=== PATIENT | male | born 1965 | race Caucasian/White ===

== ENCOUNTER 2017-12-21 13:57 | Emergency (ER) | payer OTHER ==
[2017-12-21] MEDS ORDERED: PANTOPRAZOLE 40 MG/10 ML VIAL IVP STA (14:08)
[2017-12-21] MEDS ORDERED: SODIUM CHLORIDE 0.9% 500 ML IV STA (14:08)
[2017-12-21] MEDS ORDERED: SODIUM CHLORIDE 0.9% 1,000 ML IV STA ×2 (14:08)
[2017-12-21] MEDS ORDERED: ONDANSETRON 4 MG/2 ML VIAL IVP STA (14:08)
[2017-12-21] MEDS ORDERED: MORPHINE SULFATE 4 MG/ML SYRINGE IV STA (14:08)
[2017-12-21 14:11] VITALS: RESP 16
[2017-12-21 14:18] LABS: Basophils # (A) 0.1 k/uL (0-0.2); Basophils % (A) 1 %; Eosinophils # (A) 0.1 k/uL (0-0.7); Eosinophils % (A) 2 %; HCT 53.3 % (39.0-53.0); Lymphocytes # (A) 0.7 k/uL (1.0-4.8); Lymphocytes % (A) 9 %; MCH 29.4 pg (25.0-35.0); MCHC 31.8 g/dL (31.0-37.0); MCV 92.5 fL (80.0-100.0); Mean Platelet Volume 6.5; Monocytes # (A) 0.2 k/uL (0-1.0); Monocytes % (A) 3 %; Neutrophils # (A) 6.6 k/uL (1.3-7.7); Neutrophils % (A) 85 %; Platelet Count 306 k/uL (150-450); RBC 5.76 m/uL (4.30-5.90); RDW 13.9 % (11.5-15.5); WBC 7.7 k/uL (3.8-10.6)
[2017-12-21 14:27] LABS: ALT 18 U/L (21-72); AST 29 U/L (17-59); Albumin 4.7 g/dL (3.5-5.0); Alkaline Phosphatase 64 U/L (38-126); Amylase 121 U/L (30-110); Anion Gap 13 mmol/L; Blood Urea Nitrogen 9 mg/dL (9-20); Calcium 9.5 mg/dL (8.4-10.2); Carbon Dioxide 20 mmol/L (22-30); Chloride 112 mmol/L (98-107); Glucose 103 mg/dL (74-99); Lipase 153 U/L (23-300); Sodium 145 mmol/L (137-145); Total Bilirubin 0.6 mg/dL (0.2-1.3); Total Protein 7.6 g/dL (6.3-8.2)
[2017-12-21 14:43] LABS: Creatine Kinase 175 U/L (55-170)
[2017-12-21 14:46] LABS: Potassium 4.6 mmol/L (3.5-5.1)
[2017-12-21 14:56] LABS: Creatine Kinase MB 0.9 ng/mL (0.0-2.4); Troponin I <0.012 ng/mL (0.000-0.034)
--- NOTE | 2017-12-21 16:04 | ED ---
General Adult HPI - General Chief complaint: Abdominal Pain Stated complaint: NVD Time Seen by Provider: 12/21/17 14:08 Source: patient, RN/MD, RN notes reviewed, old records reviewed Mode of arrival: EMS - History of Present Illness Initial comments: This is a 52-year-old male to the ER for evaluation nausea vomiting diarrhea GI illness. Patient has no known sick contacts no travel history. Denies fever denies abdominal pain. Patient states he is just unable to keep food down at home. No recent change in medications. No modifying factors or modifying symptoms for - Related Data Home Medications Medication Instructions Recorded Confirmed tiZANidine [Zanaflex] 4 mg PO Q8HR PRN 04/02/16 12/21/17 HYDROcodone/APAP 5-325MG [[place] 1 tab PO TID PRN 12/21/17 12/21/17 5-325] Meloxicam [Mobic] 15 mg PO DAILY 12/21/17 12/21/17 Topiramate [Topamax] 50 mg PO BID 12/21/17 12/21/17 Previous Rx's Medication Instructions Recorded Famotidine [Pepcid] 20 mg PO BID #28 tablet 12/21/17 Ondansetron Odt [Zofran ODT] 4 mg PO Q8HR PRN #30 tab 12/21/17 Allergies Allergy/AdvReac Type Severity Reaction Status Date / Time No Known Allergies Allergy Verified 04/02/16 23:47 Review of Systems ROS Statement: Those systems with pertinent positive or pertinent negative responses have been documented in the HPI. ROS Other: All systems not noted in ROS Statement are negative. Past Medical History Past Medical History: Coronary Artery Disease (CAD), Chest Pain / Angina, Hyperlipidemia, Hypertension, Neurologic Disorder Additional Past Medical History / Comment(s): peripheral neuropathy History of Any Multi-Drug Resistant Organisms: None Reported Past Surgical History: Heart Catheterization, Hernia Repair, Orthopedic Surgery Additional Past Surgical History / Comment(s): cervical fusion Past Anesthesia/Blood Transfusion Reactions: Postoperative Nausea & Vomiting ( PONV) Past Psychological History: Depression Smoking Status: Current some day smoker Past Alcohol Use History: Occasional Past Drug Use History: Marijuana - Past Family History Mother Family Medical History: Chest Pain / Angina, Coronary Artery Disease (CAD) Father Family Medical History: Chest Pain / Angina, Coronary Artery Disease (CAD) Additional Family Medical History / Comment(s): pts. father has a-fib General Exam General appearance: alert, in no apparent distress Head exam: Present: atraumatic, normocephalic, normal inspection Eye exam: Present: normal appearance, PERRL, EOMI. Absent: scleral icterus, conjunctival injection, periorbital swelling ENT exam: Present: normal exam, mucous membranes moist Neck exam: Present: normal inspection. Absent: tenderness, meningismus, lymphadenopathy Respiratory exam: Present: normal lung sounds bilaterally. Absent: respiratory distress, wheezes, rales, rhonchi, stridor Cardiovascular Exam: Present: regular rate, normal rhythm, normal heart sounds. Absent: systolic murmur, diastolic murmur, rubs, gallop, clicks GI/Abdominal exam: Present: soft, normal bowel sounds. Absent: distended, tenderness, guarding, rebound, rigid Extremities exam: Present: normal inspection, full ROM, normal capillary refill. Absent: tenderness, pedal edema, joint swelling, calf tenderness Back exam: Present: normal inspection Neurological exam: Present: alert, oriented X3, CN II-XII intact Psychiatric exam: Present: normal affect, normal mood Skin exam: Present: warm, dry, intact, normal color. Absent: rash Course Vital Signs 12/21/17 12/21/17 14:03 17:05 Temperature 98.2 F 98 F Pulse Rate 89 87 Respiratory 16 16 Rate Blood Pressure 160/106 160/98 O2 Sat by Pulse 100 98 Oximetry Medical Decision Making - Medical Decision Making 52 male the ER for evaluation nausea vomiting diarrhea. Patient feels significantly improved, patient can be discharged - Lab Data Result diagrams: 12/21/17 14:07 12/21/17 14:07 Lab Results 12/21/17 12/21/17 12/21/17 Range/Units 14:07 14:07 14:07 WBC 7.7 (3.8-10.6) k/uL RBC 5.76 (4.30-5.90) m/uL Hgb 17.0 (13.0-17.5) gm/dL Hct 53.3 H (39.0-53.0) % MCV 92.5 (80.0-100.0) fL MCH 29.4 (25.0-35.0) pg MCHC 31.8 (31.0-37.0) g/dL RDW 13.9 (11.5-15.5) % Plt Count 306 (150-450) k/uL Neutrophils % 85 % Lymphocytes % 9 % Monocytes % 3 % Eosinophils % 2 % Basophils % 1 % Neutrophils # 6.6 (1.3-7.7) k/uL Lymphocytes # 0.7 L (1.0-4.8) k/uL Monocytes # 0.2 (0-1.0) k/uL Eosinophils # 0.1 (0-0.7) k/uL Basophils # 0.1 (0-0.2) k/uL Sodium 145 (137-145) mmol/L Potassium 4.6 (3.5-5.1) mmol/L Chloride 112 H (98-107) mmol/L Carbon Dioxide 20 L (22-30) mmol/L Anion Gap 13 mmol/L BUN 9 (9-20) mg/dL Creatinine 0.90 (0.66-1.25) mg/dL Est GFR (MDRD) Af Amer >60 (>60 ml/min/1.73 sqM) Est GFR (MDRD) Non-Af >60 (>60 ml/min/1.73 sqM) Glucose 103 H (74-99) mg/dL Lactic Ac Sepsis Rflx Plasma Lactic Acid Ervin (0.7-2.0) mmol/L Calcium 9.5 (8.4-10.2) mg/dL Total Bilirubin 0.6 (0.2-1.3) mg/dL AST 29 (17-59) U/L ALT 18 L (21-72) U/L Alkaline Phosphatase 64 (38-126) U/L Total Creatine Kinase 175 H (55-170) U/L CK-MB (CK-2) 0.9 (0.0-2.4) ng/mL CK-MB (CK-2) Rel Index 0.5 Troponin I <0.012 (0.000-0.034) ng/mL Total Protein 7.6 (6.3-8.2) g/dL Albumin 4.7 (3.5-5.0) g/dL Amylase 121 H (30-110) U/L Lipase 153 (23-300) U/L 12/21/17 12/21/17 Range/Units 14:19 14:52 WBC (3.8-10.6) k/uL RBC (4.30-5.90) m/uL Hgb (13.0-17.5) gm/dL Hct (39.0-53.0) % MCV (80.0-100.0) fL MCH (25.0-35.0) pg MCHC (31.0-37.0) g/dL RDW (11.5-15.5) % Plt Count (150-450) k/uL Neutrophils % % Lymphocytes % % Monocytes % % Eosinophils % % Basophils % % Neutrophils # (1.3-7.7) k/uL Lymphocytes # (1.0-4.8) k/uL Monocytes # (0-1.0) k/uL Eosinophils # (0-0.7) k/uL Basophils # (0-0.2) k/uL Sodium (137-145) mmol/L Potassium (3.5-5.1) mmol/L Chloride (98-107) mmol/L Carbon Dioxide (22-30) mmol/L Anion Gap mmol/L BUN (9-20) mg/dL Creatinine (0.66-1.25) mg/dL Est GFR (MDRD) Af Amer (>60 ml/min/1.73 sqM) Est GFR (MDRD) Non-Af (>60 ml/min/1.73 sqM) Glucose (74-99) mg/dL Lactic Ac Sepsis Rflx Y Plasma Lactic Acid Ervin 2.3 H* (0.7-2.0) mmol/L Calcium (8.4-10.2) mg/dL Total Bilirubin (0.2-1.3) mg/dL AST (17-59) U/L ALT (21-72) U/L Alkaline Phosphatase (38-126) U/L Total Creatine Kinase (55-170) U/L CK-MB (CK-2) (0.0-2.4) ng/mL CK-MB (CK-2) Rel Index Troponin I (0.000-0.034) ng/mL Total Protein (6.3-8.2) g/dL Albumin (3.5-5.0) g/dL Amylase (30-110) U/L Lipase (23-300) U/L Disposition Clinical Impression: Abdominal pain Disposition: HOME SELF-CARE Condition: Good Instructions: Abdominal Pain (ED) Prescriptions: Famotidine [Pepcid] 20 mg PO BID #28 tablet Ondansetron Odt [Zofran ODT] 4 mg PO Q8HR PRN #30 tab PRN Reason: nausea/vomiting Referrals: Aminata Rodriguez MD [Primary Care Provider] - 1-2 days
[2017-12-21 17:06] VITALS: BP 160/98; PULSE 87; TEMP 98
== END 2017-12-21 15:47 | disposition home or self-care (01) ==
LOC: EC 13:57
DX: R10.9 Unspecified abdominal pain (principal); R11.2 Nausea with vomiting, unspecified; R19.7 Diarrhea, unspecified; G62.9 Polyneuropathy, unspecified; F17.200 Nicotine dependence, unspecified, uncomplicated; Z79.1 Long term (current) use of non-steroidal anti-inflammatories (NSAID); Z79.899 Other long term (current) drug therapy
CPT/HCPCS: 99285; 96374; 96375 ×2; 36415; 80053; 82150; 82550; 82553; 83605; 83690; 84484; 85025; J2270; J2405; C9113

== ENCOUNTER 2018-04-05 09:20 | Inpatient (IN) | payer OTHER ==
[2018-04-05] MEDS ORDERED: NITROGLYCERIN SL TABS 0.4 MG TAB SUBLINGUAL STA ×3 (09:42)
[2018-04-05] MEDS ORDERED: ASPIRIN 81 MG PO STA (09:42)
[2018-04-05] MEDS ORDERED: SODIUM CHLORIDE 0.9% 500 ML IV STA (09:42)
[2018-04-05] MEDS ORDERED: ATORVASTATIN 80 MG TAB PO STA (09:42)
[2018-04-05] MEDS ORDERED: HEPARIN SODIUM,PORCINE 5,000 UNIT/ML 1 ML VIAL IV ONE (09:43)
[2018-04-05] MEDS ORDERED: ONDANSETRON 4 MG/2 ML VIAL IVP STA (09:50)
--- NOTE | 2018-04-05 09:51 | ED ---
General Adult HPI - General Chief complaint: Chest Pain Stated complaint: Chest pain Time Seen by Provider: 04/05/18 09:30 Source: patient, RN notes reviewed Mode of arrival: wheelchair Limitations: no limitations - History of Present Illness Initial comments: This is a 53-year-old male who presents emergency Department with chest pain. Patient denies any radiation of the pain. Patient states he is however short of breath diaphoretic and nauseated. Patient also has a smoking history has high blood pressure high cholesterol has a strong family history of heart disease. Patient denies any recent fever chills or cough. Patient denies abdominal pain. Patient denies any headache patient denies numbness weakness. Patient denies lightheadedness dizziness or near syncopal episode. Patient states he took his blood pressure medication prior to arrival. Patient denies taking any nitro or aspirin at home. - Related Data Home Medications Medication Instructions Recorded Confirmed tiZANidine [Zanaflex] 4 mg PO Q8HR PRN 04/02/16 12/21/17 HYDROcodone/APAP 5-325MG [[place] 1 tab PO TID PRN 12/21/17 12/21/17 5-325] Meloxicam [Mobic] 15 mg PO DAILY 12/21/17 12/21/17 Topiramate [Topamax] 50 mg PO BID 12/21/17 12/21/17 Previous Rx's Medication Instructions Recorded Famotidine [Pepcid] 20 mg PO BID #28 tablet 12/21/17 Ondansetron Odt [Zofran ODT] 4 mg PO Q8HR PRN #30 tab 12/21/17 Allergies Allergy/AdvReac Type Severity Reaction Status Date / Time No Known Allergies Allergy Verified 04/05/18 09:24 Review of Systems ROS Statement: Those systems with pertinent positive or pertinent negative responses have been documented in the HPI. ROS Other: All systems not noted in ROS Statement are negative. Past Medical History Past Medical History: Coronary Artery Disease (CAD), Chest Pain / Angina, Hyperlipidemia, Hypertension, Myocardial Infarction ([place]), Neurologic Disorder Additional Past Medical History / Comment(s): peripheral neuropathy History of Any Multi-Drug Resistant Organisms: None Reported Past Surgical History: Heart Catheterization, Hernia Repair, Orthopedic Surgery Additional Past Surgical History / Comment(s): cervical fusion Past Anesthesia/Blood Transfusion Reactions: Postoperative Nausea & Vomiting ( PONV) Past Psychological History: Depression Smoking Status: Current every day smoker Past Alcohol Use History: Occasional Past Drug Use History: Marijuana - Past Family History Mother Family Medical History: Chest Pain / Angina, Coronary Artery Disease (CAD) Father Family Medical History: Chest Pain / Angina, Coronary Artery Disease (CAD) Additional Family Medical History / Comment(s): pts. father has a-fib General Exam - General Exam Comments Initial Comments: GENERAL: Patient is well-developed and well-nourished. Patient is nontoxic and well- hydrated and is in mild distress. Patient is diaphoretic ENT: Neck is soft and supple. No significant lymphadenopathy is noted. Oropharynx is clear. Moist mucous membranes. Neck has full range of motion without eliciting any pain. EYES: The sclera were anicteric and conjunctiva were pink and moist. Extraocular movements were intact and pupils were equal round and reactive to light. Eyelids were unremarkable. PULMONARY: Unlabored respirations. Good breath sounds bilaterally. No audible rales rhonchi or wheezing was noted. CARDIOVASCULAR: There is a regular rate and rhythm without any murmurs gallops or rubs. ABDOMEN: Soft and nontender with normal bowel sounds. No palpable organomegaly was noted. There is no palpable pulsatile mass. SKIN: Skin is clear with no lesions or rashes and otherwise unremarkable. NEUROLOGIC: Patient is alert and oriented x3. Cranial nerves II through XII are grossly intact. Motor and sensory are also intact. Normal speech, volume and content. Symmetrical smile. MUSCULOSKELETAL: Normal extremities with adequate strength and full range of motion. No lower extremity swelling or edema. No calf tenderness. LYMPHATICS: No significant lymphadenopathy is noted PSYCHIATRIC: Normal psychiatric evaluation. Normal interpersonal interactions appears functionally intact in deals appropriately with others. No signs of depression. No signs of anxiety. Limitations: no limitations Course Vital Signs 04/05/18 09:22 Temperature 98.2 F Pulse Rate 68 Respiratory 24 Rate Blood Pressure 203/115 O2 Sat by Pulse 96 Oximetry Medical Decision Making - Medical Decision Making EKG shows a sinus rhythm at a rate of 69 bpm [place] interval is 162 QRS is 102 QT interval 424 QTC is 454. Patient's EKG shows ST segment elevation in leads II, III, and F aVF with ST segment depression in leads V1 and V2. Patient appears to be having an acute [place]. I spoke with Dr. Murry after I called a STEMI overhead. Patient will be prepped for the catheterization lab. I gave the patient nitroglycerin aspirin heparin bolus and Lipitor. Patient also received Zofran because he was nauseated. Critical Care Time Critical Care Time: Yes Total Critical Care Time: 35 Disposition Clinical Impression: ST elevation myocardial infarction (STEMI) Disposition: ADMITTED IP TO THIS HOSP Referrals: Aminata Rodriguez MD [Primary Care Provider] - 1-2 days Time of Disposition: 09:51
[2018-04-05 09:57] LABS: Basophils # (A) 0.1 k/uL (0-0.2); Basophils % (A) 1 %; Eosinophils # (A) 0.1 k/uL (0-0.7); Eosinophils % (A) 2 %; HCT 50.9 % (39.0-53.0); HGB 17.1 gm/dL (13.0-17.5); Lymphocytes # (A) 1.2 k/uL (1.0-4.8); Lymphocytes % (A) 15 %; MCH 30.1 pg (25.0-35.0); MCHC 33.6 g/dL (31.0-37.0); MCV 89.6 fL (80.0-100.0); Mean Platelet Volume 6.5; Monocytes # (A) 0.4 k/uL (0-1.0); Monocytes % (A) 4 %; Neutrophils # (A) 6.2 k/uL (1.3-7.7); Neutrophils % (A) 77 %; Platelet Count 270 k/uL (150-450); RBC 5.68 m/uL (4.30-5.90); RDW 13.7 % (11.5-15.5)
[2018-04-05] MEDS ORDERED: NITROGLYCERIN-D5W PMX 50 MG in DEXTROSE/WATER 1 250ML.BAG IV SCH (10:00)
[2018-04-05 10:06] LABS: Albumin 4.8 g/dL (3.5-5.0); Calcium 9.8 mg/dL (8.4-10.2); Partial Thromboplastin Time 27.5 sec (22.0-30.0); Potassium 4.2 mmol/L (3.5-5.1); Prothrombin Time 9.5 sec (9.0-12.0); Total Bilirubin 0.4 mg/dL (0.2-1.3); Total Protein 7.5 g/dL (6.3-8.2)
--- NOTE | 2018-04-05 10:12 | XR ---
EXAMINATION TYPE: XR chest 1V DATE OF EXAM: 04/05/2018 COMPARISON: Prior chest x-ray November 25, 2015. HISTORY: ST elevated myocardial infarction TECHNIQUE: Single frontal view of the chest is obtained. FINDINGS: Overlying EKG wires are present. There is no focal air space opacity, pleural effusion, or pneumothorax seen. The cardiac silhouette size is within normal limits. Retrocardiac opacity could reflect small hiatal hernia. The osseous structures are intact. IMPRESSION: No acute pulmonary process.
[2018-04-05] MEDS ORDERED: SODIUM CHLORIDE 0.9% 1,000 ML IV ONE (10:30)
[2018-04-05] MEDS ORDERED: LIDOCAINE 2% INJ 20 MG/ML SQ ONE (10:32)
[2018-04-05] MEDS ORDERED: diphenhydrAMINE 50 MG/ML 1 ML VIAL IVP ONE (10:33)
[2018-04-05] MEDS ORDERED: fentaNYL (PF) 50 MCG/ML 2 ML AMP IVP ONE (10:33)
[2018-04-05] MEDS ORDERED: fentaNYL (PF) 50 MCG/ML 2 ML AMP ONE (10:35)
[2018-04-05] MEDS ORDERED: diphenhydrAMINE 50 MG/ML 1 ML VIAL ONE (10:35)
[2018-04-05 10:40] LABS: Creatine Kinase MB 4.3 ng/mL (0.0-2.4); Troponin I 0.748 ng/mL (0.000-0.034)
[2018-04-05] MEDS ORDERED: METOPROLOL TARTRATE 5 MG/5 ML VIAL IVP ONE ×2 (10:44→10:46)
[2018-04-05] MEDS: NITROGLYCERIN 1000MCG/10ML SYRINGE INTRAARTER ONE ×2 (10:47→11:32)
[2018-04-05] MEDS ORDERED: BIVALIRUDIN BOLUS 250 MG/50 ML IV ONE (10:54)
[2018-04-05] MEDS ORDERED: BIVALIRUDIN 250 MG in SODIUM CHLORIDE 0.9% 50 ML IV ONE (10:55)
[2018-04-05] MEDS ORDERED: IOPAMIDOL-370 125ML BTL INJ ONE (10:59)
[2018-04-05] MEDS ORDERED: MIDAZOLAM 2 MG/2 ML VIAL ONE (11:02)
[2018-04-05] MEDS ORDERED: MIDAZOLAM 2 MG/2 ML VIAL IVP ONE (11:02)
--- NOTE | 2018-04-05 11:19 | CONS ---
CONSULTATION DATE OF SERVICE: 04/05/2018. 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 He came into the hospital with chest pain starting at about 6 in the morning, heavy pressure, with diaphoresis, suggestive of acute myocardial ischemia. His EKG revealed inferior ST elevation and a STEMI alert was called. I evaluated the patient in the emergency room. He is hemodynamically stable. His pain has improved somewhat. He received 3 sublingual nitroglycerin and also probably some morphine as well. His blood pressure is good. He smokes marijuana and cigarettes on a regular basis. Does not drink alcohol. He has significant back discomfort and has been having some radiofrequency ablation of some nerves in the back by Dr. Brown. He does not have any syncope or near-syncope type symptoms. PAST MEDICAL HISTORY: 1. Past medical history is remarkable for myocardial infarction with PTCA of a PLV branch. Details are not clear. 2. History of smoking cigarettes and marijuana. 3. History of degenerative joint disease of cervical spine for which he had surgery in the past. He has also had some hernia operation as well. He has had a cervical spine fusion surgery performed. He still has issues with back pain and takes some radiofrequency injections and stopped all his medications including aspirin. He stopped taking atorvastatin which he was on 2 years ago. PHYSICAL EXAM: Blood pressure of 150/90, pulse rate is about 78 per minute regular. HEENT: Unremarkable. Fundus was not examined by me. NECK: Supple. No JVD. I do not hear a carotid bruit. There is no thyromegaly. HEART: Exam reveals S1, S2 heard normally. No rub, murmur or gallop. LUNGS: Clear. ABDOMEN: Soft, nontender. Lower extremities reveal normal pulses. No edema. CENTRAL NERVOUS SYSTEM: Normal. EKG revealed sinus mechanism with inferior ST elevation and precordial ST depression. IMPRESSION: 1. Acute inferior ST elevation myocardial infarction. 2. Marijuana and tobacco abuse. 3. History of prior PLV occlusion, details unclear. 4. History of cervical spine surgery. RECOMMENDATIONS: I am recommending urgent cardiac catheterization and PCI if indicated. Risks, benefits, options, rationale were explained to the patient and . They understand all details and wished to proceed with the procedure. MMODL / IJN: [id number] / MTDD
[2018-04-05] MEDS ORDERED: niCARdipine 25 MG/10 ML VIAL ONE (11:24)
[2018-04-05] MEDS ORDERED: niCARdipine Syringe (1,000 mcg/10 mL) INTRACORON ONE (11:27)
[2018-04-05] MEDS ORDERED: TICAGRELOR 90 MG TAB ONE (11:36)
[2018-04-05] MEDS ORDERED: TICAGRELOR 90 MG TAB PO ONE (11:37)
[2018-04-05] MEDS ORDERED: MORPHINE SULF 5MG/10ML VL ONE (11:38)
[2018-04-05] MEDS ORDERED: MORPHINE SULF 5MG/10ML VL IVP ONE ×2 (11:39)
[2018-04-05] MEDS ORDERED: IOPAMIDOL-370 100ML BTL INJ ONE (11:41)
[2018-04-05] MEDS ORDERED: ATROPINE SULFATE 0.1 MG/ML 10ML SYRINGE IV PRN (11:54)
[2018-04-05] MEDS ORDERED: MAG HYDROX/AL HYDROX/SIMETH 30 ML CUP PO PRN (11:54)
[2018-04-05] MEDS ORDERED: RX INFO: IV CONTRAST WAS GIVEN 1 EACH MISC MISCELLANE PRN (11:54)
[2018-04-05] MEDS ORDERED: NITROGLYCERIN SL TABS 0.4 MG TAB SUBLINGUAL PRN (11:54)
[2018-04-05] MEDS ORDERED: ZOLPIDEM 5 MG TAB PO PRN (11:54)
[2018-04-05 12:28] LABS: Glucose,Whole Blood 124 mg/dL (75-99)
[2018-04-05] MEDS: NICOTINE 14MG/24HR PATCH TRANSDERM SCH (14:09)
--- NOTE | 2018-04-05 14:22 | P.HPIM ---
History of Present Illness H&P Date: 04/05/18 Devendra Magdaleno, is a 53-year-old male who presented to [facility] emergency Department with a chief complaint of chest pain. Patient states that he woke up at 6 AM this morning with a feeling of pressure in the middle of his chest Patient denies any radiation of the pain. Patient also was having shortness of breath diaphoresis and nausea but no vomiting. Patient has a known history of coronary artery disease was previous history of myocardial infarction in 2009 at time he had angioplasty but there was no stent placement. His cardiac risk factors also include hypertension, hyperlipidemia, cigarette smoking , and a strong family history of coronary artery disease. On review of system patient denies any fever or chills no headache or dizziness no cough no vomiting no abdominal pain no burning with urination no frequency or urgency and no hematuria Past Medical History Past Medical History: Coronary Artery Disease (CAD), Chest Pain / Angina, Hyperlipidemia, Hypertension, Myocardial Infarction ([place]), Neurologic Disorder Additional Past Medical History / Comment(s): peripheral neuropathy Last Myocardial Infarction Date:: 2009 History of Any Multi-Drug Resistant Organisms: None Reported Past Surgical History: Heart Catheterization, Hernia Repair, Orthopedic Surgery Additional Past Surgical History / Comment(s): cervical fusion Past Anesthesia/Blood Transfusion Reactions: Postoperative Nausea & Vomiting ( PONV) Past Psychological History: Depression Additional Psychological History / Comment(s): pt. states," my depression and i are cool together" Smoking Status: Current every day smoker Past Alcohol Use History: Occasional Past Drug Use History: Marijuana - Past Family History Mother Family Medical History: Hypertension, Osteoarthritis (OA), Thyroid Disorder Father Family Medical History: Chest Pain / Angina, Coronary Artery Disease (CAD) Additional Family Medical History / Comment(s): pts. father has a-fib, leukemia Medications and Allergies Home Medications Medication Instructions Recorded Confirmed Type tiZANidine [Zanaflex] 4 mg PO Q8HR PRN 04/02/16 12/21/17 History Famotidine [Pepcid] 20 mg PO BID #28 tablet 12/21/17 Rx HYDROcodone/APAP 5-325MG [[place] 1 tab PO TID PRN 12/21/17 12/21/17 History 5-325] Meloxicam [Mobic] 15 mg PO DAILY 12/21/17 12/21/17 History Ondansetron Odt [Zofran ODT] 4 mg PO Q8HR PRN #30 tab 12/21/17 Rx Topiramate [Topamax] 50 mg PO BID 12/21/17 12/21/17 History Allergies Allergy/AdvReac Type Severity Reaction Status Date / Time No Known Allergies Allergy Verified 04/05/18 09:24 Physical Exam Vitals: Vital Signs Temp Pulse Resp BP BP Pulse Ox 04/05/18 13:09 20 169/110 95 04/05/18 12:39 98 F 18 146/92 96 04/05/18 12:24 98.0 F 18 146/92 96 04/05/18 10:12 98.0 F 18 145/91 96 04/05/18 10:10 75 18 166/105 99 04/05/18 10:05 65 16 159/101 100 04/05/18 09:42 73 18 167/104 100 04/05/18 09:30 62 18 184/102 100 04/05/18 09:22 98.2 F 68 24 203/115 96 Intake and Output 04/04/18 04/05/18 04/05/18 22:59 06:59 14:59 Intake Total 345 Output Total 300 Balance 45 Intake: IV 345 Output: Urine 300 Other: Weight 79.379 kg HEENT head normocephalic and atraumatic Neck is supple no JVD no goiter no lymphadenopathy Chest exam reveals a few scattered crackles no wheezing Cardiac exam reveals regular heart sounds no gallops no murmurs Abdomen is soft nontender no organomegaly Extremity exam reveals no edema no cyanosis or clubbing Results CBC & Chem 7: 04/05/18 09:48 04/05/18 09:48 Labs: Abnormal Lab Results - Last 24 Hours (Table) 04/05/18 04/05/18 04/05/18 Range/Units 09:48 09:48 12:23 Chloride 109 H (98-107) mmol/L Glucose 116 H (74-99) mg/dL POC Glucose (mg/dL) 124 H (75-99) mg/dL Total Creatine Kinase 327 H (55-170) U/L CK-MB (CK-2) 4.3 H* (0.0-2.4) ng/mL Troponin I 0.748 H* (0.000-0.034) ng/mL 04/05/18 Range/Units 12:36 Chloride (98-107) mmol/L Glucose (74-99) mg/dL POC Glucose (mg/dL) (75-99) mg/dL Total Creatine Kinase (55-170) U/L CK-MB (CK-2) (0.0-2.4) ng/mL Troponin I 6.610 H* (0.000-0.034) ng/mL Thrombosis Risk Factor Assmnt - Choose All That Apply Each Factor Represents 1 point: Acute [place], Age 41-60 years Thrombosis Risk Factor Assessment Total Risk Factor Score: 2 Thrombosis Risk Factor Assessment Level: Low Risk Assessment and Plan Plan: #[address] elevation myocardial infarction #2 underlying history of hypertension #3 underlying history of hyperlipidemia #4 tobacco abuse #5 previous history of degenerative disc disease was previous neck surgery On arrival to emergency room patient was 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
[2018-04-05] MEDS ORDERED: amLODIPine 5 MG TAB PO STA (14:46)
[2018-04-05] MEDS: ONDANSETRON 4 MG/2 ML VIAL IVP PRN ×2 (15:00→21:29)
[2018-04-05] MEDS: SODIUM CHLORIDE 0.9% 1,000 ML IV SCH (15:11)
--- NOTE | 2018-04-05 16:13 | CC ---
CARDIAC CATHETERIZATION REPORT DATE OF SERVICE: 04/05/2018. PROCEDURE: 1. Left heart catheterization, coronary angiography. 2. PTCA and stenting of mid right coronary artery with a drug-eluting stent. PERFORMED BY: Dr. Zenobia Murry. ANESTHESIA: Moderate conscious sedation time was 70 minutes. Patient was monitored closely for oxygen saturation, hemodynamics and EKG. CLINICAL INFORMATION: Mr. Devendra Magdaleno is a 53-year-old gentleman with a known history of CAD who presented with acute UT and underwent stenting of a PLV branch, which was a very difficult procedure to perform in 2009 and this vessel was totally occluded in 2010. 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 He came into the hospital with classic symptoms of chest discomfort and had inferior ST elevation was promptly advised cardiac catheterization. Risks, benefits, and options were explained to the patient and . PROCEDURE NOTE: Under local anesthesia and strict aseptic precautions, a 6-Argentine introducer was placed in the right femoral artery. I used a standard right Jose guide catheter to cannulate the right coronary artery noted that was totally occluded in the circumflex actually arising from the right coronary artery. I then did selective coronary angiography of the left system using a standard left Jose catheter and checked LV pressures but did not perform a LV-gram. After this, I proceeded to perform intervention of the totally occluded RCA which is a technically very difficult procedure with because of extreme tortuosity. CARDIAC CATHETERIZATION FINDINGS: The left ventricle end-diastolic pressure was 8-10 mmHg without any gradient across aortic valve. CORONARY ANGIOGRAPHY FINDINGS: The right coronary artery: This vessel is totally occluded and seen as a stump after a conus branch and acute marginal branch which is highly diseased. The mid LAD is therefore totally occluded proximal LAD has a 40% lesion. Interestingly, a circumflex branch actually comes off from the proximal aspect of the RCA, runs to the left and supplies the circumflex distribution. Circumflex has in itself an 80% lesion. RCA is 100% stenosis. Circumflex that arises from the RCA has 80% lesion. Left anterior descending coronary artery: This vessel is of good caliber, gives off a large diagonal branch proximally, has minor irregularities and then the mid LAD has about a 70% lesion eccentric in nature with calcification and then runs all the way to the apex to supply a sizable amount of myocardium. The mid LAD therefore has a 70% lesion very eccentric in nature and diagonal is free of significant disease. There are several small septal branches that are free of significant disease also. Circumflex coronary artery: This vessel has a separate origin and it comes from the right coronary artery. It is very tortuous, goes to the left, has a 70-80% lesion and gives off into 3 different branches that curves over to supply the lateral wall and there are multiple lesions in the circumflex vessel, but this does not appear to be the culprit lesion at this time. There are at least two 70-80% lesions in the circumflex system. FINAL IMPRESSION: 1. This patient has total occlusion of RCA which is the culprit lesion. Circumflex coming from the RCA has a has at least 2 areas of 70 and 90% and is a small caliber vessel, but it appears supply a fair amount of myocardium. 2. Left anterior descending coronary artery, this vessel has a mid lesion of about 70% heavily calcified and the diagonal is large, free of significant disease. The left ventricle end-diastolic pressure is normal and there is no gradient across aortic valve. RECOMMENDATION: I recommended PCI of RCA and proceeded to perform this in the same setting. PCI DETAILS: A standard right Jose guide catheter was used to cannulate the right coronary artery. I tried a BMW wire initially, then switched over to a Whisper wire. With this I was able to cross the lesion, wire was kept distally. I performed a dilatation of the total occlusion with a 3.0 caliber 12 mm balloon. I then used a used a GuideLiner and with the help of the GuideLiner, I was able to advance a 3.25 caliber 12 mm long Xience stent and deployed this at 14 atmospheres. Using the same GuideLiner, I advanced a 3.75 caliber 12 mm NC Trek balloon and post dilated this stent with it up to 14 atmospheres. Distally it appeared that there was a tight lesion in the PDA branch and also PLV was occluded as well. PLV was occluded distally without much flow beyond. I decided not to do any intervention of the PDA branch at this time. The proximal RCA had about a 40% to 50% lesion. I took multiple angiograms and noted that the lesion was no more than 40% and did not pursue intervention of the proximal RCA. The mid RCA therefore was stented with a drug-eluting stent. Excellent angiographic result was achieved without complication. The sheath was taken out and a Perclose device used to secure hemostasis and he was sent to the room in stable condition. Results were discussed with the patient, but his was not available. MMOWEN / VIKASHN: [id number] /
[2018-04-05] MEDS ORDERED: tiZANidine 4 MG TAB PO PRN (16:36)
[2018-04-05] MEDS ORDERED: amLODIPine 5 MG TAB PO SCH (21:00)
[2018-04-05] MEDS: TOPIRAMATE 25 MG TAB PO SCH (21:28)
[2018-04-05] MEDS ORDERED: LISINOPRIL 20 MG TAB PO ONE (21:37)
[2018-04-06] MEDS: SODIUM CHLORIDE 0.9% 1,000 ML IV SCH ×2 (02:23→16:23)
[2018-04-06 03:49] LABS: Basophils # (A) 0.1 k/uL (0-0.2); Basophils % (A) 0 %; Eosinophils # (A) 0.1 k/uL (0-0.7); Eosinophils % (A) 1 %; HCT 47.2 % (39.0-53.0); HGB 15.9 gm/dL (13.0-17.5); Lymphocytes # (A) 1.6 k/uL (1.0-4.8); Lymphocytes % (A) 11 %; MCH 30.5 pg (25.0-35.0); MCHC 33.8 g/dL (31.0-37.0); MCV 90.2 fL (80.0-100.0); Mean Platelet Volume 6.4; Monocytes # (A) 1.1 k/uL (0-1.0); Monocytes % (A) 7 %; Neutrophils # (A) 12.3 k/uL (1.3-7.7); Neutrophils % (A) 80 %; Platelet Count 278 k/uL (150-450); RBC 5.23 m/uL (4.30-5.90); RDW 13.6 % (11.5-15.5); WBC 15.4 k/uL (3.8-10.6)
[2018-04-06 04:04] LABS: ALT 50 U/L (21-72); AST 196 U/L (17-59); Albumin 3.7 g/dL (3.5-5.0); Alkaline Phosphatase 73 U/L (38-126); Anion Gap 11 mmol/L; Blood Urea Nitrogen 12 mg/dL (9-20); Calcium 9.2 mg/dL (8.4-10.2); Carbon Dioxide 19 mmol/L (22-30); Chloride 110 mmol/L (98-107); Glucose 101 mg/dL (74-99); Magnesium 1.9 mg/dL (1.6-2.3); Phosphorus 3.5 mg/dL (2.5-4.5); Potassium 3.5 mmol/L (3.5-5.1); Sodium 140 mmol/L (137-145); Total Bilirubin 0.6 mg/dL (0.2-1.3)
[2018-04-06] MEDS: NITROGLYCERIN OINT 1 INCH/GM PACKET TOPICAL SCH ×5 (05:30→23:36)
[2018-04-06] MEDS: amLODIPine 5 MG TAB PO SCH ×2 (08:09→20:57)
[2018-04-06] MEDS: DULoxetine HCL 30 MG CAPSULE.DR PO SCH (08:09)
[2018-04-06] MEDS: MELOXICAM 7.5 MG TAB PO SCH (08:09)
[2018-04-06] MEDS: ASPIRIN 81 MG PO SCH (08:09)
[2018-04-06] MEDS: TOPIRAMATE 25 MG TAB PO SCH ×2 (08:10→20:59)
[2018-04-06] MEDS: TICAGRELOR 90 MG TAB PO SCH ×2 (08:10→20:58)
[2018-04-06] MEDS: NICOTINE 14MG/24HR PATCH TRANSDERM SCH (08:10)
[2018-04-06] MEDS ORDERED: METOPROLOL TARTRATE 12.5 MG TAB PO STA (08:29)
[2018-04-06] MEDS ORDERED: POTASSIUM CHLORIDE ER 20 MEQ TAB.ER PO ONE (09:00)
[2018-04-06] MEDS ORDERED: MAGNESIUM SULFATE-D5W PMX 1 GM in DEXTROSE/WATER 1 100ML.BAG IVPB ONE (09:00)
[2018-04-06] MEDS ORDERED: LISINOPRIL 10 MG TAB PO SCH (09:00)
[2018-04-06] MEDS ORDERED: METOPROLOL TARTRATE 12.5 MG TAB PO SCH (09:00)
[2018-04-06 09:42] VITALS: RESP 18
--- NOTE | 2018-04-06 09:47 | PN ---
PROGRESS NOTE Mr. Magdaleno presented with acute inferior ST-elevation CT. This morning, he is feeling much better. His right groin is clean and dry. He had stenting of a totally occluded dominant RCA but there is distal disease in the PDA. Excellent angiographic result was achieved. Hemodynamically stable. No anginal symptoms. Blood pressure control is good. His potassium is somewhat low as is magnesium. I am recommending that we increase beta bloker and lisinopril supplement magnesium and potassium. Increase activity and move him to telemetry. Blood pressure 138/84, pulse rate is 76 per minute S1-S2 heard normally lungs are clear abdomen looks exam unchanged right groin is clean and dry. There is no JVD or carotid bruit. MMODL / IJN: [id number] /
--- NOTE | 2018-04-06 11:06 | P.PN ---
Subjective Progress Note Date: 04/06/18 Devendra Magdaleno, is a 53-year-old male who presented to [facility] emergency Department with a chief complaint of chest pain. Patient states that he woke up at 6 AM this morning with a feeling of pressure in the middle of his chest Patient denies any radiation of the pain. Patient also was having shortness of breath diaphoresis and nausea but no vomiting. Patient has a known history of coronary artery disease was previous history of myocardial infarction in 2009 at time he had angioplasty but there was no stent placement. His cardiac risk factors also include hypertension, hyperlipidemia, cigarette smoking , and a strong family history of coronary artery disease. On review of system patient denies any fever or chills no headache or dizziness no cough no vomiting no abdominal pain no burning with urination no frequency or urgency and no hematuria 04/06/2018 patient had heart catheterization with stents to the mid RCA yesterday. He remains in the ICU. He is stable. White count did jump up to 15.3. No evidence of any new infection. Patient has no new complaints. Denies any chest pain or shortness of breath. Denies any cough. Denies any nausea or vomiting. Denies any bowel movement changes or urinary symptoms. Echo pending Objective - Vital Signs Vital signs: Vital Signs Temp 97.9 F 04/06/18 04:00 Pulse 73 04/06/18 09:00 Resp 18 04/06/18 09:00 BP 139/83 04/06/18 09:00 Pulse Ox 100 04/06/18 09:00 Intake & Output 04/05/18 04/06/18 04/06/18 18:59 06:59 18:59 Intake Total 645 851.75 225 Output Total 900 1271 100 Balance -255 -419.25 125 Weight 79.379 kg 77.2 kg Intake: IV 345 825 225 Sodium Chloride 0.9% 1, 825 225 000 ml @ 75 mls/hr IV . [id number] [facility] Rx#:[id number] Intake, IV Titration 300 26.75 Amount Nitroglycerin-D5w Pmx 50 26.75 mg In Dextrose/Water 1 250ml.bag @ 10 MCG/MIN 3 mls/hr IV .Q24H [facility] Rx#: [id number] Sodium Chloride 0.9% 1, 300 000 ml @ 75 mls/hr IV . [id number] [facility] Rx#:[id number] Output: Urine 900 1270 100 Urine/Stool Mix 1 Other: Voiding Method Urinal Urinal # Voids 0 1 0 # Bowel Movements 1 - Exam Head normocephalic Neck supple Lungs clear to auscultation bilaterally no wheezing or crackles Heart regular rate and rhythm S1-S2, no rub or gallop Abdomen is soft nontender nondistended positive bowel sounds no hepatosplenomegaly Extremities no edema. Right groin site clean dry and intact no hematoma no evidence of infection Neuro alert and orientated to 3 - Labs CBC & Chem 7: 04/06/18 03:35 04/06/18 03:35 Labs: Abnormal Lab Results - Last 24 Hours (Table) 04/05/18 04/05/18 04/05/18 Range/Units 12:23 12:36 21:31 WBC (3.8-10.6) k/uL Neutrophils # (1.3-7.7) k/uL Monocytes # (0-1.0) k/uL Chloride (98-107) mmol/L Carbon Dioxide (22-30) mmol/L Glucose (74-99) mg/dL POC Glucose (mg/dL) 124 H (75-99) mg/dL AST (17-59) U/L Troponin I 6.610 H* 44.300 H* (0.000-0.034) ng/mL Total Protein (6.3-8.2) g/dL 04/06/1818 04/06/18 Range/Units 03:35 03:35 03:35 WBC 15.4 H (3.8-10.6) k/uL Neutrophils # 12.3 H (1.3-7.7) k/uL Monocytes # 1.1 H (0-1.0) k/uL Chloride 110 H (98-107) mmol/L Carbon Dioxide 19 L (22-30) mmol/L Glucose 101 H (74-99) mg/dL POC Glucose (mg/dL) (75-99) mg/dL AST 196 H (17-59) U/L Troponin I 41.100 H* (0.000-0.034) ng/mL Total Protein 6.0 L (6.3-8.2) g/dL Assessment and Plan Assessment: #[address] elevation myocardial infarction: Status post heart catheterization with stent to the mid RCA. Cardiology following closely. Echo pending. Patient is on aspirin 81 mg daily, Brilinta, Domo, beta shilpa and Lipitor #2 underlying history of hypertension #3 underlying history of hyperlipidemia #4 tobacco abuse #5 previous history of degenerative disc disease was previous neck surgery #6 leukocytosis: Possibly reactive from the [place]. We'll monitor. No signs or symptoms of an acute infection I performed an examination of the patient and discussed their management with the physician Cpr Ambulance Driver. I have reviewed the Physician Cpr Ambulance Driver's notes and agree with the documented findings and plan of care
[2018-04-06 13:47] VITALS: BMI 25.9
--- NOTE | 2018-04-06 13:47 | ECHOF ---
Referral Reason:STEMI MEASUREMENTS -------- HEIGHT: 172.7 cm WEIGHT: 79.4 kg BP: 136/84 IVSd: 1.0 cm (0.6 - 1.1) LVIDd: 4.7 cm (3.9 - 5.3) LVPWd: 1.1 cm (0.6 - 1.1) IVSs: 1.6 cm LVIDs: 3.6 cm LVPWs: 1.3 cm LAESV Index (A-L): 29.67 ml/m Ao Diam: 3.3 cm (2.0 - 3.7) AV Cusp: 1.7 cm (1.5 - 2.6) LA Diam: 4.1 cm (2.7 - 3.8) MV EXCURSION: 20.824 mm (> 18.000) MV EF SLOPE: 52 mm/s (70 - 150) EPSS: 1.0 cm MV E Orlando: 0.89 m/s MV DecT: 182 ms MV A [place]: 0.96 m/s MV E/A Ratio: 0.93 RAP: 5.00 mmHg RVSP: 9.45 mmHg FINDINGS -------- Sinus rhythm. This was a technically adequate study. The left ventricular size is normal. There is mild concentric left ventricular hypertrophy. Overa ll left ventricular systolic function is moderately impaired with, an EF between 35 - 40 %. Basal i nferior LV wall motion is hypokinetic. Basal inferoseptal LV wall motion is hypokinetic. Mid in ferior LV wall motion is hypokinetic. Apical inferior LV wall motion is hypokinetic. The right ventricle is normal in size and function. LA is midly dilated 29-33ml/m2. The right atrial size is normal. The aortic valve is trileaflet, and appears structurally normal. No aortic stenosis or regurgitation. The mitral valve leaflets are mildly thickened. There is trace mitral regurgitation. Mild tricuspid regurgitation present. The right ventricular systolic pressure, as measured by Doppl er, is 9.45mmHg. There is no pulmonic regurgitation present. The aortic root size is normal. Normal inferior vena cava with normal inspiratory collapse consistent with estimated right atrial pre ssure of 5 mmHg. There is a small, generalized pericardial effusion present. Small Pleural Effusion. CONCLUSIONS -------- 1. Sinus rhythm. 2. This was a technically adequate study. 3. The left ventricular size is normal. 4. There is mild concentric left ventricular hypertrophy. 5. Overall left ventricular systolic function is moderately impaired with, an EF between 35 - 40 %. 6. Basal inferior LV wall motion is hypokinetic. 7. Basal inferoseptal LV wall motion is hypokinetic. 8. Mid inferior LV wall motion is hypokinetic. 9. Apical inferior LV wall motion is hypokinetic. 10. LA is midly dilated 29-33ml/m2. 11. The right atrial size is normal. 12. The aortic valve is trileaflet, and appears structurally normal. No aortic stenosis or regurgitat ion. 13. The mitral valve leaflets are mildly thickened. 14. There is trace mitral regurgitation. 15. Mild tricuspid regurgitation present. 16. The right ventricular systolic pressure, as measured by Doppler, is 9.45mmHg. 17. There is no pulmonic regurgitation present. 18. The aortic root size is normal. 19. Normal inferior vena cava with normal inspiratory collapse consistent with estimated right atrial pressure of 5 mmHg. 20. There is a small, generalized pericardial effusion present. 21. Small Pleural Effusion. RESERVATIONS AND TICKETING AGENT: Angelica Hopkins RDCS
[2018-04-06] MEDS: ATORVASTATIN 80 MG TAB PO SCH (20:57)
[2018-04-06] MEDS: METOPROLOL TARTRATE 25 MG TAB PO SCH (20:58)
[2018-04-06] MEDS ORDERED: NITROGLYCERIN OINT 1 INCH/GM PACKET TOPICAL SCH (22:00)
[2018-04-07] MEDS: SODIUM CHLORIDE 0.9% 1,000 ML IV SCH ×2 (05:47→17:59)
[2018-04-07] MEDS: NITROGLYCERIN OINT 1 INCH/GM PACKET TOPICAL SCH ×4 (05:48→23:04)
[2018-04-07 06:28] LABS: Magnesium 2.1 mg/dL (1.6-2.3)
[2018-04-07] MEDS: amLODIPine 5 MG TAB PO SCH ×2 (08:38→20:23)
[2018-04-07] MEDS: NICOTINE 14MG/24HR PATCH TRANSDERM SCH (08:39)
[2018-04-07] MEDS: MELOXICAM 7.5 MG TAB PO SCH (08:39)
[2018-04-07] MEDS: DULoxetine HCL 30 MG CAPSULE.DR PO SCH (08:39)
[2018-04-07] MEDS: LISINOPRIL 20 MG TAB PO SCH (08:39)
[2018-04-07] MEDS: ASPIRIN 81 MG PO SCH (08:39)
[2018-04-07] MEDS: METOPROLOL TARTRATE 25 MG TAB PO SCH ×2 (08:39→20:23)
[2018-04-07] MEDS: TOPIRAMATE 25 MG TAB PO SCH ×2 (08:39→20:24)
[2018-04-07] MEDS: TICAGRELOR 90 MG TAB PO SCH ×2 (08:39→20:24)
[2018-04-07 11:09] LABS: Basophils # (A) 0.1 k/uL (0-0.2); Basophils % (A) 1 %; Eosinophils # (A) 0.1 k/uL (0-0.7); Eosinophils % (A) 1 %; HCT 44.6 % (39.0-53.0); HGB 14.5 gm/dL (13.0-17.5); Lymphocytes # (A) 2.1 k/uL (1.0-4.8); Lymphocytes % (A) 20 %; MCH 29.7 pg (25.0-35.0); MCHC 32.6 g/dL (31.0-37.0); Mean Platelet Volume 7.9; Monocytes % (A) 9 %; Neutrophils # (A) 6.9 k/uL (1.3-7.7); Neutrophils % (A) 66 %; Platelet Count 273 k/uL (150-450); RDW 13.6 % (11.5-15.5); WBC 10.4 k/uL (3.8-10.6)
[2018-04-07 11:15] LABS: ALT 46 U/L (21-72); AST 85 U/L (17-59); Albumin 3.4 g/dL (3.5-5.0); Alkaline Phosphatase 71 U/L (38-126); Anion Gap 11 mmol/L; Blood Urea Nitrogen 17 mg/dL (9-20); Calcium 9.1 mg/dL (8.4-10.2); Carbon Dioxide 21 mmol/L (22-30); Chloride 109 mmol/L (98-107); Glucose 85 mg/dL (74-99); Potassium 4.1 mmol/L (3.5-5.1); Sodium 141 mmol/L (137-145); Total Bilirubin 0.7 mg/dL (0.2-1.3); Total Protein 5.6 g/dL (6.3-8.2)
--- NOTE | 2018-04-07 14:43 | P.PN ---
Subjective Progress Note Date: 04/07/18 Devendra Magdaleno, is a 53-year-old male who presented to [facility] emergency Department with a chief complaint of chest pain. Patient states that he woke up at 6 AM this morning with a feeling of pressure in the middle of his chest Patient denies any radiation of the pain. Patient also was having shortness of breath diaphoresis and nausea but no vomiting. Patient has a known history of coronary artery disease was previous history of myocardial infarction in 2009 at time he had angioplasty but there was no stent placement. His cardiac risk factors also include hypertension, hyperlipidemia, cigarette smoking , and a strong family history of coronary artery disease. On review of system patient denies any fever or chills no headache or dizziness no cough no vomiting no abdominal pain no burning with urination no frequency or urgency and no hematuria 04/06/2018 patient had heart catheterization with stents to the mid RCA yesterday. He remains in the ICU. He is stable. White count did jump up to 15.3. No evidence of any new infection. Patient has no new complaints. Denies any chest pain or shortness of breath. Denies any cough. Denies any nausea or vomiting. Denies any bowel movement changes or urinary symptoms. Echo pending 04/07/2018 patient denies any chest pain or shortness of breath. He has been up and ambulating. He is eager for discharge home. White count has normalized. Echo showed an EF of 35-40%. Did reveal an inferior LV wall motion hypokinetic. Also showed a small generalized pericardial effusion and a small pleural effusion. Cardiology is following. Objective - Vital Signs Vital signs: Vital Signs Temp 97.9 F 04/07/18 08:00 Pulse 74 04/07/18 08:00 Resp 18 04/07/18 08:00 BP 148/68 04/07/18 08:00 Pulse Ox 100 04/07/18 08:00 Intake & Output 04/06/18 04/07/18 04/07/18 18:59 06:59 18:59 Intake Total 465 10 600 Output Total 100 Balance 365 10 600 Weight 77.2 kg 79.7 kg Intake: IV 225 10 Sodium Chloride 0.9% 1, 225 10 000 ml @ 75 mls/hr IV . [id number] [facility] Rx#:[id number] Oral 240 600 Output: Urine 100 Other: Voiding Method Urinal Toilet Urinal # Voids 0 1 1 # Bowel Movements 1 1 - Exam Head normocephalic Neck supple Lungs clear to auscultation bilaterally no wheezing or crackles Heart regular rate and rhythm S1-S2, no rub or gallop Abdomen is soft nontender nondistended positive bowel sounds no hepatosplenomegaly Extremities no edema. Right groin site clean dry and intact no hematoma no evidence of infection Neuro alert and orientated to 3 - Labs CBC & Chem 7: 04/07/18 05:45 04/07/18 05:45 Labs: Abnormal Lab Results - Last 24 Hours (Table) 04/07/18 Range/Units 05:45 Chloride 109 H (98-107) mmol/L Carbon Dioxide 21 L (22-30) mmol/L AST 85 H (17-59) U/L Total Protein 5.6 L (6.3-8.2) g/dL Albumin 3.4 L (3.5-5.0) g/dL Assessment and Plan Assessment: #[address] elevation myocardial infarction: Status post heart catheterization with stent to the mid RCA. Echo shows an EF of 35-40% with inferior wall motion abnormality. Patient is on aspirin 81 mg daily, Brilinta, Domo, beta shilpa and Lipitor. Cardiology wants to monitor patient for another 24 hours before discharge home #2 underlying history of hypertension #3 underlying history of hyperlipidemia #4 tobacco abuse #5 previous history of degenerative disc disease was previous neck surgery #6 leukocytosis: Possibly reactive from the [place]. We'll monitor. No signs or symptoms of an acute infection. Leukocytosis resolved Anticipate discharge tomorrow I performed an examination of the patient and discussed their management with the physician Front End Software Developer. I have reviewed the Physician Front End Software Developer's notes and agree with the documented findings and plan of care
--- NOTE | 2018-04-07 15:16 | P.PN ---
Subjective Progress Note Date: 04/07/18 This is a pleasant 53-year-old gentleman who presented to the hospital with chest pain, he ruled in for an ST elevation myocardial infarction. Patient was taken to the cardiac catheterization lab and underwent PTCA and stenting of the mid coronary artery. Echocardiogram with Doppler study was performed which revealed an ejection fraction of 35-40%. Blood pressure 106/70 with a heart rate in the 60s, 100% on room air. Temperature 97.1. White blood cell count 10.4, hemoglobin 14.5, platelet count 273. Sodium 141, potassium 4.1, BUN 17, creatinine 1.0. Troponins peaked at 44.3. Patient is currently on Norvasc 5 mg twice a day, Ecotrin 81 mg daily, Lipitor 80 mg daily, lisinopril 20 mg daily , metoprolol 25 mg twice a day, we will discontinue the Nitropaste, Brilinta 90 mg by mouth twice a day and sublingual nitroglycerin as needed for chest pain. Patient is not approved for Brilinta by his insurance company, we will continue the Brilinta for one month and then give the patient 300 mg of Plavix before initiating Plavix 75 mg daily. Objective - Vital Signs Vital signs: Vital Signs Temp 97.1 F L 04/07/18 12:00 Pulse 61 04/07/18 12:00 Resp 18 04/07/18 12:00 BP 106/71 04/07/18 12:00 Pulse Ox 100 04/07/18 12:00 Intake & Output 04/06/18 04/07/18 04/07/18 18:59 06:59 18:59 Intake Total 465 10 600 Output Total 100 Balance 365 10 600 Weight 77.2 kg 79.7 kg Intake: IV 225 10 Sodium Chloride 0.9% 1, 225 10 000 ml @ 75 mls/hr IV . [id number] [facility] Rx#:[id number] Oral 240 600 Output: Urine 100 Other: Voiding Method Urinal Toilet Urinal # Voids 0 1 1 # Bowel Movements 1 1 - Exam PHYSICAL EXAMINATION: GENERAL: 53-year-old gentleman in no apparent distress at the time of our examination. HEENT: Head is atraumatic, normocephalic. Pupils equal, round. Sclera anicteric. Conjunctiva are clear. Mucous membranes of the mouth are moist. Neck is supple. There is no elevated jugular venous pressure.] bruit is heard. HEART EXAMINATION: Heart S1, S2 normal. No murmur or gallop heard. CHEST EXAMINATION: Lungs are clear to auscultation and precussion. No chest wall tenderness is noted on palpation or with deep breathing. ABDOMEN: Soft, nontender. Bowel sounds are heard. No organomegaly noted. EXTREMITIES: 2+ peripheral pulses with no evidence of peripheral edema and no calf tenderness noted. NEUROLOGIC patient is awake, alert and oriented -3. . - Labs CBC & Chem 7: 04/07/18 05:45 04/07/18 05:45 Labs: Abnormal Lab Results - Last 24 Hours (Table) 04/07/18 Range/Units 05:45 Chloride 109 H (98-107) mmol/L Carbon Dioxide 21 L (22-30) mmol/L AST 85 H (17-59) U/L Total Protein 5.6 L (6.3-8.2) g/dL Albumin 3.4 L (3.5-5.0) g/dL Assessment and Plan Plan: Assessment and plan #[address] elevation myocardial infarction status post angioplasty and stenting of the right coronary artery #2 hypertension #3 hyperlipidemia #4 nicotine dependence Plan We will continue the patient on his current medications. We will continue to observe the patient for 24-48 hours prior to discharge home. Once the patient is discharged home, he will continue the Brilinta 90 mg twice a day for one month, this will then be discontinued and patient will be given 300 mg of Plavix one time then Plavix 75 mg daily. DNP note has been reviewed, I agree with a documented findings and plan of care. Patient was seen and examined.
[2018-04-07] MEDS: ATORVASTATIN 80 MG TAB PO SCH (20:24)
[2018-04-08] MEDS: NITROGLYCERIN OINT 1 INCH/GM PACKET TOPICAL SCH ×2 (05:18→11:06)
[2018-04-08] MEDS: SODIUM CHLORIDE 0.9% 1,000 ML IV SCH (05:19)
[2018-04-08 06:58] LABS: Basophils # (A) 0.1 k/uL (0-0.2); Basophils % (A) 1 %; Eosinophils # (A) 0.2 k/uL (0-0.7); Eosinophils % (A) 2 %; HCT 43.4 % (39.0-53.0); HGB 14.7 gm/dL (13.0-17.5); Lymphocytes # (A) 1.9 k/uL (1.0-4.8); Lymphocytes % (A) 20 %; MCHC 33.9 g/dL (31.0-37.0); MCV 88.5 fL (80.0-100.0); Mean Platelet Volume 6.7; Monocytes # (A) 0.8 k/uL (0-1.0); Monocytes % (A) 8 %; Neutrophils # (A) 6.5 k/uL (1.3-7.7); Neutrophils % (A) 67 %; Platelet Count 243 k/uL (150-450); RDW 13.8 % (11.5-15.5); WBC 9.7 k/uL (3.8-10.6)
[2018-04-08 07:13] LABS: Anion Gap 12 mmol/L; Blood Urea Nitrogen 18 mg/dL (9-20); Carbon Dioxide 19 mmol/L (22-30); Chloride 109 mmol/L (98-107); Glucose 84 mg/dL (74-99); Phosphorus 3.7 mg/dL (2.5-4.5); Potassium 3.7 mmol/L (3.5-5.1); Sodium 140 mmol/L (137-145)
[2018-04-08 08:57] VITALS: BP 104/62; PULSE 65; TEMP 97.1
[2018-04-08] MEDS: TOPIRAMATE 25 MG TAB PO SCH (09:56)
[2018-04-08] MEDS: ASPIRIN 81 MG PO SCH (09:56)
[2018-04-08] MEDS: METOPROLOL TARTRATE 25 MG TAB PO SCH (09:56)
[2018-04-08] MEDS: MELOXICAM 7.5 MG TAB PO SCH (09:56)
[2018-04-08] MEDS: TICAGRELOR 90 MG TAB PO SCH (09:56)
[2018-04-08] MEDS: DULoxetine HCL 30 MG CAPSULE.DR PO SCH (09:56)
[2018-04-08] MEDS: amLODIPine 5 MG TAB PO SCH (09:56)
[2018-04-08] MEDS: LISINOPRIL 20 MG TAB PO SCH (09:56)
[2018-04-08] MEDS: NICOTINE 14MG/24HR PATCH TRANSDERM SCH (09:57)
--- NOTE | 2018-04-08 11:03 | P.DS ---
Providers Date of admission: 04/05/18 09:52 Expected date of discharge: 04/08/18 Attending physician: Courtney French Consults: 04/05/18 10:25 Consult Physician Stat Consulting Provider: Mahsa Murry Consult Reason/Comments: STEMI Do you want consulting provider notified?: Already Contacted 04/05/18 11:54 Consult Physician Routine Consulting Provider: [facility] Consult Reason/Comments: Post Interventional patient Do you want consulting provider notified?: Already Contacted Primary care physician: Aminata Rodriguez Hospital Course: Diagnoses on discharge: #[address] elevation myocardial infarction: Status post heart catheterization with stent to the mid RCA. Echo shows an EF of 35-40% with inferior wall motion abnormality. Patient is on aspirin 81 mg daily, Brilinta, Domo, beta shilpa and Lipitor. Cardiology wants to monitor patient for another 24 hours before discharge home #2 underlying history of hypertension #3 underlying history of hyperlipidemia #4 tobacco abuse #5 previous history of degenerative disc disease was previous neck surgery #6 leukocytosis: Possibly reactive from the [place]. We'll monitor. No signs or symptoms of an acute infection. Leukocytosis resolved Hospital course: Devendra Magdaleno, is a 53-year-old male who presented to [facility] emergency Department with a chief complaint of chest pain. Patient states that he woke up at 6 AM this morning with a feeling of pressure in the middle of his chest Patient denies any radiation of the pain. Patient also was having shortness of breath diaphoresis and nausea but no vomiting. Patient has a known history of coronary artery disease was previous history of myocardial infarction in 2009 at time he had angioplasty but there was no stent placement. His cardiac risk factors also include hypertension, hyperlipidemia, cigarette smoking , and a strong family history of coronary artery disease. On review of system patient denies any fever or chills no headache or dizziness no cough no vomiting no abdominal pain no burning with urination no frequency or urgency and no hematuria 04/06/2018 patient had heart catheterization with stents to the mid RCA yesterday. He remains in the ICU. He is stable. White count did jump up to 15.3. No evidence of any new infection. Patient has no new complaints. Denies any chest pain or shortness of breath. Denies any cough. Denies any nausea or vomiting. Denies any bowel movement changes or urinary symptoms. Echo pending 04/07/2018 patient denies any chest pain or shortness of breath. He has been up and ambulating. He is eager for discharge home. White count has normalized. Echo showed an EF of 35-40%. Did reveal an inferior LV wall motion hypokinetic. Also showed a small generalized pericardial effusion and a small pleural effusion. Cardiology is following. 04/08/2018 patient was seen and examined he is feeling well he denies any symptoms at this time there is no fever or chills no headache or dizziness no chest pain no shortness of breath no cough no nausea or vomiting no abdominal pain and no urinary symptoms. He was evaluated by cardiology and was cleared for discharge. Recommendation by cardiology is to stay on Brilinta 90 mg twice daily for the first 30 days then after that patient will be switched to Plavix as his insurance will not cover Brilinta. So on the day patient will take Plavix 300 mg 1 time and starting the next day he will be taking Plavix 75 mg once daily this was explained in details for him he was given a prescription for Brilinta and for Plavix he was told not to start the Plavix at least until after he is done was Brilinta patient seems to understand the plan well. He will also be continued on Lipitor 80 mg by mouth daily, Norvasc 5 mg twice daily , metoprolol 25 mg twice daily, and lisinopril 20 mg once daily, prescriptions were provided for all of these medications. Patient was counseled in length in regard to smoking cessation he was given a prescription for NicoDerm patches. Follow-up with primary care physician Dr. Campos in 1-2 weeks Plan - Discharge Summary Discharge Rx Participant: Yes New Discharge Prescriptions: New amLODIPine [Norvasc] 5 mg PO BID tab Aspirin 81 mg PO DAILY chew Atorvastatin [Lipitor] 80 mg PO HS tab Lisinopril [Zestril] 20 mg PO DAILY tab Metoprolol Tartrate [Lopressor] 25 mg PO BID tab Nicotine 14Mg/24Hr Patch [Habitrol] 1 patch TRANSDERM DAILY patch Nitroglycerin Sl Tabs [Nitrostat] 0.4 mg SUBLINGUAL Q5M PRN tab PRN Reason: Chest Pain Ticagrelor [Brilinta] 90 mg PO BID tab Continue tiZANidine [Zanaflex] 4 mg PO TID Topiramate [Topamax] 50 mg PO BID DULoxetine HCL [Cymbalta] 30 mg PO DAILY Discontinued Meloxicam [Mobic] 15 mg PO DAILY Atorvastatin [Lipitor] 20 mg PO DAILY Discharge Medication List tiZANidine [Zanaflex] 4 mg PO TID 04/02/16 [History] Topiramate [Topamax] 50 mg PO BID 12/21/17 [History] DULoxetine HCL [Cymbalta] 30 mg PO DAILY 04/05/18 [History] Aspirin 81 mg PO DAILY chew 04/08/18 [Rx] Atorvastatin [Lipitor] 80 mg PO HS tab 04/08/18 [Rx] Lisinopril [Zestril] 20 mg PO DAILY tab 04/08/18 [Rx] Metoprolol Tartrate [Lopressor] 25 mg PO BID tab 04/08/18 [Rx] Nicotine 14Mg/24Hr Patch [Habitrol] 1 patch TRANSDERM DAILY patch 04/08/18 [Rx] Nitroglycerin Sl Tabs [Nitrostat] 0.4 mg SUBLINGUAL Q5M PRN tab 04/08/18 [Rx] Ticagrelor [Brilinta] 90 mg PO BID tab 04/08/18 [Rx] amLODIPine [Norvasc] 5 mg PO BID tab 04/08/18 [Rx] Follow up Appointment(s)/Referral(s): Aminata Rodriguez MD [Primary Care Provider] - 1-2 days (Spoke to receptionist/telephone operator. Office will call with appointment time.) Patient Instructions/Handouts: *Surgery [facility] - After Heart Catheterization - Banquet Kitchen Supervisor Instructions, Myocardial Infarction (DC) Activity/Diet/Wound Care/Special Instructions: wishing to follow up with Dr. MELANIE Murry
--- NOTE | 2018-04-08 15:11 | P.PN ---
Subjective Progress Note Date: 04/08/18 This is a pleasant 53-year-old gentleman who presented to the hospital with chest pain, he ruled in for an ST elevation myocardial infarction. Patient was taken to the cardiac catheterization lab and underwent PTCA and stenting of the mid coronary artery. Echocardiogram with Doppler study was performed which revealed an ejection fraction of 35-40%. Blood pressure 106/70 with a heart rate in the 60s, 100% on room air. Temperature 97.1. White blood cell count 10.4, hemoglobin 14.5, platelet count 273. Sodium 141, potassium 4.1, BUN 17, creatinine 1.0. Troponins peaked at 44.3. Patient is currently on Norvasc 5 mg twice a day, Ecotrin 81 mg daily, Lipitor 80 mg daily, lisinopril 20 mg daily , metoprolol 25 mg twice a day, we will discontinue the Nitropaste, Brilinta 90 mg by mouth twice a day and sublingual nitroglycerin as needed for chest pain. Patient is not approved for Brilinta by his insurance company, we will continue the Brilinta for one month and then give the patient 300 mg of Plavix before initiating Plavix 75 mg daily. 04/08/2018 Patient was seen and examined this morning, denied any further chest discomfort , breathing overall has been stable. From cardiology's perspective, patient may be able to be discharged home today. We will make him a follow-up appointment with his abstract clerk out of town post discharge. Patient has been advised strongly regarding the importance of nicotine and marijuana cessation. Objective - Vital Signs Vital signs: Vital Signs Temp 97.1 F L 04/08/18 08:00 Pulse 65 04/08/18 08:00 Resp 18 04/08/18 08:00 BP 104/62 04/08/18 08:00 Pulse Ox 99 04/08/18 08:00 Intake & Output 04/07/18 04/08/18 04/08/18 18:59 06:59 18:59 Intake Total 1560 20 480 Balance 1560 20 480 Weight 78.9 kg Intake: IV 20 Sodium Chloride 0.9% 1, 20 000 ml @ 75 mls/hr IV . [id number] [facility] Rx#:[id number] Oral 1560 480 Other: Voiding Method Toilet Urinal # Voids 1 # Bowel Movements 1 - Exam PHYSICAL EXAMINATION: GENERAL: 53-year-old gentleman in no apparent distress at the time of our examination. HEENT: Head is atraumatic, normocephalic. Pupils equal, round. Sclera anicteric. Conjunctiva are clear. Mucous membranes of the mouth are moist. Neck is supple. There is no elevated jugular venous pressure.] bruit is heard. HEART EXAMINATION: Heart S1, S2 normal. No murmur or gallop heard. CHEST EXAMINATION: Lungs are clear to auscultation and precussion. No chest wall tenderness is noted on palpation or with deep breathing. ABDOMEN: Soft, nontender. Bowel sounds are heard. No organomegaly noted. EXTREMITIES: 2+ peripheral pulses with no evidence of peripheral edema and no calf tenderness noted. NEUROLOGIC patient is awake, alert and oriented -3. . - Labs CBC & Chem 7: 04/08/18 06:15 04/08/18 06:15 Labs: Abnormal Lab Results - Last 24 Hours (Table) 04/08/18 Range/Units 06:15 Chloride 109 H (98-107) mmol/L Carbon Dioxide 19 L (22-30) mmol/L Assessment and Plan Plan: Assessment and plan #[address] elevation myocardial infarction status post angioplasty and stenting of the right coronary artery #2 hypertension #3 hyperlipidemia #4 nicotine dependence Plan From cardiology's perspective, patient may be able to be discharged home today. We will make him a follow-up appointment with his abstract clerk out of town within one week of discharge. He has been encouraged strongly regarding the discontinuation of nicotine and marijuana use. Patient will be discharged home on Norvasc 5 mg twice a day, aspirin 81 mg daily, Lipitor 80 mg daily, Cymbalta 30 mg daily, Zestril 20 mg daily, metoprolol 25 mg twice a day, nicotine patch, sublingual nitroglycerin, Brilinta 90 mg one tablet by mouth twice a day, this will be given for one month, then the patient will be given 300 mg of Plavix and started on Plavix 75 mg daily. Prescriptions have been provided for all of the above medications, and patient has been educated regarding them as well. DNP note has been reviewed, I agree with a documented findings and plan of care. Patient was seen and examined.
== END 2018-04-08 13:22 | disposition home or self-care (01) | DRG 247 ==
LOC: EC 09:20 → 6ICU 09:52 → 6SEL 04-06 09:31
PROVIDERS: ADMIT Internal Medicine; ATTEND Internal Medicine
PROC: B2111ZZ Fluoroscopy of Multiple Coronary Arteries using Low Osmolar Contrast (ICD-10-PCS; 2018-04-05)
PROC: 027034Z Dilation of Coronary Artery, One Artery with Drug-eluting Intraluminal Device, Percutaneous Approach (ICD-10-PCS; principal; 2018-04-05 10:17)
PROC: 4A023N7 Measurement of Cardiac Sampling and Pressure, Left Heart, Percutaneous Approach (ICD-10-PCS; 2018-04-05 10:17)
DX: I21.19 ST elevation (STEMI) myocardial infarction involving other coronary artery of inferior wall (principal); I31.3 Pericardial effusion (noninflammatory); J90 Pleural effusion, not elsewhere classified; D72.829 Elevated white blood cell count, unspecified; E78.00 Pure hypercholesterolemia, unspecified; E78.5 Hyperlipidemia, unspecified; F17.210 Nicotine dependence, cigarettes, uncomplicated; F32.9 Major depressive disorder, single episode, unspecified; I10 Essential (primary) hypertension; I25.10 Atherosclerotic heart disease of native coronary artery without angina pectoris; F12.10 Cannabis abuse, uncomplicated; I25.2 Old myocardial infarction; G62.9 Polyneuropathy, unspecified; M47.812 Spondylosis without myelopathy or radiculopathy, cervical region; M54.9 Dorsalgia, unspecified; Z79.1 Long term (current) use of non-steroidal anti-inflammatories (NSAID); Z79.899 Other long term (current) drug therapy; Z98.1 Arthrodesis status; Z80.6 Family history of leukemia; Z82.49 Family history of ischemic heart disease and other diseases of the circulatory system
CPT/HCPCS: 36415; 71045; 80048; 80053; 82550; 82553; 83735; 84100; 84484; 85025; 85610; 85730; 93005; 93306; 93458; 96361; 96374; 96375; 99291

== ENCOUNTER → 2018-08-07 | Outpatient (CLI) | payer OTHER | END | disposition home or self-care (01) | LOC: LABWHC1 12:00 | PROVIDERS: ATTEND Psychiatry & Neurology Pain Medicine | DX: Z01.818 Encounter for other preprocedural examination (principal) | CPT/HCPCS: 36415; 93005 ==

== ENCOUNTER → 2019-09-28 | Outpatient (CLI) | payer OTHER ==
--- NOTE | 2019-09-28 12:59 | XR ---
EXAMINATION TYPE: XR sinus DATE OF EXAM: 09/28/2019 CLINICAL HISTORY: pain Four views of the paranasal sinuses are submitted. Paranasal sinuses demonstrate normal aeration and development. No air-fluid levels are seen. There is no evidence for mucosal thickening. Nasal sep kerwin is midline. No evidence for bony destructive process. IMPRESSION: Unremarkable evaluation of the paranasal sinuses.
== END | disposition home or self-care (01) ==
LOC: RADXRMAIN 12:37
PROVIDERS: ATTEND Psychiatry & Neurology Pain Medicine
DX: S09.93XA Unspecified injury of face, initial encounter (principal)
CPT/HCPCS: 70220

== ENCOUNTER 2021-05-16 01:52 | Inpatient (IN) | payer OTHER ==
[2021-05-16] MEDS ORDERED: NITROGLYCERIN SL TABS 0.4 MG TAB SUBLINGUAL PRN ×2 (02:02→03:25)
[2021-05-16] MEDS ORDERED: HEPARIN SODIUM 1,000 UN/ML (10ML VL) IV ONE ×2 (02:03→02:50)
[2021-05-16] MEDS ORDERED: MORPHINE SULFATE 4 MG/ML SYRINGE IV STA (02:03)
[2021-05-16] MEDS ORDERED: NITROGLYCERIN-D5W PMX 50 MG in DEXTROSE/WATER 1 250ML.BAG IV ONE (02:03)
[2021-05-16] MEDS ORDERED: ONDANSETRON 4 MG/2 ML VIAL IVP STA (02:15)
--- NOTE | 2021-05-16 02:19 | ED ---
Chest Pain HPI - General Chief Complaint: Chest Pain Stated Complaint: STEMI Time Seen by Provider: 05/16/21 01:56 Source: patient, EMS Mode of arrival: ambulatory - History of Present Illness Initial Comments: Patient is a 58-year-old man here to be evaluated for chest pain. The patient states she had gotten up to use the bathroom approximately 1-2 hours ago. Patient had developed substernal chest pain at that time. He describes his "a walrus sitting on my chest." The patient got up to use the bathroom and then did pass out. Patient also felt sweaty and short of breath. Family called EMS. The patient received aspirin and nitroglycerin which did give some minimal relief. Patient states that the symptoms are similar to previous [place] approximately 2 years ago and he had stent placement at that time MD Complaint: chest pain Onset/Timin -: hour(s) Onset: during rest Pain Location: substernal Pain Radiation: none Severity: severe Quality: heaviness Consistency: constant Improves With: nitroglycerin Worsens With: nothing Anginal Symptoms: nausea, diaphoresis, dyspnea Treatments Prior to Arrival: aspirin, nitroglycerin, oxygen - Related Data Home Medications Medication Instructions Recorded Confirmed Topiramate [Topamax] 50 mg PO BID 12/21/17 05/16/21 Ascorbic Acid [Vitamin C] 500 mg PO DAILY 05/16/21 05/16/21 Cholecalciferol [Vitamin D3 (25 25 mcg PO DAILY 05/16/21 05/16/21 Mcg = 1000 Iu)] DULoxetine HCL [Cymbalta] 60 mg PO DAILY 05/16/21 05/16/21 Metoprolol Tartrate [Lopressor] 25 mg PO BID 05/16/21 05/16/21 Zinc Gluconate [Zinc] 50 mg PO DAILY 05/16/21 05/16/21 Previous Rx's Medication Instructions Recorded Aspirin 81 mg PO DAILY chew 04/08/18 Atorvastatin [Lipitor] 80 mg PO HS tab 04/08/18 lisinopriL [Zestril] 20 mg PO DAILY tab 04/08/18 Ticagrelor [Brilinta] 90 mg PO BID 30 Days #60 tab 05/16/21 Lacosamide [Vimpat] 100 mg PO Q6HR #120 tablet 05/18/21 Allergies Allergy/AdvReac Type Severity Reaction Status Date / Time No Known Allergies Allergy Verified 05/16/21 09:55 Review of Systems ROS Statement: Those systems with pertinent positive or pertinent negative responses have been documented in the HPI. ROS Other: All systems not noted in ROS Statement are negative. Constitutional: Denies: fever, chills Respiratory: Reports: dyspnea. Denies: cough, wheezes Cardiovascular: Reports: chest pain, syncope. Denies: palpitations, orthopnea, edema Gastrointestinal: Reports: nausea. Denies: abdominal pain, vomiting, diarrhea, constipation, melena, hematochezia Genitourinary: Denies: dysuria, hematuria Musculoskeletal: Denies: back pain Skin: Denies: rash Neurological: Denies: headache, weakness, numbness Hematological/Lymphatic: Denies: easy bleeding EKG Findings - EKG Results: EKG: interpreted by LUCIEN, sinus rhythm (With sinus arrhythmia rate 87 bpm) - Blocks, [place], Hypertrophy, ST Abn: AV and intraventricular conduction: right bundle branch block (fixed/intermittent, complete/incomplete) QRS axis and voltage: left axis deviation (-30 to -90) - [place], Pacemaker, Normal: Myocardial infarction: septal [place] (acute or recent), anterior [place] (acute or recent) Past Medical History Past Medical History: Coronary Artery Disease (CAD), Chest Pain / Angina, Hyperlipidemia, Hypertension, Myocardial Infarction ([place]), Neurologic Disorder Additional Past Medical History / Comment(s): peripheral neuropathy Last Myocardial Infarction Date:: 2009 History of Any Multi-Drug Resistant Organisms: None Reported Past Surgical History: Heart Catheterization, Hernia Repair, Orthopedic Surgery Additional Past Surgical History / Comment(s): cervical fusion Past Anesthesia/Blood Transfusion Reactions: Postoperative Nausea & Vomiting (PO NV) Past Psychological History: Depression Smoking Status: Current some day smoker Past Alcohol Use History: Occasional Past Drug Use History: Marijuana - Past Family History Mother Family Medical History: Hypertension, Osteoarthritis (OA), Thyroid Disorder Father Family Medical History: Chest Pain / Angina, Coronary Artery Disease (CAD) Additional Family Medical History / Comment(s): pts. father has a-fib, leukemia General Exam General appearance: alert, in distress Head exam: Present: atraumatic, normocephalic Eye exam: Present: normal appearance. Absent: scleral icterus, conjunctival injection ENT exam: Present: normal oropharynx Neck exam: Present: normal inspection Respiratory exam: Present: normal lung sounds bilaterally. Absent: respiratory distress, wheezes, rales, rhonchi, stridor Cardiovascular Exam: Present: regular rate, normal rhythm, normal heart sounds. Absent: systolic murmur, diastolic murmur, rubs, gallop GI/Abdominal exam: Present: soft. Absent: distended, tenderness, guarding, rebound, rigid, mass Extremities exam: Present: normal inspection, normal capillary refill. Absent: pedal edema, calf tenderness Back exam: Present: normal inspection Neurological exam: Present: alert Skin exam: Present: warm, intact, normal color, diaphoretic. Absent: rash Course Vital Signs 05/16/21 05/16/21 05/16/21 01:53 01:58 02:17 Temperature 98.9 F Pulse Rate 86 78 Pulse Rate [ 85 Vault Manager ] Respiratory 16 18 Rate Blood Pressure 146/115 137/94 O2 Sat by Pulse 95 Oximetry 05/16/21 02:20 Temperature Pulse Rate 75 Pulse Rate [ Vault Manager ] Respiratory 18 Rate Blood Pressure 135/96 O2 Sat by Pulse 94 L Oximetry Critical Care Time Critical Care Time: Yes (30 minutes) Disposition Clinical Impression: ST elevation myocardial infarction (STEMI) Disposition: ADMITTED IP TO THIS HOSP Condition: Critical
[2021-05-16 02:24] LABS: Basophils # (A) 0.2 k/uL (0-0.2); Basophils % (A) 1 %; Eosinophils # (A) 0.4 k/uL (0-0.7); Eosinophils % (A) 3 %; HGB 16.3 gm/dL (13.0-17.5); Lymphocytes # (A) 4.7 k/uL (1.0-4.8); Lymphocytes % (A) 42 %; MCH 30.1 pg (25.0-35.0); MCHC 33.9 g/dL (31.0-37.0); MCV 88.9 fL (80.0-100.0); Mean Platelet Volume 6.6; Monocytes # (A) 0.7 k/uL (0-1.0); Monocytes % (A) 6 %; Neutrophils # (A) 4.9 k/uL (1.3-7.7); Neutrophils % (A) 44 %; Platelet Count 353 k/uL (150-450); RDW 13.7 % (11.5-15.5); WBC 11.2 k/uL (3.8-10.6)
[2021-05-16] MEDS ORDERED: LIDOCAINE 1% INJ 10MG/ML (20 ML MDV) ONE (02:30)
--- NOTE | 2021-05-16 02:31 | XR ---
EXAMINATION TYPE: XR chest 1V DATE OF EXAM: 05/16/2021 COMPARISON: 318 HISTORY: Chest pain TECHNIQUE: Single view FINDINGS: There is no heart failure nor confluent pneumonic infiltrate. Costophrenic angles are clear . There are chest leads. Bony thorax is intact. IMPRESSION: No active cardiopulmonary disease. Normal heart. No change.
[2021-05-16] MEDS ORDERED: VERAPAMIL 2.5 MG/ML 2 ML AMP ONE (02:33)
[2021-05-16] MEDS ORDERED: fentaNYL (PF) 50 MCG/ML 2 ML AMP ONE (02:33)
[2021-05-16 02:34] LABS: Albumin 4.4 g/dL (3.5-5.0); Calcium 9.8 mg/dL (8.4-10.2); Magnesium 2.1 mg/dL (1.6-2.3); Total Bilirubin 0.4 mg/dL (0.2-1.3); Total Protein 6.9 g/dL (6.3-8.2)
--- NOTE | 2021-05-16 02:38 | P.CRDCN ---
History of Present Illness History of present illness: HISTORY OF PRESENTING ILLNESS Patient is a pleasant 56-year-old male with history of coronary artery disease status post PCI of the PLV, tobacco abuse, marijuana abuse, hypertension, hyperlipidemia, unknown neuropathy issues who presents secondary to chest pain which woke him out of bed which started approximately an hour before arrival. Patient states he had been feeling in his normal state of health and even had a normal stress test performed by his link trainer maintenance worker in [facility]. He was awoken and then began feeling chest pressure like a "walrus on his chest ", diaphoresis, shortness breath and a syncopal episode and therefore presented to emergency department. EKG was performed which showed normal sinus rhythm, right bundle branch block, left axis deviation with ST elevation V1 through V4, aVL with reciprocal changes. On review of his films from 2009 he had stenting of his PLV and then in 2018 he had stenting of his RCA. 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 He is still smoking approximately 1 pack per day. REVIEW OF SYSTEMS At the time of my exam: CONSTITUTIONAL: Denies fever or chills. CARDIOVASCULAR: +chest pain, +shortness of breath, denies orthopnea, PND or palpitations. RESPIRATORY: Denies cough. GASTROINTESTINAL: Denies abdominal pain, diarrhea, constipation, nausea or vomiting. MUSCULOSKELETAL: Denies myalgias. NEUROLOGIC: Denies numbness, tingling or weakness. ENDOCRINE: Denies fatigue, weight change, polydipsia or polyurina. GENITOURINARY: Denies burning, hematuria or urgency with micturation. HEMATOLOGIC: Denies history of anemia or bleeding. PHYSICAL EXAMINATION Vital signs reviewed. CONSTITUTIONAL: Mild distress, diaphoretic HEENT: Head is normocephalic. Pupils are equal, round. Sclerae anicteric. Mucous membranes of the mouth are moist. No JVD. No carotid bruit. CHEST EXAMINATION: Lungs are clear to auscultation. No chest wall tenderness is noted on palpation or with deep breathing. HEART EXAMINATION: Regular rate and rhythm. S1, S2 heard. No murmurs, gallops or rub. ABDOMEN: Soft, nontender. Positive bowel sounds. EXTREMITIES: 2+ peripheral pulses, no lower extremity edema and no calf tenderness. NEUROLOGIC EXAMINATION: Patient is awake, alert and oriented x3. ASSESSMENT 1. Anterior STEMI 2. History of coronary artery disease status post stenting of the PLV and RCA 3. Hypertension 4. Hyperlipidemia 5. Anomalous circumflex 6. Tobacco abuse 7. Marijuana use PLAN Patient with anterior STEMI. Discussed risks and benefits of heart catheterization patient is agreeable. We will proceed with emergency heart catheterization likely PCI. Check 2-D echo. Further recommendations to follow. Past Medical History Past Medical History: Coronary Artery Disease (CAD), Chest Pain / Angina, Hyperlipidemia, Hypertension, Myocardial Infarction ([place]), Neurologic Disorder Additional Past Medical History / Comment(s): peripheral neuropathy Last Myocardial Infarction Date:: 2009 History of Any Multi-Drug Resistant Organisms: None Reported Past Surgical History: Heart Catheterization, Hernia Repair, Orthopedic Surgery Additional Past Surgical History / Comment(s): cervical fusion Past Anesthesia/Blood Transfusion Reactions: Postoperative Nausea & Vomiting (PONV) Past Psychological History: Depression Smoking Status: Current some day smoker Past Alcohol Use History: Occasional Past Drug Use History: Marijuana - Past Family History Mother Family Medical History: Hypertension, Osteoarthritis (OA), Thyroid Disorder Father Family Medical History: Chest Pain / Angina, Coronary Artery Disease (CAD) Additional Family Medical History / Comment(s): pts. father has a-fib, leukemia Medications and Allergies Home Medications Medication Instructions Recorded Confirmed Type tiZANidine [Zanaflex] 4 mg PO TID 04/02/16 04/05/18 History Topiramate [Topamax] 50 mg PO BID 12/21/17 04/05/18 History DULoxetine HCL [Cymbalta] 30 mg PO DAILY 04/05/18 04/05/18 History Aspirin 81 mg PO DAILY chew 04/08/18 Rx Atorvastatin [Lipitor] 80 mg PO HS tab 04/08/18 Rx Metoprolol Tartrate [Lopressor] 25 mg PO BID tab 04/08/18 Rx Nicotine 14Mg/24Hr Patch [Habitrol] 1 patch TRANSDERM DAILY patch 04/08/18 Rx Nitroglycerin Sl Tabs [Nitrostat] 0.4 mg SUBLINGUAL Q5M PRN tab 04/08/18 Rx Ticagrelor [Brilinta] 90 mg PO BID tab 04/08/18 Rx amLODIPine [Norvasc] 5 mg PO BID tab 04/08/18 Rx lisinopriL [Zestril] 20 mg PO DAILY tab 04/08/18 Rx Allergies Allergy/AdvReac Type Severity Reaction Status Date / Time No Known Allergies Allergy Verified 05/16/21 01:58 Physical Exam Vitals: Vital Signs Temp Pulse Pulse Resp BP Pulse Ox 05/16/21 02:20 75 18 135/96 94 L 05/16/21 02:17 78 18 137/94 95 05/16/21 01:58 85 05/16/21 01:53 98.9 F 86 16 146/115 Intake and Output 05/15/21 05/15/21 05/16/21 14:59 22:59 06:59 Other: Weight 86.137 kg Results 05/16/21 02:04 CBC 05/16/21 Range/Units 02:04 WBC 11.2 H (3.8-10.6) k/uL RBC 5.40 (4.30-5.90) m/uL Hgb 16.3 (13.0-17.5) gm/dL Hct 48.0 (39.0-53.0) % Plt Count 353 (150-450) k/uL Current Medications Generic Name Dose Route Start Last Admin Trade Name Freq PRN Reason Stop Dose Admin Nitroglycerin/Dextrose 50 mg/ 250 mls @ 6 mls/hr 05/16/21 02:03 05/16/21 02:10 IV Solution IV 05/17/21 02:02 20 mcg/min .Q24H ONE 6 mls/hr Administration Protocol 20 MCG/MIN Nitroglycerin 0.4 mg 05/16/21 02:02 Nitroglycerin Sl Tabs 0.4 Mg Tab SUBLINGUAL Q5M PRN Chest Pain Intake and Output 05/15/21 05/15/21 05/16/21 14:59 22:59 06:59 Other: Weight 86.137 kg Patient Weight 05/16/21 06:59 Weight 86.137 kg 05/16/21 02:04
[2021-05-16 02:41] LABS: INR 0.9 (<1.2); Partial Thromboplastin Time 24.1 sec (22.0-30.0)
[2021-05-16] MEDS ORDERED: fentaNYL (PF) 50 MCG/ML 2 ML AMP IV ONE (02:43)
[2021-05-16] MEDS ORDERED: MIDAZOLAM 2 MG/2 ML VIAL IV ONE (02:43)
[2021-05-16] MEDS ORDERED: LIDOCAINE 1% INJ 10MG/ML (20 ML MDV) SQ ONE (02:44)
[2021-05-16] MEDS ORDERED: VERAPAMIL SYRINGE (5 MG/10 ML) INTRAARTER ONE (02:45)
[2021-05-16] MEDS ORDERED: SODIUM CHLORIDE 0.9% 1,000 ML IV ONE (02:48)
[2021-05-16] MEDS ORDERED: TICAGRELOR 90 MG TAB ONE (02:49)
[2021-05-16] MEDS ORDERED: TICAGRELOR 90 MG TAB PO ONE (02:56)
[2021-05-16] MEDS ORDERED: IOPAMIDOL-370 125ML BTL INJ ONE (03:04)
[2021-05-16] MEDS ORDERED: ZOLPIDEM 5 MG TAB PO PRN (03:25)
[2021-05-16] MEDS ORDERED: RX INFO: IV CONTRAST WAS GIVEN 1 EACH MISC MISCELLANE PRN (03:25)
[2021-05-16] MEDS ORDERED: ATROPINE SULFATE 0.1 MG/ML 10ML SYRINGE IV PRN (03:25)
[2021-05-16] MEDS ORDERED: MAG HYDROX/AL HYDROX/SIMETH 30 ML CUP PO PRN (03:25)
--- NOTE | 2021-05-16 03:25 | P.PRCINT ---
Percutaneous Coronary Int. - Percutaneous Coronary Intervention Percutaneous Coronary Intervention: PROCEDURES PERFORMED: Left heart catheterization, bilateral coronary angiography, PCI distal left main into the LAD with a 3.5 x 8 mm Xience REYES INDICATION: Anterior STEMI HISTORY: Patient is a pleasant 56-year-old male with history of coronary artery disease status post PCI of the PLV and 2009 and RCA in 2018, neuropathy, hypertension, hyperlipidemia, tobacco abuse, marijuana use who presented with acute onset of chest pain which started in the middle of the night approximately 1 hour before arrival. Patient was found to have anterior STEMI and therefore catheterization was recommended and patient was agreeable. 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 CONSENT:I have discussed the risks, benefits and alternative therapies for the above-mentioned procedure and for both sedation/analgesia as well as necessary blood product administration, if indicated, as they pertain to this patient. The patient has indicated understanding and acceptance of the risks and procedures discussed. PROCEDURE: After the risks, benefits and alternatives of the above mentioned procedure explained in detail with the patient, informed consent was obtained. Patient was taken to the catheterization lab and prepped and draped in usual fashion. 1% lidocaine was used to anesthetize the right radial artery. A 6- Czech sheath was placed in the right radial artery using modified Seldinger technique. Right coronary angiography was performed with a 5-Czech JR5 catheter in various views. A 5-Czech FR 5 catheter was inserted into the left ventricle and pressure measurements were obtained. Left coronary angiography was performed with a 6 Fr CLS 3.0 guide. Heparin was given for an ACT greater than 250. A 0.014 BMW wire was advanced into the distal LAD. Patient had known anomalous left circumflex and the lesion was the distal left main into the proximal LAD. The lesion was predilated with a 2.25 x 12 mm balloon. Next a 3.5 x 8 mm Xience REYES was placed. The wire was pulled and then final angiograms were performed. Preintervention there was 95% stenosis with ROXANA 2 flow and postintervention there was less than 10% stenosis with ROXANA 3 flow and no dissection. The right radial sheath was removed and a TR band was placed with hemostasis achieved. The patient tolerated the procedure well. Patient was transported back to the post catheterization holding area in stable condition. Conscious Sedation: Patient was monitored under the direct supervision of vision of myself for conscious sedation using Versed and fentanyl for a total duration of 26 minutes HEMODYNAMICS: Aortic: 128/69 LV: 124/4, LVEDP 23 SELECTIVE CORONARY ARTERIOGRAPHY: LEFT MAIN: The left main is a large caliber vessel which continues into the LAD with circumflex coming from the right coronary cusp. There is diffuse 10-20% stenosis of the left main. LEFT ANTERIOR DESCENDING CORONARY ARTERY: LAD is a large caliber vessel. There is a proximal LAD coming from the left main 95% focal stenosis with ROXANA 2 flow. Otherwise there are mild luminal irregularities of the mid to distal LAD and a moderate caliber diagonal branch. ANOMOULOUS CIRCUMFLEX CORONARY ARTERY: The circumflex is subselectively seen and comes off of the right coronary cusp with 30-40% stenosis. RIGHT CORONARY ARTERY: The right coronary artery is a very large caliber and tortuous vessel which gives off a PDA and PLV branch and is the dominant vessel. There is a proximal 70-80% RCA stenosis, diffuse 20-40% stenosis of the mid to distal RCA, 20 of 30% stenosis of the PLV, 80% stenosis of the PDA. FINAL IMPRESSION: 1. Coronary artery disease as described above including proximal LAD 95% stenosis, anomalous circumflex 30-40% stenosis, proximal RCA 7080% stenosis and mid PDA 80% stenosis 2. Status post PCI distal left main into the LAD with a 3.5 x 8 mm Xience REYES 3. Anomalous circumflex 4. Elevated left filling pressures PLAN: 1. Aggressive risk factor modification per most recent ACC/AHA guidelines. 2. Continue dual antiplatelets for 12 months.
[2021-05-16] MEDS ORDERED: SODIUM CHLORIDE 0.9% 1,000 ML IV SCH (03:30)
[2021-05-16 03:39] LABS: Glucose,Whole Blood 130 mg/dL (75-99)
[2021-05-16] MEDS: ASPIRIN 81 MG PO SCH (08:46)
[2021-05-16] MEDS: METOPROLOL SUCCINATE (ER) 25 MG TAB.ER.24H PO SCH (08:47)
[2021-05-16] MEDS: TICAGRELOR 90 MG TAB PO SCH ×2 (08:47→21:26)
--- NOTE | 2021-05-16 11:38 | P.PN ---
Subjective Patient is a pleasant 56-year-old male with history of coronary artery disease status post PCI of the PLV in 2009 and stent to his RCA in 2018, tobacco abuse, marijuana abuse, hypertension, hyperlipidemia, unknown neuropathy issues. He follows with a centrifugal separator [facility]. Presented to the hospital with chest pain. Patient states he had been feeling in his normal state of health and even had a normal stress test performed by his centrifugal separator in [facility]. EKG was performed which showed normal sinus rhythm, right bundle branch block, left axis deviation with ST elevation V1 through V4, aVL with reciprocal changes. In 2010 he had stenting of his PLV and then in 2018 he had stenting of his RCA. 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 is a current every smoker, still smoking approximately 1 pack per day. Most recent echocardiogram 2018 revealed an EF of 35-40%, basal inferior, basal inferoseptal, mid inferior, apical inferior LV wall motion hypokinetic,, trace mitral regurgitation, mild tricuspid regurgitation small generalized pericardial effusion, small pleural effusion Patient underwent cardiac catheterization with Dr. Smalls this morning on 05/16/2021. Which revealed coronary artery disease including proximal LAD 95% stenosis, anomalous circumflex 30-40% stenosis, proximal RCA 70-80% stenosis and mid PDA 80% stenosis. Status post PCI distal left main into the LAD. Patient seen and examined at bedside, no acute distress. Blood pressure 111/78, heart rate 62, afebrile, maintaining oxygen saturations on room air. Laboratory data review WBC 11.2, hemoglobin 16.3, platelets 353, sodium 137, potassium 4.0, BUN 11, serum creatinine 1.1, magnesium 2.1, troponin negative 1. Patient currently maintained on aspirin 1 mg daily, atorvastatin 80 mg daily, Brilinta 90 mg twice a day. Currently maintaining sinus mechanism. GENERAL: Well-appearing, well-nourished and in no acute distress. NECK: Supple without JVD or thyromegaly. LUNGS: Breath sounds clear to auscultation bilaterally. Respiration equal and unlabored. No wheezes, rales or rhonchi. HEART: Regular rate and rhythm without murmurs, rubs or gallops. S1 and S2 heard. EXTREMITIES: Normal range of motion, no edema. No clubbing or cyanosis. Peripheral pulses intact. ASSESSMENT Anterior STEMI s/p PCI to distal LAD 05/16 History of Coronary artery disease status post previous PCI of the PLV in 2009 and stent to his RCA in 2018 Ischemic cardiomyopathy Tobacco abuse Marijuana abuse History of Hypertension- hypotensive while inpatient Hyperlipidemia PLAN We will obtain echocardiogram Start patient on metoprolol succinate 25mg daily Continue dual antiplatelet therapy with aspirin and Brilinta, case management to check cost Continue atorvastatin 80 mg nightly Patient unable to tolerate ACEI due to hypotension Continue cardiac telemetry He was encouraged strongly regarding discontinuation of smoking marijuana and nicotine Further recommendations based on clinical course Nurse Practitioner note has been reviewed, I agree with a documented findings and plan of care. Patient was seen and examined. Objective - Vital Signs Vital signs: Vital Signs Temp 98.2 F 05/16/21 08:00 Pulse 80 05/16/21 11:00 Resp 12 05/16/21 11:00 BP 95/65 05/16/21 11:00 Pulse Ox 97 05/16/21 11:00 Intake & Output 05/15/21 05/16/21 05/16/21 18:59 06:59 18:59 Intake Total 440 300 Output Total 725 800 Balance -285 -500 Weight 86.137 kg Intake: IV 440 300 .9 240 300 Output: Urine 725 800 Other: Voiding Method Toilet Urinal Urinal - Labs CBC & Chem 7: 05/16/21 02:04 05/16/21 02:04 Labs: Abnormal Lab Results - Last 24 Hours (Table) 05/16/21 05/16/21 05/16/21 Range/Units 02:04 02:04 03:31 WBC 11.2 H (3.8-10.6) k/uL Chloride 108 H (98-107) mmol/L Carbon Dioxide 16 L (22-30) mmol/L Glucose 136 H (74-99) mg/dL POC Glucose (mg/dL) 130 H (75-99) mg/dL
[2021-05-16 12:43] VITALS: BMI 26.4
[2021-05-16] MEDS: DULoxetine HCL 60 MG CAPSULE.DR PO SCH (16:27)
[2021-05-16] MEDS: ZINC SULFATE 220 MG CAP PO SCH (16:29)
--- NOTE | 2021-05-16 17:37 | P.HPIM ---
History of Present Illness H&P Date: 05/16/21 Chief Complaint: Chest pain This is a 56-year-old male with past medical history noted below significant for history of coronary artery disease with prior stent placement who presented to the emergency room with chest pain. Patient was evaluated at the ER and was found to have an acute STEMI. Heart cath was activated and patient underwent left heart catheterization with successful stent placement to proximal LAD. Patient was admitted to the ICU. I was consulted to see him for medical management. Patient was awake and alert. He denies any chest pain at this time. He reports compliance with his medications. He told me that he continues to smoke a small cigar once daily intermittently. He denies cigarette smoke. Review of Systems Review of system: 14 points review of systems were obtained and were negative except to what were mentioned in the HPI. Past Medical History Past Medical History: Coronary Artery Disease (CAD), Chest Pain / Angina, Hyperlipidemia, Hypertension, Myocardial Infarction ([place]), Neurologic Disorder Additional Past Medical History / Comment(s): peripheral neuropathy, pancreatitis Last Myocardial Infarction Date:: 2020 History of Any Multi-Drug Resistant Organisms: None Reported Past Surgical History: Heart Catheterization, Hernia Repair, Orthopedic Surgery Additional Past Surgical History / Comment(s): cervical fusion Past Anesthesia/Blood Transfusion Reactions: Postoperative Nausea & Vomiting (PONV) Past Psychological History: Depression Additional Psychological History / Comment(s): pt. states," my depression and i are cool together" Smoking Status: Current some day smoker Past Alcohol Use History: Occasional Past Drug Use History: Marijuana - Past Family History Mother Family Medical History: Hypertension, Osteoarthritis (OA), Thyroid Disorder Father Family Medical History: Chest Pain / Angina, Coronary Artery Disease (CAD) Additional Family Medical History / Comment(s): pts. father has a-fib, leukemia Medications and Allergies Home Medications Medication Instructions Recorded Confirmed Type Topiramate [Topamax] 50 mg PO BID 12/21/17 05/16/21 History Aspirin 81 mg PO DAILY chew 04/08/18 05/16/21 Rx Atorvastatin [Lipitor] 80 mg PO HS tab 04/08/18 05/16/21 Rx lisinopriL [Zestril] 20 mg PO DAILY tab 04/08/18 05/16/21 Rx Ascorbic Acid [Vitamin C] 500 mg PO DAILY 05/16/21 05/16/21 History Cholecalciferol [Vitamin D3 (25 25 mcg PO DAILY 05/16/21 05/16/21 History Mcg = 1000 Iu)] Clopidogrel [Plavix] 75 mg PO DAILY 05/16/21 05/16/21 History DULoxetine HCL [Cymbalta] 60 mg PO DAILY 05/16/21 05/16/21 History Metoprolol Tartrate [Lopressor] 25 mg PO BID 05/16/21 05/16/21 History Ticagrelor [Brilinta] 90 mg PO BID 30 Days #60 tab 05/16/21 Rx Zinc Gluconate [Zinc] 50 mg PO DAILY 05/16/21 05/16/21 History amLODIPine [Norvasc] 10 mg PO DAILY 05/16/21 05/16/21 History Allergies Allergy/AdvReac Type Severity Reaction Status Date / Time No Known Allergies Allergy Verified 05/16/21 09:55 Physical Exam Vitals: Vital Signs Temp Pulse Pulse Resp BP Pulse Ox 05/16/21 17:00 70 13 135/98 05/16/21 16:00 98.0 F 78 116/75 98 05/16/21 15:00 63 24 114/79 93 L 05/16/21 14:00 68 14 156/139 95 05/16/21 13:00 98.4 F 87 22 95 05/16/21 12:00 63 19 120/81 95 05/16/21 11:00 80 12 95/65 97 05/16/21 10:00 64 20 112/77 05/16/21 09:00 62 18 111/78 05/16/21 08:00 98.2 F 66 7 L 102/76 93 L 05/16/21 07:00 70 16 118/80 90 L 05/16/21 06:00 74 16 103/81 94 L 05/16/21 05:00 64 12 100/76 94 L 05/16/21 04:00 97.5 F L 72 20 113/85 94 L 05/16/21 03:30 71 18 95 05/16/21 02:30 98.0 F 84 18 130/91 95 05/16/21 02:20 75 18 135/96 94 L 05/16/21 02:17 78 18 137/94 95 05/16/21 01:58 85 05/16/21 01:53 98.9 F 86 16 146/115 Intake and Output 05/16/21 05/16/21 05/16/21 06:59 14:59 22:59 Intake Total 440 480 180 Output Total 725 1550 600 Balance -285 -0350 -420 Intake: IV 440 480 180 .9 240 480 180 Output: Urine 725 1550 600 Other: Voiding Method Toilet Urinal Urinal Urinal Weight 86.137 kg 86.137 kg General: The patient is awake and alert, in no distress Eye: there is normal conjunctiva bilaterally. Neck: The neck is supple, there is no JVD. Cardiovascular: Normal S1-S2, no S3-S4, no murmurs. Respiratory: Lungs clear to auscultation bilaterally Gastrointestinal: Abdomen is soft, nontender Musculoskeletal: There is no pedal edema. Neurological:. Speech is normal. Skin: Skin is warm and dry Results CBC & Chem 7: 05/16/21 02:04 05/16/21 02:04 Labs: Abnormal Lab Results - Last 24 Hours (Table) 05/16/21 05/16/21 05/16/21 Range/Units 02:04 02:04 03:31 WBC 11.2 H (3.8-10.6) k/uL Chloride 108 H (98-107) mmol/L Carbon Dioxide 16 L (22-30) mmol/L Glucose 136 H (74-99) mg/dL POC Glucose (mg/dL) 130 H (75-99) mg/dL Thrombosis Risk Factor Assmnt - Choose All That Apply Any of the Below Risk Factors Present?: Yes Each Factor Represents 1 point: Acute [place], Age 41-60 years, Obesity (BMI >25) Other Risk Factors: No Other congenital or acquired thrombophilia - If yes, enter type in comment: No Thrombosis Risk Factor Assessment Total Risk Factor Score: 3 Thrombosis Risk Factor Assessment Level: Moderate Risk Assessment and Plan Assessment: This is a 56-year-old male who presented to the emergency room with chest pain. Patient was evaluated and admitted to the hospital for further management of his medical problems noted below. 1. ST elevation [place], status post left heart catheterization with successful stent placement to distal left main/proximal LAD. Continue dual antiplatelet therapy. Optimal medical management. Cardiology following closely. Echocardiogram pending. 2. Essential hypertension, blood pressure within acceptable range. Continue current regimen 3. Hyperlipidemia, on Lipitor 80 mg daily. Awaiting fasting lipid profile 4. Tobacco abuse, counseled extensively to quit 5. Chronic medical problems hypothyroidism, underlying depression, ischemic cardiomyopathy with underlying systolic heart failure not in exacerbation Today, I reviewed his medication list and lab work results. Continue current regimen. Repeat lab work in the morning.
[2021-05-16] MEDS: ATORVASTATIN 80 MG TAB PO SCH (21:26)
[2021-05-16] MEDS: TOPIRAMATE 25 MG TAB PO SCH (21:27)
[2021-05-16] MEDS ORDERED: ONDANSETRON 4 MG/2 ML VIAL IVP PRN (22:16)
[2021-05-17 04:22] LABS: Basophils # (A) 0.1 k/uL (0-0.2); Basophils % (A) 1 %; Eosinophils # (A) 0.1 k/uL (0-0.7); Eosinophils % (A) 1 %; HCT 45.4 % (39.0-53.0); HGB 15.5 gm/dL (13.0-17.5); Lymphocytes # (A) 2.1 k/uL (1.0-4.8); Lymphocytes % (A) 18 %; MCH 30.5 pg (25.0-35.0); MCHC 34.2 g/dL (31.0-37.0); Mean Platelet Volume 6.9; Monocytes % (A) 8 %; Neutrophils # (A) 8.5 k/uL (1.3-7.7); Neutrophils % (A) 72 %; Platelet Count 322 k/uL (150-450); RDW 13.8 % (11.5-15.5); WBC 11.9 k/uL (3.8-10.6)
[2021-05-17 04:37] LABS: African American GFR (CKD) >90 (>60 ml/min/1.73 sqM); Anion Gap 9 mmol/L; Blood Urea Nitrogen 8 mg/dL (9-20); Calcium 9.5 mg/dL (8.4-10.2); Carbon Dioxide 22 mmol/L (22-30); Chloride 108 mmol/L (98-107); Glucose 89 mg/dL (74-99); Magnesium 1.9 mg/dL (1.6-2.3); Non-African American GFR(CKD) >90 (>60 ml/min/1.73 sqM); Potassium 4.3 mmol/L (3.5-5.1); Sodium 139 mmol/L (137-145)
[2021-05-17] MEDS: TICAGRELOR 90 MG TAB PO SCH ×2 (08:34→20:14)
[2021-05-17] MEDS: DULoxetine HCL 60 MG CAPSULE.DR PO SCH (08:34)
[2021-05-17] MEDS: ASPIRIN 81 MG PO SCH (08:34)
[2021-05-17] MEDS: ZINC SULFATE 220 MG CAP PO SCH (08:34)
[2021-05-17] MEDS: ASCORBIC ACID 500 MG TAB PO SCH (08:34)
[2021-05-17] MEDS: CHOLECALCIFEROL 25 MCG (1000 IU) TABLET PO SCH (08:35)
[2021-05-17] MEDS: TOPIRAMATE 25 MG TAB PO SCH ×2 (08:39→20:14)
[2021-05-17] MEDS: METOPROLOL SUCCINATE (ER) 25 MG TAB.ER.24H PO SCH (08:40)
--- NOTE | 2021-05-17 11:21 | P.PN ---
Subjective Patient is a pleasant 56-year-old male with history of coronary artery disease status post PCI of the PLV in 2010 and stent to his RCA in 2018, tobacco abuse, marijuana abuse, hypertension, hyperlipidemia, unknown neuropathy issues. He follows with a computer salesperson retail [facility]. Presented to the hospital with chest pain. Patient states he had been feeling in his normal state of health and even had a normal stress test performed by his computer salesperson retail in [facility]. EKG was performed which showed normal sinus rhythm, right bundle branch block, left axis deviation with ST elevation V1 through V4, aVL with reciprocal changes. In 2010 he had stenting of his PLV and then in 2018 he had stenting of his RCA. 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 is a current every smoker, still smoking approximately 1 pack per day. Most recent echocardiogram 2018 revealed an EF of 35-40%, basal inferior, basal inferoseptal, mid inferior, apical inferior LV wall motion hypokinetic, trace mitral regurgitation, mild tricuspid regurgitation small generalized pericardial effusion, small pleural effusion Patient underwent cardiac catheterization with Dr. Smalls this morning on 05/16/2021. Which revealed coronary artery disease including proximal LAD 95% stenosis, anomalous circumflex 30-40% stenosis, proximal RCA 70-80% stenosis and mid PDA 80% stenosis. Status post PCI distal left main into the LAD. 05/17/2021 Patient seen and examined at bedside, no acute distress. Blood pressure 98/68 heart rate 84, afebrile, maintaining oxygen saturations on room air. Laboratory data review WBC 11.9, hemoglobin 15.5, platelets 322, sodium 139, potassium 4.3, BUN 2, serum creatinine 0.88, magnesium 1.9, troponin negative 1. Patient currently maintained on aspirin 81 mg daily, atorvastatin 80 mg daily, Brilinta 90 mg twice a day, metoprolol succinate 25mg daily. Currently maintaining sinus mechanism, HR 60-70s. GENERAL: Well-appearing, in no acute distress. NECK: Supple without JVD or thyromegaly. LUNGS: Breath sounds clear to auscultation bilaterally. Respiration equal and unlabored. No wheezes, rales or rhonchi. HEART: Regular rate and rhythm without murmurs, rubs or gallops. S1 and S2 heard. EXTREMITIES: Normal range of motion, no edema. No clubbing or cyanosis. Peripheral pulses intact. ASSESSMENT Anterior STEMI s/p PCI to distal LAD 05/16 History of Coronary artery disease status post previous PCI of the PLV in 2009 and stent to his RCA in 2018 Ischemic cardiomyopathy Tobacco abuse Marijuana abuse History of Hypertension- hypotensive while inpatient Hyperlipidemia PLAN Echocardiogram completed, will follow up on results Continue metoprolol succinate 25mg daily Continue dual antiplatelet therapy with aspirin and Brilinta, per case management this medication is covered by patient's insurance with $0 copay Continue atorvastatin 80 mg nightly Patient unable to tolerate ACEI due to hypotension Continue cardiac telemetry He was encouraged strongly regarding discontinuation of smoking marijuana and nicotine From a cardiology perspective, patient is stable to be transferred to 3S cardiac stepdown unit Further recommendations based on clinical course Nurse Practitioner note has been reviewed, I agree with a documented findings and plan of care. Patient was seen and examined. Objective - Vital Signs Vital signs: Vital Signs Temp 98.2 F 05/17/21 08:00 Pulse 84 05/17/21 08:00 Resp 22 05/17/21 08:00 BP 98/68 05/17/21 08:00 Pulse Ox 95 05/17/21 07:00 Intake & Output 05/16/21 05/17/21 05/17/21 18:59 06:59 18:59 Intake Total 780 420 Output Total 2150 1150 125 Balance -1370 -730 -125 Weight 86.137 kg 82.4 kg Intake: IV 780 420 .9 780 420 Output: Urine 2150 1150 125 Other: Voiding Method Urinal Urinal Urinal - Labs CBC & Chem 7: 05/17/21 03:37 05/17/21 03:37 Labs: Abnormal Lab Results - Last 24 Hours (Table) 05/17/21 05/17/21 Range/Units 03:37 03:37 WBC 11.9 H (3.8-10.6) k/uL Neutrophils # 8.5 H (1.3-7.7) k/uL Chloride 108 H (98-107) mmol/L BUN 8 L (9-20) mg/dL
--- NOTE | 2021-05-17 15:16 | P.PN ---
Subjective Progress Note Date: 05/17/21 Patient is doing well today. No acute events overnight. Objective - Vital Signs Vital signs: Vital Signs Temp 98.2 F 05/17/21 08:00 Pulse 69 05/17/21 12:00 Resp 23 05/17/21 12:00 BP 113/78 05/17/21 12:00 Pulse Ox 98 05/17/21 09:00 Intake & Output 05/16/21 05/17/21 05/17/21 18:59 06:59 18:59 Intake Total 780 420 Output Total 2150 1150 375 Balance -1370 -730 -375 Weight 86.137 kg 82.4 kg Intake: IV 780 420 .9 780 420 Output: Urine 2150 1150 375 Other: Voiding Method Urinal Urinal Urinal - Exam General: The patient is awake and alert, in no distress Eye: there is normal conjunctiva bilaterally. Neck: The neck is supple, there is no JVD. Cardiovascular: Normal S1-S2, no S3-S4, no murmurs. Respiratory: Lungs clear to auscultation bilaterally Gastrointestinal: Abdomen is soft, nontender Musculoskeletal: There is no pedal edema. Neurological:. Speech is normal. Skin: Skin is warm and dry - Labs CBC & Chem 7: 05/17/21 03:37 05/17/21 03:37 Labs: Abnormal Lab Results - Last 24 Hours (Table) 05/17/21 05/17/21 Range/Units 03:37 03:37 WBC 11.9 H (3.8-10.6) k/uL Neutrophils # 8.5 H (1.3-7.7) k/uL Chloride 108 H (98-107) mmol/L BUN 8 L (9-20) mg/dL Assessment and Plan Assessment: This is a 56-year-old male who presented to the emergency room with chest pain. Patient was evaluated and admitted to the hospital for further management of his medical problems noted below. 1. ST elevation [place], status post left heart catheterization with successful stent placement to distal left main/proximal LAD. Continue dual antiplatelet therapy. Optimal medical management. Cardiology following closely. Echocardiogram pending. 2. Essential hypertension, blood pressure within acceptable range. Continue current regimen 3. Hyperlipidemia, on Lipitor 80 mg daily. Awaiting fasting lipid profile 4. Tobacco abuse, counseled extensively to quit 5. Chronic medical problems hypothyroidism, underlying depression, ischemic cardiomyopathy with underlying systolic heart failure not in exacerbation Today, I reviewed his medication list and lab work results. Continue current regimen. Thus her out of ICU to [facility] care unit
--- NOTE | 2021-05-17 16:52 | ECHOF ---
Referral Reason:s/p STEMI LV function MEASUREMENTS -------- HEIGHT: 180.3 cm WEIGHT: 85.7 kg BP: IVSd: 1.1 cm (0.6 - 1.1) LVIDd: 4.2 cm (3.9 - 5.3) LVPWd: 1.1 cm (0.6 - 1.1) EDV(Teich): 81 ml IVSs: 1.2 cm LVIDs: 3.8 cm LVPWs: 1.3 cm %IVS Thck: 10 % ESV(Teich): 60 ml EF(Teich): 26 % %FS: 12 % SV(Teich): 21 ml IVC: 17.37 mm LALs A4C: 5.9 cm LAAs A4C: 21.7 cm LAESV A-L A4C: 68 ml LAESV MOD A4C: 64 ml LALs A2C: 4.8 cm LAAs A2C: 18.2 cm LAESV A-L A2C: 58 ml LAESV MOD A2C: 55 ml LAESV(A-L): 69 ml LAESV Index (A-L): 33.72 ml/m Ao Diam: 3.2 cm (2.0 - 3.7) LA Diam: 2.0 cm (2.7 - 3.8) AV Cusp: 2.3 cm (1.5 - 2.6) EPSS: 0.7 cm MV E [place]: 0.87 m/s MV DecT: 143 ms MV Dec Yell: 6.1 m/s MV A [place]: 0.95 m/s MV E/A Ratio: 0.91 MV PHT: 42 ms MR Vmax: 1.53 m/s MR maxP.41 mmHg AV Vmax: 1.14 m/s AV maxP.17 mmHg TR Vmax: 0.91 m/s TR maxP.33 mmHg RAP: 5.00 mmHg RVSP: 8.33 mmHg MV EF SLOPE: 94.03 mm/s (70 - 150) MV EXCURSION: 16.31 mm (> 18.000) FINDINGS -------- This was a technically difficult study with suboptimal views. The left ventricular size is normal. Left ventricular wall thickness is normal. There is severe g lobal hypokinesis of LV . Overall left ventricular systolic function is severely impaired with, an EF < 20%. Normal LAP Grade 1 Diastolic Dysfunction. The RV was not well visualized. The left atrial size is normal. Normal LA size by volume 22+/-6 ml/m2. The right atrial size is normal. Lumason used The aortic valve is trileaflet and appears structurally normal. The mitral valve is normal. There is trace mitral regurgitation. The tricuspid valve appears structurally normal. Trace tricuspid regurgitation present. Right eloy tricular systolic pressure is normal at < 35 mmHg. There is no pulmonic regurgitation present. The aortic root size is normal. Normal inferior vena cava with normal inspiratory collapse consistent with estimated right atrial pre ssure of 5 mmHg. There is no pericardial effusion. CONCLUSIONS -------- 1. The left ventricular size is normal. 2. Left ventricular wall thickness is normal. 3. There is severe global hypokinesis of LV . 4. Overall left ventricular systolic function is severely impaired with, an EF < 20%. 5. Normal LAP Grade 1 Diastolic Dysfunction. 6. There is trace mitral regurgitation. 7. Trace tricuspid regurgitation present. 8. There is no pericardial effusion. ADHESIVE BONDING MACHINE OPERATOR: Angelica Hopkins RDCS
[2021-05-17] MEDS: ATORVASTATIN 80 MG TAB PO SCH (20:14)
[2021-05-17 23:26] VITALS: RESP 16
[2021-05-18] MEDS: ASPIRIN 81 MG PO SCH (09:24)
[2021-05-18] MEDS: METOPROLOL SUCCINATE (ER) 25 MG TAB.ER.24H PO SCH (09:25)
[2021-05-18] MEDS: CHOLECALCIFEROL 25 MCG (1000 IU) TABLET PO SCH (09:25)
[2021-05-18] MEDS: ZINC SULFATE 220 MG CAP PO SCH (09:25)
[2021-05-18] MEDS: TOPIRAMATE 25 MG TAB PO SCH (09:25)
[2021-05-18] MEDS: ASCORBIC ACID 500 MG TAB PO SCH (09:25)
[2021-05-18] MEDS: DULoxetine HCL 60 MG CAPSULE.DR PO SCH (09:25)
[2021-05-18] MEDS: TICAGRELOR 90 MG TAB PO SCH (09:26)
[2021-05-18 09:42] VITALS: TEMP 99.2
[2021-05-18 12:12] VITALS: BP 104/66; PULSE 56
--- NOTE | 2021-05-18 14:57 | P.PN ---
Subjective Progress Note Date: 05/18/21 HISTORY OF PRESENT ILLNESS: Patient examined this morning the bedside. Patient denies chest pain or pressure. He denies shortness of breath. Patient's vital signs are stable. Patient is hoping to be discharged home today. PHYSICAL EXAM: VITAL SIGNS: Reviewed. GENERAL: Well-developed in no acute distress. NECK: Supple. No JVD or thyromegaly LUNGS: Respirations even and unlabored. Lungs essentially clear to auscultation bilaterally. HEART: Regular rate and rhythm. S1 and S2 heard. EXTREMITIES: Normal range of motion. No clubbing or cyanosis. Peripheral pulses intact. No lower extremity edema ASSESSMENT: Anterior STEMI s/p PCI to distal LAD 05/16 History of Coronary artery disease status post previous PCI of the PLV in 2009 and stent to his RCA in 2018 Ischemic cardiomyopathy Tobacco abuse Marijuana abuse History of Hypertension- hypotensive while inpatient Hyperlipidemia PLAN: Continue current cardiac medications Patient may be discharged home today from a cardiac standpoint Nurse practitioner note has been reviewed by physician. Signing provider agrees with the documented findings, assessment, and plan of care. Objective - Vital Signs Vital signs: Vital Signs Temp 99.2 F 05/18/21 09:20 Pulse 56 L 05/18/21 12:02 Resp 16 05/18/21 12:02 BP 104/66 05/18/21 12:02 Pulse Ox 98 05/18/21 12:02 Intake & Output 05/17/21 05/18/21 05/18/21 18:59 06:59 18:59 Intake Total 240 0 Output Total 375 250 Balance -135 -250 0 Weight 81.8 kg Intake: Oral 240 0 Output: Urine 375 250 Other: Voiding Method Urinal Urinal Urinal # Voids 2 1 - Labs CBC & Chem 7: 05/17/21 03:37 05/17/21 03:37
--- NOTE | 2021-05-18 21:24 | P.DS ---
Providers Date of admission: 05/16/21 02:47 Expected date of discharge: 05/18/21 Attending physician: Matteo Nieto Consults: 05/16/21 02:02 Consult Physician Stat Consulting Provider: Zofia Martell Consult Reason/Comments: STEMI ACTIVATION COMPLETE Do you want consulting provider notified?: Yes 05/16/21 03:25 Consult Physician Routine Consulting Provider: Zofia Martell Consult Reason/Comments: Post Interventional patient Do you want consulting provider notified?: Already Contacted 05/16/21 14:19 Consult Physician Routine Consulting Provider: Courtney French Consult Reason/Comments: Medical management Do you want consulting provider notified?: Already Contacted 05/16/21 16:13 Consult Physician Routine Consulting Provider: Matteo Nieto Consult Reason/Comments: per dr. french Do you want consulting provider notified?: Already Contacted Primary care physician: Aminata Rodriguez Hospital Course: Discharge Diagnosis: ST segment elevated myocardial infarction status post stent to the LAD Ischemic cardiomyopathy with ejection fraction of less than 20% Essential hypertension Dyslipidemia Tobacco abuse Hypothyroidism Hospital Course: Patient is a 56-year-old male with a history of prior myocardial infarction status post PCI, tobacco abuse, marijuana abuse, hypertension, and dyslipidemia who presented to the ER with complaints of chest discomfort. He was immediately seen by cardiology and was diagnosed with an anterior ST segment elevated myocardial infarction. He was taken emergently to cleaner laboratory equipment and had a stent placed to his LAD. He was started on aspirin and Brillenta. He continued to progress well throughout his hospital stay. Ischemic cardiomyopathy was noted to be more significant than prior. Case discussed with cardiology and they did not feel patient required a LifeVest at this time. He continued to progress well and was determined stable for discharge home. He was continued on his JANIE inhibitor and beta shilpa. He will follow up with cardiology in 1 week and his primary care physician. He is aware of the importance of not missing his antiplatelet medications. He also reports that he needs a refill of his Vimpat which he is on for an unknown diagnosed neurologic condition. His dosing was verified via [facility] and a refill was provided. Imaging Echocardiogram: Ejection fraction less than 20%, severe global hypokinesis of the left ventricle, grade 1 diastolic dysfunction Cardiac: LAD with a 95% stenosis status post drug-eluting stent, circumflex 30- 40% stenosis, proximal RCA 70-80% stenosis, mid PAD 80% stenosis Chest x-ray-no acute process Patient seen and examined at bedside. Denies any chest pain, shortness breath, nausea, vomiting Vital signs reviewed and stable. General: non toxic, no distress, appears at stated age Derm: warm, dry Head: atraumatic, normocephalic, symmetric Eyes: EOMI, no lid lag, anicteric sclera Mouth: no lip lesion, mucus membranes moist Cardiovascular: S1S2 reg, no murmur, positive posterior tibial pulse bilateral, Lungs: Faint wheeze bilateral bases, no rhonchi, no rales , no accessory muscle use Abdominal: soft, nontender to palpation, no guarding, no appreciable organomegaly Ext: no gross muscle atrophy, no edema, no contractures Neuro: CN II-XI grossly intact, no focal neuro deficits Psych: Alert, oriented, appropriate affect A total of 35 minutes of time were spent preparing this complex discharge summary . Plan - Discharge Summary Discharge Rx Participant: Yes New Discharge Prescriptions: New Ticagrelor [Brilinta] 90 mg PO BID 30 Days #60 tab Lacosamide [Vimpat] 100 mg PO Q6HR #120 tablet Continue Topiramate [Topamax] 50 mg PO BID Aspirin 81 mg PO DAILY chew Atorvastatin [Lipitor] 80 mg PO HS tab lisinopriL [Zestril] 20 mg PO DAILY tab Zinc Gluconate [Zinc] 50 mg PO DAILY Ascorbic Acid [Vitamin C] 500 mg PO DAILY Metoprolol Tartrate [Lopressor] 25 mg PO BID Cholecalciferol [Vitamin D3 (25 Mcg = 1000 Iu)] 25 mcg PO DAILY DULoxetine HCL [Cymbalta] 60 mg PO DAILY Discontinued Clopidogrel [Plavix] 75 mg PO DAILY amLODIPine [Norvasc] 10 mg PO DAILY Discharge Medication List Topiramate [Topamax] 50 mg PO BID 12/21/17 [History] Aspirin 81 mg PO DAILY chew 04/08/18 [Rx] Atorvastatin [Lipitor] 80 mg PO HS tab 04/08/18 [Rx] lisinopriL [Zestril] 20 mg PO DAILY tab 04/08/18 [Rx] Ascorbic Acid [Vitamin C] 500 mg PO DAILY 05/16/21 [History] Cholecalciferol [Vitamin D3 (25 Mcg = 1000 Iu)] 25 mcg PO DAILY 05/16/21 [History] DULoxetine HCL [Cymbalta] 60 mg PO DAILY 05/16/21 [History] Metoprolol Tartrate [Lopressor] 25 mg PO BID 05/16/21 [History] Ticagrelor [Brilinta] 90 mg PO BID 30 Days #60 tab 05/16/21 [Rx] Zinc Gluconate [Zinc] 50 mg PO DAILY 05/16/21 [History] Lacosamide [Vimpat] 100 mg PO Q6HR #120 tablet 05/18/21 [Rx] Follow up Appointment(s)/Referral(s): Gaudencio Holman MD [STAFF PHYSICIAN] - 1 Week (Pt requests to go to [facility]. Pt to schedule appointment as office is closed at time of discharge. Ensure office is aware that this is a follow up appointment following a hospital stay.) Aminata Rodriguez MD [Primary Care Provider] - 1-2 Days (Pt to schedule appointment as office is closed at time of discharge. Ensure office is aware that this is a follow up appointment following a hospital stay.) Patient Instructions/Handouts: *Surgery [facility] - After Heart Catheterization - [employer] Instructions Activity/Diet/Wound Care/Special Instructions: Activity: as tolerated Diet: heart healthy Special Instructions: Follow up with your primary [facility] in 1 week Discharge Disposition: HOME SELF-CARE
== END 2021-05-18 16:10 | disposition home or self-care (01) | DRG 247 ==
LOC: EC 01:52 → 2SICU 02:47 → 3SCARD 05-17 13:24
PROVIDERS: ADMIT Internal Medicine; ATTEND Internal Medicine
PROC: 027034Z Dilation of Coronary Artery, One Artery with Drug-eluting Intraluminal Device, Percutaneous Approach (ICD-10-PCS; principal; 2021-05-16 02:26)
PROC: B2111ZZ Fluoroscopy of Multiple Coronary Arteries using Low Osmolar Contrast (ICD-10-PCS; principal; 2021-05-16 02:26)
PROC: 4A023N7 Measurement of Cardiac Sampling and Pressure, Left Heart, Percutaneous Approach (ICD-10-PCS; principal; 2021-05-16 02:26)
DX: I21.09 ST elevation (STEMI) myocardial infarction involving other coronary artery of anterior wall (principal); I50.22 Chronic systolic (congestive) heart failure; Q24.5 Malformation of coronary vessels; I11.0 Hypertensive heart disease with heart failure; I95.9 Hypotension, unspecified; I25.5 Ischemic cardiomyopathy; I25.10 Atherosclerotic heart disease of native coronary artery without angina pectoris; I45.10 Unspecified right bundle-branch block; E78.5 Hyperlipidemia, unspecified; E03.9 Hypothyroidism, unspecified; F32.9 Major depressive disorder, single episode, unspecified; G62.9 Polyneuropathy, unspecified; F12.10 Cannabis abuse, uncomplicated; I25.2 Old myocardial infarction; F17.210 Nicotine dependence, cigarettes, uncomplicated; Z71.6 Tobacco abuse counseling; Z79.82 Long term (current) use of aspirin; Z79.02 Long term (current) use of antithrombotics/antiplatelets; Z79.899 Other long term (current) drug therapy; Z95.5 Presence of coronary angioplasty implant and graft; Z87.19 Personal history of other diseases of the digestive system; Z98.1 Arthrodesis status; Z98.890 Other specified postprocedural states; Z82.49 Family history of ischemic heart disease and other diseases of the circulatory system; Z80.6 Family history of leukemia; Z82.61 Family history of arthritis; Z83.49 Family history of other endocrine, nutritional and metabolic diseases
CPT/HCPCS: 36415; 71045; 80048; 80053; 83735; 84484; 85025; 85610; 85730; 93005; 93306; 93458; 96365; 96375; 99285

== ENCOUNTER 2022-02-10 16:47 | Inpatient (IN) | payer OTHER ==
[2022-02-10] MEDS ORDERED: SODIUM CHLORIDE 0.9% 1,000 ML IV STA (17:20)
[2022-02-10] MEDS ORDERED: KETOROLAC 15 MG/ML 1 ML VIAL IVP STA (17:26)
--- NOTE | 2022-02-10 17:26 | ED ---
Altered Mental Status HPI - General Chief Complaint: Altered Mental Status Stated Complaint: altered, fever Time Seen by Provider: 02/10/22 16:47 Source: patient, family, EMS, RN notes reviewed Mode of arrival: EMS Limitations: no limitations - History of Present Illness Initial Comments: 56-year-old male history of heart disease who presents by EMS with complaints of the onset today of lethargy weakness some confusion complaints of pain to his bilateral jaw area. Generalized body aches some nausea. Body aches or last evening. Remainder the symptoms progressed today. She has some rhinorrhea frontal headache states his eyes hurt somewhat complains of somewhat of a sore throat no earaches no overt cough or phlegm production no dysuria no hematuria. No abdominal pain. No chest pain. MD Complaint: altered mental status, other - Related Data Home Medications Medication Instructions Recorded Confirmed Topiramate [Topamax] 50 mg PO BID 12/21/17 02/10/22 DULoxetine HCL [Cymbalta] 60 mg PO DAILY 05/16/21 02/10/22 Previous Rx's Medication Instructions Recorded Aspirin 81 mg PO DAILY chew 04/08/18 Atorvastatin [Lipitor] 80 mg PO HS tab 04/08/18 lisinopriL [Zestril] 20 mg PO DAILY tab 04/08/18 Ticagrelor [Brilinta] 90 mg PO BID 30 Days #60 tab 05/16/21 Lacosamide [Vimpat] 100 mg PO Q6HR #120 tablet 05/18/21 Allergies Allergy/AdvReac Type Severity Reaction Status Date / Time No Known Allergies Allergy Verified 02/10/22 18:36 Review of Systems ROS Statement: Those systems with pertinent positive or pertinent negative responses have been documented in the HPI. ROS Other: All systems not noted in ROS Statement are negative. Past Medical History Past Medical History: Coronary Artery Disease (CAD), Chest Pain / Angina, Hyperlipidemia, Hypertension, Myocardial Infarction (NE), Neurologic Disorder Additional Past Medical History / Comment(s): peripheral neuropathy Last Myocardial Infarction Date:: 2009 History of Any Multi-Drug Resistant Organisms: None Reported Past Surgical History: Heart Catheterization, Hernia Repair, Orthopedic Surgery Additional Past Surgical History / Comment(s): cervical fusion Past Anesthesia/Blood Transfusion Reactions: Postoperative Nausea & Vomiting (PONV) Past Psychological History: Depression Smoking Status: Current some day smoker Past Alcohol Use History: Occasional Past Drug Use History: Marijuana - Past Family History Mother Family Medical History: Hypertension, Osteoarthritis (OA), Thyroid Disorder Father Family Medical History: Chest Pain / Angina, Coronary Artery Disease (CAD) Additional Family Medical History / Comment(s): pts. father has a-fib, leukemia General Exam - General Exam Comments Initial Comments: This is a well-developed well-nourished awake alert oriented times female Limitations: no limitations General appearance: alert, in no apparent distress, lethargic Head exam: Present: atraumatic, normocephalic, normal inspection Eye exam: Present: normal appearance, PERRL, EOMI. Absent: scleral icterus, conjunctival injection, periorbital swelling ENT exam: Present: mucous membranes dry, other (Tonsils. Be within normal limits no erythema no exudates. Is a small area of erythema and small nodule on the right side of the uvula. No uvula deviation. Boggy nasal mucosa TMs are intact) Neck exam: Present: normal inspection, tenderness, full ROM, lymphadenopathy, other (Mild tenderness to the bilateral anterior left change no midline shift no stridor JVD or bruits) Respiratory exam: Present: normal lung sounds bilaterally. Absent: respiratory distress, wheezes, rales, rhonchi, stridor Cardiovascular Exam: Present: regular rate, normal rhythm, normal heart sounds. Absent: systolic murmur, diastolic murmur, rubs, gallop, clicks GI/Abdominal exam: Present: soft, normal bowel sounds. Absent: distended, tenderness, guarding, rebound, rigid Extremities exam: Present: normal inspection, full ROM, normal capillary refill. Absent: tenderness, pedal edema, joint swelling, calf tenderness Back exam: Present: normal inspection Neurological exam: Present: alert, oriented X3, CN II-XII intact Psychiatric exam: Present: normal affect, normal mood Skin exam: Present: warm, dry, intact, normal color. Absent: rash Course Vital Signs 02/10/22 02/10/22 16:49 18:36 Temperature 100.0 F H Pulse Rate 102 H 85 Respiratory 18 18 Rate Blood Pressure 165/81 156/90 O2 Sat by Pulse 100 100 Oximetry - Reevaluation(s) Reevaluation #1: 02/10/22 18:18 Patient's hemoglobin was reported to be below 7 I did perform a rectal exam no masses no gross bleeding seen no hemorrhoids. Hemoccult test pending 02/10/22 18:18 Patient does state he has a history of duodenal ulcer. He denies any bleeding at this time no dark stools. Medical Decision Making - Medical Decision Making I did discuss the findings initially with the patient's family and the patient also with Dr. Ram and Dr. Lozada. Patient will be admitted he was positive for influenza type A he is anemic he will receive a unit of blood. At this time the anemia is from unknown etiology - Lab Data Result diagrams: 02/10/22 18:34 02/10/22 17:23 Lab Results 02/10/22 02/10/22 02/10/22 Range/Units 17:23 17:23 17:23 WBC 7.2 (3.8-10.6) k/uL RBC 4.02 L (4.30-5.90) m/uL Hgb 6.8 L* (13.0-17.5) gm/dL Hct 26.3 L (39.0-53.0) % MCV 65.6 L (80.0-100.0) fL MCH 17.0 L (25.0-35.0) pg MCHC 25.9 L (31.0-37.0) g/dL RDW 17.2 H (11.5-15.5) % Plt Count 447 (150-450) k/uL MPV 7.0 Neutrophils % 82 % Lymphocytes % 6 % Monocytes % 9 % Eosinophils % 1 % Basophils % 1 % Neutrophils # 5.8 (1.3-7.7) k/uL Lymphocytes # 0.4 L (1.0-4.8) k/uL Monocytes # 0.6 (0-1.0) k/uL Eosinophils # 0.1 (0-0.7) k/uL Basophils # 0.1 (0-0.2) k/uL Hypochromasia Marked Poikilocytosis Slight Anisocytosis Slight Microcytosis Marked Sodium 138 (137-145) mmol/L Potassium 3.5 (3.5-5.1) mmol/L Chloride 111 H (98-107) mmol/L Carbon Dioxide 15 L (22-30) mmol/L Anion Gap 12 mmol/L BUN 9 (9-20) mg/dL Creatinine 0.98 (0.66-1.25) mg/dL Est GFR (CKD-EPI)AfAm >90 (>60 ml/min/1.73 sqM) Est GFR (CKD-EPI)NonAf 87 (>60 ml/min/1.73 sqM) Glucose 95 (74-99) mg/dL Calcium 8.6 (8.4-10.2) mg/dL Total Bilirubin 0.5 (0.2-1.3) mg/dL AST 27 (17-59) U/L ALT 18 (4-49) U/L Alkaline Phosphatase 86 (38-126) U/L Ammonia (<30) umol/L Troponin I (0.000-0.034) ng/mL Total Protein 6.8 (6.3-8.2) g/dL Albumin 4.2 (3.5-5.0) g/dL Urine Color Yellow Urine Appearance Clear (Clear) Urine pH 6.5 (5.0-8.0) Ur Specific [place] 1.015 (1.001-1.035) Urine Protein Negative (Negative) Urine Glucose (UA) Negative (Negative) Urine Ketones Trace H (Negative) Urine Blood Negative (Negative) Urine Nitrite Negative (Negative) Urine Bilirubin Negative (Negative) Urine Urobilinogen <2.0 (<2.0) mg/dL Ur Leukocyte Esterase Negative (Negative) Stool Occult Blood (Negative) Urine Opiates Screen Not Detected (NotDetected) Ur Oxycodone Screen Not Detected (NotDetected) Urine Methadone Screen Not Detected (NotDetected) Ur Propoxyphene Screen Not Detected (NotDetected) Ur Barbiturates Screen Not Detected (NotDetected) U Tricyclic Antidepress Not Detected (NotDetected) Ur Phencyclidine Scrn Not Detected (NotDetected) Ur Amphetamines Screen Not Detected (NotDetected) U Methamphetamines Scrn Not Detected (NotDetected) U Benzodiazepines Scrn Not Detected (NotDetected) Urine Cocaine Screen Not Detected (NotDetected) U Marijuana (THC) Screen Detected H (NotDetected) Influenza Type A (PCR) (Not Detectd) Influenza Type B (PCR) (Not Detectd) RSV (PCR) (Not Detectd) SARS-CoV-2 (PCR) (Not Detectd) Blood Type Blood Type Recheck Bld Type Recheck Status Antibody Screen Crossmatch Spec Expiration Date 02/10/22 02/10/22 02/10/22 Range/Units 17:23 17:23 17:43 WBC (3.8-10.6) k/uL RBC (4.30-5.90) m/uL Hgb (13.0-17.5) gm/dL Hct (39.0-53.0) % MCV (80.0-100.0) fL MCH (25.0-35.0) pg MCHC (31.0-37.0) g/dL RDW (11.5-15.5) % Plt Count (150-450) k/uL MPV Neutrophils % % Lymphocytes % % Monocytes % % Eosinophils % % Basophils % % Neutrophils # (1.3-7.7) k/uL Lymphocytes # (1.0-4.8) k/uL Monocytes # (0-1.0) k/uL Eosinophils # (0-0.7) k/uL Basophils # (0-0.2) k/uL Hypochromasia Poikilocytosis Anisocytosis Microcytosis Sodium (137-145) mmol/L Potassium (3.5-5.1) mmol/L Chloride (98-107) mmol/L Carbon Dioxide (22-30) mmol/L Anion Gap mmol/L BUN (9-20) mg/dL Creatinine (0.66-1.25) mg/dL Est GFR (CKD-EPI)AfAm (>60 ml/min/1.73 sqM) Est GFR (CKD-EPI)NonAf (>60 ml/min/1.73 sqM) Glucose (74-99) mg/dL Calcium (8.4-10.2) mg/dL Total Bilirubin (0.2-1.3) mg/dL AST (17-59) U/L ALT (4-49) U/L Alkaline Phosphatase (38-126) U/L Ammonia <9 (<30) umol/L Troponin I <0.012 (0.000-0.034) ng/mL Total Protein (6.3-8.2) g/dL Albumin (3.5-5.0) g/dL Urine Color Urine Appearance (Clear) Urine pH (5.0-8.0) Ur Specific [place] (1.001-1.035) Urine Protein (Negative) Urine Glucose (UA) (Negative) Urine Ketones (Negative) Urine Blood (Negative) Urine Nitrite (Negative) Urine Bilirubin (Negative) Urine Urobilinogen (<2.0) mg/dL Ur Leukocyte Esterase (Negative) Stool Occult Blood (Negative) Urine Opiates Screen (NotDetected) Ur Oxycodone Screen (NotDetected) Urine Methadone Screen (NotDetected) Ur Propoxyphene Screen (NotDetected) Ur Barbiturates Screen (NotDetected) U Tricyclic Antidepress (NotDetected) Ur Phencyclidine Scrn (NotDetected) Ur Amphetamines Screen (NotDetected) U Methamphetamines Scrn (NotDetected) U Benzodiazepines Scrn (NotDetected) Urine Cocaine Screen (NotDetected) U Marijuana (THC) Screen (NotDetected) Influenza Type A (PCR) Detected A (Not Detectd) Influenza Type B (PCR) Not Detected (Not Detectd) RSV (PCR) Not Detected (Not Detectd) SARS-CoV-2 (PCR) Not Detected (Not Detectd) Blood Type Blood Type Recheck Bld Type Recheck Status Antibody Screen Crossmatch Spec Expiration Date 02/10/22 02/10/22 02/10/22 Range/Units 18:33 18:34 18:34 WBC 7.4 (3.8-10.6) k/uL RBC 3.85 L (4.30-5.90) m/uL Hgb 6.5 L* (13.0-17.5) gm/dL Hct 24.9 L (39.0-53.0) % MCV 64.7 L (80.0-100.0) fL MCH 16.9 L (25.0-35.0) pg MCHC 26.0 L (31.0-37.0) g/dL RDW 17.5 H (11.5-15.5) % Plt Count 476 H (150-450) k/uL MPV 6.9 Neutrophils % % Lymphocytes % % Monocytes % % Eosinophils % % Basophils % % Neutrophils # (1.3-7.7) k/uL Lymphocytes # (1.0-4.8) k/uL Monocytes # (0-1.0) k/uL Eosinophils # (0-0.7) k/uL Basophils # (0-0.2) k/uL Hypochromasia Marked Poikilocytosis Slight Anisocytosis Slight Microcytosis Marked Sodium (137-145) mmol/L Potassium (3.5-5.1) mmol/L Chloride (98-107) mmol/L Carbon Dioxide (22-30) mmol/L Anion Gap mmol/L BUN (9-20) mg/dL Creatinine (0.66-1.25) mg/dL Est GFR (CKD-EPI)AfAm (>60 ml/min/1.73 sqM) Est GFR (CKD-EPI)NonAf (>60 ml/min/1.73 sqM) Glucose (74-99) mg/dL Calcium (8.4-10.2) mg/dL Total Bilirubin (0.2-1.3) mg/dL AST (17-59) U/L ALT (4-49) U/L Alkaline Phosphatase (38-126) U/L Ammonia (<30) umol/L Troponin I (0.000-0.034) ng/mL Total Protein (6.3-8.2) g/dL Albumin (3.5-5.0) g/dL Urine Color Urine Appearance (Clear) Urine pH (5.0-8.0) Ur Specific [place] (1.001-1.035) Urine Protein (Negative) Urine Glucose (UA) (Negative) Urine Ketones (Negative) Urine Blood (Negative) Urine Nitrite (Negative) Urine Bilirubin (Negative) Urine Urobilinogen (<2.0) mg/dL Ur Leukocyte Esterase (Negative) Stool Occult Blood Negative (Negative) Urine Opiates Screen (NotDetected) Ur Oxycodone Screen (NotDetected) Urine Methadone Screen (NotDetected) Ur Propoxyphene Screen (NotDetected) Ur Barbiturates Screen (NotDetected) U Tricyclic Antidepress (NotDetected) Ur Phencyclidine Scrn (NotDetected) Ur Amphetamines Screen (NotDetected) U Methamphetamines Scrn (NotDetected) U Benzodiazepines Scrn (NotDetected) Urine Cocaine Screen (NotDetected) U Marijuana (THC) Screen (NotDetected) Influenza Type A (PCR) (Not Detectd) Influenza Type B (PCR) (Not Detectd) RSV (PCR) (Not Detectd) SARS-CoV-2 (PCR) (Not Detectd) Blood Type A Positive Blood Type Recheck No Previous Record Bld Type Recheck Status CABO Indicated Antibody Screen NEGATIVE Crossmatch See Detail Spec Expiration Date 02/13/20222 - EKG Data -: EKG Interpreted by Me EKG shows normal: sinus rhythm EKG Comments: Sinus rhythm 91 MO interval 136 QRS duration 10 90 QT since QTC 370/[address] configuration - Radiology Data Radiology results: report reviewed (Imaging reviewed no acute findings), image reviewed Disposition Clinical Impression: Anemia, Influenza A, Febrile illness, acute, Weakness Disposition: ADMITTED IP TO THIS [facility] Condition: Fair Referrals: None,Stated [Primary Care Provider] - 1-2 days Decision Date: 02/10/22 Decision Time: 20:00
[2022-02-10 17:40] LABS: Appearance,Urine Clear (Clear); Bilirubin,Urine Negative (Negative); Blood,Urine Negative (Negative); Color,Urine Yellow; Glucose,Urine (UA) Negative (Negative); Ketones,Urine Trace (Negative); Leukocyte Esterase,Urine Negative (Negative); Nitrite,Urine Negative (Negative); PH, Urine 6.5 (5.0-8.0); Protein,Urine Negative (Negative); Specific Gravity,Urine 1.015 (1.001-1.035); Urobilinogen,Urine <2.0 mg/dL (<2.0)
[2022-02-10 17:44] LABS: Anisocytosis Slight; Basophils # (A) 0.1 k/uL (0-0.2); Basophils % (A) 1 %; Eosinophils # (A) 0.1 k/uL (0-0.7); Eosinophils % (A) 1 %; HCT 26.3 % (39.0-53.0); Hypochromasia Marked; Lymphocytes # (A) 0.4 k/uL (1.0-4.8); Lymphocytes % (A) 6 %; MCHC 25.9 g/dL (31.0-37.0); MCV 65.6 fL (80.0-100.0); Microcytosis Marked; Monocytes # (A) 0.6 k/uL (0-1.0); Monocytes % (A) 9 %; Neutrophils # (A) 5.8 k/uL (1.3-7.7); Neutrophils % (A) 82 %; Platelet Count 447 k/uL (150-450); Poikilocytosis Slight; RBC 4.02 m/uL (4.30-5.90); RDW 17.2 % (11.5-15.5); WBC 7.2 k/uL (3.8-10.6)
[2022-02-10 17:46] LABS: ALT 18 U/L (4-49); AST 27 U/L (17-59); African American GFR (CKD) >90 (>60 ml/min/1.73 sqM); Albumin 4.2 g/dL (3.5-5.0); Alkaline Phosphatase 86 U/L (38-126); Amphetamine Screen,Urine Not Detected (NotDetected); Anion Gap 12 mmol/L; Barbiturate Screen,Urine Not Detected (NotDetected); Benzodiazepines Screen,Urine Not Detected (NotDetected); Blood Urea Nitrogen 9 mg/dL (9-20); Calcium 8.6 mg/dL (8.4-10.2); Carbon Dioxide 15 mmol/L (22-30); Chloride 111 mmol/L (98-107); Cocaine Screen,Urine Not Detected (NotDetected); Glucose 95 mg/dL (74-99); Methadone Screen, Urine Not Detected (NotDetected); Non-African American GFR(CKD) 87 (>60 ml/min/1.73 sqM); Opiate Screen,Urine Not Detected (NotDetected); Oxycodone Screen, Urine Not Detected (NotDetected); Phencyclidine Screen,Urine Not Detected (NotDetected); Potassium 3.5 mmol/L (3.5-5.1); Sodium 138 mmol/L (137-145); Total Bilirubin 0.5 mg/dL (0.2-1.3); Total Protein 6.8 g/dL (6.3-8.2); Tricyclic Antidepressant,Urine Not Detected (NotDetected); Urn Cannabinoid Scrn Detected (NotDetected)
[2022-02-10 17:51] LABS: HGB 6.8 gm/dL (13.0-17.5)
--- NOTE | 2022-02-10 18:03 | CT ---
EXAMINATION TYPE: CT brain wo con DATE OF EXAM: 02/10/2022 COMPARISON: None HISTORY: Altered mental status. CT DLP: 1006.4 mGycm Automated exposure control for dose reduction was used. Ventricles are of normal size. There is no mass effect or midline shift. There is no sign of intracra nial hemorrhage. Calvarium is intact skull base is intact. IMPRESSION: Negative unenhanced head CT scan.
--- NOTE | 2022-02-10 18:09 | XR ---
EXAMINATION TYPE: XR chest 2V DATE OF EXAM: 02/10/2022 COMPARISON: 05/16/2021 HISTORY: Altered mental status TECHNIQUE: 2 views FINDINGS: Heart and mediastinum are normal. Lungs are clear. Diaphragm is normal. Bony thorax is inta ct. There are chest leads. IMPRESSION: Normal chest. No change.
[2022-02-10 18:53] LABS: Anisocytosis Slight; HCT 24.9 % (39.0-53.0); Hypochromasia Marked; MCH 16.9 pg (25.0-35.0); MCV 64.7 fL (80.0-100.0); Mean Platelet Volume 6.9; Microcytosis Marked; Platelet Count 476 k/uL (150-450); Poikilocytosis Slight; RBC 3.85 m/uL (4.30-5.90); RDW 17.5 % (11.5-15.5); WBC 7.4 k/uL (3.8-10.6)
[2022-02-10 18:54] LABS: HGB 6.5 gm/dL (13.0-17.5)
[2022-02-10] MEDS ORDERED: NALOXONE 0.4 MG/ML 1 ML VIAL IV PRN (21:20)
[2022-02-10 21:58] LABS: Anisocytosis Slight; Basophils # (A) 0.1 k/uL (0-0.2); Basophils % (A) 2 %; Eosinophils % (A) 0 %; HCT 24.4 % (39.0-53.0); Hypochromasia Marked; Lymphocytes # (A) 0.6 k/uL (1.0-4.8); Lymphocytes % (A) 11 %; MCH 16.7 pg (25.0-35.0); MCHC 25.8 g/dL (31.0-37.0); Mean Platelet Volume 7.2; Microcytosis Marked; Monocytes # (A) 0.5 k/uL (0-1.0); Monocytes % (A) 9 %; Neutrophils # (A) 4.2 k/uL (1.3-7.7); Neutrophils % (A) 75 %; Platelet Count 420 k/uL (150-450); Poikilocytosis Moderate; RBC 3.76 m/uL (4.30-5.90); RDW 17.3 % (11.5-15.5); WBC 5.6 k/uL (3.8-10.6)
[2022-02-10 22:25] LABS: HGB 6.3 gm/dL (13.0-17.5)
[2022-02-10] MEDS: ACETAMINOPHEN TAB 325 MG TAB PO PRN (23:00)
--- NOTE | 2022-02-11 00:02 | P.HPIM ---
History of Present Illness H&P Date: 02/10/22 The patient is a 56-year-old male with a PMH of [place] status post stenting, peptic ulcer disease, hypertension, hyperlipidemia, marijuana, and tobacco abuse who presents to the emergency room with complaints of myalgias, fatigue, and sore throat. Patient reports that his symptoms started roughly 48 hours ago. Denied experiencing fever, chills, cough, chest pain, shortness of breath. Denied headaches, weakness, or numbness. In the emergency room, laboratory evaluation revealed influenza A positive with hemoglobin 6.8, down from 15.5 in 05/2021. Coronavirus PCR was negative with stool occult blood also negative. The patient denied any bloody or black tarry stools. He also denied experiencing abdominal pain, nausea, vomiting, diarrhea. He denied any prior history of bleeding. CT brain in the emergency room was unremarkable. Chest x-ray was also unremarkable. EKG revealed sinus rhythm with sinus arrhythmia at 91 bpm. Review of systems: Pertinent positives and negatives as discussed in HPI, a complete review of systems was performed and all other systems are negative. Physical examination: General: non toxic, no distress, appears at stated age, overweight Derm: no unusual rashes/lesions no unusual ecchymoses, warm, dry Head: atraumatic, normocephalic, symmetric Eyes: EOMI, no lid lag, anicteric sclera, pupils equal round reactive to light ENT: Nose and ears atraumatic, no thrush, no pharyngeal erythema Neck: No thyromegaly, submandibular and anterior cervical tender lymp hadenopathy, trachea midline, supple Mouth: no lip lesion, mucus membranes moist Cardiovascular: S1S2 reg, no murmur, positive posterior tibial pulse bilateral, no edema, capillary refill less than 2 seconds Lungs: CTA bilateral, no rhonchi, no rales , no accessory muscle use Abdominal: soft, nontender to palpation, no guarding, no appreciable organomegaly, normal bowel sounds Ext: no gross muscle atrophy, muscle strength 5 out of 5 in all 4 extremities grossly, no contractures, Neuro: CN II-XI grossly intact, light touch intact all 4 extremities, finger to nose within normal limits, Psych: Alert, oriented, appropriate affect Assessment/plan Severe normocytic anemia -1 unit PRBCs ordered -Fecal occult blood negative -Patient with history of peptic ulcer disease -Surgery consulted for EGD/colonoscopy -Monitor CBC -Will need hematology evaluation if scopes negative -Protonix IV Influenza-type A infection -C/w Tamiflu -IVFs -Tylenol when necessary Chronic conditions: Coronary artery disease, hypertension, hyperlipidemia -Continue with home meds DVT prophylaxis -IPCDs The patient is admitted with an anticipated greater than 2 midnight stay for evaluation of severe anemia CODE STATUS: Full Code Discussed with: Patient Anticipated discharge date: 2-[address]: Home Past Medical History Past Medical History: Coronary Artery Disease (CAD), Chest Pain / Angina, Hyperlipidemia, Hypertension, Myocardial Infarction ([place]), Neurologic Disorder Additional Past Medical History / Comment(s): peripheral neuropathy Last Myocardial Infarction Date:: 2009 History of Any Multi-Drug Resistant Organisms: None Reported Past Surgical History: Heart Catheterization, Hernia Repair, Orthopedic Surgery Additional Past Surgical History / Comment(s): cervical fusion Past Anesthesia/Blood Transfusion Reactions: Postoperative Nausea & Vomiting (PONV) Past Psychological History: Depression Smoking Status: Current some day smoker Past Alcohol Use History: Occasional Past Drug Use History: Marijuana - Past Family History Mother Family Medical History: Hypertension, Osteoarthritis (OA), Thyroid Disorder Father Family Medical History: Chest Pain / Angina, Coronary Artery Disease (CAD) Additional Family Medical History / Comment(s): pts. father has a-fib, leukemia Medications and Allergies Home Medications Medication Instructions Recorded Confirmed Type Topiramate [Topamax] 50 mg PO BID 12/21/17 02/10/22 History Aspirin 81 mg PO DAILY chew 04/08/18 02/10/22 Rx Atorvastatin [Lipitor] 80 mg PO HS tab 04/08/18 02/10/22 Rx lisinopriL [Zestril] 20 mg PO DAILY tab 04/08/18 02/10/22 Rx DULoxetine HCL [Cymbalta] 60 mg PO DAILY 05/16/21 02/10/22 History Ticagrelor [Brilinta] 90 mg PO BID 30 Days #60 tab 05/16/21 02/10/22 Rx Lacosamide [Vimpat] 100 mg PO Q6HR #120 tablet 05/18/21 02/10/22 Rx Allergies Allergy/AdvReac Type Severity Reaction Status Date / Time No Known Allergies Allergy Verified 02/10/22 18:36 Physical Exam Vitals: Vital Signs Temp Pulse Resp BP Pulse Ox 02/10/22 21:16 90 18 132/69 100 02/10/22 18:36 85 18 156/90 100 02/10/22 16:49 100.0 F H 102 H 18 165/81 100 Intake and Output 02/10/22 02/10/22 02/10/22 06:59 14:59 22:59 Other: Weight 88.451 kg Results CBC & Chem 7: 02/10/22 21:48 02/10/22 17:23 Labs: Abnormal Lab Results - Last 24 Hours (Table) 02/10/22 02/10/22 02/10/22 Range/Units 17:23 17:23 17:23 RBC 4.02 L (4.30-5.90) m/uL Hgb 6.8 L* (13.0-17.5) gm/dL Hct 26.3 L (39.0-53.0) % MCV 65.6 L (80.0-100.0) fL MCH 17.0 L (25.0-35.0) pg MCHC 25.9 L (31.0-37.0) g/dL RDW 17.2 H (11.5-15.5) % Plt Count (150-450) k/uL Lymphocytes # 0.4 L (1.0-4.8) k/uL Chloride 111 H (98-107) mmol/L Carbon Dioxide 15 L (22-30) mmol/L Urine Ketones Trace H (Negative) U Marijuana (THC) Screen Detected H (NotDetected) Influenza Type A (PCR) (Not Detectd) Crossmatch 02/10/22 02/10/22 02/10/22 Range/Units 17:43 18:33 18:34 RBC 3.85 L (4.30-5.90) m/uL Hgb 6.5 L* (13.0-17.5) gm/dL Hct 24.9 L (39.0-53.0) % MCV 64.7 L (80.0-100.0) fL MCH 16.9 L (25.0-35.0) pg MCHC 26.0 L (31.0-37.0) g/dL RDW 17.5 H (11.5-15.5) % Plt Count 476 H (150-450) k/uL Lymphocytes # (1.0-4.8) k/uL Chloride (98-107) mmol/L Carbon Dioxide (22-30) mmol/L Urine Ketones (Negative) U Marijuana (THC) Screen (NotDetected) Influenza Type A (PCR) Detected A (Not Detectd) Crossmatch See Detail
[2022-02-11] MEDS: LACOSAMIDE 50 MG TABLET PO SCH ×5 (00:28→23:24)
[2022-02-11] MEDS: SODIUM CHLORIDE 0.9% 1,000 ML IV SCH ×4 (00:30→20:10)
[2022-02-11 06:01] LABS: Anisocytosis Slight; Hypochromasia Marked; MCV 66.7 fL (80.0-100.0); Microcytosis Marked; Platelet Count 402 k/uL (150-450); Poikilocytosis Moderate; WBC 6.2 k/uL (3.8-10.6)
[2022-02-11] MEDS: ACETAMINOPHEN TAB 325 MG TAB PO PRN ×2 (07:57→17:01)
[2022-02-11] MEDS: TOPIRAMATE 25 MG TAB PO SCH ×2 (09:08→20:08)
[2022-02-11] MEDS: lisinopriL 20 MG TAB PO SCH (09:08)
[2022-02-11] MEDS: DULoxetine HCL 60 MG CAPSULE.DR PO SCH (09:08)
[2022-02-11] MEDS: PANTOPRAZOLE 40 MG/10 ML VIAL IV SCH ×2 (09:08→20:09)
[2022-02-11] MEDS: OSELTAMIVIR 75 MG CAP PO SCH ×2 (09:08→20:08)
--- NOTE | 2022-02-11 11:17 | P.GSCN ---
History of Present Illness Consult date: 02/11/22 History of present illness: CHIEF COMPLAINT: Altered mental status Reason for consult: anemia HISTORY OF PRESENT ILLNESS: This is a 56-year-old male who was brought into the hospital with complaints of lethargy and confusion. He also is having sore throat, cough and myalgias. He is found have evidence of influenza a positive and his been started on Tamiflu. Patient also was found to be anemic hemoglobin 6.8 on admission down to 6.3 he did receive a unit of blood hemoglobin is up to 7. Stool for occult blood is negative. He has a known history of a Diaz abd ominal ulcer. Patient reports that he has been having a burning sensation in the epigastric area. The pain and discomfort is worse after eating. Patient does have a history of coronary artery disease with cardiac stents and is on Brilenta and aspirin. Last stent was over the summer. Patient reports that in several years since his last EGD and colonoscopy was 5 years ago. He reports no abnormality at that time. However he was told to have repeat scopes at age 61. Patient denies any NSAID use. Patient did have low-grade temps of 100.8 on admission. Patient denies any nausea or vomiting. He does report episodes of heartburn and indigestion. PAST MEDICAL HISTORY: Coronary Artery Disease (CAD), Chest Pain / Angina, Hyperlipidemia, Hypertension, Myocardial Infarction ([place]), peripheral neuropathy PAST SURGICAL HISTORY: Heart Catheterization, Hernia Repair, Orthopedic Surgery, EGD and colonoscopy MEDICATIONS: See list. ALLERGIES: See list. SOCIAL HISTORY: No illicit drug use. Nicotine dependence REVIEW OF SYSTEMS: CONSTITUTIONAL: Denies fever or chills. HEENT: Denies blurred vision, vision changes, or eye pain. Denies hemoptysis CARDIOVASCULAR: Denies chest pain or pressure. RESPIRATORY: No shortness of breath. GASTROINTESTINAL: See HPI for pertinent findings HEMATOLOGIC: Denies bleeding disorders. GENITOURINARY: Denies any blood in urine or increased urinary frequency. SKIN: Denies pruitis. Denies rash. PHYSICAL EXAM: VITAL SIGNS: Reviewed GENERAL: Well-developed in no acute distress. HEENT: No sclera icterus. Extraocular movements grossly intact. Moist buccal mucosa. Head is atraumatic, normocephalic. No nasal drainage. ABDOMEN: Soft. Nondistended. Nontender NEUROLOGIC: Alert and oriented. Cranial nerves II through XII grossly intact. LABORATORY DATA: WBC 6.2 hemoglobin 7.0 platelets 402 Stool for occult blood negative Sodium 138 potassium 3.5 creatinine 0.98 Drug screen positive for marijuana Influenza type A detected IMAGING: Chest x-ray normal Computed tomography scan brain ASSESSMENT: 1. Microcytic Anemia with history of duodenal ulcer and epigastric discomfort 2. Influenza A positive PLAN: -Patient scheduled for EGD tomorrow, 02/12/[address] Lozada -Continue to hold Brilenta and aspirin -Okay for clear liquids -Nothing by mouth after midnight -Continue IV Protonix -Continue IV fluids -Continue to monitor hemoglobin Physician Patrol Lady note has been reviewed by physician. Signing provider agrees with the documented findings, assessment, and plan of care. Past Medical History Past Medical History: Coronary Artery Disease (CAD), Chest Pain / Angina, Hyperlipidemia, Hypertension, Myocardial Infarction ([place]), Neurologic Disorder Additional Past Medical History / Comment(s): peripheral neuropathy Last Myocardial Infarction Date:: 2009 History of Any Multi-Drug Resistant Organisms: None Reported Past Surgical History: Heart Catheterization, Hernia Repair, Orthopedic Surgery Additional Past Surgical History / Comment(s): cervical fusion Past Anesthesia/Blood Transfusion Reactions: Postoperative Nausea & Vomiting (PONV) Past Psychological History: Depression Smoking Status: Current some day smoker Past Alcohol Use History: Occasional Past Drug Use History: Marijuana - Past Family History Mother Family Medical History: Hypertension, Osteoarthritis (OA), Thyroid Disorder Father Family Medical History: Chest Pain / Angina, Coronary Artery Disease (CAD) Additional Family Medical History / Comment(s): pts. father has a-fib, leukemia Medications and Allergies Home Medications Medication Instructions Recorded Confirmed Type Topiramate [Topamax] 50 mg PO BID 12/21/17 02/10/22 History Aspirin 81 mg PO DAILY chew 04/08/18 02/10/22 Rx Atorvastatin [Lipitor] 80 mg PO HS tab 04/08/18 02/10/22 Rx lisinopriL [Zestril] 20 mg PO DAILY tab 04/08/18 02/10/22 Rx DULoxetine HCL [Cymbalta] 60 mg PO DAILY 05/16/21 02/10/22 History Ticagrelor [Brilinta] 90 mg PO BID 30 Days #60 tab 05/16/21 02/10/22 Rx Lacosamide [Vimpat] 100 mg PO Q6HR #120 tablet 05/18/21 02/10/22 Rx Allergies Allergy/AdvReac Type Severity Reaction Status Date / Time No Known Allergies Allergy Verified 02/10/22 18:36 Surgical - Exam Vital Signs Temp Pulse Resp BP Pulse Ox 100.0 F H 102 H 18 165/81 100 02/10/22 16:49 02/10/22 16:49 02/10/22 16:49 02/10/22 16:49 02/10/22 16:49 Results - Labs 02/11/22 12:12 02/10/22 17:23 Abnormal Lab Results - Last 24 Hours (Table) 02/10/22 02/10/22 02/10/22 Range/Units 17:23 17:23 17:23 RBC 4.02 L (4.30-5.90) m/uL Hgb 6.8 L* (13.0-17.5) gm/dL Hct 26.3 L (39.0-53.0) % MCV 65.6 L (80.0-100.0) fL MCH 17.0 L (25.0-35.0) pg MCHC 25.9 L (31.0-37.0) g/dL RDW 17.2 H (11.5-15.5) % Plt Count (150-450) k/uL Lymphocytes # 0.4 L (1.0-4.8) k/uL Chloride 111 H (98-107) mmol/L Carbon Dioxide 15 L (22-30) mmol/L Urine Ketones Trace H (Negative) U Marijuana (THC) Screen Detected H (NotDetected) Influenza Type A (PCR) (Not Detectd) Crossmatch 02/10/22 02/10/22 02/10/22 Range/Units 17:43 18:33 18:34 RBC 3.85 L (4.30-5.90) m/uL Hgb 6.5 L* (13.0-17.5) gm/dL Hct 24.9 L (39.0-53.0) % MCV 64.7 L (80.0-100.0) fL MCH 16.9 L (25.0-35.0) pg MCHC 26.0 L (31.0-37.0) g/dL RDW 17.5 H (11.5-15.5) % Plt Count 476 H (150-450) k/uL Lymphocytes # (1.0-4.8) k/uL Chloride (98-107) mmol/L Carbon Dioxide (22-30) mmol/L Urine Ketones (Negative) U Marijuana (THC) Screen (NotDetected) Influenza Type A (PCR) Detected A (Not Detectd) Crossmatch See Detail 02/10/22 02/11/22 Range/Units 21:48 05:37 RBC 3.76 L 3.90 L (4.30-5.90) m/uL Hgb 6.3 L* 7.0 L (13.0-17.5) gm/dL Hct 24.4 L 26.0 L (39.0-53.0) % MCV 65.0 L 66.7 L (80.0-100.0) fL MCH 16.7 L 18.0 L (25.0-35.0) pg MCHC 25.8 L 27.0 L (31.0-37.0) g/dL RDW 17.3 H 18.0 H (11.5-15.5) % Plt Count (150-450) k/uL Lymphocytes # 0.6 L (1.0-4.8) k/uL Chloride (98-107) mmol/L Carbon Dioxide (22-30) mmol/L Urine Ketones (Negative) U Marijuana (THC) Screen (NotDetected) Influenza Type A (PCR) (Not Detectd) Crossmatch Diabetes panel 02/10/22 Range/Units 17:23 Sodium 138 (137-145) mmol/L Potassium 3.5 (3.5-5.1) mmol/L Chloride 111 H (98-107) mmol/L Carbon Dioxide 15 L (22-30) mmol/L BUN 9 (9-20) mg/dL Creatinine 0.98 (0.66-1.25) mg/dL Glucose 95 (74-99) mg/dL Calcium 8.6 (8.4-10.2) mg/dL AST 27 (17-59) U/L ALT 18 (4-49) U/L Alkaline Phosphatase 86 (38-126) U/L Total Protein 6.8 (6.3-8.2) g/dL Albumin 4.2 (3.5-5.0) g/dL Calcium panel 02/10/22 Range/Units 17:23 Calcium 8.6 (8.4-10.2) mg/dL Albumin 4.2 (3.5-5.0) g/dL Pituitary panel 02/10/22 Range/Units 17:23 Sodium 138 (137-145) mmol/L Potassium 3.5 (3.5-5.1) mmol/L Chloride 111 H (98-107) mmol/L Carbon Dioxide 15 L (22-30) mmol/L BUN 9 (9-20) mg/dL Creatinine 0.98 (0.66-1.25) mg/dL Glucose 95 (74-99) mg/dL Calcium 8.6 (8.4-10.2) mg/dL Adrenal panel 02/10/22 Range/Units 17:23 Sodium 138 (137-145) mmol/L Potassium 3.5 (3.5-5.1) mmol/L Chloride 111 H (98-107) mmol/L Carbon Dioxide 15 L (22-30) mmol/L BUN 9 (9-20) mg/dL Creatinine 0.98 (0.66-1.25) mg/dL Glucose 95 (74-99) mg/dL Calcium 8.6 (8.4-10.2) mg/dL Total Bilirubin 0.5 (0.2-1.3) mg/dL AST 27 (17-59) U/L ALT 18 (4-49) U/L Alkaline Phosphatase 86 (38-126) U/L Total Protein 6.8 (6.3-8.2) g/dL Albumin 4.2 (3.5-5.0) g/dL
--- NOTE | 2022-02-11 11:25 | P.PN ---
Subjective Progress Note Date: 02/11/22 Hospital course: The patient is a very pleasant 56-year-old male with a past medical history of CAD with previous [place] status post stenting, peptic ulcer disease, hypertension, hyperlipidemia, marijuana, and tobacco abuse who presents to the emergency room with complaints of myalgias, fatigue, and sore throat. Patient reports that his symptoms started roughly 48 hours ago. Denied experiencing fever, chills, cough, chest pain, shortness of breath. Denied headaches, weakness, or nu mbness. In the emergency room, laboratory evaluation revealed influenza A positive with hemoglobin 6.8, down from 15.5 in 05/2021. Coronavirus PCR was negative with stool occult blood also negative. The patient denied any bloody or black tarry stools. He also denied experiencing abdominal pain, nausea, vomiting, diarrhea. He denied any prior history of bleeding. CT brain in the emergency room was unremarkable. Chest x-ray was also unremarkable. EKG revealed sinus rhythm with sinus arrhythmia at 91 bpm. Physical exam: Patient seen and fully evaluated at the bedside this morning. He reports continued weakness and fatigue. He denies having any headache, lightheadedness, dizziness, chest pain, palpitations, or shortness of breath at this time. Patient remains on continuous IV fluid hydration and has been tolerating clear liquid diet. General surgery has evaluated and plans to take patient for scheduled EGD tomorrow morning. We will continue to monitor hemoglobin closely and transfuse as needed for hemoglobin less than 7. Vital signs reviewed and stable. General: Nontoxic, no distress and appears stated age. Derm: Skin warm and dry, normal coloration for ethnicity. Head: Atraumatic, normocephalic and symmetric. Eyes: EOMs intact, no lid lag, and anicteric sclera Mouth: no lip lesions, mucus membranes moist Cardiovascular: regular rate and rhythm with normal S1S2, no murmur, positive posterior tibial pulses bilaterally, and cap refill < 2 seconds. Lungs: Respirations even, regular, and unlabored on room air. Lungs CTA bilaterally, no rhonchi, no rales, no wheezing, and no accessory muscle usage. Abdominal: soft, nontender to palpation, no guarding, no appreciable organomegaly Ext: ROM intact. No gross muscle atrophy, no edema, no contractures Neuro: Speech clear, face symmetrical and CN II-XII grossly intact with no noted focal neuro deficits Psych: Alert and oriented to person, place, time, and situation. Appropriate and pleasant affect. Assessment and Plan of Care: Severe normocytic anemia -Status post 1 unit PRBCs hgb 7.0 -Fecal occult blood negative -Patient with history of peptic ulcer disease -Surgery consulted for EGD/colonoscopy, plans to take pt for EGD tomorrow morning with Dr. Lozada. -Monitor CBC -Will need hematology evaluation if scopes negative -Continue with gentle IV hydration and Protonix 40 mg IVP twice daily. -Clear liquid diet, nothing by mouth at midnight Influenza-type A infection -Continue Tamiflu -IVFs -Tylenol when necessary Chronic conditions: Coronary artery disease, hypertension, hyperlipidemia -Continue with home meds CODE STATUS: Full Code DVT prophylaxis: SCDs Discussed with: Patient Anticipated discharge date: 2-[address]: Home A total of 35 minutes was spent on the care of this complex patient more than 50% of the time was spent in counseling and care coordination. Objective - Vital Signs Vital signs: Vital Signs Temp 98.7 F 02/11/22 06:52 Pulse 79 02/11/22 06:52 Resp 20 02/11/22 06:52 BP 141/89 02/11/22 06:52 Pulse Ox 100 02/11/22 06:52 Intake & Output 02/10/22 02/11/22 02/11/22 18:59 06:59 18:59 Intake Total 310 Balance 310 Weight 88.451 kg Intake: Blood Product 310 Rc As-1 Unit 310 [id number] - Labs CBC & Chem 7: 02/11/22 12:12 02/10/22 17:23 Labs: Abnormal Lab Results - Last 24 Hours (Table) 02/10/22 02/10/22 02/10/22 Range/Units 17:23 17:23 17:23 RBC 4.02 L (4.30-5.90) m/uL Hgb 6.8 L* (13.0-17.5) gm/dL Hct 26.3 L (39.0-53.0) % MCV 65.6 L (80.0-100.0) fL MCH 17.0 L (25.0-35.0) pg MCHC 25.9 L (31.0-37.0) g/dL RDW 17.2 H (11.5-15.5) % Plt Count (150-450) k/uL Lymphocytes # 0.4 L (1.0-4.8) k/uL Chloride 111 H (98-107) mmol/L Carbon Dioxide 15 L (22-30) mmol/L Urine Ketones Trace H (Negative) U Marijuana (THC) Screen Detected H (NotDetected) Influenza Type A (PCR) (Not Detectd) Crossmatch 02/10/22 02/10/22 02/10/22 Range/Units 17:43 18:33 18:34 RBC 3.85 L (4.30-5.90) m/uL Hgb 6.5 L* (13.0-17.5) gm/dL Hct 24.9 L (39.0-53.0) % MCV 64.7 L (80.0-100.0) fL MCH 16.9 L (25.0-35.0) pg MCHC 26.0 L (31.0-37.0) g/dL RDW 17.5 H (11.5-15.5) % Plt Count 476 H (150-450) k/uL Lymphocytes # (1.0-4.8) k/uL Chloride (98-107) mmol/L Carbon Dioxide (22-30) mmol/L Urine Ketones (Negative) U Marijuana (THC) Screen (NotDetected) Influenza Type A (PCR) Detected A (Not Detectd) Crossmatch See Detail 02/10/22 02/11/22 Range/Units 21:48 05:37 RBC 3.76 L 3.90 L (4.30-5.90) m/uL Hgb 6.3 L* 7.0 L (13.0-17.5) gm/dL Hct 24.4 L 26.0 L (39.0-53.0) % MCV 65.0 L 66.7 L (80.0-100.0) fL MCH 16.7 L 18.0 L (25.0-35.0) pg MCHC 25.8 L 27.0 L (31.0-37.0) g/dL RDW 17.3 H 18.0 H (11.5-15.5) % Plt Count (150-450) k/uL Lymphocytes # 0.6 L (1.0-4.8) k/uL Chloride (98-107) mmol/L Carbon Dioxide (22-30) mmol/L Urine Ketones (Negative) U Marijuana (THC) Screen (NotDetected) Influenza Type A (PCR) (Not Detectd) Crossmatch
[2022-02-11 12:25] LABS: Anisocytosis Slight; HGB 7.4 gm/dL (13.0-17.5); Hypochromasia Marked; MCH 18.1 pg (25.0-35.0); MCHC 27.3 g/dL (31.0-37.0); MCV 66.3 fL (80.0-100.0); Mean Platelet Volume 6.9; Microcytosis Marked; Platelet Count 421 k/uL (150-450); Poikilocytosis Marked; RBC 4.07 m/uL (4.30-5.90); RDW 17.9 % (11.5-15.5); WBC 7.1 k/uL (3.8-10.6)
[2022-02-11] MEDS: LACTATED RINGERS 1,000 ML IV SCH (16:59)
[2022-02-11 17:03] LABS: Anisocytosis Slight; HCT 27.5 % (39.0-53.0); HGB 7.3 gm/dL (13.0-17.5); Hypochromasia Marked; MCH 17.9 pg (25.0-35.0); MCHC 26.6 g/dL (31.0-37.0); MCV 67.3 fL (80.0-100.0); Microcytosis Marked; Platelet Count 370 k/uL (150-450); Poikilocytosis Marked; RBC 4.08 m/uL (4.30-5.90)
[2022-02-11] MEDS: ATORVASTATIN 80 MG TAB PO SCH (20:08)
[2022-02-12 00:12] LABS: Anisocytosis Slight; HCT 26.3 % (39.0-53.0); Hypochromasia Marked; MCH 17.5 pg (25.0-35.0); MCHC 26.2 g/dL (31.0-37.0); MCV 66.6 fL (80.0-100.0); Mean Platelet Volume 7.1; Microcytosis Marked; Platelet Count 346 k/uL (150-450); Poikilocytosis Moderate; RBC 3.95 m/uL (4.30-5.90); RDW 17.6 % (11.5-15.5); WBC 7.5 k/uL (3.8-10.6)
[2022-02-12 00:21] LABS: HGB 6.9 gm/dL (13.0-17.5)
[2022-02-12] MEDS: SODIUM CHLORIDE 0.9% 1,000 ML IV SCH ×3 (03:55→20:59)
[2022-02-12] MEDS: LACOSAMIDE 50 MG TABLET PO SCH ×4 (06:17→23:30)
[2022-02-12] MEDS ORDERED: PROPOFOL 10 MG/ML 20 ML VIAL IV ONE (07:30)
[2022-02-12] MEDS ORDERED: LIDOCAINE 1% INJ 10MG/ML (20 ML MDV) ONE (07:30)
[2022-02-12] MEDS ORDERED: IV FLUID CONTINUATION 1,000 ML IV ONE (07:32)
--- NOTE | 2022-02-12 08:02 | P.OP ---
Date of Procedure: 02/12/22 Preoperative Diagnosis: Anemia Postoperative Diagnosis: Duodenitis Mild antral gastritis Probable Katey esophagitis Procedure(s) Performed: EGD Anesthesia: MAC Surgeon: Solomon Lozada Pathology: other (Duodenum, antrum, esophagus) Condition: stable Disposition: PACU Description of Procedure: The patient's placed on the endoscopy table in the lateral position. He received IV sedation. The gastro-/oropharynx passed in the esophagus and into the stomach. Scope was placed through the pylorus. The first and second portion duodenum was examined. There is there was duodenitis seen of the duodenum. There is no ulcer seen. A biopsies performed. The scope was brought back the antrum and there was minimal antral gastritis. A biopsies performed. Scope was retroflexed there was a small hiatal hernia. The GE junction was at 38 cm. The distal esophagus. Minimal inflamed. There appeared to be evidence of Katey esophagitis. This area is biopsied. The Katey esophagitis appeared to be in the lower half the esophagus. The proximal esophagus appeared normal. The scope was withdrawn for patient.
[2022-02-12] MEDS: lisinopriL 20 MG TAB PO SCH (08:23)
[2022-02-12] MEDS: DULoxetine HCL 60 MG CAPSULE.DR PO SCH (08:23)
[2022-02-12] MEDS: PANTOPRAZOLE 40 MG/10 ML VIAL IV SCH ×2 (08:23→20:59)
[2022-02-12] MEDS: TOPIRAMATE 25 MG TAB PO SCH ×2 (08:23→20:58)
[2022-02-12 08:35] LABS: Anisocytosis Slight; HCT 25.9 % (39.0-53.0); HGB 7.1 gm/dL (13.0-17.5); Hypochromasia Marked; MCHC 27.3 g/dL (31.0-37.0); Mean Platelet Volume 8.5; Microcytosis Marked; Platelet Count 349 k/uL (150-450); Poikilocytosis Marked; RBC 3.92 m/uL (4.30-5.90); RDW 17.9 % (11.5-15.5); WBC 8.9 k/uL (3.8-10.6)
[2022-02-12 08:49] LABS: ALT 17 U/L (4-49); AST 36 U/L (17-59); African American GFR (CKD) >90 (>60 ml/min/1.73 sqM); Albumin 3.6 g/dL (3.5-5.0); Alkaline Phosphatase 67 U/L (38-126); Anion Gap 10 mmol/L; Blood Urea Nitrogen 9 mg/dL (9-20); Calcium 8.1 mg/dL (8.4-10.2); Carbon Dioxide 17 mmol/L (22-30); Chloride 110 mmol/L (98-107); Glucose 97 mg/dL (74-99); Magnesium 1.7 mg/dL (1.6-2.3); Non-African American GFR(CKD) >90 (>60 ml/min/1.73 sqM); Potassium 3.6 mmol/L (3.5-5.1); Sodium 137 mmol/L (137-145); Total Bilirubin 0.6 mg/dL (0.2-1.3); Total Protein 6.3 g/dL (6.3-8.2)
[2022-02-12] MEDS: OSELTAMIVIR 75 MG CAP PO SCH ×2 (10:20→20:59)
--- NOTE | 2022-02-12 11:30 | P.PN ---
Subjective Progress Note Date: 02/12/22 Hospital course: The patient is a very pleasant 56-year-old male with a past medical history of CAD with previous [place] status post stenting, peptic ulcer disease, hypertension, hyperlipidemia, marijuana, and tobacco abuse who presents to the emergency room with complaints of myalgias, fatigue, and sore throat. Patient reports that his symptoms started roughly 48 hours ago. Denied experiencing fever, chills, cough, chest pain, shortness of breath. Denied headaches, weakness, or nu mbness. In the emergency room, laboratory evaluation revealed influenza A positive with hemoglobin 6.8, down from 15.5 in 05/2021. Coronavirus PCR was negative with stool occult blood also negative. The patient denied any bloody or black tarry stools. He also denied experiencing abdominal pain, nausea, vomiting, diarrhea. He denied any prior history of bleeding. CT brain in the emergency room was unremarkable. Chest x-ray was also unremarkable. EKG revealed sinus rhythm with sinus arrhythmia at 91 bpm. Physical exam: Patient seen and fully evaluated at the bedside this morning. He reports continued weakness and fatigue and states that he has been experiencing some left flank pain. He has just returned from endoscopy which per surgeon's report states postoperative diagnoses of duodenitis and antral gastritis. Patient's diet has been advanced to regular diet per surgery team at this time. CT abdomen and pelvis to be completed. Hemoglobin has remained low, but stable and currently 7.1. Pt continues to deny any noted blood loss, bleeding, dark colored stools, or blood in urine. We will continue to monitor hemoglobin closely and transfuse as needed for hemoglobin less than 7. Hematology consult placed to rule out hemolytic anemia resulting from current infection with influenza A. Vital signs reviewed and stable. General: Nontoxic, no distress and appears stated age. Derm: Skin warm and dry, normal coloration for ethnicity. Head: Atraumatic, normocephalic and symmetric. Eyes: EOMs intact, no lid lag, and anicteric sclera Mouth: no lip lesions, mucus membranes moist Cardiovascular: regular rate and rhythm with normal S1S2, no murmur, positive posterior tibial pulses bilaterally, and cap refill < 2 seconds. Lungs: Respirations even, regular, and unlabored on room air. Lungs CTA bilaterally, no rhonchi, no rales, no wheezing, and no accessory muscle usage. Abdominal: soft, nontender to palpation, no guarding, no appreciable organomegaly. Slight tenderness to left flank/CVA region. Ext: ROM intact. No gross muscle atrophy, no edema, no contractures Neuro: Speech clear, face symmetrical and CN II-XII grossly intact with no noted focal neuro deficits Psych: Alert and oriented to person, place, time, and situation. Appropriate and pleasant affect. Assessment and Plan of Care: Severe normocytic anemia -Status post 1 unit PRBCs hgb 7.1 -Fecal occult blood negative -Patient with history of peptic ulcer disease -Surgery following, patient underwent EGD this morning with Dr. Lozada with postoperative diagnoses of duodenitis and antral gastritis. -CT abdomen and pelvis to be completed as patient reports slight left flank/CVA tenderness -Monitor CBC -Hematology consult placed to rule out hemolytic anemia with current influenza A infection -Continue with gentle IV hydration and Protonix 40 mg IVP twice daily. -Diet was advanced to regular diet per surgery team. Influenza-type A infection -Continue Tamiflu -IVFs -Tylenol when necessary Chronic conditions: Coronary artery disease, hypertension, hyperlipidemia -Continue with home meds CODE STATUS: Full Code DVT prophylaxis: SCDs Discussed with: Patient Anticipated discharge date: Clinical course to determine Anticipated discharge place: Home A total of 35 minutes was spent on the care of this complex patient more than 50% of the time was spent in counseling and care coordination. Marcio Metz NP rendered care for this patient independently, reviewed the f indings and plan as documented in the note above. I did not physically speak with or examine the patient on this date. Agree with hematology eval... add haptoglobin and t bili, renal US Objective - Vital Signs Vital signs: Vital Signs Temp 98.8 F 02/12/22 10:22 Pulse 82 02/12/22 10:22 Resp 16 02/12/22 10:22 BP 150/90 02/12/22 10:22 Pulse Ox 100 02/12/22 10:22 Intake & Output 02/11/22 02/12/22 02/12/22 18:59 06:59 18:59 Intake Total 540 1880 220 Output Total 1850 Balance 540 30 220 Weight 88.451 kg Intake: IV 100 Intake, IV Titration 1560 Amount Sodium Chloride 0.9% 1, 1560 000 ml @ 130 mls/hr IV . Q7H42M [facility] Rx#:[id number] Oral 540 320 120 Output: Urine 1850 Other: Voiding Method Toilet Toilet # Voids 2 # Bowel Movements 1 - Labs CBC & Chem 7: 02/12/22 08:13 02/12/22 08:13 Labs: Abnormal Lab Results - Last 24 Hours (Table) 02/11/22 02/11/22 02/11/22 Range/Units 12:12 16:48 23:23 RBC 4.07 L 4.08 L 3.95 L (4.30-5.90) m/uL Hgb 7.4 L 7.3 L 6.9 L* (13.0-17.5) gm/dL Hct 27.0 L 27.5 L 26.3 L (39.0-53.0) % MCV 66.3 L 67.3 L 66.6 L (80.0-100.0) fL MCH 18.1 L 17.9 L 17.5 L (25.0-35.0) pg MCHC 27.3 L 26.6 L 26.2 L (31.0-37.0) g/dL RDW 17.9 H 18.0 H 17.6 H (11.5-15.5) % Chloride (98-107) mmol/L Carbon Dioxide (22-30) mmol/L Calcium (8.4-10.2) mg/dL 02/12/22 02/12/22 Range/Units 08:13 08:13 RBC 3.92 L (4.30-5.90) m/uL Hgb 7.1 L (13.0-17.5) gm/dL Hct 25.9 L (39.0-53.0) % MCV 66.0 L (80.0-100.0) fL MCH 18.0 L (25.0-35.0) pg MCHC 27.3 L (31.0-37.0) g/dL RDW 17.9 H (11.5-15.5) % Chloride 110 H (98-107) mmol/L Carbon Dioxide 17 L (22-30) mmol/L Calcium 8.1 L (8.4-10.2) mg/dL Microbiology - Last 24 Hours (Table) 02/10/22 17:18 Blood Culture - Preliminary Blood No Growth after 24 hours 02/10/22 17:03 Blood Culture - Preliminary Blood No Growth after 24 hours
[2022-02-12] MEDS: NYSTATIN 100,000 UNIT/ML SUSP 500,000 UNIT/5 ML CUP PO SCH ×3 (11:52→23:30)
[2022-02-12] MEDS: ACETAMINOPHEN TAB 325 MG TAB PO PRN (11:56)
[2022-02-12] MEDS: LACTATED RINGERS 1,000 ML IV SCH (14:26)
--- NOTE | 2022-02-12 16:41 | CT ---
EXAMINATION TYPE: CT abdomen pelvis wo con DATE OF EXAM: 02/12/2022 COMPARISON: CT dated 04/03/2016 HISTORY: Left sided flank pain CT DLP: 732.4 mGycm Automated exposure control for dose reduction was used. TECHNIQUE: Helical acquisition of images was performed from the lung bases through the pelvis. FINDINGS: Artifactual images. LUNG BASES: Right basal peripheral pulmonary reticulations and dependent densities. LIVER/GB: No significant abnormality is appreciated. PANCREAS: No significant abnormality is seen. SPLEEN: No significant abnormality is seen. ADRENALS: No significant abnormality is seen. KIDNEYS: Mild bilateral perinephric fat stranding and reactive fluid, nonspecific. Unremarkable kidne ys otherwise. No hydroureter or hydronephrosis. FREE AIR: No free air is visualized RETROPERITONEAL ADENOPATHY: None visualized REPRODUCTIVE ORGANS: Slightly enlarged prostate. Unremarkable seminal vesicles. URINARY BLADDER: Grossly unremarkable. PELVIC ADENOPATHY: No pathologically enlarged lymph nodes. OSSEOUS STRUCTURES: No aggressive bone lesion. BOWEL: Unremarkable nondistended stomach, duodenum and small bowel. No evidence of bowel obstruction . Fecal loading of the colon and rectum. Please note that the small and large bowel are suboptimally assessed. Normal appendix. OTHER: Scattered arterial atherosclerotic calcifications. Small amount of free pelvic fluid. Left fat -containing inguinal hernia. IMPRESSION: No definite radiodense urinary calculi. No hydroureter or hydronephrosis. Nonspecific bilateral perin ephric fat stranding and reactive fluid with small amount of free pelvic fluid. Please note that acut e inflammatory/infectious process of the kidneys or urinary tract infection can't be excluded by this nonenhanced CT scan. Recommend clinical correlation, correlation with urinalysis results and renal f unction tests. Other incidental findings as described above.
[2022-02-12 20:58] LABS: Reticulocyte % 2.6 % (0.5-2.0)
[2022-02-12] MEDS: ATORVASTATIN 80 MG TAB PO SCH (20:59)
[2022-02-12 21:01] LABS: LDH 492 U/L (313-618); Total Bilirubin 0.5 mg/dL (0.2-1.3)
--- NOTE | 2022-02-12 21:15 | US ---
EXAMINATION TYPE: US renals and bladder DATE OF EXAM: 02/12/2022 COMPARISON: CT 02/12/22 CLINICAL HISTORY: renal disease. Renal disease EXAM MEASUREMENTS: Right Kidney: 11.8 x 4.7 x 5.3 cm Left Kidney: 11.3 x 4.9 x 5.2 cm Right Kidney: No hydronephrosis or masses seen Left Kidney: No hydronephrosis or masses seen Bladder: Not fully distended; appears wnl IMPRESSION: No evidence of renal mass or obstruction. Negative exam.
[2022-02-13 00:43] LABS: Anisocytosis Slight; HCT 25.7 % (39.0-53.0); Hypochromasia Marked; MCH 18.2 pg (25.0-35.0); MCV 67.4 fL (80.0-100.0); Mean Platelet Volume 7.8; Microcytosis Marked; Platelet Count 309 k/uL (150-450); Poikilocytosis Moderate; RBC 3.82 m/uL (4.30-5.90); RDW 18.2 % (11.5-15.5); WBC 7.1 k/uL (3.8-10.6)
[2022-02-13 01:04] LABS: HGB 6.9 gm/dL (13.0-17.5)
[2022-02-13 02:03] LABS: Protein, Total 5.9 g/dL (6.2-8.2)
[2022-02-13 03:49] LABS: Rheumatoid Factor, Qnt <10 IU/mL (0-15)
[2022-02-13] MEDS: SODIUM CHLORIDE 0.9% 1,000 ML IV SCH ×3 (04:57→17:51)
[2022-02-13] MEDS: LACOSAMIDE 50 MG TABLET PO SCH ×4 (06:02→23:08)
[2022-02-13] MEDS: lisinopriL 20 MG TAB PO SCH (09:18)
[2022-02-13] MEDS: NYSTATIN 100,000 UNIT/ML SUSP 500,000 UNIT/5 ML CUP PO SCH ×4 (09:18→20:29)
[2022-02-13] MEDS: TOPIRAMATE 25 MG TAB PO SCH ×2 (09:18→20:29)
[2022-02-13] MEDS: PANTOPRAZOLE 40 MG/10 ML VIAL IV SCH ×2 (09:18→20:29)
[2022-02-13] MEDS: DULoxetine HCL 60 MG CAPSULE.DR PO SCH (09:18)
[2022-02-13] MEDS: ACETAMINOPHEN TAB 325 MG TAB PO PRN (09:22)
[2022-02-13 09:27] LABS: Anisocytosis Slight; HCT 26.7 % (39.0-53.0); Hypochromasia Marked; MCH 17.7 pg (25.0-35.0); MCHC 25.9 g/dL (31.0-37.0); MCV 68.5 fL (80.0-100.0); Mean Platelet Volume 8.1; Microcytosis Marked; Platelet Count 309 k/uL (150-450); Poikilocytosis Moderate; RDW 18.3 % (11.5-15.5); WBC 5.2 k/uL (3.8-10.6)
[2022-02-13 10:11] LABS: HGB 6.9 gm/dL (13.0-17.5)
[2022-02-13] MEDS: OSELTAMIVIR 75 MG CAP PO SCH ×2 (12:46→20:28)
--- NOTE | 2022-02-13 13:40 | P.PN ---
Subjective Progress Note Date: 02/13/22 Hospital course: The patient is a very pleasant 56-year-old male with a past medical history of CAD with previous [place] status post stenting, peptic ulcer disease, hypertension, hyperlipidemia, marijuana, and tobacco abuse who presents to the emergency room with complaints of myalgias, fatigue, and sore throat. Patient reports that his symptoms started roughly 48 hours ago. Denied experiencing fever, chills, cough, chest pain, shortness of breath. Denied headaches, weakness, or nu mbness. In the emergency room, laboratory evaluation revealed influenza A positive with hemoglobin 6.8, down from 15.5 in 05/2021. Coronavirus PCR was negative with stool occult blood also negative. The patient denied any bloody or black tarry stools. He also denied experiencing abdominal pain, nausea, vomiting, diarrhea. He denied any prior history of bleeding. CT brain in the emergency room was unremarkable. Chest x-ray was also unremarkable. EKG revealed sinus rhythm with sinus arrhythmia at 91 bpm. Physical exam: Patient seen and fully evaluated at the bedside this morning. He was sitting up on the edge of bed this morning and reports resolution of previously reported left flank pain. He continues to deny having any noted blood loss, bleeding, dark colored stools, bruising, or blood in urine. Hemoglobin remains unchanged at 6.9. CT abdomen and pelvis revealed nonspecific bilateral. Nephrotic fat stranding and reactive fluid with small amount of free pelvic fluid. Urinalysis was negative for blood or infection. Renal ultrasound then completed showing no evidence of renal mass or obstruction, negative for hydronephrosis. Blood cultures showing no growth after 48 hours. Haptoglobin elevated at 200.0. Hematology is following and completing anemia workup at this time. We will continue to monitor closely with repeat labs. Patient denied any further complaints or needs at this time. Vital signs reviewed and stable. General: Nontoxic, no distress and appears stated age. Derm: Skin warm and dry, normal coloration for ethnicity. Head: Atraumatic, normocephalic and symmetric. Eyes: EOMs intact, no lid lag, and anicteric sclera Mouth: no lip lesions, mucus membranes moist Cardiovascular: regular rate and rhythm with normal S1S2, no murmur, positive p osterior tibial pulses bilaterally, and cap refill < 2 seconds. Lungs: Respirations even, regular, and unlabored on room air. Lungs CTA bilaterally, no rhonchi, no rales, no wheezing, and no accessory muscle usage. Abdominal: soft, nontender to palpation, no guarding, no appreciable organomegaly. Slight tenderness to left flank/CVA region. Ext: ROM intact. No gross muscle atrophy, no edema, no contractures Neuro: Speech clear, face symmetrical and CN II-XII grossly intact with no noted focal neuro deficits Psych: Alert and oriented to person, place, time, and situation. Appropriate and pleasant affect. Assessment and Plan of Care: Severe normocytic anemia -Status post 1 unit PRBCs hgb 6.9 -Fecal occult blood negative -Patient with history of peptic ulcer disease -Surgery following, patient underwent EGD this morning with Dr. Lozada with postoperative diagnoses of duodenitis and antral gastritis. -CT abdomen and pelvis revealed nonspecific bilateral. Nephrotic fat stranding and reactive fluid with small amount of free pelvic fluid. Urinalysis was negative for blood or infection. -Renal ultrasound then completed showing no evidence of renal mass or obstruction, negative for hydronephrosis. -Haptoglobin elevated at 200.0 -Monitor CBC -Hematology consult placed to rule out hemolytic anemia with current influenza A infection -Continue with gentle IV hydration and Protonix 40 mg IVP twice daily. -Diet was advanced to regular diet per surgery team. Influenza-type A infection -Continue Tamiflu -IVFs -Tylenol when necessary Chronic conditions: Coronary artery disease, hypertension, hyperlipidemia -Continue with home meds CODE STATUS: Full Code DVT prophylaxis: SCDs Discussed with: Patient Anticipated discharge date: Clinical course to determine Anticipated discharge place: Home A total of 36 minutes was spent on the care of this complex patient more than 50 % of the time was spent in counseling and care coordination. Marcio Metz NP rendered care for this patient independently, reviewed the findings and plan as documented in the note above. I did not physically speak with or examine the patient on this date. Iron labs reviewed. Patient with severe Fe deficiency anemia, IV iron X 3 doses ordered. Hem/onc following. Will need outpatient colonoscopy. Objective - Vital Signs Vital signs: Vital Signs Temp 98.0 F 02/13/22 08:00 Pulse 73 02/13/22 12:00 Resp 16 02/13/22 08:00 BP 124/71 02/13/22 12:00 Pulse Ox 100 02/13/22 12:00 Intake & Output 02/12/22 02/13/22 02/13/22 18:59 06:59 18:59 Intake Total 2440 2280 660 Output Total 475 925 150 Balance 1965 1355 510 Intake: IV 100 Intake, IV Titration 1560 1560 Amount Sodium Chloride 0.9% 1, 1560 1560 000 ml @ 130 mls/hr IV . Q7H42M [facility] Rx#:[id number] Oral 780 720 660 Output: Urine 475 925 150 Other: Voiding Method Toilet Toilet # Voids 2 - Labs CBC & Chem 7: 02/13/22 08:56 02/12/22 08:13 Labs: Abnormal Lab Results - Last 24 Hours (Table) 02/12/22 02/12/22 02/12/22 Range/Units 08:00 20:20 20:28 RBC (4.30-5.90) m/uL Hgb (13.0-17.5) gm/dL Hct (39.0-53.0) % MCV (80.0-100.0) fL MCH (25.0-35.0) pg MCHC (31.0-37.0) g/dL RDW (11.5-15.5) % Retic Count 2.6 H (0.5-2.0) % Haptoglobin 200.0 H (31.2-198.0) mg/dL Total Protein (PEP) 5.9 L (6.2-8.2) g/dL 02/13/22 02/13/22 Range/Units 00:29 08:56 RBC 3.82 L 3.90 L (4.30-5.90) m/uL Hgb 6.9 L* 6.9 L* (13.0-17.5) gm/dL Hct 25.7 L 26.7 L (39.0-53.0) % MCV 67.4 L 68.5 L (80.0-100.0) fL MCH 18.2 L 17.7 L (25.0-35.0) pg MCHC 27.0 L 25.9 L (31.0-37.0) g/dL RDW 18.2 H 18.3 H (11.5-15.5) % Retic Count (0.5-2.0) % Haptoglobin (31.2-198.0) mg/dL Total Protein (PEP) (6.2-8.2) g/dL Microbiology - Last 24 Hours (Table) 02/10/22 17:18 Blood Culture - Preliminary Blood No Growth after 48 hours 02/10/22 17:03 Blood Culture - Preliminary Blood No Growth after 48 hours
[2022-02-13 15:17] LABS: % Iron Saturation 2.05 (15.00-50.00); Ferritin 17.6 ng/mL (22.0-322.0)
--- NOTE | 2022-02-13 15:41 | P.PN ---
Subjective Progress Note Date: 02/13/22 CHIEF COMPLAINT: Anemia HISTORY OF PRESENT ILLNESS: Patient is status post EGD which demonstrated duodenitis, mild antral gastritis and probable Katey esophagitis. Patient denies any abdominal pain. Patient denies any nausea vomiting. He is tolerating regular diet. He was started on nystatin swish and swallow for the Katey esophagitis. Apparently he had some left flank pain yesterday and a com puted tomography scan of the abdomen completed showing though no definite radiodense urinary calculi. No hydronephrosis. Nonspecific bilateral perinephric fat stranding and reactive fluid with small amount of free pelvic fluid. Afebrile. WBC is 5.2 hemoglobin 6.9 down from 7.1 iron is low at 9. Hematology is currently been consult for possible hemolytic anemia. Patient seen and examined with Dr. hoskins PHYSICAL EXAM: VITAL SIGNS: Reviewed. GENERAL: Well-developed in no acute distress. HEENT: No sclera icterus. Extraocular movements grossly intact. Moist buccal mucosa. Head is atraumatic, normocephalic. ABDOMEN: Soft. Nondistended. Nontender. NEUROLOGIC: Alert and oriented. Cranial nerves II through XII grossly intact. ASSESSMENT: 1. Anemia 2. Status post EGD which demonstrated duodenitis, mild antral gastritis and probable Katey esophagitis PLAN: -Patient can be discharged from surgical standpoint -Recommend colonoscopy outpatient -Continue regular diet -Continue PPI -Continue nystatin swish and swallow Physician Lavatory Attendant note has been reviewed by physician. Signing provider agrees with the documented findings, assessment, and plan of care. Objective - Vital Signs Vital signs: Vital Signs Temp 98.0 F 02/13/22 08:00 Pulse 73 02/13/22 14:00 Resp 16 02/13/22 14:00 BP 124/71 02/13/22 12:00 Pulse Ox 100 02/13/22 12:00 Intake & Output 02/12/22 02/13/22 02/13/22 18:59 06:59 18:59 Intake Total 2440 2280 660 Output Total 475 925 150 Balance 1965 1355 510 Intake: IV 100 Intake, IV Titration 1560 1560 Amount Sodium Chloride 0.9% 1, 1560 1560 000 ml @ 130 mls/hr IV . Q7H42M [facility] Rx#:[id number] Oral 780 720 660 Output: Urine 475 925 150 Other: Voiding Method Toilet Toilet # Voids 2 - Labs CBC & Chem 7: 02/13/22 08:56 02/12/22 08:13 Labs: Abnormal Lab Results - Last 24 Hours (Table) 02/12/22 02/12/22 02/12/22 Range/Units 08:00 20:20 20:28 RBC (4.30-5.90) m/uL Hgb (13.0-17.5) gm/dL Hct (39.0-53.0) % MCV (80.0-100.0) fL MCH (25.0-35.0) pg MCHC (31.0-37.0) g/dL RDW (11.5-15.5) % Retic Count 2.6 H (0.5-2.0) % Haptoglobin 200.0 H (31.2-198.0) mg/dL Iron (65-175) ug/dL % Saturation (15.00-50.00) Ferritin (22.0-322.0) ng/mL Total Protein (PEP) 5.9 L (6.2-8.2) g/dL 02/13/22 02/13/22 02/13/22 Range/Units 00:29 08:56 08:56 RBC 3.82 L 3.90 L (4.30-5.90) m/uL Hgb 6.9 L* 6.9 L* (13.0-17.5) gm/dL Hct 25.7 L 26.7 L (39.0-53.0) % MCV 67.4 L 68.5 L (80.0-100.0) fL MCH 18.2 L 17.7 L (25.0-35.0) pg MCHC 27.0 L 25.9 L (31.0-37.0) g/dL RDW 18.2 H 18.3 H (11.5-15.5) % Retic Count (0.5-2.0) % Haptoglobin (31.2-198.0) mg/dL Iron 9 L (65-175) ug/dL % Saturation 2.05 L (15.00-50.00) Ferritin 17.6 L (22.0-322.0) ng/mL Total Protein (PEP) (6.2-8.2) g/dL Microbiology - Last 24 Hours (Table) 02/10/22 17:18 Blood Culture - Preliminary Blood No Growth after 48 hours 02/10/22 17:03 Blood Culture - Preliminary Blood No Growth after 48 hours
--- NOTE | 2022-02-13 18:27 | P.CONS ---
History of Present Illness - Reason for Consult Consult date: 02/13/22 concerns for hemolysis Requesting physician: Luisa Vargas - Chief Complaint influenza A - History of Present Illness Mr Magdaleno is a pleasant 56-year-old male patient we have been asked to see because of a significant change in his hemoglobin since admission. Patient is currently admitted with a diagnosis of influenza A. He is not having any acute symptoms, denies fever, chills, nausea, vomiting, chest pain, hemoptysis, acute changes in bowel or bladder habits. Patient denies any history of blood disorders. He has no personal history of cancer. He has had cardiac stenting and is on chronic antiplatelet therapy for at least the last 1-2 years. Review of Systems 14 point review of systems is negative except as stated in HPI Past Medical History Past Medical History: Coronary Artery Disease (CAD), Chest Pain / Angina, Hyperlipidemia, Hypertension, Myocardial Infarction (SC), Neurologic Disorder Additional Past Medical History / Comment(s): Ichemic cardiomyopathy, MIs, peripheral neuropathy, PUD, pancreatitis, liver infection at age 20yrs/pt states not hepatitis, head injuries, migraines, sinus problems, insomnia, arhtritis in multiple joints, back pain. Last Myocardial Infarction Date:: 05/16/21 History of Any Multi-Drug Resistant Organisms: None Reported Past Surgical History: Back Surgery, Heart Catheterization, Hernia Repair, Orthopedic Surgery Additional Past Surgical History / Comment(s): cervical fusion/hardware d/t injury, low back ablations, L inguinal hernia repair, EGD, colonoscopy. Past Anesthesia/Blood Transfusion Reactions: Postoperative Nausea & Vomiting (PONV) Smoking Status: Current some day smoker - Past Family History Mother Family Medical History: Hypertension, Osteoarthritis (OA), Thyroid Disorder Father Family Medical History: AFIB, Cancer Additional Family Medical History / Comment(s): Leukemia Medications and Allergies Home Medications Medication Instructions Recorded Confirmed Type Topiramate [Topamax] 50 mg PO BID 12/21/17 02/10/22 History Aspirin 81 mg PO DAILY chew 04/08/18 02/10/22 Rx Atorvastatin [Lipitor] 80 mg PO HS tab 04/08/18 02/10/22 Rx lisinopriL [Zestril] 20 mg PO DAILY tab 04/08/18 02/10/22 Rx DULoxetine HCL [Cymbalta] 60 mg PO DAILY 05/16/21 02/10/22 History Ticagrelor [Brilinta] 90 mg PO BID 30 Days #60 tab 05/16/21 02/10/22 Rx Lacosamide [Vimpat] 100 mg PO Q6HR #120 tablet 05/18/21 02/10/22 Rx Allergies Allergy/AdvReac Type Severity Reaction Status Date / Time No Known Allergies Allergy Verified 02/10/22 18:36 Physical Exam Vitals: Vital Signs Temp Pulse Resp BP Pulse Ox 02/13/22 16:00 72 119/70 96 02/13/22 14:00 73 16 02/13/22 12:00 73 124/71 100 02/13/22 08:00 98.0 F 73 16 122/73 99 02/13/22 04:00 98.4 F 80 16 120/67 99 02/13/22 00:00 98.1 F 73 16 128/76 99 02/12/22 20:00 98.6 F 69 18 122/78 100 Intake and Output 02/13/22 02/13/22 02/13/22 06:59 14:59 22:59 Intake Total 1800 660 360 Output Total 525 150 Balance 1275 510 360 Intake: Intake, IV Titration 1560 Amount Sodium Chloride 0.9% 1, 1560 000 ml @ 130 mls/hr IV . Q7H42M [facility] Rx#:[id number] Oral 240 660 360 Output: Urine 525 150 Other: Voiding Method Toilet - Constitutional General appearance: average body habitus, cooperative, no acute distress - EENT Eyes: anicteric sclerae, EOMI ENT: hearing grossly normal, normal oropharynx - Neck Neck: no lymphadenopathy - Respiratory Respiratory: bilateral: CTA - Cardiovascular Rhythm: regular Heart sounds: normal: S1, S2 Abnormal Heart Sounds: no systolic murmur, no diastolic murmur, no rub, no S3 Gallop, no S4 Gallop, no click, no other leg Peripheral Edema: bilateral: None - Gastrointestinal General gastrointestinal: no absent bowel sounds, no decreased bowel sounds, no distended, no hepatomegaly, no hyperactive bowel sounds, normal bowel sounds, no organomegaly, no rigid, no scaphoid, soft, no splenomegaly, no tenderness, no umbilical hernia, no ventral hernia - Integumentary Integumentary: normal - Neurologic Neurologic: CNII-XII intact - Musculoskeletal Musculoskeletal: strength equal bilaterally - Psychiatric Psychiatric: A&O x's 3, appropriate affect, intact judgment & insight Results CBC & Chem 7: 02/13/22 08:56 02/12/22 08:13 Labs: Abnormal Lab Results - Last 24 Hours (Table) 02/12/22 02/12/22 02/12/22 Range/Units 08:00 20:20 20:28 RBC (4.30-5.90) m/uL Hgb (13.0-17.5) gm/dL Hct (39.0-53.0) % MCV (80.0-100.0) fL MCH (25.0-35.0) pg MCHC (31.0-37.0) g/dL RDW (11.5-15.5) % Retic Count 2.6 H (0.5-2.0) % Haptoglobin 200.0 H (31.2-198.0) mg/dL Iron (65-175) ug/dL % Saturation (15.00-50.00) Ferritin (22.0-322.0) ng/mL Total Protein (PEP) 5.9 L (6.2-8.2) g/dL 02/13/22 02/13/22 02/13/22 Range/Units 00:29 08:56 08:56 RBC 3.82 L 3.90 L (4.30-5.90) m/uL Hgb 6.9 L* 6.9 L* (13.0-17.5) gm/dL Hct 25.7 L 26.7 L (39.0-53.0) % MCV 67.4 L 68.5 L (80.0-100.0) fL MCH 18.2 L 17.7 L (25.0-35.0) pg MCHC 27.0 L 25.9 L (31.0-37.0) g/dL RDW 18.2 H 18.3 H (11.5-15.5) % Retic Count (0.5-2.0) % Haptoglobin (31.2-198.0) mg/dL Iron 9 L (65-175) ug/dL % Saturation 2.05 L (15.00-50.00) Ferritin 17.6 L (22.0-322.0) ng/mL Total Protein (PEP) (6.2-8.2) g/dL Microbiology - Last 24 Hours (Table) 02/10/22 17:18 Blood Culture - Preliminary Blood No Growth after 48 hours 02/10/22 17:03 Blood Culture - Preliminary Blood No Growth after 48 hours Comments: Renal US report reviewed-no mass CT scan - abdomen: report reviewed CT Scan - head: report reviewed CT scan - pelvis: report reviewed Assessment and Plan Plan: Multiple labs have been ordered to evaluate patient's sudden onset anemia. He has a history of a colonoscopy 5 years ago, EGD was done this admit. Denies any bleeding. Pt is on baby aspirin in brilinta for cardiac stents. Patient may benefit from another colonoscopy if this persists or, no underlying causes found. Case was discussed with Internal Medicine. Doctor attests: I performed a history and physical examination of this patient, developed impression and plan of care, discussed with dictator. I agree with dictators note, documented as a scribe.
[2022-02-13] MEDS: ATORVASTATIN 80 MG TAB PO SCH (20:29)
[2022-02-14] MEDS: SODIUM CHLORIDE 0.9% 1,000 ML IV SCH ×3 (01:00→22:58)
[2022-02-14] MEDS: LACOSAMIDE 50 MG TABLET PO SCH ×4 (05:51→22:59)
[2022-02-14 09:33] LABS: Anisocytosis Slight; HCT 25.4 % (39.0-53.0); Hypochromasia Marked; MCH 18.1 pg (25.0-35.0); MCHC 26.5 g/dL (31.0-37.0); MCV 68.3 fL (80.0-100.0); Mean Platelet Volume 6.9; Microcytosis Marked; Platelet Count 327 k/uL (150-450); Poikilocytosis Moderate; RBC 3.72 m/uL (4.30-5.90); RDW 19.1 % (11.5-15.5); WBC 4.9 k/uL (3.8-10.6)
[2022-02-14 09:39] LABS: HGB 6.7 gm/dL (13.0-17.5)
[2022-02-14 09:42] LABS: ALT 15 U/L (4-49); AST 27 U/L (17-59); African American GFR (CKD) >90 (>60 ml/min/1.73 sqM); Albumin 3.1 g/dL (3.5-5.0); Alkaline Phosphatase 59 U/L (38-126); Anion Gap 7 mmol/L; Blood Urea Nitrogen 11 mg/dL (9-20); Calcium 8.2 mg/dL (8.4-10.2); Carbon Dioxide 18 mmol/L (22-30); Chloride 113 mmol/L (98-107); Glucose 89 mg/dL (74-99); Non-African American GFR(CKD) >90 (>60 ml/min/1.73 sqM); Potassium 3.8 mmol/L (3.5-5.1); Sodium 138 mmol/L (137-145); Total Bilirubin 0.5 mg/dL (0.2-1.3); Total Protein 5.6 g/dL (6.3-8.2)
[2022-02-14] MEDS: PANTOPRAZOLE 40 MG/10 ML VIAL IV SCH ×2 (09:43→20:21)
[2022-02-14] MEDS: OSELTAMIVIR 75 MG CAP PO SCH ×2 (09:44→20:21)
[2022-02-14] MEDS: TOPIRAMATE 25 MG TAB PO SCH ×2 (09:44→20:21)
[2022-02-14] MEDS: lisinopriL 20 MG TAB PO SCH (09:44)
[2022-02-14] MEDS: DULoxetine HCL 60 MG CAPSULE.DR PO SCH (09:44)
[2022-02-14] MEDS: SODIUM FERRIC GLUCONAT-SUCROSE 125 MG in SODIUM CHLORIDE 0.9% 100 ML IVPB SCH (09:44)
[2022-02-14] MEDS: NYSTATIN 100,000 UNIT/ML SUSP 500,000 UNIT/5 ML CUP PO SCH ×4 (10:24→20:21)
--- NOTE | 2022-02-14 13:01 | P.PN ---
Subjective Progress Note Date: 02/14/22 Principal diagnosis: New onset anemia, influenza A In follow-up today patient is denying any new physical complaints. He has received IV iron, no side effects to report. Objective - Vital Signs Vital signs: Vital Signs Temp 98.0 F 02/14/22 08:00 Pulse 72 02/14/22 08:00 Resp 18 02/14/22 08:00 BP 117/67 02/14/22 08:00 Pulse Ox 100 02/14/22 08:00 Intake & Output 02/13/22 02/14/22 02/14/22 18:59 06:59 18:59 Intake Total 1020 600 120 Output Total 150 0 Balance 870 600 120 Intake: Intake, IV Titration 600 Amount Sodium Chloride 0.9% 1, 600 000 ml @ 130 mls/hr IV . Q7H42M [facility] Rx#:[id number] Oral 1020 120 Output: Urine 150 0 Stool 0 Urine/Stool Mix 0 Other: Voiding Method Toilet Toilet # Voids 1 0 # Bowel Movements 0 - Constitutional General appearance: Present: average body habitus, cooperative, no acute distress - EENT Eyes: Present: anicteric sclerae, EOMI ENT: Present: hearing grossly normal - Respiratory Details: respirations even and unlabored at rest - Peripheral edema leg Peripheral Edema: bilateral: None - Integumentary Integumentary: Present: pale - Neurologic Neurologic: Present: CNII-XII intact - Musculoskeletal Musculoskeletal: Present: strength equal bilaterally - Psychiatric Psychiatric: Present: A&O x's 3, appropriate affect, intact judgment & insight - Labs CBC & Chem 7: 02/14/22 08:22 02/14/22 08:22 Labs: Abnormal Lab Results - Last 24 Hours (Table) 02/13/22 02/14/22 02/14/22 Range/Units 08:56 08:22 08:22 RBC 3.72 L (4.30-5.90) m/uL Hgb 6.7 L* (13.0-17.5) gm/dL Hct 25.4 L (39.0-53.0) % MCV 68.3 L (80.0-100.0) fL MCH 18.1 L (25.0-35.0) pg MCHC 26.5 L (31.0-37.0) g/dL RDW 19.1 H (11.5-15.5) % Chloride 113 H (98-107) mmol/L Carbon Dioxide 18 L (22-30) mmol/L Calcium 8.2 L (8.4-10.2) mg/dL Iron 9 L (65-175) ug/dL % Saturation 2.05 L (15.00-50.00) Ferritin 17.6 L (22.0-322.0) ng/mL Total Protein 5.6 L (6.3-8.2) g/dL Albumin 3.1 L (3.5-5.0) g/dL Microbiology - Last 24 Hours (Table) 02/10/22 17:18 Blood Culture - Preliminary Blood No Growth after 72 hours 02/10/22 17:03 Blood Culture - Preliminary Blood No Growth after 72 hours - Imaging and Cardiology CT scan - abdomen: report reviewed CT scan - pelvis: report reviewed Assessment and Plan (1) Microcytic hypochromic anemia Current Visit: Yes Status: Acute Priority: High Code(s): D50.9 - IRON DEFICIENCY ANEMIA, UNSPECIFIED SNOMED Code(s): 89750922 Plan: Multiple labs have been ordered to evaluate patient's sudden onset anemia. Labs are starting to result-low iron saturation and ferritin- IV iron has been started. EGD performed inpatient, biopsies are negative for malignancy but, show gastritis and esophagitis. Plan of care discussed with Internal Medicine, plan is for colonoscopy in the outpatient setting to complete the GI workup for iron deficient anemia. Discussed with patient that once he completes workup if a correctable underlying cause has not been identified recommendation is for ongoing CBC monitoring and iron studies with parenteral iron as needed with Hematology. He is at higher risk of bleeding being on dual antiplatelet therapy for cardiac stents. Patient verbalized understanding.
[2022-02-14 13:31] LABS: Free Kappa Lt Chain Qnt, Serum 1.82 mg/dL (0.33-1.94); Free Lambda Lt Chain Qnt, Seru 1.71 mg/dL (0.57-2.63)
--- NOTE | 2022-02-14 14:30 | P.PN ---
Subjective Progress Note Date: 02/14/22 CHIEF COMPLAINT: Anemia HISTORY OF PRESENT ILLNESS: Patient continues to have anemia. Hemoglobin continues to trend down to 6.7. Patient denies any blood in his stools or black stools. He is currently receiving IV iron. He denies any abdominal pain. Denies any nausea or vomiting. He is tolerating regular diet. Patient seen and examined with Dr. hoskins PHYSICAL EXAM: VITAL SIGNS: Reviewed. GENERAL: Well-developed in no acute distress. HEENT: No sclera icterus. Extraocular movements grossly intact. Moist buccal mucosa. Head is atraumatic, normocephalic. ABDOMEN: Soft. Nondistended. Nontender. NEUROLOGIC: Alert and oriented. Cranial nerves II through XII grossly intact. ASSESSMENT: 1. Anemia 2. Status post EGD which demonstrated duodenitis, mild antral gastritis and probable Katey esophagitis 3. Iron deficiency PLAN: -Plan for colonoscopy on 02/18/[address] hoskins. This can be completed outpatient if patient is discharged -Continue regular diet -Continue PPI -Continue nystatin swish and swallow -Continue to monitor hemoglobin -Continue iron transfusions Physician Motion Picture Set Worker note has been reviewed by physician. Signing provider agrees with the documented findings, assessment, and plan of care. Objective - Vital Signs Vital signs: Vital Signs Temp 98.0 F 02/14/22 08:00 Pulse 72 02/14/22 08:00 Resp 18 02/14/22 08:00 BP 117/67 02/14/22 08:00 Pulse Ox 100 02/14/22 08:00 Intake & Output 02/13/22 02/14/22 02/14/22 18:59 06:59 18:59 Intake Total 1020 600 120 Output Total 150 0 Balance 870 600 120 Intake: Intake, IV Titration 600 Amount Sodium Chloride 0.9% 1, 600 000 ml @ 130 mls/hr IV . Q7H42M [facility] Rx#:[id number] Oral 1020 120 Output: Urine 150 0 Stool 0 Urine/Stool Mix 0 Other: Voiding Method Toilet Toilet # Voids 1 0 # Bowel Movements 0 - Labs CBC & Chem 7: 02/14/22 08:22 02/14/22 08:22 Labs: Abnormal Lab Results - Last 24 Hours (Table) 02/13/22 02/14/22 02/14/22 Range/Units 08:56 08:22 08:22 RBC 3.72 L (4.30-5.90) m/uL Hgb 6.7 L* (13.0-17.5) gm/dL Hct 25.4 L (39.0-53.0) % MCV 68.3 L (80.0-100.0) fL MCH 18.1 L (25.0-35.0) pg MCHC 26.5 L (31.0-37.0) g/dL RDW 19.1 H (11.5-15.5) % Chloride 113 H (98-107) mmol/L Carbon Dioxide 18 L (22-30) mmol/L Calcium 8.2 L (8.4-10.2) mg/dL Iron 9 L (65-175) ug/dL % Saturation 2.05 L (15.00-50.00) Ferritin 17.6 L (22.0-322.0) ng/mL Total Protein 5.6 L (6.3-8.2) g/dL Albumin 3.1 L (3.5-5.0) g/dL Microbiology - Last 24 Hours (Table) 02/10/22 17:18 Blood Culture - Preliminary Blood No Growth after 72 hours 02/10/22 17:03 Blood Culture - Preliminary Blood No Growth after 72 hours
--- NOTE | 2022-02-14 15:09 | P.PN ---
Subjective Progress Note Date: 02/14/22 Hospital course: The patient is a very pleasant 56-year-old male with a past medical history of CAD with previous OR status post stenting, peptic ulcer disease, hypertension, hyperlipidemia, marijuana, and tobacco abuse who presents to the emergency room with complaints of myalgias, fatigue, and sore throat. Patient reports that his symptoms started roughly 48 hours ago. Denied experiencing fever, chills, cough, chest pain, shortness of breath. Denied headaches, weakness, or numbness. In the emergency room, laboratory evaluation revealed influenza A pos itive with hemoglobin 6.8, down from 15.5 in 05/2021. Coronavirus PCR was negative with stool occult blood also negative. The patient denied any bloody or black tarry stools. He also denied experiencing abdominal pain, nausea, vomiting, diarrhea. He denied any prior history of bleeding. He was transfused with 1 unit of PRBCs and was started on Tamiflu. CT brain in the emergency room was unremarkable. Chest x-ray was also unremarkable. EKG revealed sinus rhythm with sinus arrhythmia at 91 bpm. Patient was admitted under our services with consultation to general surgery. He underwent EGD on 02/12/[address] Lozada with postoperative diagnoses of duodenitis and antral gastritis and plans for colonoscopy on Friday. CT abdomen and pelvis revealed nonspecific bilateral. Nephrotic fat stranding and reactive fluid with small amount of free pelvic fluid. Urinalysis was negative for blood or infection. Renal ultrasound then completed showing no evidence of renal mass or obstruction, negative for hydronephrosis. Blood cultures showing no growth to date. Hematology consulted for evaluation of possible hemolytic anemia resulting from Influenza. Additional labs ordered. Haptoglobin elevated at 200.0 and Retic count also elevated at 2.6. Anemia profile obtained and resulting showing iron deficiency anemia with Iron 9, TIBC 419, % Saturation 2.05, Transferrin 299.0, and Ferritin 17.6. Iron transfusions ordered. Physical exam: Patient seen and fully evaluated at the bedside this morning. He appeared to be doing well was sitting up on the side of the bed. Patient continues to deny any pain or complaints. Anemia profile resulting showing iron deficiency anemia with Iron 9, TIBC 419, %Saturation 2.05, Transferrin 299.0, and Ferritin 17.6. Iron transfusions orderd and RN at bedside hanging first bag of iron at this time. Morning hemoglobin resulting at 6.7, Discussed with Dr. English recommending hold off on transfusion unless Hgb < 6.5 or patient becomes symptomatic. It is recommended that pt undergo colonoscopy and Surgery team plans for colonoscopy on Friday. Vital signs reviewed and stable. General: Nontoxic, no distress and appears stated age. Derm: Skin warm and dry, normal coloration for ethnicity. Head: Atraumatic, normocephalic and symmetric. Eyes: EOMs intact, no lid lag, and anicteric sclera Mouth: no lip lesions, mucus membranes moist Cardiovascular: regular rate and rhythm with normal S1S2, no murmur, positive posterior tibial pulses bilaterally, and cap refill < 2 seconds. Lungs: Respirations even, regular, and unlabored on room air. Lungs CTA bilaterally, no rhonchi, no rales, no wheezing, and no accessory muscle usage. Abdominal: soft, nontender to palpation, no guarding, no appreciable o rganomegaly. Slight tenderness to left flank/CVA region. Ext: ROM intact. No gross muscle atrophy, no edema, no contractures Neuro: Speech clear, face symmetrical and CN II-XII grossly intact with no noted focal neuro deficits Psych: Alert and oriented to person, place, time, and situation. Appropriate and pleasant affect. Assessment and Plan of Care: Severe normocytic anemia of unclear etiology Iron defeciency anemia -Status post 1 unit PRBCs hgb 6.7 -Fecal occult blood negative -Surgery following, patient underwent EGD on 02/12/[address] Lozada with postoperative diagnoses of duodenitis and antral gastritis and plans for colonoscopy on Friday. -CT abdomen and pelvis revealed nonspecific bilateral. Nephrotic fat stranding and reactive fluid with small amount of free pelvic fluid. Urinalysis was negative for blood or infection. -Renal ultrasound then completed showing no evidence of renal mass or obstruction, negative for hydronephrosis. -Haptoglobin elevated at 200.0 -Anemia profile obtained and resulting showing iron deficiency anemia with Iron 9, TIBC 419, % Saturation 2.05, Transferrin 299.0, and Ferritin 17.6. Iron infusion ordered. -Monitor CBC, transfuse for Hgb < 6.5 and/or pt becomes symptomatic -Hematology consult placed to rule out hemolytic anemia with current influenza A infection -Continue with gentle IV hydration and Protonix 40 mg IVP twice daily. -Diet was advanced to regular diet per surgery team. Influenza-type A infection -Continue Tamiflu for a total of 10 doses. -IVFs -Tylenol when necessary Chronic conditions: Coronary artery disease, hypertension, hyperlipidemia -Continue with home meds CODE STATUS: Full Code DVT prophylaxis: SCDs Discussed with: Patient Anticipated discharge date: Clinical course to determine Anticipated discharge place: Home A total of 34 minutes was spent on the care of this complex patient more than 50% of the time was spent in counseling and care coordination. Marcio Metz NP rendered care for this patient independently, reviewed the findings and plan as documented in the note above. I did not physically speak with or examine the patient on this date. Objective - Vital Signs Vital signs: Vital Signs Temp 98.0 F 02/14/22 08:00 Pulse 72 02/14/22 08:00 Resp 18 02/14/22 14:00 BP 117/67 02/14/22 08:00 Pulse Ox 100 02/14/22 08:00 Intake & Output 02/13/22 02/14/22 02/14/22 18:59 06:59 18:59 Intake Total 1020 600 120 Output Total 150 0 Balance 870 600 120 Intake: Intake, IV Titration 600 Amount Sodium Chloride 0.9% 1, 600 000 ml @ 130 mls/hr IV . Q7H42M [facility] Rx#:[id number] Oral 1020 120 Output: Urine 150 0 Stool 0 Urine/Stool Mix 0 Other: Voiding Method Toilet Toilet # Voids 1 0 # Bowel Movements 0 - Labs CBC & Chem 7: 02/14/22 08:22 02/14/22 08:22 Labs: Abnormal Lab Results - Last 24 Hours (Table) 02/13/22 02/14/22 02/14/22 Range/Units 08:56 08:22 08:22 RBC 3.72 L (4.30-5.90) m/uL Hgb 6.7 L* (13.0-17.5) gm/dL Hct 25.4 L (39.0-53.0) % MCV 68.3 L (80.0-100.0) fL MCH 18.1 L (25.0-35.0) pg MCHC 26.5 L (31.0-37.0) g/dL RDW 19.1 H (11.5-15.5) % Chloride 113 H (98-107) mmol/L Carbon Dioxide 18 L (22-30) mmol/L Calcium 8.2 L (8.4-10.2) mg/dL Iron 9 L (65-175) ug/dL % Saturation 2.05 L (15.00-50.00) Ferritin 17.6 L (22.0-322.0) ng/mL Total Protein 5.6 L (6.3-8.2) g/dL Albumin 3.1 L (3.5-5.0) g/dL Microbiology - Last 24 Hours (Table) 02/10/22 17:18 Blood Culture - Preliminary Blood No Growth after 72 hours 02/10/22 17:03 Blood Culture - Preliminary Blood No Growth after 72 hours
[2022-02-14] MEDS: ATORVASTATIN 80 MG TAB PO SCH (20:21)
[2022-02-15] MEDS: LACOSAMIDE 50 MG TABLET PO SCH ×3 (05:23→18:35)
[2022-02-15 07:52] LABS: Methylmalonic Acid 0.3 umol/L (<0.40)
[2022-02-15 09:12] LABS: Anisocytosis Moderate; Basophils # (A) 0.1 k/uL (0-0.2); Basophils % (A) 1 %; Eosinophils # (A) 0.3 k/uL (0-0.7); Eosinophils % (A) 5 %; HCT 28.1 % (39.0-53.0); HGB 7.5 gm/dL (13.0-17.5); Hypochromasia Marked; Lymphocytes # (A) 1.3 k/uL (1.0-4.8); Lymphocytes % (A) 22 %; MCH 18.8 pg (25.0-35.0); MCHC 26.8 g/dL (31.0-37.0); MCV 70.1 fL (80.0-100.0); Mean Platelet Volume 7.1; Microcytosis Marked; Monocytes # (A) 0.3 k/uL (0-1.0); Monocytes % (A) 5 %; Neutrophils # (A) 3.8 k/uL (1.3-7.7); Neutrophils % (A) 65 %; Platelet Count 312 k/uL (150-450); Poikilocytosis Marked; WBC 5.8 k/uL (3.8-10.6)
[2022-02-15] MEDS: SODIUM FERRIC GLUCONAT-SUCROSE 125 MG in SODIUM CHLORIDE 0.9% 100 ML IVPB SCH (09:21)
[2022-02-15] MEDS: NYSTATIN 100,000 UNIT/ML SUSP 500,000 UNIT/5 ML CUP PO SCH ×4 (09:24→21:24)
[2022-02-15] MEDS: PANTOPRAZOLE 40 MG/10 ML VIAL IV SCH ×2 (09:24→21:24)
[2022-02-15] MEDS: DULoxetine HCL 60 MG CAPSULE.DR PO SCH (09:56)
[2022-02-15] MEDS: lisinopriL 20 MG TAB PO SCH (09:56)
[2022-02-15] MEDS: OSELTAMIVIR 75 MG CAP PO SCH ×2 (09:56→21:24)
[2022-02-15] MEDS: TOPIRAMATE 25 MG TAB PO SCH ×2 (09:57→21:24)
--- NOTE | 2022-02-15 10:58 | P.PN ---
Subjective Progress Note Date: 02/15/22 Hospital course: The patient is a very pleasant 56-year-old male with a past medical history of CAD with previous [place] status post stenting, peptic ulcer disease, hypertension, hyperlipidemia, marijuana, and tobacco abuse who presents to the emergency room with complaints of myalgias, fatigue, and sore throat. Patient reports that his symptoms started roughly 48 hours ago. Denied experiencing fever, chills, cough, chest pain, shortness of breath. Denied headaches, weakness, or numbness. In the emergency room, laboratory evaluation revealed influenza A pos itive with hemoglobin 6.8, down from 15.5 in 05/2021. Coronavirus PCR was negative with stool occult blood also negative. The patient denied any bloody or black tarry stools. He also denied experiencing abdominal pain, nausea, vomiting, diarrhea. He denied any prior history of bleeding. He was transfused with 1 unit of PRBCs and was started on Tamiflu. CT brain in the emergency room was unremarkable. Chest x-ray was also unremarkable. EKG revealed sinus rhythm with sinus arrhythmia at 91 bpm. Patient was admitted under our services with consultation to general surgery. He underwent EGD on 02/12/[address] Lozada with postoperative diagnoses of duodenitis and antral gastritis and plans for colonoscopy on Friday. CT abdomen and pelvis revealed nonspecific bilateral. Nephrotic fat stranding and reactive fluid with small amount of free pelvic fluid. Urinalysis was negative for blood or infection. Renal ultrasound then completed showing no evidence of renal mass or obstruction, negative for hydronephrosis. Blood cultures showing no growth to date. Hematology consulted for evaluation of possible hemolytic anemia resulting from Influenza. Additional labs ordered. Haptoglobin elevated at 200.0 and Retic count also elevated at 2.6. Anemia profile obtained and resulting showing iron deficiency anemia with Iron 9, TIBC 419, % Saturation 2.05, Transferrin 299.0, and Ferritin 17.6. Iron transfusions ordered. Physical exam: Patient seen and fully evaluated at the bedside this morning. He was ambulating in his room and his second dose of IV iron infusing at this time. Patient received 1 unit PRBCs yesterday evening and morning hemoglobin stable at 7.5. Plan is for patient to undergo colonoscopy Friday with Dr. Lozada. Patient currently denies having any complaints including headache, lightheadedness, dizziness, chest pain, palpitations, shortness of breath, dyspnea with exertion, abdominal pain, nausea, vomiting, hematuria, melena, or hematochezia. Vital signs reviewed and stable. General: Nontoxic, no distress and appears stated age. Derm: Skin warm and dry, normal coloration for ethnicity. Head: Atraumatic, normocephalic and symmetric. Eyes: EOMs intact, no lid lag, and anicteric sclera Mouth: no lip lesions, mucus membranes moist Cardiovascular: regular rate and rhythm with normal S1S2, no murmur, positive posterior tibial pulses bilaterally, and cap refill < 2 seconds. Lungs: Respirations even, regular, and unlabored on room air. Lungs CTA bilaterally, no rhonchi, no rales, no wheezing, and no accessory muscle usage. Abdominal: soft, nontender to palpation, no guarding, no appreciable organomegaly. Slight tenderness to left flank/CVA region. Ext: ROM intact. No gross muscle atrophy, no edema, no contractures Neuro: Speech clear, face symmetrical and CN II-XII grossly intact with no noted focal neuro deficits Psych: Alert and oriented to person, place, time, and situation. Appropriate and pleasant affect. Assessment and Plan of Care: Severe normocytic anemia of unclear etiology Iron defeciency anemia -Status post a total of 2 units PRBCs hgb 7.5 -Fecal occult blood negative -Surgery following, patient underwent EGD on 02/12/[address] Lozada with postoperative diagnoses of duodenitis and antral gastritis and plans for colonoscopy on Friday. -CT abdomen and pelvis revealed nonspecific bilateral. Nephrotic fat stranding and reactive fluid with small amount of free pelvic fluid. Urinalysis was negative for blood or infection. -Renal ultrasound then completed showing no evidence of renal mass or obstruction, negative for hydronephrosis. -Haptoglobin elevated at 200.0 -Anemia profile obtained and resulting showing iron deficiency anemia with Iron 9, TIBC 419, % Saturation 2.05, Transferrin 299.0, and Ferritin 17.6. -Continue Iron transfusions (day 2/3). -Monitor CBC, transfuse for Hgb < 6.5 and/or pt becomes symptomatic -Hematology consult placed to rule out hemolytic anemia with current influenza A infection -Continue with Protonix 40 mg IVP twice daily. -Regular diet Influenza-type A infection -Continue Tamiflu for a total of 10 doses. -Received IV fluid hydration. -Tylenol when necessary Chronic conditions: Coronary artery disease, hypertension, hyperlipidemia -Continue with home meds CODE STATUS: Full Code DVT prophylaxis: SCDs Discussed with: Patient Anticipated discharge date: Clinical course to determine Anticipated discharge place: Home A total of 32 minutes was spent on the care of this complex patient more than 50% of the time was spent in counseling and care coordination. Marcio Metz NP rendered care for this patient independently, reviewed the findings and plan as documented in the note above. I did not physically speak with or examine the patient on this date. Objective - Vital Signs Vital signs: Vital Signs Temp 97.9 F 02/15/22 04:00 Pulse 63 02/15/22 04:00 Resp 18 02/15/22 04:00 BP 145/88 02/15/22 04:00 Pulse Ox 99 02/15/22 04:00 Intake & Output 02/14/22 02/15/22 02/15/22 18:59 06:59 18:59 Intake Total 120 860 Output Total 0 Balance 120 860 Intake: Intake, IV Titration 550 Amount Sodium Chloride 0.9% 1, 550 000 ml @ 130 mls/hr IV . Q7H42M [facility] Rx#:[id number] Oral 120 Blood Product 0 310 Rc As-1 Unit 0 310 [id number] Output: Urine 0 Stool 0 Urine/Stool Mix 0 Other: Voiding Method Toilet # Voids 3 2 # Bowel Movements 0 - Labs CBC & Chem 7: 02/15/22 08:34 02/14/22 08:22 Labs: Abnormal Lab Results - Last 24 Hours (Table) 02/14/22 02/14/22 02/14/22 Range/Units 08:22 08:22 13:20 RBC 3.72 L (4.30-5.90) m/uL Hgb 6.7 L* (13.0-17.5) gm/dL Hct 25.4 L (39.0-53.0) % MCV 68.3 L (80.0-100.0) fL MCH 18.1 L (25.0-35.0) pg MCHC 26.5 L (31.0-37.0) g/dL RDW 19.1 H (11.5-15.5) % Chloride 113 H (98-107) mmol/L Carbon Dioxide 18 L (22-30) mmol/L Calcium 8.2 L (8.4-10.2) mg/dL Total Protein 5.6 L (6.3-8.2) g/dL Albumin 3.1 L (3.5-5.0) g/dL Crossmatch See Detail Microbiology - Last 24 Hours (Table) 02/10/22 17:18 Blood Culture - Preliminary Blood No Growth after 96 hours 02/10/22 17:03 Blood Culture - Preliminary Blood No Growth after 96 hours
[2022-02-15 12:09] VITALS: BMI 27.1
[2022-02-15] MEDS: SODIUM CHLORIDE 0.9% 1,000 ML IV SCH (13:19)
--- NOTE | 2022-02-15 17:33 | P.PN ---
Subjective Progress Note Date: 02/15/22 Principal diagnosis: Anemia Patient doing well today. Denies pain. No rectal bleeding or melena. Hemoglobin 7.5. Objective - Vital Signs Vital signs: Vital Signs Temp 98.0 F 02/15/22 08:00 Pulse 78 02/15/22 08:00 Resp 18 02/15/22 08:00 BP 155/90 02/15/22 08:00 Pulse Ox 99 02/15/22 08:00 Intake & Output 02/14/22 02/15/22 02/15/22 18:59 06:59 18:59 Intake Total 120 860 600 Output Total 0 0 Balance 120 860 600 Weight 88.451 kg Intake: Intake, IV Titration 550 Amount Sodium Chloride 0.9% 1, 550 000 ml @ 130 mls/hr IV . Q7H42M [facility] Rx#:[id number] Oral 120 600 Blood Product 0 310 Rc As-1 Unit 0 310 [id number] Output: Urine 0 Stool 0 0 Urine/Stool Mix 0 Other: Voiding Method Toilet Toilet # Voids 3 2 2 # Bowel Movements 0 - Exam Abdomen: Soft, nontender, nondistended - Labs CBC & Chem 7: 02/15/22 08:34 02/14/22 08:22 Labs: Abnormal Lab Results - Last 24 Hours (Table) 02/14/22 02/15/22 Range/Units 13:20 08:34 RBC 4.00 L (4.30-5.90) m/uL Hgb 7.5 L (13.0-17.5) gm/dL Hct 28.1 L (39.0-53.0) % MCV 70.1 L (80.0-100.0) fL MCH 18.8 L (25.0-35.0) pg MCHC 26.8 L (31.0-37.0) g/dL RDW 21.0 H (11.5-15.5) % Crossmatch See Detail Microbiology - Last 24 Hours (Table) 02/10/22 17:18 Blood Culture - Preliminary Blood No Growth after 96 hours 02/10/22 17:03 Blood Culture - Preliminary Blood No Growth after 96 hours Assessment and Plan (1) Anemia Narrative/Plan: 56-year-old male with anemia. Patient would like to go home and have colonoscopy performed as an outpatient. This seems reasonable. Possible discharge if cleared by primary service. Current Visit: Yes Status: Acute Code(s): D64.9 - ANEMIA, UNSPECIFIED SNOMED Code(s): 061573496
--- NOTE | 2022-02-15 18:10 | P.PN ---
Subjective Progress Note Date: 02/15/22 Principal diagnosis: Iron def anemia Await Colonoscopy Objective - Vital Signs Vital signs: Vital Signs Temp 98.0 F 02/15/22 08:00 Pulse 78 02/15/22 08:00 Resp 18 02/15/22 08:00 BP 155/90 02/15/22 08:00 Pulse Ox 99 02/15/22 08:00 Intake & Output 02/14/22 02/15/22 02/15/22 18:59 06:59 18:59 Intake Total 120 860 240 Output Total 0 0 Balance 120 860 240 Weight 88.451 kg Intake: Intake, IV Titration 550 Amount Sodium Chloride 0.9% 1, 550 000 ml @ 130 mls/hr IV . Q7H42M [facility] Rx#:[id number] Oral 120 240 Blood Product 0 310 Rc As-1 Unit 0 310 [id number] Output: Urine 0 Stool 0 0 Urine/Stool Mix 0 Other: Voiding Method Toilet Toilet # Voids 3 2 2 # Bowel Movements 0 - Exam - Constitutional General appearance: Present: average body habitus, cooperative, no acute distress - EENT Eyes: Present: anicteric sclerae, EOMI ENT: Present: hearing grossly normal - Respiratory Details: respirations even and unlabored at rest - Peripheral edema leg Peripheral Edema: bilateral: None - Integumentary Integumentary: Present: pale - Neurologic Neurologic: Present: CNII-XII intact - Musculoskeletal Musculoskeletal: Present: strength equal bilaterally - Psychiatric Psychiatric: Present: A&O x's 3, appropriate affect, intact judgment & insight - Labs CBC & Chem 7: 02/15/22 08:34 02/14/22 08:22 Labs: Abnormal Lab Results - Last 24 Hours (Table) 02/14/22 02/15/22 Range/Units 13:20 08:34 RBC 4.00 L (4.30-5.90) m/uL Hgb 7.5 L (13.0-17.5) gm/dL Hct 28.1 L (39.0-53.0) % MCV 70.1 L (80.0-100.0) fL MCH 18.8 L (25.0-35.0) pg MCHC 26.8 L (31.0-37.0) g/dL RDW 21.0 H (11.5-15.5) % Crossmatch See Detail Microbiology - Last 24 Hours (Table) 02/10/22 17:18 Blood Culture - Preliminary Blood No Growth after 96 hours 02/10/22 17:03 Blood Culture - Preliminary Blood No Growth after 96 hours Assessment and Plan Plan: - Imaging and Cardiology CT scan - abdomen: report reviewed CT scan - pelvis: report reviewed Assessment and Plan (1) Microcytic hypochromic anemia Current Visit: Yes Status: Acute Priority: High Code(s): D50.9 - IRON DEFICIENCY ANEMIA, UNSPECIFIED SNOMED Code(s): 35395726 Plan: - iron deficiency evidence and IV supp given x3, hemoglobin improved to 7.4 today - Status Post EGD with gastritis and esophagitis on PPI - Increased risk with Cardiac history/stents and antiplatelet medication - Close follow-up as outpatient with PRN Iron will be beneficial - Await colonoscopy Dr. Lofton: I have completed the full history and physical and developed the above impression and plan, agree with dictation, dictated as a ascribe.
[2022-02-15] MEDS: ATORVASTATIN 80 MG TAB PO SCH (21:24)
[2022-02-15] MEDS ORDERED: OSELTAMIVIR 75 MG CAP PO SCH (21:30)
[2022-02-16] MEDS: LACOSAMIDE 50 MG TABLET PO SCH ×3 (01:01→12:42)
[2022-02-16 08:33] LABS: Anisocytosis Moderate; HCT 29.3 % (39.0-53.0); HGB 7.9 gm/dL (13.0-17.5); Hypochromasia Marked; MCH 18.9 pg (25.0-35.0); MCHC 26.9 g/dL (31.0-37.0); MCV 70.2 fL (80.0-100.0); Mean Platelet Volume 7.3; Microcytosis Marked; Platelet Count 349 k/uL (150-450); Poikilocytosis Marked; RBC 4.17 m/uL (4.30-5.90); WBC 6.8 k/uL (3.8-10.6)
[2022-02-16] MEDS: PANTOPRAZOLE 40 MG/10 ML VIAL IV SCH (09:42)
[2022-02-16] MEDS: SODIUM FERRIC GLUCONAT-SUCROSE 125 MG in SODIUM CHLORIDE 0.9% 100 ML IVPB SCH (09:42)
[2022-02-16] MEDS: NYSTATIN 100,000 UNIT/ML SUSP 500,000 UNIT/5 ML CUP PO SCH ×2 (09:43→12:42)
[2022-02-16] MEDS: lisinopriL 20 MG TAB PO SCH (09:43)
[2022-02-16] MEDS: DULoxetine HCL 60 MG CAPSULE.DR PO SCH (09:43)
[2022-02-16] MEDS: TOPIRAMATE 25 MG TAB PO SCH (09:43)
--- NOTE | 2022-02-16 10:42 | P.PN ---
Subjective Progress Note Date: 02/16/22 Principal diagnosis: Anemia Patient doing well today. No evidence of bleeding. In the globe is increased today. He would like to go home and have colonoscopy performed as an ou tpatient. Objective - Vital Signs Vital signs: Vital Signs Temp 98.1 F 02/16/22 04:00 Pulse 73 02/16/22 04:00 Resp 16 02/16/22 04:00 BP 136/74 02/16/22 04:00 Pulse Ox 97 02/16/22 04:00 Intake & Output 02/15/22 02/16/22 02/16/22 18:59 06:59 18:59 Intake Total 720 Output Total 0 Balance 720 Weight 88.451 kg Intake: Oral 720 Output: Stool 0 Other: Voiding Method Toilet Toilet # Voids 2 2 - Exam Abdomen: Soft, nontender, nondistended - Labs CBC & Chem 7: 02/16/22 07:50 02/14/22 08:22 Labs: Abnormal Lab Results - Last 24 Hours (Table) 02/16/22 Range/Units 07:50 RBC 4.17 L (4.30-5.90) m/uL Hgb 7.9 L (13.0-17.5) gm/dL Hct 29.3 L (39.0-53.0) % MCV 70.2 L (80.0-100.0) fL MCH 18.9 L (25.0-35.0) pg MCHC 26.9 L (31.0-37.0) g/dL RDW 22.0 H (11.5-15.5) % Microbiology - Last 24 Hours (Table) 02/10/22 17:03 Blood Culture - Preliminary Blood No Growth after 120 hours 02/10/22 17:18 Blood Culture - Preliminary Blood No Growth after 120 hours Assessment and Plan (1) Anemia Narrative/Plan: Patient doing well at this time. Continue monitoring for bleeding. If plans for discharge may resume regular diet. Current Visit: Yes Status: Acute Code(s): D64.9 - ANEMIA, UNSPECIFIED SNOMED Code(s): 983828018
[2022-02-16 10:54] VITALS: BP 150/73; PULSE 64; RESP 18; TEMP 98.3
--- NOTE | 2022-02-16 18:52 | P.DS ---
Providers Date of admission: 02/10/22 21:20 Expected date of discharge: 02/16/22 Attending physician: Andres Ram MD Consults: 02/10/22 21:21 Consult Physician Urgent Consulting Provider: Solomon Lozada Consult Reason/Comments: Anemia Do you want consulting provider notified?: Already Contacted 02/12/22 16:44 Consult Physician Urgent Consulting Provider: Luke English Consult Reason/Comments: rule out hemolytic anemia, pt influenza A + w/ acute anemia Do you want consulting provider notified?: Yes Primary care physician: Stated None Hospital Course: Discharge Diagnosis: Severe iron deficiency anemia Influenza A Nan esophagitis CAD HTN HLD Hospital Course: Patient is a 56-year-old male with a past medical history of CAD with previous TX status post stenting, peptic ulcer disease, hypertension, hyperlipidemia, marijuana, and tobacco abuse who presents to the emergency room with complaints of myalgias, fatigue, and sore throat. In the emergency room, laboratory evaluation revealed influenza A positive with hemoglobin 6.8, down from 15.5 in 05/2021. Coronavirus PCR was negative with stool occult blood also negative. He was transfused with 1 unit of PRBCs and was started on Tamiflu. CT brain in the emergency room was unremarkable. Chest x-ray was also unremarkable. EKG revealed sinus rhythm with sinus arrhythmia at 91 bpm. Patient was admitted with consultation to general surgery. He underwent EGD on 02/12/22 which found duodenitis and antral gastritis and nan esophagitis. CT abdomen and pelvis revealed Nephrotic fat stranding and reactive fluid with small amount of free pelvic fluid. Urinalysis was negative for blood or infection. Renal ultrasound then completed showing no evidence of renal mass or obstruction, negative for hydronephrosis. Blood cultures showing no growth to date. Hematology consulted for evaluation of possible hemolytic anemia resulting from Influenza. Anemia profile obtained and resulting showing iron deficiency anemia given IV iron X 3. His hemoglobin remained stable and he was feeling much improved. He was determined stable for discharge and wanted to complete outpatient colonsocopy. Follow-up: Dr. Ocasio next week, CBC in 5-7 days, Dr. English in 4 weeks, Dr. Barr in 1 week. He completed his Tamiflu prior to discharge. He will remain on pe pcid. He will use nystatin for his nan esophagitis as unable to have diflucan secondary to vimpat. Patient seen and examined at bedside. Doing well. Denies any chest pain, shortness breath, lightheadedness, dizziness. He is aware that he needs a colonoscopy and the importance of follow-up. He is also aware that he needs to follow-up with hematology oncology for further evaluation of his low blood count. Vital signs reviewed and stable. General: non toxic, no distress, appears at stated age Derm: warm, dry Head: atraumatic, normocephalic, symmetric Eyes: EOMI, no lid lag, anicteric sclera Mouth: no lip lesion, mucus membranes moist, poor dentition Cardiovascular: S1S2 reg, no murmur, positive posterior tibial pulse bilateral, Lungs: CTA bilateral, no rhonchi, no rales , no accessory muscle use Abdominal: soft, nontender to palpation, no guarding, no appreciable organomegaly Ext: no gross muscle atrophy, no edema, no contractures Neuro: CN II-XI grossly intact, no focal neuro deficits Psych: Alert, oriented, jovial affect A total of 37 minutes of time were spent preparing this complex discharge summary . Patient Condition at Discharge: Fair Plan - Discharge Summary Discharge Rx Participant: No New Discharge Prescriptions: New Peg 3350-Na Sulf,Bicarb,Cl/KCl [Golytely Lavage] 4,000 ml PO DIRECTED #1 each Nystatin 100,000 Unit/ml Susp [Mycostatin Oral Susp] 500,000 unit PO QID 10 Days #200 ml Pantoprazole [Protonix] 40 mg PO DAILY #30 tab Continue Topiramate [Topamax] 50 mg PO BID Atorvastatin [Lipitor] 80 mg PO HS tab lisinopriL [Zestril] 20 mg PO DAILY tab DULoxetine HCL [Cymbalta] 60 mg PO DAILY Lacosamide [Vimpat] 100 mg PO Q6HR #120 tablet Discontinued Aspirin 81 mg PO DAILY chew Ticagrelor [Brilinta] 90 mg PO BID 30 Days #60 tab Discharge Medication List Topiramate [Topamax] 50 mg PO BID 12/21/17 [History] Atorvastatin [Lipitor] 80 mg PO HS tab 04/08/18 [Rx] lisinopriL [Zestril] 20 mg PO DAILY tab 04/08/18 [Rx] DULoxetine HCL [Cymbalta] 60 mg PO DAILY 05/16/21 [History] Lacosamide [Vimpat] 100 mg PO Q6HR #120 tablet 05/18/21 [Rx] Peg 3350-Na Sulf,Bicarb,Cl/KCl [Golytely Lavage] 4,000 ml PO DIRECTED #1 each 02/14/22 [Rx] Nystatin 100,000 Unit/ml Susp [Mycostatin Oral Susp] 500,000 unit PO QID 10 Days #200 ml 02/16/22 [Rx] Pantoprazole [Protonix] 40 mg PO DAILY #30 tab 02/16/22 [Rx] Follow up Appointment(s)/Referral(s): William Ocasio MD [Medical Doctor] - 1 Week Luke English MD [STAFF PHYSICIAN] - 4 Weeks None,Stated [Primary Care Provider] - 1-2 days Vince Barr [STAFF PHYSICIAN] - 1 Week Ambulatory/Diagnostic Orders: Complete Blood Count w/diff [LAB.AMB] Time Frame: 1 Week, Location: None Selected Patient Instructions/Handouts: Gastritis (DC), Hemolytic Anemia (DC), Influenza (DC), Esophagitis (DC), Duodenitis (DC) Activity/Diet/Wound Care/Special Instructions: Activity: as tolerated Diet: Heart Healthy Special Instructions: CBC in 1 week Discharge Disposition: HOME SELF-CARE
[2022-02-17] MEDS ORDERED: PEG 3350-NA SULF,BICARB,CL/KCL 4,000 ML BOTTLE PO ONE (09:00)
[2022-02-19 15:10] LABS: Albumin 3.46 g/dL (3.80-4.90); Gamma Globulin 0.54 g/dL (0.70-1.50)
== END 2022-02-16 13:26 | disposition home or self-care (01) | DRG 812 ==
LOC: EC 16:47 → 3SCARD 21:20
PROVIDERS: ADMIT Internal Medicine; ATTEND Internal Medicine
PROC: 30233N1 Transfusion of Nonautologous Red Blood Cells into Peripheral Vein, Percutaneous Approach (ICD-10-PCS; 2022-02-10)
PROC: 0DB98ZX Excision of Duodenum, Via Natural or Artificial Opening Endoscopic, Diagnostic (ICD-10-PCS; principal; 2022-02-12 12:00)
PROC: 0DB78ZX Excision of Stomach, Pylorus, Via Natural or Artificial Opening Endoscopic, Diagnostic (ICD-10-PCS; principal; 2022-02-12 12:00)
PROC: 0DB38ZX Excision of Lower Esophagus, Via Natural or Artificial Opening Endoscopic, Diagnostic (ICD-10-PCS; principal; 2022-02-12 12:00)
DX: D50.9 Iron deficiency anemia, unspecified (principal); B37.81 Candidal esophagitis; I42.9 Cardiomyopathy, unspecified; D53.9 Nutritional anemia, unspecified; E78.5 Hyperlipidemia, unspecified; F17.210 Nicotine dependence, cigarettes, uncomplicated; F32.A Depression, unspecified; R12 Heartburn; I10 Essential (primary) hypertension; I25.10 Atherosclerotic heart disease of native coronary artery without angina pectoris; G47.00 Insomnia, unspecified; M15.9 Polyosteoarthritis, unspecified; I25.2 Old myocardial infarction; M54.50 Low back pain, unspecified; J10.1 Influenza due to other identified influenza virus with other respiratory manifestations; G62.9 Polyneuropathy, unspecified; G43.909 Migraine, unspecified, not intractable, without status migrainosus; K29.70 Gastritis, unspecified, without bleeding; K29.80 Duodenitis without bleeding; Z79.02 Long term (current) use of antithrombotics/antiplatelets; Z79.82 Long term (current) use of aspirin; Z79.899 Other long term (current) drug therapy; Z20.822 Contact with and (suspected) exposure to COVID-19; Z80.6 Family history of leukemia; Z82.49 Family history of ischemic heart disease and other diseases of the circulatory system; Z87.11 Personal history of peptic ulcer disease; Z95.5 Presence of coronary angioplasty implant and graft; Z82.61 Family history of arthritis; Z83.49 Family history of other endocrine, nutritional and metabolic diseases; Z98.890 Other specified postprocedural states; Z98.1 Arthrodesis status
CPT/HCPCS: 36415; 43239; 70450; 71046; 74176; 76770; 80053; 80306; 81003; 82140; 82247; 82272; 82607; 82728; 82747; 83010; 83540; 83550; 83615; 83735; 83883; 83921; 84165; 84484; 85025; 85027; 85045; 86038; 86334; 86431; 86850; 86900; 86901; 86920; 87040; 87636; 88305; 88312; 93005; 96361; 96374; 99285

== ENCOUNTER 2022-02-18 13:15 | Day surgery (SDC) | payer OTHER ==
[2022-02-18 14:13] VITALS: TEMP 97.4
[2022-02-18] MEDS ORDERED: LACTATED RINGERS 1,000 ML IV ONE (14:13)
[2022-02-18] MEDS ORDERED: LIDOCAINE 1% INJ 10MG/ML (20 ML MDV) ONE (15:45)
[2022-02-18] MEDS ORDERED: PROPOFOL 10 MG/ML 20 ML VIAL IV ONE (15:45)
--- NOTE | 2022-02-18 16:02 | P.GSHP ---
History of Present Illness H&P Date: 02/18/22 Chief Complaint: GI bleed This a 56-year-old male with history of anemia/. Patient rents today for colonoscopy. Past Medical History Past Medical History: Coronary Artery Disease (CAD), Chest Pain / Angina, Hyperlipidemia, Hypertension, Myocardial Infarction (LA), Neurologic Disorder Additional Past Medical History / Comment(s): Ichemic cardiomyopathy, MIs, peripheral neuropathy, PUD, pancreatitis, liver infection at age 20yrs/pt states not hepatitis, head injuries, migraines, sinus problems, insomnia, arhtritis in multiple joints, back pain. Last Myocardial Infarction Date:: 05/16/21 History of Any Multi-Drug Resistant Organisms: None Reported Past Surgical History: Back Surgery, Heart Catheterization, Hernia Repair, Orthopedic Surgery Additional Past Surgical History / Comment(s): cervical fusion/hardware d/t injury, low back ablations, L inguinal hernia repair, EGD, colonoscopy. Past Anesthesia/Blood Transfusion Reactions: Postoperative Nausea & Vomiting (PONV) Smoking Status: Current some day smoker - Past Family History Mother Family Medical History: Hypertension, Osteoarthritis (OA), Thyroid Disorder Father Family Medical History: AFIB, Cancer Additional Family Medical History / Comment(s): Leukemia Medications and Allergies Home Medications Medication Instructions Recorded Confirmed Type Topiramate [Topamax] 50 mg PO BID 12/21/17 02/18/22 History Atorvastatin [Lipitor] 80 mg PO HS tab 04/08/18 02/18/22 Rx lisinopriL [Zestril] 20 mg PO DAILY tab 04/08/18 02/18/22 Rx DULoxetine HCL [Cymbalta] 60 mg PO DAILY 05/16/21 02/18/22 History Lacosamide [Vimpat] 100 mg PO Q6HR #120 tablet 05/18/21 02/18/22 Rx Pantoprazole [Protonix] 40 mg PO DAILY #30 tab 02/16/22 02/18/22 Rx Allergies Allergy/AdvReac Type Severity Reaction Status Date / Time No Known Allergies Allergy Verified 02/18/22 14:05 Surgical - Exam Vital Signs Temp Pulse Resp BP Pulse Ox 97.4 F L 74 18 156/87 100 02/18/22 14:12 02/18/22 14:12 02/18/22 14:12 02/18/22 14:12 02/18/22 14:12 - General well developed, well nourished, no distress - Eyes PERRL - ENT normal pinna - Neck no masses - Cardiovascular Rhythm: regular - Abdomen Abdomen: soft, non tender Assessment and Plan Assessment: GI bleed. We'll perform colonoscopy
--- NOTE | 2022-02-18 16:03 | P.OP ---
Date of Procedure: 02/18/22 Preoperative Diagnosis: Anemia GI bleed Postoperative Diagnosis: Diverticulosis Procedure(s) Performed: Colonoscopy Anesthesia: MAC Surgeon: Solomon Lozada Pathology: none sent Condition: stable Disposition: PACU Description of Procedure: Patient's placed on the endoscopy table in the lateral position. He received IV sedation. Digital rectal exam was performed. This revealed no abnormality. The flexible colonoscope was then placed patient anus and passed throughout the entire colon. Ileocecal valve was visualized. Cecum, ascending and transverse colon appeared normal. In the descending; was mild diverticular changes. Scope was then brought back the rectum and this appeared normal. Scope withdrawn for patient. There is no evidence of any GI bleed. His presumed patient may have had bleeding from diverticulosis in the past.
[2022-02-18 16:32] VITALS: BP 124/78; PULSE 64; RESP 20
== END 2022-02-18 16:45 | disposition home or self-care (01) ==
LOC: ORWHC2ENDO 13:15
PROVIDERS: ATTEND Surgery
DX: K57.90 Diverticulosis of intestine, part unspecified, without perforation or abscess without bleeding (principal); E78.5 Hyperlipidemia, unspecified; F17.200 Nicotine dependence, unspecified, uncomplicated; I10 Essential (primary) hypertension; I25.10 Atherosclerotic heart disease of native coronary artery without angina pectoris; I25.2 Old myocardial infarction; I42.9 Cardiomyopathy, unspecified; Z82.49 Family history of ischemic heart disease and other diseases of the circulatory system; Z83.49 Family history of other endocrine, nutritional and metabolic diseases; Z87.11 Personal history of peptic ulcer disease; G47.00 Insomnia, unspecified; G62.9 Polyneuropathy, unspecified; G43.909 Migraine, unspecified, not intractable, without status migrainosus; Z80.7 Family history of other malignant neoplasms of lymphoid, hematopoietic and related tissues; Z79.899 Other long term (current) drug therapy
CPT/HCPCS: 45378; J2001; J2704

== ENCOUNTER → 2024-01-29 | Outpatient (CLI) | payer OTHER ==
--- NOTE | 2024-02-04 21:02 | CT ---
EXAMINATION TYPE: CT soft tissue neck wo con CT DLP: 300 mGycm, Automated exposure control for dose reduction was used. DATE OF EXAM: 01/29/2024 1:46 PM COMPARISON: No recent comparisons.. CLINICAL INDICATION:Male, 58 years old with history of R13.10 dysphagia; PHH, dysphagia TECHNIQUE: Standard enhanced CT of the neck. Axial sections with coronal and sagittal reformats were obtained. Contrast used: mL of , (None if empty). Some structures are difficult to evaluate without IV contra st. Oral contrast used: (None if empty) FINDINGS: Brain: Visualized portions are grossly unremarkable. Orbits: Unremarkable Sinuses: Grossly unremarkable. Spaces of the neck: Clear and symmetric. Musculoskeletal: No acute osseous pathology. Lymph nodes: Multiple nonenlarged lymph nodes are seen along both anterior chains of the neck. Vascular structures: Visualized major arteries are patent without evidence of aneurysm. Thoracic Inlet/airway: Airway is patent. The lung apices are clear. Soft tissues/Thyroid: Thyroid and remainder of the soft tissues are unremarkable. Other: none. IMPRESSION 1. No definite evidence for abscess or significant abnormality.
== END | disposition home or self-care (01) ==
LOC: RADCTMAIN 13:25
PROVIDERS: ATTEND Psychiatry & Neurology Neurology
DX: R13.10 Dysphagia, unspecified (principal)
CPT/HCPCS: 70490

== ENCOUNTER → 2024-04-16 | Outpatient (CLI) | payer OTHER ==
--- NOTE | 2024-04-16 11:25 | FL ---
ESOPHOGRAM. HISTORY: Dysphagia Esophagram was performed per the air contrast technique. The patient swallowed barium and effervesce nt crystals without difficulty or delay. Esophageal peristalsis and motility appear to be within normal limits. There is no evidence for filling defect, mass or diverticulum. No hiatal hernia seen. Subsequently single contrast cervical esophagram was performed which fails demonstrate evidence for a spiration penetration or mass. IMPRESSION: Unremarkable study.
== END | disposition home or self-care (01) ==
LOC: RADUSWWP 08:54
PROVIDERS: ATTEND Psychiatry & Neurology Neurology
DX: R13.10 Dysphagia, unspecified (principal)
CPT/HCPCS: 74220

== ENCOUNTER 2024-10-09 12:45 | Observation (INO) | payer OTHER ==
--- NOTE | 2024-10-09 13:07 | ED ---
General Adult HPI - General Chief complaint: Syncope Stated complaint: Syncope Time Seen by Provider: 10/09/24 12:53 Source: patient, RN notes reviewed Mode of arrival: EMS Limitations: no limitations - History of Present Illness Initial comments: Patient is a 59-year-old male presenting to the emergency department with concerns for syncopal episode. Patient was taken off his jacket. Patient did not have symptoms prior to the event. Patient reportedly was unresponsive for 5 to 10 minutes. Patient states he just feels a little bit fatigued at this time. Patient states there may be some mild heaviness throughout his body and chest. Patient states he may be slightly short of breath. Patient does have cardiac history. No confusion or weakness. - Related Data Home Medications Medication Instructions Recorded Confirmed Topiramate [Topamax] 50 mg PO BID 12/21/17 11/18/22 DULoxetine HCL [Cymbalta] 60 mg PO DAILY 05/16/21 11/18/22 Lacosamide [Vimpat] 200 mg PO BID 04/22/22 11/18/22 Previous Rx's Medication Instructions Recorded Atorvastatin [Lipitor] 80 mg PO HS tab 04/08/18 lisinopriL [Zestril] 20 mg PO DAILY tab 04/08/18 Pantoprazole [Protonix] 40 mg PO DAILY #30 tab 02/16/22 Allergies Allergy/AdvReac Type Severity Reaction Status Date / Time No Known Allergies Allergy Verified 10/09/24 12:52 Review of Systems ROS Statement: Those systems with pertinent positive or pertinent negative responses have been documented in the HPI. ROS Other: All systems not noted in ROS Statement are negative. Constitutional: Denies: fever Eyes: Denies: eye pain ENT: Denies: ear pain Respiratory: Reports: as per HPI. Denies: cough Cardiovascular: Reports: as per HPI Endocrine: Reports: fatigue Gastrointestinal: Denies: abdominal pain Neurological: Denies: headache, weakness, confusion Past Medical History Past Medical History: Coronary Artery Disease (CAD), Chest Pain / Angina, Hyperlipidemia, Hypertension, Myocardial Infarction ([place]), Neurologic Disorder Additional Past Medical History / Comment(s): Ichemic cardiomyopathy, MIs, peripheral neuropathy, PUD, pancreatitis, liver infection at age 20yrs/pt states not hepatitis, head injuries, migraines, sinus problems, insomnia, arhtritis in multiple joints, back pain. Last Myocardial Infarction Date:: 05/16/21 History of Any Multi-Drug Resistant Organisms: None Reported Past Surgical History: Back Surgery, Heart Catheterization, Hernia Repair, Orthopedic Surgery Additional Past Surgical History / Comment(s): cervical fusion/hardware d/t injury, low back ablations, L inguinal hernia repair, EGD, colonoscopy. Past Anesthesia/Blood Transfusion Reactions: Postoperative Nausea & Vomiting (PONV) Past Psychological History: Depression Smoking Status: Current every day smoker Past Alcohol Use History: None Reported Past Drug Use History: None Reported - Past Family History Mother Family Medical History: Hypertension, Osteoarthritis (OA), Thyroid Disorder Father Family Medical History: AFIB, Cancer Additional Family Medical History / Comment(s): Leukemia General Exam Limitations: no limitations General appearance: alert, in no apparent distress Head exam: Present: normocephalic Eye exam: Present: normal appearance, PERRL, EOMI Neck exam: Present: normal inspection Respiratory exam: Present: normal lung sounds bilaterally Cardiovascular Exam: Present: regular rate, normal rhythm Expanded Peripheral pulses: 2+: Radial (R), Radial (L), Posterior Tibialis (R), Posterior Tibialis (L) GI/Abdominal exam: Present: soft. Absent: tenderness Extremities exam: Present: normal inspection, full ROM. Absent: tenderness, pedal edema, calf tenderness Neurological exam: Present: alert, oriented X3, CN II-XII intact. Absent: motor sensory deficit Psychiatric exam: Present: normal affect, normal mood Skin exam: Present: normal color Course Vital Signs 10/09/24 12:48 Temperature 97.5 F L Pulse Rate 73 Respiratory 18 Rate Blood Pressure 147/95 O2 Sat by Pulse 99 Oximetry EKG Findings - EKG Results: EKG: interpreted by ERMD (PVC present), sinus rhythm, normal axis, normal QRS, normal ST/T Medical Decision Making - Medical Decision Making Was pt. sent in by a medical professional or institution (, PA, CORE DRILLER, urgent care, hospital, or senior care...) When possible be specific @ -No Did you speak to anyone other than the patient for history (EMS, parent, family, police, friend...)? What history was obtained from this source @ -Family is present and helps provide history including episode and duration of episode that lasted 5 to 10 minutes. Did you review nursing and triage notes (agree or disagree)? Why? @ -I reviewed and agree with nursing and triage notes Were old charts reviewed (outside hosp., previous admission, EMS record, old EKG, old radiological studies, urgent care reports/EKG's, senior care records)? Report findings @ -Previous chest x-ray shows no acute process Differential Diagnosis (chest pain, altered mental status, abdominal pain women, abdominal pain men, vaginal bleeding, weakness, fever, dyspnea, syncope, headache, dizziness, GI bleed, back pain, seizure, CVA, palpatations, mental health, musculoskeletal)? @ -Differential Syncope: Valvular disease, hypertrophic cardiomyopathy, pulmonary embolism, tamponade, tachycardia, bradycardia, CA, hypovolemia, hemorrhage, dissection, anemia, intracranial hemorrhage, seizure, hypoglycemia, carbon monoxide poisoning, this is not meant to be an all-inclusive list. EKG interpreted by me (3pts min.). @ -As above X-rays interpreted by me (1pt min.). @ -Chest x-ray shows no acute abnormality CT interpreted by me (1pt min.). @ -CT scan of the brain has been ordered and pending still U/S interpreted by me (1pt. min.). @ -None done What testing was considered but not performed or refused? (CT, X-rays, U/S, labs)? Why? @ -CT scan of the brain added What meds were considered but not given or refused? Why? @ -None Did you discuss the management of the patient with other professionals (professionals i.e. , PA, CORE DRILLER, lab, RT, psych nurse, social service agency director, cloth roll winder, teacher, chief executive officer, disease case manager rn)? Give summary @ -Case was discussed with practitioner Marcio who will admit with sound physician group covering hospital call Was smoking cessation discussed for >3mins.? @ -No Was critical care preformed (if so, how long)? @ -No Were there social determinants of health that impacted care today? How? (Homelessness, low income, unemployed, alcoholism, drug addiction, transportation, low edu. Level, literacy, decrease access to med. care, residential, rehab)? @ -No Was there de-escalation of care discussed even if they declined (Discuss DNR or withdrawal of care, Hospice)? DNR status @ -No What co-morbidities impacted this encounter? (DM, HTN, Smoking, COPD, CAD, Cancer, CVA, ARF, Chemo, Hep., AIDS, mental health diagnosis, sleep apnea, morbid obesity)? @ -History of cardiac disease. Patient states also history of unresponsive episodes where he just gets stiff. Patient states he is on antiepileptic medication. Topamax level drawn Was patient admitted / discharged? Hospital course, mention meds given and route, prescriptions, significant lab abnormalities, going to OR and other pertinent info. @ -Patient presents with syncopal episode lasting 5 to 10 minutes. Patient has cardiac history as well as neuro history. Evaluation unremarkable. CT scan of the brain has been added. Patient will be admitted with cardiac and neuro consult. Admission orders written Undiagnosed new problem with uncertain prognosis? @ -No Drug Therapy requiring intensive monitoring for toxicity (Heparin, Nitro, Insulin, Cardizem)? @ -No Were any procedures done? @ -No Diagnosis/symptom? @ -Syncope Acute, or Chronic, or Acute on Chronic? @ -Acute Uncomplicated (without systemic symptoms) or Complicated (systemic symptoms)? @ -Complicated with underlying cardiac disease Side effects of treatment? @ -No Exacerbation, Progression, or Severe Exacerbation? @ -No Poses a threat to life or bodily function? How? (Chest pain, USA, CA, pneumonia, PE, COPD, DKA, ARF, appy, cholecystitis, CVA, Diverticulitis, Homicidal, Suicidal, threat to staff... and all critical care pts) @ -Threat to cardiac or neurological function - Lab Data Result diagrams: 10/09/24 13:05 10/09/24 13:05 Lab Results 10/09/24 10/09/24 10/09/24 Range/Units 13:05 13:05 13:05 WBC 4.6 (3.8-10.6) k/uL RBC 4.87 (4.30-5.90) m/uL Hgb 15.2 (13.0-17.5) gm/dL Hct 46.2 (39.0-53.0) % MCV 94.9 (80.0-100.0) fL MCH 31.3 (25.0-35.0) pg MCHC 33.0 (31.0-37.0) g/dL RDW 13.8 (11.5-15.5) % Plt Count 267 (150-450) k/uL MPV 7.1 Neutrophils % 58 % Lymphocytes % 30 % Monocytes % 6 % Eosinophils % 2 % Basophils % 1 % Neutrophils # 2.6 (1.3-7.7) k/uL Lymphocytes # 1.4 (1.0-4.8) k/uL Monocytes # 0.3 (0-1.0) k/uL Eosinophils # 0.1 (0-0.7) k/uL Basophils # 0.1 (0-0.2) k/uL PT 10.4 (10.0-12.5) sec INR 0.9 (<1.2) APTT 23.5 (22.0-30.0) sec D-Dimer 0.30 (<0.60) mg/L FEU Sodium 139 (137-145) mmol/L Potassium 3.5 (3.5-5.1) mmol/L Chloride 112 H (98-107) mmol/L Carbon Dioxide 18 L (22-30) mmol/L Anion Gap 9 mmol/L BUN 12 (9-20) mg/dL Creatinine 0.86 (0.66-1.25) mg/dL Est GFR (CKD-EPI)AfAm >90 (>60 ml/min/1.73 sqM) Est GFR (CKD-EPI)NonAf >90 (>60 ml/min/1.73 sqM) Glucose 137 H (74-99) mg/dL Calcium 9.1 (8.4-10.2) mg/dL Magnesium 2.1 (1.6-2.3) mg/dL Total Bilirubin 0.7 (0.2-1.3) mg/dL AST 29 (17-59) U/L ALT 29 (4-49) U/L Alkaline Phosphatase 73 (38-126) U/L Troponin I (0.000-0.034) ng/mL Total Protein 6.9 (6.3-8.2) g/dL Albumin 4.4 (3.5-5.0) g/dL 10/09/24 Range/Units 13:05 WBC (3.8-10.6) k/uL RBC (4.30-5.90) m/uL Hgb (13.0-17.5) gm/dL Hct (39.0-53.0) % MCV (80.0-100.0) fL MCH (25.0-35.0) pg MCHC (31.0-37.0) g/dL RDW (11.5-15.5) % Plt Count (150-450) k/uL MPV Neutrophils % % Lymphocytes % % Monocytes % % Eosinophils % % Basophils % % Neutrophils # (1.3-7.7) k/uL Lymphocytes # (1.0-4.8) k/uL Monocytes # (0-1.0) k/uL Eosinophils # (0-0.7) k/uL Basophils # (0-0.2) k/uL PT (10.0-12.5) sec INR (<1.2) APTT (22.0-30.0) sec D-Dimer (<0.60) mg/L FEU Sodium (137-145) mmol/L Potassium (3.5-5.1) mmol/L Chloride (98-107) mmol/L Carbon Dioxide (22-30) mmol/L Anion Gap mmol/L BUN (9-20) mg/dL Creatinine (0.66-1.25) mg/dL Est GFR (CKD-EPI)AfAm (>60 ml/min/1.73 sqM) Est GFR (CKD-EPI)NonAf (>60 ml/min/1.73 sqM) Glucose (74-99) mg/dL Calcium (8.4-10.2) mg/dL Magnesium (1.6-2.3) mg/dL Total Bilirubin (0.2-1.3) mg/dL AST (17-59) U/L ALT (4-49) U/L Alkaline Phosphatase (38-126) U/L Troponin I <0.012 (0.000-0.034) ng/mL Total Protein (6.3-8.2) g/dL Albumin (3.5-5.0) g/dL Disposition Clinical Impression: Syncope Disposition: ADMITTED IP TO THIS [facility] Is patient prescribed a controlled substance at d/c from ED?: No Referrals: None,Stated [Primary Care Provider] - 1-2 days Time of Disposition: 14:34
[2024-10-09 13:13] LABS: Basophils # (A) 0.1 k/uL (0-0.2); Basophils % (A) 1 %; Eosinophils # (A) 0.1 k/uL (0-0.7); Eosinophils % (A) 2 %; HCT 46.2 % (39.0-53.0); HGB 15.2 gm/dL (13.0-17.5); Lymphocytes # (A) 1.4 k/uL (1.0-4.8); Lymphocytes % (A) 30 %; MCH 31.3 pg (25.0-35.0); MCV 94.9 fL (80.0-100.0); Mean Platelet Volume 7.1; Monocytes # (A) 0.3 k/uL (0-1.0); Monocytes % (A) 6 %; Neutrophils # (A) 2.6 k/uL (1.3-7.7); Neutrophils % (A) 58 %; Platelet Count 267 k/uL (150-450); RBC 4.87 m/uL (4.30-5.90); RDW 13.8 % (11.5-15.5); WBC 4.6 k/uL (3.8-10.6)
--- NOTE | 2024-10-09 13:21 | XR ---
2 view chest HISTORY: Syncope. COMPARISON: 02/10/2022 TECHNIQUE: PA and lateral views chest obtained. FINDINGS: The lungs are clear of consolidative, interstitial or masslike opacity. There is no pleural effusion, pleural thickening or pneumothorax. The heart, pulmonary vasculature, mediastinum and rosie are within normal limits. The osseous structures and soft tissues of the thorax are intact. IMPRESSION: No significant abnormality. No acute cardiopulmonary disease. [facility], , 10/09/2024 1:19 PM
[2024-10-09 13:24] LABS: ALT 29 U/L (4-49); AST 29 U/L (17-59); African American GFR (CKD) >90 (>60 ml/min/1.73 sqM); Albumin 4.4 g/dL (3.5-5.0); Alkaline Phosphatase 73 U/L (38-126); Anion Gap 9 mmol/L; Blood Urea Nitrogen 12 mg/dL (9-20); Calcium 9.1 mg/dL (8.4-10.2); Carbon Dioxide 18 mmol/L (22-30); Chloride 112 mmol/L (98-107); Glucose 137 mg/dL (74-99); Magnesium 2.1 mg/dL (1.6-2.3); Non-African American GFR(CKD) >90 (>60 ml/min/1.73 sqM); Potassium 3.5 mmol/L (3.5-5.1); Sodium 139 mmol/L (137-145); Total Bilirubin 0.7 mg/dL (0.2-1.3); Total Protein 6.9 g/dL (6.3-8.2)
[2024-10-09 13:34] LABS: INR 0.9 (<1.2); Partial Thromboplastin Time 23.5 sec (22.0-30.0); Prothrombin Time 10.4 sec (10.0-12.5)
[2024-10-09] MEDS ORDERED: NALOXONE 0.4 MG/ML 1 ML VIAL IV PRN (14:34)
--- NOTE | 2024-10-09 15:01 | CT ---
EXAMINATION TYPE: CT brain wo con DATE OF EXAM: 10/09/2024 2:50 PM COMPARISON: Previous CT study 02/10/2022. CLINICAL INDICATION: Male, 59 years old with history of syncope, Syncope TECHNIQUE: Brain: Axial CT images of the brain were obtained with coronal and sagittal reformats created and rev iewed. Contrast used: None. Oral contrast used: None. CT DLP: 1139.4 mGycm, Automated exposure control for dose reduction was used. FINDINGS: Brain: Extra-axial spaces: No abnormal extra-axial fluid collections. Ventricular system: Within normal limits Cerebral parenchyma: No acute intraparenchymal hemorrhage or mass effect. The nichols-white junction is well differentiated. Scattered hypoattenuating areas are seen within the white matter. Cerebellum: Unremarkable. Mass effect: No evidence of midline shift. Intracranial vasculature: unremarkable Soft tissues: Normal. Calvarium/osseous structures: No depressed skull fracture. Paranasal sinuses and mastoid air cells: Mild scattered paranasal sinus disease. Visualized orbits: Bilateral aphakia IMPRESSION: No acute intracranial process. [facility], , 10/09/2024 2:58 PM
--- NOTE | 2024-10-09 16:10 | P.HPIM ---
History of Present Illness H&P Date: 10/09/24 History of Presenting Illness: Patient is a very pleasant 59-year-old male with a past medical history of CAD status post stenting, ischemic cardiomyopathy, peripheral neuropathy, and neurological disorder status post vagal nerve stimulator placement. He p resented to the emergency department today status post syncopal episode. Patient reports feeling at his baseline prior to event and the next thing he remembers is waking up. Patient's friend/family member at bedside reports she was with him during this event and states he was just taking his code off and just went out falling back and sliding down the door to the floor. She reports he was completely unresponsive for greater than 5 minutes but less than 10 minutes. She denies noting any shaking/convulsions movements, denies patient having involuntary loss of bowel or bladder, or any other complaints. She reports when he awoke he was slightly confused for about 10 minutes and is now back to baseline self. Patient reports prior to this event again feeling at baseline and when he awoke he felt some heaviness in his chest and he was little short of breath, currently he reports those symptoms subsided but states he still feels a little "fuzzy" and not quite back to baseline but states it is difficult to explain. Patient denies having any involuntary loss of bowel or bladder, denies biting his tongue, denies any recent infections or fevers, headache, changes in vision or hearing, palpitations, cough or congestion, dysphagia, difficulty with or changes in his speech, or experiencing any numbness/tingling/weakness/swelling in his extremities.. Upon arrival to our facility, patient underwent evaluation in the emergency department. Vital signs upon arrival show blood pressure 147/95, heart rate 73, respiratory rate 18, temp 97.5 F, and SpO2 of 99% on room air. Labs completed and reviewed. CBC unremarkable. Coagulation profile normal findings. D-dimer negative at 0.30. BMP showing non-anion gap metabolic acidosis with chloride of 112, bicarb of 18, and anion gap of 9. Blood glucose was 137. Magnesium was 2.1. Liver profile unremarkable. Troponin was negative at less than 0.012. Patient admitted under services with consultation to cardiology and neurology for evaluation. Review of systems: Pertinent positives and negatives as discussed in HPI, a complete review of systems was performed and all other systems are negative. Physical exam: Vital signs reviewed and stable. General: Nontoxic, no distress and appears stated age. Very thin build. Derm: Skin warm and dry, normal coloration for ethnicity. Head: Atraumatic, normocephalic and symmetric. Eyes: EOM's intact, no lid lag, and anicteric sclera Mouth: no lip lesions, mucus membranes moist Cardiovascular: regular rate and rhythm with normal S1S2, soft systolic murmur, positive posterior tibial pulses bilaterally, and cap refill < 2 seconds. Vagal nerve stimulator left anterior chest Lungs: Respirations even, regular, and unlabored on room air. Lungs CTA bilater ally, no rhonchi, no rales, no wheezing, and no accessory muscle usage. Abdominal: soft, nontender to palpation, no guarding, no appreciable organomegaly Ext: ROM intact. No gross muscle atrophy, no edema, no contractures Neuro: Speech clear, face symmetrical and CN II-XII grossly intact with no noted focal neuro deficits Psych: Alert and oriented to person, place, time, and situation. Appropriate and pleasant affect. Assessment and Plan of Care: Syncopal episode with loss of consciousness reported greater than 5 minutes and reports of chest heaviness and shortness of breath following a syncopal episode History of CAD status post stenting Ischemic cardiomyopathy Peripheral neuropathy Neurological disorder status post vagal nerve stimulator placement -Cardiology consulted, appreciate recommendations -Neurology consulted appreciate recommendations -Neurochecks every 4 hours and fall precautions in place -Telemetry monitoring -Trend troponins -Echocardiogram -Continue daily medication regimen with aspirin 81 mg daily, atorvastatin 80 mg nightly, and lisinopril 20 mg daily. -Continue Topamax 100 mg twice daily and Vimpat 200 mg twice daily -Obtain topiramate level -Echocardiogram Data and imaging reviewed: As stated above in HPI CODE STATUS: Full Code DVT prophylaxis: Lovenox Anticipated discharge date: Pending clinical course Anticipated discharge place: Home Patient was seen independently by Nurse Practitioner. This document was prepared using [employer] dictation software. Please allow for errors in animal assisted therapist while rare they do occur. Marcio Metz NP rendered care for this patient independently, reviewed the findings and plan as documented in the note above and agree with plan. I did not physically speak with or examine the patient on this date. Past Medical History Past Medical History: Coronary Artery Disease (CAD), Chest Pain / Angina, Hyperlipidemia, Hypertension, Myocardial Infarction (CT), Neurologic Disorder Additional Past Medical History / Comment(s): Ichemic cardiomyopathy, MIs, peripheral neuropathy, PUD, pancreatitis, liver infection at age 20yrs/pt states not hepatitis, head injuries, migraines, sinus problems, insomnia, arhtritis in multiple joints, back pain. Last Myocardial Infarction Date:: 05/16/21 History of Any Multi-Drug Resistant Organisms: None Reported Past Surgical History: Back Surgery, Heart Catheterization, Hernia Repair, Orthopedic Surgery Additional Past Surgical History / Comment(s): cervical fusion/hardware d/t injury, low back ablations, L inguinal hernia repair, EGD, colonoscopy. Past Anesthesia/Blood Transfusion Reactions: Postoperative Nausea & Vomiting (PONV) Past Psychological History: Depression Smoking Status: Current every day smoker Past Alcohol Use History: None Reported Past Drug Use History: None Reported - Past Family History Mother Family Medical History: Hypertension, Osteoarthritis (OA), Thyroid Disorder Father Family Medical History: AFIB, Cancer Additional Family Medical History / Comment(s): Leukemia Medications and Allergies Home Medications Medication Instructions Recorded Confirmed Type Atorvastatin [Lipitor] 80 mg PO HS tab 04/08/18 10/09/24 Rx lisinopriL [Zestril] 20 mg PO DAILY tab 04/08/18 10/09/24 Rx DULoxetine HCL [Cymbalta] 60 mg PO DAILY 05/16/21 10/09/24 History Lacosamide [Vimpat] 200 mg PO BID 04/22/22 10/09/24 History Aspirin EC [Ecotrin Low Dose] 81 mg PO DAILY 10/09/24 10/09/24 History Gabapentin [Neurontin] 200 mg PO TID 10/09/24 10/09/24 History Topiramate [Topamax] 100 mg PO BID 10/09/24 10/09/24 History Allergies Allergy/AdvReac Type Severity Reaction Status Date / Time No Known Allergies Allergy Verified 10/09/24 12:52 Physical Exam Vitals: Vital Signs Temp Pulse Resp BP Pulse Ox 10/09/24 12:48 97.5 F L 73 18 147/95 99 Intake and Output 10/09/24 10/09/24 10/09/24 06:59 14:59 22:59 Other: Weight 58.967 kg Results CBC & Chem 7: 10/09/24 13:05 10/09/24 13:05 Labs: Abnormal Lab Results - Last 24 Hours (Table) 10/09/24 Range/Units 13:05 Chloride 112 H (98-107) mmol/L Carbon Dioxide 18 L (22-30) mmol/L Glucose 137 H (74-99) mg/dL
[2024-10-09] MEDS: ACETAMINOPHEN TAB 325 MG TAB PO PRN (20:58)
[2024-10-09] MEDS: GABAPENTIN 100 MG CAP PO SCH (20:58)
[2024-10-09] MEDS: LACOSAMIDE 50 MG TABLET PO SCH (20:59)
[2024-10-09] MEDS: ATORVASTATIN 80 MG TAB PO SCH (20:59)
[2024-10-09] MEDS: TOPIRAMATE 100 MG TAB PO SCH (20:59)
[2024-10-10] MEDS: cloNIDine HCL 0.2 MG TAB PO STA (01:08)
[2024-10-10 09:25] LABS: Basophils # (A) 0.1 k/uL (0-0.2); Basophils % (A) 1 %; Eosinophils # (A) 0.2 k/uL (0-0.7); Eosinophils % (A) 3 %; HCT 40.4 % (39.0-53.0); HGB 13.4 gm/dL (13.0-17.5); Lymphocytes # (A) 1.9 k/uL (1.0-4.8); Lymphocytes % (A) 34 %; MCH 31.6 pg (25.0-35.0); MCHC 33.2 g/dL (31.0-37.0); Mean Platelet Volume 7.9; Monocytes # (A) 0.5 k/uL (0-1.0); Monocytes % (A) 9 %; Neutrophils # (A) 2.8 k/uL (1.3-7.7); Neutrophils % (A) 50 %; Platelet Count 258 k/uL (150-450); RBC 4.25 m/uL (4.30-5.90); RDW 14.4 % (11.5-15.5); WBC 5.7 k/uL (3.8-10.6)
[2024-10-10 09:47] LABS: ALT 30 U/L (4-49); AST 29 U/L (17-59); African American GFR (CKD) >90 (>60 ml/min/1.73 sqM); Albumin 3.7 g/dL (3.5-5.0); Alkaline Phosphatase 59 U/L (38-126); Anion Gap 5 mmol/L; Blood Urea Nitrogen 9 mg/dL (9-20); Carbon Dioxide 22 mmol/L (22-30); Chloride 109 mmol/L (98-107); Glucose 88 mg/dL (74-99); Magnesium 2.1 mg/dL (1.6-2.3); Non-African American GFR(CKD) >90 (>60 ml/min/1.73 sqM); Sodium 136 mmol/L (137-145); Total Bilirubin 0.7 mg/dL (0.2-1.3); Total Protein 5.8 g/dL (6.3-8.2)
--- NOTE | 2024-10-10 10:59 | P.CRDCN ---
History of Present Illness Consult date: 10/10/24 Reason for Consult (text): Syncope History of present illness: This is a 59-year-old male with past medical history of coronary artery disease with multiple PCI in the past, acute inferior [facility] in 2018, tobacco abuse, marijuana abuse, hypertension, hyperlipidemia, seizure disorder status post vagal nerve stimulator. Patient follows with Dr. Del Rio and he states that he had a cardiac cath done last year and also had stents done at the time. Since then he states he has also had a stress test done. Patient does not know any details. Patient gives history that he suddenly fell over and apparently was unresponsive for 5 to 10 minutes he denies having any chest pain no shortness of breath. He states he has been feeling fine since he arrived here. Blood pressure 116/69, heart rate 65, pulse ox 98% on room air. Discussed option of undergoing cardiac catheterization here and he is agreeable to move forward with this. -EKG: Sinus rhythm with no acute ST-T wave changes -Chest x-ray: No acute process -CT brain: No acute intracranial process -Laboratory studies: CBC within normal limits. D-dimer 0.3. Potassium 3.5, BUN 12 and creatinine 0.86. Troponin negative x 2 and third 1 is 0.07. -Home cardiac medications: Aspirin 81 mg daily, atorvastatin 80 mg at bedtime, lisinopril 20 mg daily. -Echocardiogram performed May 2021 revealed EF of less than 20%, severe global hypokinesia of the LV, trace mitral regurgitation and trace tricuspid regurgitation -Cardiac catheterization performed 05/[address] 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 Patient underwent PCI of the LAD with REYES. Review Of Systems: At the time of my exam: CONSTITUTIONAL: Denies fever or chills. HEENT: Denies blurred vision, vision changes, or eye pain. Denies hemoptysis CARDIOVASCULAR: Denies chest pain. Denies orthopnea. Denies PND. Denies palpita tions RESPIRATORY: Denies shortness of breath. GASTROINTESTINAL: Denies abdominal pain. Denies nausea or vomiting. HEMATOLOGIC: Denies bleeding disorders. GENITOURINARY: Denies any blood in urine. SKIN: Denies puritis. Denies rash. Physical examination: Gen: This is a thin 59-year-old male in no acute distress VS: reviewed HEENT: Head is atraumatic, normocephalic. Pupils equal, round. Sclerae is anicteric. NECK: Supple. No JVD. LUNGS: Clear to auscultation. No wheezes or rhonchi. No intercostal retractions. HEART: Regular rate and rhythm. No murmur. ABDOMEN: Soft No tenderness. EXTREMITIES: No pedal edema. No calf tenderness. NEUROLOGICAL: Patient is awake, alert and oriented x3. Assessment: Syncope rule out arrhythmia such as V. tach with history of ischemic cardiomyopathy History of coronary artery disease Ischemic cardiomyopathy, EF of 20% in 2020 Anterior STEMI s/p PCI to distal LAD 2020 History of Coronary artery disease status post previous PCI of the PLV in 2009 and stent to his RCA in 2017 Tobacco abuse Marijuana abuse Hypertension Hyperlipidemia Plan: Resume patient's home cardiac medications Schedule patient for left heart catheterization with Dr. Smalls on Friday Obtain 2-D echocardiogram and Doppler study to assess cardiac structure and function Obtain records from Dr. Del Rio's office, US to follow up on Friday Further recommendations to follow based upon clinical course Thank you kindly for this consultation. Nurse practitioner note has been reviewed, I agree with documented findings and plan of care. Patient was seen and examined. Past Medical History Past Medical History: Coronary Artery Disease (CAD), Chest Pain / Angina, Hyperlipidemia, Hypertension, Myocardial Infarction ([place]), Neurologic Disorder Additional Past Medical History / Comment(s): Ichemic cardiomyopathy, MIs, peripheral neuropathy, PUD, pancreatitis, liver infection at age 20yrs/pt states not hepatitis, head injuries, migraines, sinus problems, insomnia, arhtritis in multiple joints, back pain. Last Myocardial Infarction Date:: 05/16/21 History of Any Multi-Drug Resistant Organisms: None Reported Past Surgical History: Back Surgery, Heart Catheterization, Hernia Repair, Orthopedic Surgery Additional Past Surgical History / Comment(s): cervical fusion/hardware d/t injury, low back ablations, L inguinal hernia repair, EGD, colonoscopy. Past Anesthesia/Blood Transfusion Reactions: Postoperative Nausea & Vomiting (PONV) Past Psychological History: Depression Additional Psychological History / Comment(s): Pt resides alone in an apartment. He uses a cane if outside. He does not drive, his friend drives. Smoking Status: Current every day smoker Past Alcohol Use History: None Reported Additional Past Alcohol Use History / Comment(s): Pt started smoking as a teen and quit in 2009 then went to smoking an occasional cigarello. Pt was a heavy drinker in the past but quit 5 years ago. Past Drug Use History: None Reported Additional Drug Use History / Comment(s): Occasional marijuana use - Past Family History Mother Family Medical History: Hypertension, Osteoarthritis (OA), Thyroid Disorder Father Family Medical History: AFIB, Cancer Additional Family Medical History / Comment(s): Leukemia Medications and Allergies Home Medications Medication Instructions Recorded Confirmed Type Atorvastatin [Lipitor] 80 mg PO HS tab 04/08/18 10/09/24 Rx lisinopriL [Zestril] 20 mg PO DAILY tab 04/08/18 10/09/24 Rx DULoxetine HCL [Cymbalta] 60 mg PO DAILY 05/16/21 10/09/24 History Lacosamide [Vimpat] 200 mg PO BID 04/22/22 10/09/24 History Aspirin EC [Ecotrin Low Dose] 81 mg PO DAILY 10/09/24 10/09/24 History Gabapentin [Neurontin] 200 mg PO TID 10/09/24 10/09/24 History Topiramate [Topamax] 100 mg PO BID 10/09/24 10/09/24 History Allergies Allergy/AdvReac Type Severity Reaction Status Date / Time No Known Allergies Allergy Verified 10/09/24 12:52 Physical Exam Vitals: Vital Signs Temp Pulse Pulse Resp BP BP Pulse Ox 10/10/24 03:27 97.8 F 65 16 116/69 98 10/10/24 00:22 97.6 F 67 16 194/105 100 10/10/24 00:14 66 16 128/81 98 10/09/24 23:18 66 16 128/81 98 10/09/24 21:03 79 20 161/103 99 10/09/24 18:55 75 18 152/94 98 10/09/24 15:00 75 18 152/106 98 10/09/24 12:48 97.5 F L 73 18 147/95 99 Intake and Output 10/09/24 10/10/24 10/10/24 22:59 06:59 14:59 Other: # Voids 2 Weight 57 kg Results 10/10/24 08:12 10/10/24 08:12 Cardiac Enzymes 10/09/24 10/09/24 10/09/24 Range/Units 13:05 13:05 16:09 AST 29 (17-59) U/L Troponin I <0.012 0.023 (0.000-0.034) ng/mL 10/09/24 Range/Units 18:58 AST (17-59) U/L Troponin I 0.070 H* (0.000-0.034) ng/mL Coagulation 10/09/24 Range/Units 13:05 PT 10.4 (10.0-12.5) sec APTT 23.5 (22.0-30.0) sec CBC 10/09/24 Range/Units 13:05 WBC 4.6 (3.8-10.6) k/uL RBC 4.87 (4.30-5.90) m/uL Hgb 15.2 (13.0-17.5) gm/dL Hct 46.2 (39.0-53.0) % Plt Count 267 (150-450) k/uL Comprehensive Metabolic Panel 10/09/24 Range/Units 13:05 Sodium 139 (137-145) mmol/L Potassium 3.5 (3.5-5.1) mmol/L Chloride 112 H (98-107) mmol/L Carbon Dioxide 18 L (22-30) mmol/L BUN 12 (9-20) mg/dL Creatinine 0.86 (0.66-1.25) mg/dL Glucose 137 H (74-99) mg/dL Calcium 9.1 (8.4-10.2) mg/dL AST 29 (17-59) U/L ALT 29 (4-49) U/L Alkaline Phosphatase 73 (38-126) U/L Total Protein 6.9 (6.3-8.2) g/dL Albumin 4.4 (3.5-5.0) g/dL Current Medications Generic Name Dose Route Start Last Admin Trade Name Freq PRN Reason Stop Dose Admin Acetaminophen 650 mg 10/09/24 14:34 10/09/24 20:58 Acetaminophen Tab 325 Mg Tab PO 650 mg Q6HR PRN Administration Mild Pain or Fever > 100.5 Aspirin 81 mg 10/10/24 09:00 Aspirin 81 Mg PO DAILY [facility] Atorvastatin Calcium 80 mg 10/09/24 21:00 10/09/24 20:59 Atorvastatin 80 Mg Tab PO 80 mg HS ALLEN Administration Duloxetine HCl 60 mg 10/10/24 09:00 Duloxetine Hcl 60 Mg Capsule.Dr PO DAILY ALLEN Enoxaparin Sodium 40 mg 10/10/24 09:00 Enoxaparin 40 Mg/0.4 Ml Syringe SQ DAILY ALLEN Gabapentin 200 mg 10/09/24 22:00 10/09/24 20:58 Gabapentin 100 Mg Cap PO 200 mg TID ALLEN Administration Lacosamide 200 mg 10/09/24 21:00 10/09/24 20:59 Lacosamide 50 Mg Tablet PO 200 mg BID ALLEN Administration Lisinopril 20 mg 10/10/24 09:00 Lisinopril 20 Mg Tab PO DAILY ALLEN Naloxone HCl 0.2 mg 10/09/24 14:34 Naloxone 0.4 Mg/Ml 1 Ml Vial IV Q2M PRN Opioid Reversal Topiramate 100 mg 10/09/24 21:00 10/09/24 20:59 Topiramate 100 Mg Tab PO 100 mg BID ALLEN Administration Intake and Output 10/09/24 10/10/24 10/10/24 22:59 06:59 14:59 Other: # Voids 2 Weight 57 kg 10/09/24 13:05 10/09/24 13:05
[2024-10-10] MEDS ORDERED: ALPRAZolam 0.5 MG TAB PO PRN (11:01)
[2024-10-10] MEDS ORDERED: NITROGLYCERIN SL TABS 0.4 MG TAB SUBLINGUAL PRN (11:01)
[2024-10-10] MEDS: ASPIRIN 81 MG PO SCH (11:22)
[2024-10-10] MEDS: DULoxetine HCL 60 MG CAPSULE.DR PO SCH (11:22)
[2024-10-10] MEDS: lisinopriL 20 MG TAB PO SCH (11:22)
[2024-10-10] MEDS: ENOXAPARIN 40 MG/0.4 ML SYRINGE SQ SCH (11:23)
--- NOTE | 2024-10-10 15:33 | P.PN ---
Subjective Progress Note Date: 10/10/24 Hospital Course: Patient is a very pleasant 59-year-old male with a past medical history of CAD status post stenting, ischemic cardiomyopathy, peripheral neuropathy, and neurological disorder status post vagal nerve stimulator placement. He presented to the emergency department today status post syncopal episode. Patient reports feeling at his baseline prior to event and the next thing he remembers is waking up. Patient's friend/family member at bedside reports she was with him during this event and states he was just taking his code off and just went out falling back and sliding down the door to the floor. She reports he was completely unresponsive for greater than 5 minutes but less than 10 minutes. She denies noting any shaking/convulsions movements, denies patient having involuntary loss of bowel or bladder, or any other complaints. She repo rts when he awoke he was slightly confused for about 10 minutes and is now back to baseline self. Patient reports prior to this event again feeling at baseline and when he awoke he felt some heaviness in his chest and he was little short of breath, currently he reports those symptoms subsided but states he still feels a little "fuzzy" and not quite back to baseline but states it is difficult to e xplain. Patient denies having any involuntary loss of bowel or bladder, denies biting his tongue, denies any recent infections or fevers, headache, changes in vision or hearing, palpitations, cough or congestion, dysphagia, difficulty with or changes in his speech, or experiencing any numbness/ting ling/weakness/swelling in his extremities.. Upon arrival to our facility, patient underwent evaluation in the emergency department. Vital signs upon arrival show blood pressure 147/95, heart rate 73, respiratory rate 18, temp 97.5 F, and SpO2 of 99% on room air. EKG showing sinus rhythm with occasional PVC, with no significant T wave or ST abnormality showing no signs of acute ischemia upon personal review and interpretation. Labs completed and reviewed. CBC unremarkable. Coagulation profile normal findings. D-dimer negative at 0.30. BMP showing non-anion gap metabolic acidosis with chloride of 112, bicarb of 18, and anion gap of 9. Blood glucose was 137. Magnesium was 2.1. Liver profile unremarkable. Troponin was negative at less than 0.012. Patient admitted under services with consultation to cardiology and neurology for evaluation. Troponins were trended overnight resulting at less than 0.012, 0.023, and 0.070. Physical exam: Patient seen and fully evaluated at bedside this morning. He still reports feeling a bit "off". Patient states he feels like something is just not right in his head. He denies actually having a headache, dizziness, lightheadedness, changes in vision or hearing, chest pain, palpitations, shortness of breath, or experiencing any numbness/tingling/weakness in his extremities.. Vital signs reviewed and stable. General: Nontoxic, no distress and appears stated age. Very thin build. Derm: Skin warm and dry, normal coloration for ethnicity. Head: Atraumatic, normocephalic and symmetric. Eyes: EOM's intact, no lid lag, and anicteric sclera Mouth: no lip lesions, mucus membranes moist Cardiovascular: regular rate and rhythm with normal S1S2, soft systolic murmur, positive posterior tibial pulses bilaterally, and cap refill < 2 seconds. Vagal nerve stimulator left anterior chest Lungs: Respirations even, regular, and unlabored on room air. Lungs CTA bilaterally, no rhonchi, no rales, no wheezing, and no accessory muscle usage. Abdominal: soft, nontender to palpation, no guarding, no appreciable organomegaly Ext: ROM intact. No gross muscle atrophy, no edema, no contractures Neuro: Speech clear, face symmetrical and CN II-XII grossly intact with no noted focal neuro deficits Psych: Alert and oriented to person, place, time, and situation. Appropriate and pleasant affect. Assessment and Plan of Care: Syncopal episode with loss of consciousness reported greater than 5 minutes and reports of chest heaviness and shortness of breath following a syncopal episode Elevated troponin History of CAD status post stenting of LAD Ischemic cardiomyopathy Peripheral neuropathy Neurological disorder status post vagal nerve stimulator placement -Cardiology consulted, discussed plan of care with cardiology [employer] in detail. Patient scheduled to undergo left heart catheterization with Dr. Slim herring. -Neurology consulted discussed plan of care with Dr. Ga. Patient to undergo EEG. -Neurochecks every 4 hours and fall precautions in place -Telemetry monitoring -Troponins were trended overnight resulting at less than 0.012, 0.023, and 0.070. -Echocardiogram to be completed as previous EF was reported of 20% in 2022. -Continue daily medication regimen with aspirin 81 mg daily, atorvastatin 80 mg nightly, and lisinopril 20 mg daily. -Continue Topamax 100 mg twice daily and Vimpat 200 mg twice daily -Follow-up on topiramate level once resulted Data and imaging reviewed: Labs reviewed. Troponins were trended overnight resulting at less than 0.012, 0.023, and 0.070. CBC remains unremarkable. BMP showing mild hyperchloremia with chloride of 109 otherwise normal findings. Blood glucose 88. Magnesium 2.1. Liver profile unremarkable. Vital signs reviewed. Blood pressure 116/69, heart rate 65, respiratory rate 16, temp 97.8 F, and SpO2 of 98% on room air. CODE STATUS: Full Code DVT prophylaxis: Lovenox Anticipated discharge date: Pending clinical course Anticipated discharge place: Home Patient was seen independently by Nurse Practitioner. This document was prepared using [employer] dictation software. Please allow for errors in draftsperson while rare they do occur. Marcio Metz NP rendered care for this patient independently, reviewed the findings and plan as documented in the note above and agree with plan. I did n ot physically speak with or examine the patient on this date. Objective - Vital Signs Vital signs: Vital Signs Temp 97.8 F 10/10/24 03:27 Pulse 65 10/10/24 03:27 Resp 16 10/10/24 03:27 BP 116/69 10/10/24 03:27 Pulse Ox 98 10/10/24 03:27 FiO2 Intake & Output 10/09/24 10/10/24 10/10/24 18:59 06:59 18:59 Weight 58.967 kg 57 kg Other: # Voids 2 - Labs CBC & Chem 7: 10/10/24 08:12 10/10/24 08:12 Labs: Abnormal Lab Results - Last 24 Hours (Table) 10/09/24 10/09/24 Range/Units 13:05 18:58 Chloride 112 H (98-107) mmol/L Carbon Dioxide 18 L (22-30) mmol/L Glucose 137 H (74-99) mg/dL Troponin I 0.070 H* (0.000-0.034) ng/mL
--- NOTE | 2024-10-10 17:11 | P.CNNES ---
History of Present Illness Consult date: 10/10/24 Requesting physician: Grady Henson Reason for Consult: syncope History of Present Illness: This is a 59-year-old gentleman with history of seizure status post VNS, coronary artery disease status post stent, ischemic cardiomyopathy, peripheral neuropathy who presents emergency department because of syncopal episode. Karina romano is accompanied with his friend. It seems that yesterday around 1130 or 12 in the afternoon after finishing smoking his cigar he was walking back to his apartment and that he passed out. He fell backward and he passed out and the episode lasted for about 10 minutes. His eyes were closed per his friend who witnessed the episode. No drooling of the mouth. No jerking of any extremity. No tongue bite, urinary or bowel incontinence. He denies any symptoms prior to the episode or after the episode. He states that he does have underlying history of seizure and he is on Vimpat 200 mg twice a day as well as on gabapentin 200 mg 3 times a day. He states his seizures are in the past used to stiffen up until he received the venous this past April 2024 and he has not stiffen up any further but he will have abnormal noise per the friend and no passing out ever with history of seizures. He is compliant taking his medication. Feels back to baseline. Patient follows up with Dr. Ahmadi's team regarding his neurological issues. Last seizure activity was about a week ago in which she had abnormal noise per his friend resides with him. Some of the workup during this hospital visit consisted of: CBC with differential is unremarkable I reviewed the rest of the lab workup. The troponin is minimally trending up CT of the head is reported as no acute intracranial process. I reviewed the CT and agree with the report Review of Systems As per HPI. Past Medical History Past Medical History: Coronary Artery Disease (CAD), Chest Pain / Angina, Hyperlipidemia, Hypertension, Myocardial Infarction (CT), Neurologic Disorder Additional Past Medical History / Comment(s): Ichemic cardiomyopathy, MIs, peripheral neuropathy, PUD, pancreatitis, liver infection at age 20yrs/pt states not hepatitis, head injuries, migraines, sinus problems, insomnia, arhtritis in multiple joints, back pain. Last Myocardial Infarction Date:: 05/16/21 History of Any Multi-Drug Resistant Organisms: None Reported Past Surgical History: Back Surgery, Heart Catheterization, Hernia Repair, Orthopedic Surgery Additional Past Surgical History / Comment(s): cervical fusion/hardware d/t injury, low back ablations, L inguinal hernia repair, EGD, colonoscopy. Past Anesthesia/Blood Transfusion Reactions: Postoperative Nausea & Vomiting (PONV) Past Psychological History: Depression Additional Psychological History / Comment(s): Pt resides alone in an apartment. He uses a cane if outside. He does not drive, his friend drives. Smoking Status: Current every day smoker Past Alcohol Use History: None Reported Additional Past Alcohol Use History / Comment(s): Pt started smoking as a teen and quit in 2009 then went to smoking an occasional cigarello. Pt was a heavy drinker in the past but quit 5 years ago. Past Drug Use History: None Reported Additional Drug Use History / Comment(s): Occasional marijuana use - Past Family History Mother Family Medical History: Hypertension, Osteoarthritis (OA), Thyroid Disorder Father Family Medical History: AFIB, Cancer Additional Family Medical History / Comment(s): Leukemia Medications and Allergies Home Medications Medication Instructions Recorded Confirmed Type Atorvastatin [Lipitor] 80 mg PO HS tab 04/08/18 10/09/24 Rx lisinopriL [Zestril] 20 mg PO DAILY tab 04/08/18 10/09/24 Rx DULoxetine HCL [Cymbalta] 60 mg PO DAILY 05/16/21 10/09/24 History Lacosamide [Vimpat] 200 mg PO BID 04/22/22 10/09/24 History Aspirin EC [Ecotrin Low Dose] 81 mg PO DAILY 10/09/24 10/09/24 History Gabapentin [Neurontin] 200 mg PO TID 10/09/24 10/09/24 History Topiramate [Topamax] 100 mg PO BID 10/09/24 10/09/24 History Allergies Allergy/AdvReac Type Severity Reaction Status Date / Time No Known Allergies Allergy Verified 10/09/24 12:52 Physical Examination - Vital Signs Vital Signs: Vital Signs Temp Pulse Pulse Resp BP BP Pulse Ox 10/10/24 03:27 97.8 F 65 16 116/69 98 10/10/24 00:22 97.6 F 67 16 194/105 100 10/10/24 00:14 66 16 128/81 98 10/09/24 23:18 66 16 128/81 98 10/09/24 21:03 79 20 161/103 99 10/09/24 18:55 75 18 152/94 98 Intake and Output 10/10/24 10/10/24 10/10/24 06:59 14:59 22:59 Intake Total 10 Balance 10 Intake: IV 10 Invasive Line 2 10 Other: # Voids 2 2 Weight 57 kg GENERAL: The patient is lying in bed and is not in acute distress. NEUROLOGICAL: Higher mental function: The patient is awake, alert, oriented to self, place and time. Patient is following commands. No aphasia and no neglect. Cranial nerves: The pupils are round, equal and reactive to light and accommodation. Visual quiros are full to confrontation throughout. Extraocular movement is intact no nystagmus is noted. Facial sensation is normal to touch throughout. The facial strength is normal throughout. Hearing is normal bilaterally to hand rub. Tongue is midline and moved [id number] without any difficulty. No dysarthria is noted. Shoulder shrug is normal bilaterally. Motor: The strength is 5 over 5 throughout. Normal tone and bulk. Cerebellum: Normal finger to nose heel to chin bilaterally. Sensation: Sensation is normal to touch throughout. Plantars are downgoing bilaterally. Results - Laboratory Findings CBC and BMP: 10/10/24 08:12 10/10/24 08:12 Abnormal Lab Findings: Abnormal Labs 10/09/24 10/09/24 10/10/24 13:05 18:58 08:12 RBC 4.25 L Sodium Chloride 112 H Carbon Dioxide 18 L Glucose 137 H Troponin I 0.070 H* Total Protein 10/10/24 08:12 RBC Sodium 136 L Chloride 109 H Carbon Dioxide Glucose Troponin I Total Protein 5.8 L Assessment and Plan Assessment: This is a 69-year-old gentleman with history of seizure who is on anti-seizure medication has Vagus Nerve Stimulation (VNS) present emergency department bec ause of syncopal episode. Per the friend who witnessed the episode he did not have any jerking of any extremity, his eyes was closed and no foaming around the mouth or no tongue bite or urinary or bowel incontinence. Syncopal episode of unknown exact etiology. Unsure if it is due to cardiac versus seizure. Per the patient and his friends he never passed out with his seizure but rather he used to stiffen up or had abnormal noise. Underlying history of seizure on antiseizure medication as well as VNS History of ischemic cardiomyopathy History of coronary artery disease status post stent History of peripheral neuropathy Nicotine use (smokes Cigars) Marijuan use Plan: I ordered a routine EEG Patient is resumed on his home medication of Vimpat 200 mg twice a day, gabapentin 200 mg 3 times a day. He is also on his home topiramate which helps with the antiseizure as well as migraines. Cardiology is on board seems that he is scheduled for cardiac cath tomorrow morning. If routine EEG is negative and and cardiology does not feel this is cardiac then I recommend a prolonged EEG as an outpatient and that should be coordinated by his outpatient neurologist Seizure precautions seizure pads Per the [facility] because seizures and syncope even if is not related to a seizure, to avoid driving for 6 months from the last episode, avoid heights, avoid swimming assisted or using heavy missionary Will defer the rest of the medical management to primary and other specialist Was counseled on cessation of nicotine use Upon discharge recommend the patient to follow-up with his neurologist (Dr. La) as outpatient within 2 weeks. Thank you for the consultation. Time with Patient: Greater than 30
[2024-10-10] MEDS: SODIUM CHLORIDE 0.9% 1,000 ML in EMPTY BAG 1 BAG IV SCH (21:54)
[2024-10-11] MEDS: ATORVASTATIN 80 MG TAB PO ONE (06:22)
[2024-10-11] MEDS: ASPIRIN 325 MG TAB PO ONE (06:22)
[2024-10-11 09:29] VITALS: BMI 17.4
[2024-10-11] MEDS: IV FLUID CONTINUATION 400 ML IV ONE (09:39)
[2024-10-11] MEDS: MIDAZOLAM 2 MG/2 ML VIAL IVP ONE (10:02)
[2024-10-11] MEDS: fentaNYL (PF) 50 MCG/ML 2 ML AMP IVP ONE (10:03)
[2024-10-11] MEDS: LIDOCAINE 1% INJ 10MG/ML (20 ML MDV) SQ ONE (10:12)
[2024-10-11] MEDS: VERAPAMIL SYRINGE (5 MG/10 ML) INTRAARTER ONE (10:13)
[2024-10-11] MEDS: HEPARIN SODIUM 1,000 UN/ML (10ML VL) IV ONE (10:16)
[2024-10-11] MEDS: IOPAMIDOL-370 100ML BTL INJ ONE (10:23)
[2024-10-11] MEDS: HEPARIN SODIUM,PORCINE 10,000 UNIT in SODIUM CHLORIDE 0.9% 1,000 ML IRRIGATION PRN (10:24)
[2024-10-11] MEDS: HEPARIN SODIUM,PORCINE (1 ML) 2,500 UNIT in SODIUM CHLORIDE 0.9% 250 ML IRRIGATION PRN (10:24)
[2024-10-11] MEDS: SODIUM CHLORIDE 0.9% 1,000 ML IV ONE (10:24)
--- NOTE | 2024-10-11 10:31 | P.CARDCATH ---
Description of Procedure: PROCEDURES PERFORMED: Left heart catheterization, bilateral coronary angiography, ultrasound guided arterial access INDICATION: syncope, minimally elevated troponins CONSENT:I have discussed the risks, benefits and alternative therapies for the above-mentioned procedure and for both sedation/analgesia as well as necessary blood product administration, if indicated, as they pertain to this patient. The patient has indicated understanding and acceptance of the risks and procedures discussed. PROCEDURE: After the risks, benefits and alternatives of the above mentioned procedure explained in detail with the patient, informed consent was obtained. Patient was taken to the catheterization lab and prepped and draped in usual fa shion. Ultrasound guidance was used to assess for arterial access. 1% lidocaine was used to anesthetize the right radial artery. A 6-Kenyan sheath was placed in the right radial artery using modified Seldinger technique and ultrasound guidance. Left coronary angiography was performed with a 5-Kenyan JL 3.5 catheter and right coronary angiography was performed with a 5-Kenyan AR2 catheter in various views. A 5-Kenyan AR2 catheter was inserted into the left ventricle and pressure measurements were obtained. The right radial sheath was removed and a TR band was placed with hemostasis achieved. The patient tolerated the procedure well. Patient was transported back to the post catheterization holding area in stable condition. Conscious Sedation: Patient was monitored under the direct supervision of myself for conscious sedation using Versed and fentanyl for a total duration of 12 minutes HEMODYNAMICS: Aorta: 140/81 LV: 147/10, LVEDP 24 SELECTIVE CORONARY ARTERIOGRAPHY: LEFT MAIN: The left main is a large caliber vessel which continues into the LAD with circumflex coming from the right coronary cusp. There is diffuse 10-20% stenosis of the left main. LEFT ANTERIOR DESCENDING CORONARY ARTERY: LAD is a large caliber vessel. There is a proximal LAD stent which is patent and otherwise mild 20-30% mid and distal LAD stenosis. ANOMOULOUS CIRCUMFLEX CORONARY ARTERY: The circumflex is subselectively seen and comes off of the right coronary cusp with 30-40% stenosis. RIGHT CORONARY ARTERY: The right coronary artery is a large caliber and tortuous vessel which gives off a PDA and PLV branch and is the dominant vessel. There is a patent proximal RCA stent, diffuse 20-40% stenosis of the mid to distal RCA, 20 of 30% stenosis of the PLV, 60-70% stenosis of the PDA. FINAL IMPRESSION: 1. CAD as described above including 20-30% LAD, 20-40% diffuse RCA stenosis and similar appearance of PDA 60-70% stenosis compared to 2021 films with patent RCA and LAD stents 2. Elevated left sided filling pressures PLAN: 1. Aggressive risk factor modification per most recent ACC/AHA guidelines. 2. Patient's presentation mainly syncope and angina. If he does have recurrent angina may consider further functional assessment of PDA lesion however otherwise patent stents and continue treatment medically.
--- NOTE | 2024-10-11 11:19 | CA ---
Transthoracic Echo Report Name: Devendra Magdaleno Age: 59 Gender: M : 1965 Exam Date: 10/11/2024 08:53 Exam Location: [facility] Ht (in): 71 Wt (lb): 130 Ordering Physician: Marcio Metz Attending/Referring Phys: [employer] Supervisor Chhaya Leonard RDCS Procedure CPT: Indications: syncopal Cardiac Hx: CAD, Ischemic Cardiomyopathy Technical Quality: Fair Contrast 1: Total Dose (mL): Contrast 2: Total Dose (mL): MEASUREMENTS (Male / Female) Normal Values 2D ECHO LV Diastolic Diameter PLAX 5.2 cm 4.2 - 5.9 / 3.9 - 5.3 cm LV Systolic Diameter PLAX 4.0 cm IVS Diastolic Thickness 0.8 cm 0.6 - 1.0 / 0.6 - 0.9 cm LVPW Diastolic Thickness 0.7 cm 0.6 - 1.0 / 0.6 - 0.9 cm LV Relative Wall Thickness 0.3 RV Internal Dim ED PLAX 1.7 cm LA Systolic Diameter LX 3.5 cm 3.0 - 4.0 / 2.7 - 3.8 cm LV Diastolic Volume MOD BP 61.9 cm??? 67 - 155 / 56 - 104 cm??? LV Systolic Volume MOD BP 27.4 cm??? 22 - 58 / 19 - 49 cm??? LV Ejection Fraction MOD BP 55.7 % >= 55 % LV Cardiac Index MOD BP 1497.6 cm???/min???m??? LV Diastolic Volume MOD 4C 74.4 cm??? LV Systolic Volume MOD 4C 34.7 cm??? LV Ejection Fraction MOD 4C 53.4 % LV Cardiac Index MOD 4C 1726.1 cm???/min???m??? LV Diastolic Length 4C 7.5 cm LV Systolic Length 4C 6.8 cm LV Diastolic Volume MOD 2C 49.6 cm??? LV Systolic Volume MOD 2C 21.2 cm??? LV Ejection Fraction MOD 2C 57.3 % LV Cardiac Index MOD 2C 1234.0 cm???/min???m??? LV Diastolic Length 2C 7.3 cm LV Systolic Length 2C 6.5 cm LA Volume 40.0 cm??? 18 - 58 / 22 - 52 cm??? LA Volume Index 23.5 cm???/m??? 16 - 28 cm???/m??? M-MODE Aortic Root Diameter MM 3.4 cm LA Systolic Diameter MM 3.5 cm LA Ao Ratio MM 1.1 AV Cusp Separation MM 1.7 cm DOPPLER MV Area PHT 2.1 cm??? Mitral E Point Velocity 78.5 cm/s Mitral A Point Velocity 108.3 cm/s Mitral E to A Ratio 0.7 MV Deceleration Time 360.3 ms TR Peak Velocity 278.1 cm/s TR Peak Gradient 30.9 mmHg Right Ventricular Systolic Press 35.9 mmHg FINDINGS Left Ventricle Left ventricular ejection fraction is estimated at 45-50 %. Left ventricular cavity size normal. No obvious regional wall motion abnormalities. Mildly reduced global left ventricular systolic function. Right Ventricle Normal right ventricular size and function. Mild pulmonary hypertension. Right ventricular systolic pressure estimated at 36mmHg. Right Atrium Normal right atrial size. Left Atrium Normal left atrial size. Mitral Valve Structurally normal mitral valve. Trace to mild mitral regurgitation. No mitral stenosis. Aortic Valve Trileaflet aortic valve. No aortic stenosis. No aortic regurgitation. Tricuspid Valve Structurally normal tricuspid valve. Trace to mild tricuspid regurgitation. Pulmonic Valve Structurally normal pulmonic valve. Trace pulmonic regurgitation. No pulmonic stenosis. Pericardium Minimal pericardial effusion (normal variant). Aorta Normal size aortic root and proximal ascending aorta. CONCLUSIONS Normal LV size is fairly well-preserved systolic function without wall motion abnormality. Mildly elevated right-sided pressures. Mild mitral and tricuspid regurgitation. No significant pericardial effusion Previewed by: Dr. Mahsa Murry MD (Electronically Signed) Final Date: 11 October 2024 11:18
--- NOTE | 2024-10-11 14:17 | P.PN ---
Subjective Progress Note Date: 10/11/24 Hospital Course: Patient is a very pleasant 59-year-old male with a past medical history of CAD status post stenting, ischemic cardiomyopathy, peripheral neuropathy, and neurological disorder status post vagal nerve stimulator placement. He presented to the emergency department today status post syncopal episode. Patient reports feeling at his baseline prior to event and the next thing he remembers is waking up. Patient's friend/family member at bedside reports she was with him during this event and states he was just taking his code off and just went out falling back and sliding down the door to the floor. She reports he was completely unresponsive for greater than 5 minutes but less than 10 minutes. She denies noting any shaking/convulsions movements, denies patient having involuntary loss of bowel or bladder, or any other complaints. She repo rts when he awoke he was slightly confused for about 10 minutes and is now back to baseline self. Patient reports prior to this event again feeling at baseline and when he awoke he felt some heaviness in his chest and he was little short of breath, currently he reports those symptoms subsided but states he still feels a little "fuzzy" and not quite back to baseline but states it is difficult to e xplain. Patient denies having any involuntary loss of bowel or bladder, denies biting his tongue, denies any recent infections or fevers, headache, changes in vision or hearing, palpitations, cough or congestion, dysphagia, difficulty with or changes in his speech, or experiencing any numbness/ting ling/weakness/swelling in his extremities.. Upon arrival to our facility, patient underwent evaluation in the emergency department. Vital signs upon arrival show blood pressure 147/95, heart rate 73, respiratory rate 18, temp 97.5 F, and SpO2 of 99% on room air. EKG showing sinus rhythm with occasional PVC, with no significant T wave or ST abnormality showing no signs of acute ischemia upon personal review and interpretation. Labs completed and reviewed. CBC unremarkable. Coagulation profile normal findings. D-dimer negative at 0.30. BMP showing non-anion gap metabolic acidosis with chloride of 112, bicarb of 18, and anion gap of 9. Blood glucose was 137. Magnesium was 2.1. Liver profile unremarkable. Troponin was negative at less than 0.012. Patient admitted under services with consultation to cardiology and neurology for evaluation. Troponins were trended overnight resulting at less than 0.012, 0.023, and 0.070. Physical exam: Patient seen and fully evaluated at bedside this morning shortly after returning from cardiac cath. TR band in place to right wrist. He reports continuing foggy/fuzzy feeling is unchanged. Vital signs reviewed and stable. General: Nontoxic, no distress and appears stated age. Very thin build. Derm: Skin warm and dry, normal coloration for ethnicity. Head: Atraumatic, normocephalic and symmetric. Eyes: EOM's intact, no lid lag, and anicteric sclera Mouth: no lip lesions, mucus membranes moist Cardiovascular: regular rate and rhythm with normal S1S2, soft systolic murmur, positive posterior tibial pulses bilaterally, and cap refill < 2 seconds. Vagal nerve stimulator left anterior chest Lungs: Respirations even, regular, and unlabored on room air. Lungs CTA bilaterally, no rhonchi, no rales, no wheezing, and no accessory muscle usage. Abdominal: soft, nontender to palpation, no guarding, no appreciable organomegaly Ext: ROM intact. No gross muscle atrophy, no edema, no contractures Neuro: Speech clear, face symmetrical and CN II-XII grossly intact with no noted focal neuro deficits Psych: Alert and oriented to person, place, time, and situation. Appropriate and pleasant affect. Assessment and Plan of Care: Syncopal episode with loss of consciousness reported greater than 5 minutes and reports of chest heaviness and shortness of breath following a syncopal episode Elevated troponin History of CAD status post stenting of LAD Ischemic cardiomyopathy Peripheral neuropathy Neurological disorder status post vagal nerve stimulator placement -Cardiology consulted, patient is more cardiac catheterization this morning. No stents placed. -Neurology following discussed plan of care with Dr. Ga. EEG was completed this morning awaiting report. -Neurochecks every 4 hours and fall precautions in place -Telemetry monitoring -Troponins were trended overnight resulting at less than 0.012, 0.023, and 0.070. -Echocardiogram completed showing a reduced EF of 45 to 50% but improved from previous report of 20%. -Continue daily medication regimen with aspirin 81 mg daily, atorvastatin 80 mg nightly, and lisinopril 20 mg daily. -Continue Topamax 100 mg twice daily and Vimpat 200 mg twice daily -Topiramate level is less than 0.5. Data and imaging reviewed: Labs reviewed. CBC unremarkable. BMP showing hyperchloremia with chloride of 109 otherwise normal findings. Blood glucose 88. Liver profile unremarkable.Topiramate level is less than 0.5. Vital signs reviewed. Blood pressure 127/75, heart rate 78, respiratory rate 16, and SpO2 of 95% on room air with temp of 97.9 degrees axillary. CODE STATUS: Full Code DVT prophylaxis: Lovenox Anticipated discharge date: Pending clinical course Anticipated discharge place: Home Patient was seen independently by Nurse Practitioner. This document was prepared using [employer] dictation software. Please allow for errors in dietary services director while rare they do occur. Marcio Metz NP rendered care for this patient independently, reviewed the findings and plan as documented in the note above and agree with plan. I did not physically speak with or examine the patient on this date. Objective - Vital Signs Vital signs: Vital Signs Temp 97.6 F 10/11/24 04:00 Pulse 65 10/11/24 04:00 Resp 16 10/11/24 04:00 BP 128/73 10/11/24 04:00 Pulse Ox 99 10/11/24 04:00 FiO2 Intake & Output 10/10/24 10/11/24 10/11/24 18:59 06:59 18:59 Intake Total 10 Balance 10 Weight 56.7 kg Intake: IV 10 Invasive Line 2 10 Other: Voiding Method Toilet # Voids 2 1 - Labs CBC & Chem 7: 10/10/24 08:12 10/10/24 08:12 Labs: Abnormal Lab Results - Last 24 Hours (Table) 10/10/24 10/10/24 Range/Units 08:12 08:12 RBC 4.25 L (4.30-5.90) m/uL Sodium 136 L (137-145) mmol/L Chloride 109 H (98-107) mmol/L Total Protein 5.8 L (6.3-8.2) g/dL
--- NOTE | 2024-10-11 17:14 | P.PN ---
Subjective Progress Note Date: 10/11/24 I am following-up with patient and he feels back to baseline. Denies of any further syncopal episodes. Objective - Vital Signs Vital signs: Vital Signs Temp 97.9 F 10/11/24 08:00 Pulse 90 10/11/24 12:41 Resp 16 10/11/24 08:00 BP 125/76 10/11/24 12:00 Pulse Ox 97 10/11/24 12:00 FiO2 Intake & Output 10/10/24 10/11/24 10/11/24 18:59 06:59 18:59 Intake Total 10 468 Balance 10 468 Weight 56.7 kg 56.7 kg Intake: IV 10 350 Invasive Line 2 10 Oral 118 Other: Voiding Method Toilet Toilet # Voids 2 1 - Exam GENERAL: The patient is lying in bed and is not in acute distress. NEUROLOGICAL: Higher mental function: The patient is awake, alert, oriented to self, place and time. Patient is following commands. No aphasia and no neglect. Cranial nerves: The pupils are round, equal and reactive to light and accommodation. Visual quiros are full to confrontation throughout. Extraocular movement is intact no nystagmus is noted. Facial sensation is normal to touch throughout. The facial strength is normal throughout. Hearing is normal bilaterally to hand rub. Tongue is midline and moved [id number] without any difficulty. No dysarthria is noted. Shoulder shrug is normal bilaterally. Motor: The strength is 5 over 5 throughout. Normal tone and bulk. Cerebellum: Normal finger to nose heel to chin bilaterally. Sensation: Sensation is normal to touch throughout. Plantars are downgoing bilaterally. Some of the workup during this hospital visit consisted of: CBC with differential is unremarkable Topiramate level is <0.5 (normal is 2-20). CT of the head is reported as no acute intracranial process. I reviewed the CT and agree with the report Cardiac cath and it shows PDA of 60-70% stenosis compared to 2020 films with 20% to 30% LAD, 20 to 40% right CEA stenosis. Elevated left-sided filling pressure. - Labs CBC & Chem 7: 10/10/24 08:12 10/10/24 08:12 Assessment and Plan Assessment: This is a 69-year-old gentleman with history of seizure who is on anti-seizure medication has Vagus Nerve Stimulation (VNS) present emergency department because of syncopal episode. Per the friend who witnessed the episode he did not have any jerking of any extremity, his eyes was closed and no foaming around the mouth or no tongue bite or urinary or bowel incontinence. Syncopal episode of unknown exact etiology. Unsure if it is due to cardiac versus seizure. Per the patient and his friends he never passed out with his seizure but rather he used to stiffen up or had abnormal noise. EEG is negative for seizure or discharges. Cardiac cath today revealed CAD and shows PDA of 60-70% stenosis Underlying history of seizure on antiseizure medication as well as VNS History of ischemic cardiomyopathy History of coronary artery disease status post stent History of peripheral neuropathy Nicotine use (smokes Cigars) Marijuan use Plan: Patient is resumed on his home medication of Vimpat 200 mg twice a day, gabapentin 200 mg 3 times a day. He is also on his home topiramate which helps with the antiseizure as well as migraines. Patient topiramate level is negligible. Patient states he is compliant taking medication. He does not want his antiseizure medication to be modified as inpatient and wants it modified by his outpatient neurologist. I recommend a prolonged EEG as an outpatient and that should be coordinated by his outpatient neurologist Seizure precautions seizure pads Per the [facility] because seizures and syncope even if is not related to a seizure, to avoid driving for 6 months from the last episode, avoid heights, avoid swimming assisted or using heavy missionary Will defer the rest of the medical management to primary and other specialist Was counseled on cessation of nicotine use Upon discharge recommend the patient to follow-up with his neurologist (Dr. Lenny walsh) as outpatient within 2 weeks. The plan is discussed with patient and his friend who is at bedside. There is no further neurological work-up. Will sign off. Please reconsult if needed. Time with Patient: Less than 30
--- NOTE | 2024-10-11 21:02 | EEG ---
ELECTROENCEPHALOGRAM REPORT CLINICAL HISTORY: This is a 59-year-old gentleman with history of seizure who presents because of syncopal episode. The video EEG is obtained to evaluate for seizure epileptiform activity. RELEVANT MEDICATIONS: 1. Vimpat. 2. Topiramate. 3. Gabapentin. EEG TYPE: This is a routine 21-channel EEG with video using the 10/20 electrode placement system. DESCRIPTION: Wakefulness and drowsiness are obtained. During awake state, the posterior- dominant rhythm consists of [id number] voltage of 9.5 hertz activity that is well modulated, and well sustained. There is no physiological stage 2 sleep architecture. There is no focal slowing. Interictal and ictal is none. ACTIVATION PROCEDURE: Photic stimulation did not evoke a posterior driving response. There is no abnormality during the photic stimulation. Hyperventilation is not performed. CLINICAL INTERPRETATION: This is a normal routine EEG. There is no focal slowing, epileptiform discharge, or seizure on the EEG. A normal routine EEG does not rule out underlying epilepsy. Clinical correlation is recommended. MMOWEN / LINDSAY: [id number] / MTDYoly
[2024-10-11] MEDS: ALPRAZolam 0.25 MG TAB PO PRN (23:16)
[2024-10-12 03:10] VITALS: RESP 16
[2024-10-12 10:31] VITALS: BP 126/69; PULSE 66; TEMP 98.3
--- NOTE | 2024-10-12 11:41 | P.DS ---
Providers Date of admission: 10/09/24 14:36 Attending physician: Carmenza Walker MD Consults: 10/09/24 14:34 Consult Physician Routine Consulting Provider: Trey Ga Consult Reason/Comments: syncope Do you want consulting provider notified?: Yes Consult Physician Urgent Consulting Provider: Everardo Rea Consult Reason/Comments: syncope Do you want consulting provider notified?: Yes Primary care physician: Stated None Hospital Course: Discharge Diagnosis: Syncopal episode, unclear cause. Patient was evaluated by cardiology ruling out acute coronary event. He was evaluated by neurology and underwent EEG which was negative showing no focal slowing, epileptiform discharge, or seizure activity. Patient had no further episodes since arrival to our facility, he appears to be doing well. He has been cleared from a neurology's perspective, cardiology's perspective, and is medically stable for discharge at this time. Patient instructed he will need to follow-up with his primary neurologist, Dr. Roger for recommended prolonged EEG. Patient was educated on [place] state law of no driving for 6 months until seizure/syncopal episode free. Elevated troponin. Echocardiogram completed showing a reduced EF of 45 to 50% but improved from previous report of 20%. Patient was taken for cardiac catheterization revealing mild nonobstructive CAD with reports of 20 to 30% in LAD, 20 to 40% diffuse RCA stenosis and similar appearance of PDA 60 to 70% stenosis compared to 2020 films with patent RCA and LAD stents. Cardiology recommending continued medical management. Clearing patient from cardiac perspective. No medication changes made patient to continue lisinopril 20 mg d aily, atorvastatin 80 mg daily, and aspirin 81 mg daily. History of CAD status post stenting of LAD Ischemic cardiomyopathy Peripheral neuropathy Neurological/Seizure disorder status post vagal nerve stimulator placement Hospital Course: Patient is a very pleasant 59-year-old male with a past medical history of CAD status post stenting, ischemic cardiomyopathy, peripheral neuropathy, and neurological/seizure disorder status post vagal nerve stimulator placement. He presented to the emergency department today status post syncopal episode. Upon arrival to our facility, patient underwent evaluation in the emergency department. Vital signs upon arrival show blood pressure 147/95, heart rate 73, respiratory rate 18, temp 97.5 F, and SpO2 of 99% on room air. EKG showing sinus rhythm with occasional PVC, with no significant T wave or ST abnormality showing no signs of acute ischemia upon personal review and interpretation. Labs completed and reviewed. CBC unremarkable. Coagulation profile normal findings. D-dimer negative at 0.30. BMP showing non-anion gap metabolic acidosis with chloride of 112, bicarb of 18, and anion gap of 9. Blood glucose was 137. Magnesium was 2.1. Liver profile unremarkable. Troponin was negative at less than 0.012. Patient admitted under services with consultation to cardiology and neurology for evaluation. Troponins were trended overnight resulting at less than 0.012, 0.023, and 0.070. Echocardiogram completed showing a reduced EF of 45 to 50% but improved from previous report of 20%. Patient was taken for cardiac catheterization revealing mild nonobstructive CAD with reports of 20 to 30% in LAD, 20 to 40% diffuse RCA stenosis and similar appearance of PDA 60 to 70% stenosis compared to 2020 films with patent RCA and LAD stents. Cardiology ruling out acute coronary event. He was evaluated by neurology and underwent EEG which was negative showing no focal slowing, epileptiform discharge, or seizure activity. Patient had no further episodes since arrival to our facility, he appears to be doing well. He has been cleared from a neurology's perspective, cardiology's perspective, and is medically stable for discharge at this time. Patient instructed he will need to follow-up with his primary neurologist, Dr. Roger for recommended prolonged EEG. Patient was educated on [place] state law of no driving for 6 months until seizure/syncopal episode free. No medication changes were made this admission. Patient to continue with daily medication regimen with aspirin 81 mg daily, atorvastatin 80 mg daily, lisinopril 20 mg daily, Vimpat 20 mg twice daily, Topamax 100 mg twice daily, duloxetine 60 mg daily, and gabapentin 200 mg 3 times daily. Physical exam: Vital signs reviewed and stable. General: Nontoxic, no distress and appears stated age. Very thin build. Derm: Skin warm and dry, normal coloration for ethnicity. Head: Atraumatic, normocephalic and symmetric. Eyes: EOM's intact, no lid lag, and anicteric sclera Mouth: no lip lesions, mucus membranes moist Cardiovascular: regular rate and rhythm with normal S1S2, soft systolic murmur, positive posterior tibial pulses bilaterally, and cap refill < 2 seconds. Vagal nerve stimulator left anterior chest Lungs: Respirations even, regular, and unlabored on room air. Lungs CTA bilaterally, no rhonchi, no rales, no wheezing, and no accessory muscle usage. Abdominal: soft, nontender to palpation, no guarding, no appreciable organomegaly Ext: ROM intact. No gross muscle atrophy, no edema, no contractures Neuro: Speech clear, face symmetrical and CN II-XII grossly intact with no noted focal neuro deficits Psych: Alert and oriented to person, place, time, and situation. Appropriate and pleasant affect. A total of 37 minutes of time were spent preparing this complex discharge summary. Pt was discharged on 10/12/2024 at 9:17 AM. Patient was seen independently by Nurse Practitioner. This document was prepared using [employer] dictation software. Please allow for errors in vacuum worker while rare they do occur. Marcio Metz NP rendered care for this patient independently, reviewed the findings and plan as documented in the note above. I did not physically speak with or examine the patient on this date. Plan - Discharge Summary Discharge Rx Participant: No New Discharge Prescriptions: Continue Atorvastatin [Lipitor] 80 mg PO HS tab lisinopriL [Zestril] 20 mg PO DAILY tab Lacosamide [Vimpat] 200 mg PO BID Topiramate [Topamax] 100 mg PO BID DULoxetine HCL [Cymbalta] 60 mg PO DAILY Aspirin EC [Ecotrin Low Dose] 81 mg PO DAILY Gabapentin [Neurontin] 200 mg PO TID Discharge Medication List Atorvastatin [Lipitor] 80 mg PO HS tab 04/08/18 [Rx] lisinopriL [Zestril] 20 mg PO DAILY tab 04/08/18 [Rx] DULoxetine HCL [Cymbalta] 60 mg PO DAILY 05/16/21 [History] Lacosamide [Vimpat] 200 mg PO BID 04/22/22 [History] Aspirin EC [Ecotrin Low Dose] 81 mg PO DAILY 10/09/24 [History] Gabapentin [Neurontin] 200 mg PO TID 10/09/24 [History] Topiramate [Topamax] 100 mg PO BID 10/09/24 [History] Follow up Appointment(s)/Referral(s): [facility] [Provider Group] - 1 Week (The office will call you with appointment date and time.) [facility] [NON-STAFF] - 1 Week (Please call and schedule appointment for follow-up prior to patient's discharge.) Griselda Brown MD [Medical Doctor] - 1 Week (The office requires you to call and schedule follow up appointment.) Patient Instructions/Handouts: *[facility] - After Heart Catheterization - [employer] Administrator Instructions, Syncope (DC) Activity/Diet/Wound Care/Special Instructions: Activity: As tolerated. Take breaks as needed. Diet: Heart healthy and carb consistent diet Special Instructions: Take all of your medications as directed and remember to keep all of your doctor's appointments and follow-up as needed. [place] state law states no driving until seizure/syncope free for 6 months. It is also advised for you to avoid climbing ladders, operating dangerous or heavy machinery or unsupervised swimming until seizure/syncope free for 6 months. Wishing you and your loved ones a truly happy and healthy new year!! Thank you for allowing us to participate in your care, it was truly a pleasure having you for our patient!!! Discharge Disposition: HOME SELF-CARE
--- NOTE | 2024-10-12 12:20 | P.PN ---
Subjective HISTORY OF PRESENT ILLNESS: This is a 59-year-old male with past medical history of coronary artery disease with multiple PCI in the past, acute inferior [facility] in 2018, tobacco abuse, marijuana abuse, hypertension, hyperlipidemia, seizure disorder status post vagal nerve stimulator. Patient follows with Dr. Del Rio and he states that he had a cardiac cath done last year and also had stents done at the time. Since then he states he has also had a stress test done. Patient does not know any details. Patient gives history that he suddenly fell over and apparently was unresponsive for 5 to 10 minutes he denies having any chest pain no shortness of breath. He states he has been feeling fine since he arrived here. Blood pressure 116/69, heart rate 65, pulse ox 98% on room air. Discussed option of undergoing cardiac catheterization here and he is agreeable to move forward with this. -EKG: Sinus rhythm with no acute ST-T wave changes -Chest x-ray: No acute process -CT brain: No acute intracranial process -Laboratory studies: CBC within normal limits. D-dimer 0.3. Potassium 3.5, BUN 12 and creatinine 0.86. Troponin negative x 2 and third 1 is 0.07. -Home cardiac medications: Aspirin 81 mg daily, atorvastatin 80 mg at bedtime, lisinopril 20 mg daily. -Echocardiogram performed May 2021 revealed EF of less than 20%, severe global hypokinesia of the LV, trace mitral regurgitation and trace tricuspid regurgitation -Cardiac catheterization performed 05/[address] 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 Patient underwent PCI of the LAD with RYEES. 10/12/2024 Patient examined this morning at the bedside. He is status post cardiac catheterization yesterday with Dr. Smalls revealing 20 to 30% LAD, 20 to 40% diffuse RCA stenosis and similar appearance of PDA 60 to 70% stenosis compared to 2020 films with patent RCA and LAD stenting. Elevated left-sided filling pressures. Medical management was recommended. Echocardiogram completed revealing ejection fraction 45 to 50%, mild pulm hypertension, trace to mild MR, trace to mild TR. PHYSICAL EXAM: VITAL SIGNS: Reviewed. GENERAL: Well-developed in no acute distress. NECK: Supple. No JVD or thyromegaly LUNGS: Respirations even and unlabored. Lungs essentially clear to auscultation bilaterally. HEART: Regular rate and rhythm. S1 and S2 heard. EXTREMITIES: Normal range of motion. No clubbing or cyanosis. Peripheral pulses intact. No lower extremity edema ASSESSMENT: Syncope, etiology unclear History of coronary artery disease Ischemic cardiomyopathy, EF of 20% in 2020 Anterior STEMI s/p PCI to distal LAD 2020 History of Coronary artery disease status post previous PCI of the PLV in 2009 and stent to his RCA in 2018 Tobacco abuse Marijuana abuse Hypertension Hyperlipidemia PLAN: Continue current cardiac medications Smoking cessation recommended. Patient to be referred to [place] quit line upon discharge Patient is stable for discharge home today from a cardiac standpoint He is to follow-up postdischarge in the office Nurse practitioner note has been reviewed by physician. Signing provider agrees with the documented findings, assessment, and plan of care documented by MACHINE ENGRAVER as a scribe. Objective - Vital Signs Vital signs: Vital Signs Temp 98.3 F 10/12/24 08:00 Pulse 66 10/12/24 08:00 Resp 16 10/12/24 08:00 BP 126/69 10/12/24 08:00 Pulse Ox 100 10/12/24 08:00 FiO2 Intake & Output 10/11/24 10/12/24 10/12/24 18:59 06:59 18:59 Intake Total 708 540 118 Output Total 275 Balance 708 265 118 Weight 56.7 kg 58.4 kg Intake: IV 350 Oral 358 540 118 Output: Urine 275 Other: Voiding Method Toilet Toilet Toilet # Voids 2 2 2 # Bowel Movements 1 - Labs CBC & Chem 7: 10/10/24 08:12 10/10/24 08:12
== END 2024-10-12 11:55 | disposition home or self-care (01) ==
LOC: EC 12:45 → INTOOBSV 14:36 → 3SCARD 14:36 → UNDODISIN 10-12 11:55
PROVIDERS: ADMIT Family Medicine; ATTEND Family Medicine
DX: R55 Syncope and collapse (principal); I25.10 Atherosclerotic heart disease of native coronary artery without angina pectoris; E78.5 Hyperlipidemia, unspecified; I10 Essential (primary) hypertension; G62.9 Polyneuropathy, unspecified; I25.5 Ischemic cardiomyopathy; F32.A Depression, unspecified; I25.2 Old myocardial infarction; F12.10 Cannabis abuse, uncomplicated; G40.909 Epilepsy, unspecified, not intractable, without status epilepticus; F17.290 Nicotine dependence, other tobacco product, uncomplicated; Z95.5 Presence of coronary angioplasty implant and graft; Z96.82 Presence of neurostimulator; Z79.82 Long term (current) use of aspirin; Z79.899 Other long term (current) drug therapy
CPT/HCPCS: 96372 ×3; 99285; 36415; 95816; 93005; 93306; 93458; 85379; 80053 ×2; 80201; 83735 ×2; 84484; 85025 ×2; 85610; 85730; 71046; 70450; G0378 ×4; C1769; C1894; J2250; J1644 ×3; J2003; J1650 ×3; J3010; Q9967

== ENCOUNTER 2025-05-28 16:33 | Inpatient (IN) | payer OTHER ==
[2025-05-28] MEDS ORDERED: VANCOMYCIN IV PER PHARMACY 1 EACH MISC MISCELLANE PRN (18:28)
--- NOTE | 2025-05-28 18:30 | ED ---
Skin/Abscess/FB HPI - General Chief complaint: Recheck/Abnormal Lab/Rx Stated complaint: L side skin issue Time Seen by Provider: 05/28/25 17:15 Source: patient, RN notes reviewed, old records reviewed Mode of arrival: ambulatory Limitations: no limitations - History of Present Illness Initial comments: This is a 60-year-old male to the ER for evaluation of soft tissue pain redness and swelling above his vagus nerve stimulator on the left side of his chest with minimal purulent drainage starting yesterday. No fevers just pain to the site MD complaint: rash -: days(s) Location: generalized, chest Severity: moderate Severity scale (1-10): 7 Quality: stabbing Consistency: constant Improves with: none Worsens with: none - Related Data Home Medications Medication Instructions Recorded Confirmed DULoxetine HCL [Cymbalta] 60 mg PO DAILY 05/16/21 05/29/25 Aspirin EC [Ecotrin Low Dose] 81 mg PO DAILY 10/09/24 05/29/25 Gabapentin [Neurontin] 200 mg PO TID 10/09/24 05/29/25 Topiramate [Topamax] 100 mg PO BID 10/09/24 05/29/25 Lacosamide [Vimpat] 200 mg PO BID 05/29/25 05/29/25 Metoprolol Tartrate [Lopressor] 50 mg PO BID-W/MEALS 05/29/25 05/29/25 Previous Rx's Medication Instructions Recorded Atorvastatin [Lipitor] 80 mg PO HS tab 04/08/18 lisinopriL [Zestril] 20 mg PO DAILY tab 04/08/18 Allergies Allergy/AdvReac Type Severity Reaction Status Date / Time No Known Allergies Allergy Verified 05/29/25 08:42 Review of Systems ROS Statement: Those systems with pertinent positive or pertinent negative responses have been documented in the HPI. ROS Other: All systems not noted in ROS Statement are negative. Past Medical History Past Medical History: Coronary Artery Disease (CAD), Chest Pain / Angina, Hyperlipidemia, Hypertension, Myocardial Infarction ([place]), Neurologic Disorder Additional Past Medical History / Comment(s): Ichemic cardiomyopathy, MIs, peripheral neuropathy, PUD, pancreatitis, liver infection at age 20yrs/pt states not hepatitis, head injuries, migraines, sinus problems, insomnia, arhtritis in multiple joints, back pain. Last Myocardial Infarction Date:: 05/16/21 History of Any Multi-Drug Resistant Organisms: None Reported Past Surgical History: Back Surgery, Heart Catheterization, Hernia Repair, Orthopedic Surgery Additional Past Surgical History / Comment(s): cervical fusion/hardware d/t injury, low back ablations, L inguinal hernia repair, EGD, colonoscopy. Past Anesthesia/Blood Transfusion Reactions: Postoperative Nausea & Vomiting (PONV) Past Psychological History: Depression Smoking Status: Current every day smoker Past Alcohol Use History: None Reported Past Drug Use History: None Reported - Past Family History Mother Family Medical History: Hypertension, Osteoarthritis (OA), Thyroid Disorder Father Family Medical History: AFIB, Cancer Additional Family Medical History / Comment(s): Leukemia General Exam Limitations: no limitations General appearance: alert, in no apparent distress Head exam: Present: atraumatic, normocephalic, normal inspection Eye exam: Present: normal appearance, PERRL, EOMI. Absent: scleral icterus, conjunctival injection, periorbital swelling ENT exam: Present: normal exam, mucous membranes moist Neck exam: Present: normal inspection. Absent: tenderness, meningismus, lymphadenopathy Respiratory exam: Present: normal lung sounds bilaterally. Absent: respiratory distress, wheezes, rales, rhonchi, stridor Cardiovascular Exam: Present: regular rate, normal rhythm, normal heart sounds. Absent: systolic murmur, diastolic murmur, rubs, gallop, clicks GI/Abdominal exam: Present: soft, normal bowel sounds. Absent: distended, tenderness, guarding, rebound, rigid Extremities exam: Present: normal inspection, full ROM, normal capillary refill. Absent: tenderness, pedal edema, joint swelling, calf tenderness Back exam: Present: normal inspection Neurological exam: Present: alert, oriented X3, CN II-XII intact Psychiatric exam: Present: normal affect, normal mood Skin exam: Present: warm, dry, intact, normal color. Absent: rash Course Vital Signs 05/28/25 05/28/25 05/29/25 16:48 22:30 07:04 Temperature 98.3 F 98.4 F 97.9 F Pulse Rate 83 63 98 Respiratory 20 18 18 Rate Blood Pressure 130/85 111/68 113/86 O2 Sat by Pulse 100 100 98 Oximetry 05/29/25 05/29/25 05/29/25 08:05 09:58 11:50 Temperature 97.9 F 98.2 F Pulse Rate 62 58 L 78 Respiratory 18 18 18 Rate Blood Pressure 140/83 144/92 147/94 O2 Sat by Pulse 100 100 100 Oximetry 05/29/25 05/29/25 05/29/25 12:49 14:48 16:50 Temperature 98.0 F 97.5 F L Pulse Rate 64 60 63 Respiratory 18 18 18 Rate Blood Pressure 169/108 183/107 O2 Sat by Pulse 97 100 100 Oximetry 05/29/25 05/29/25 18:00 19:01 Temperature 97.5 F L Pulse Rate 68 61 Respiratory 18 18 Rate Blood Pressure 172/105 160/94 O2 Sat by Pulse 98 100 Oximetry - Reevaluation(s) Reevaluation #1: 05/28/25 18:29 Medical records reviewed Reevaluation #2: 05/28/25 21:43 patient symptoms unchanged Reevaluation #3: 05/28/25 21:43 patient informed of results Reevaluation #4: Was pt. sent in by a medical professional or institution (, PA, PEANUT SEPARATOR, urgent care, hospital, or prison...) When possible be specific @ -no Did you speak to anyone other than the patient for history (EMS, parent, family, police, friend...)? What history was obtained from this source @ -no Did you review nursing and triage notes (agree or disagree)? Why? @ -agree Are old charts reviewed (outside hosp., previous admission, EMS record, old EKG, old radiological studies, urgent care reports/EKG's, prison records)? Report findings @ -yes Differential Diagnosis (chest pain, altered mental status, abdominal pain women, abdominal pain men, vaginal bleeding, weakness, fever, dyspnea, syncope, heada km, dizziness, GI bleed, back pain, seizure, CVA, palpatations, mental health, musculoskeletal)? @ -prior EKG interpreted by me (3pts min.). @ -no X-rays interpreted by me (1pt min.). @ -no CT interpreted by me (1pt min.). @ -no U/S interpreted by me (1pt. min.). @ -no What testing was considered but not performed or refused? (CT, X-rays, U/S, labs)? Why? @ -none What meds were considered but not given or refused? Why? @ -none Did you discuss the management of the patient with other professionals (professionals i.e. , PA, PEANUT SEPARATOR, lab, RT, psych nurse, family welfare social work professor, alarm security or surveillance monitor, teacher, air defence officer, family preservation caseworker)? Give summary @ -no Was smoking cessation discussed for >3mins.? @ -no Was critical care preformed (if so, how long)? @ -no Were there social determinants of health that impacted care today? How? (Homelessness, low income, unemployed, alcoholism, drug addiction, transp ortation, low edu. Level, literacy, decrease access to med. care, long-term, rehab)? @ -none Was there de-escalation of care discussed even if they declined (Discuss DNR or withdrawal of care, Hospice)? DNR status @ -no What co-morbidities impacted this encounter? (DM, HTN, Smoking, COPD, CAD, Cancer, CVA, ARF, Chemo, Hep., AIDS, mental health diagnosis, sleep apnea, morbid obesity)? @ -none Was patient admitted / discharged? Hospital course, mention meds given and route, prescriptions, significant lab abnormalities, going to OR and other pertinent info. @ - 60 male will be admitted for IV antibiotics sidewall abscess and cellulitis likely stimulator infection Admitted Undiagnosed new problem with uncertain prognosis? @ -no Drug Therapy requiring intensive monitoring for toxicity (Heparin, Nitro, Insulin, Cardizem)? @ -no Were any procedures done? @ -no Diagnosis/symptom? @ -Chest wall cellulitis Acute, or Chronic, or Acute on Chronic? @ -Acute Uncomplicated (without systemic symptoms) or Complicated (systemic symptoms)? @ -Complicated Side effects of treatment? @ -no Exacerbation, Progression, or Severe Exacerbation? @ -exacerbation Poses a threat to life or bodily function? How? (Chest pain, USA, MS, pneumonia, PE, COPD, DKA, ARF, appy, cholecystitis, CVA, Diverticulitis, Homicidal, Suicidal, threat to staff... and all critical care pts) @ -no Reevaluation #5: Differential Fever: Pneumonia, viral URI, endocarditis, myocarditis, pericarditis, otitis, sinusitis, peritonsillar Abscess, retropharyngeal Abscess, epiglottitis, peritonitis, appendicitis, Christine cystitis, diverticulitis, hepatitis, colitis, UTI, PID, TOA, pyelonephritis, prostatitis, epididymitis, meningitis, encephalitis, pulmonary embolism, CVA, thyroid storm, pancreatitis, adrenal crisis, cavernous sinus thrombosis, this is not meant to be an all-inclusive list. - Consultations Consultation #1: Spoke with marcelo who will admit this patient Medical Decision Making - Medical Decision Making 60 male will be admitted for IV antibiotics sidewall abscess and cellulitis likely stimulator infection - Lab Data Result diagrams: 06/03/25 05:08 06/03/25 05:08 Lab Results 05/28/25 05/28/25 05/28/25 Range/Units 18:27 18:27 18:27 WBC 8.02 (4.50-10.00) 10*3/uL RBC 4.88 (4.40-5.60) 10*6/uL Hgb 15.1 (13.0-17.0) g/dL Hct 43.9 (39.6-50.0) % MCV 90.0 (80.0-97.0) fL MCH 30.9 (27.0-32.0) pg MCHC 34.4 (32.0-37.0) g/dL Plt Count 286 (140-440) 10*3/uL MPV 9.4 L (9.5-12.2) fL Immature Gran % (Auto) 0.1 % Neutrophils % 59.4 % Lymphocytes % 24.4 % Monocytes % 10.0 % Eosinophils % 4.7 % Basophils % 1.4 % Immature Gran # 0.01 (0.00-0.04) 10*3/uL Neutrophils # 4.76 (1.80-7.70) 10*3/uL Lymphocytes # 1.96 (0.90-5.00) 10*3/uL Monocytes # 0.80 (0.20-1.00) 10*3/uL Eosinophils # 0.38 H (0.04-0.35) 10*3/uL Basophils # 0.11 H (0.00-0.10) 10*3/uL PT 10.6 (10.0-12.5) sec INR 0.9 (<1.2) APTT 26.8 (22.0-30.0) sec Sodium 136 L (137-145) mmol/L Potassium 4.4 (3.5-5.1) mmol/L Chloride 107 (98-107) mmol/L Carbon Dioxide 19 L (22-30) mmol/L Anion Gap 10 mmol/L BUN 11 (9-20) mg/dL Creatinine 0.84 (0.66-1.25) mg/dL Est GFR (CKD-EPI)AfAm >90 (>60 ml/min/1.73 sqM) Est GFR (CKD-EPI)NonAf >90 (>60 ml/min/1.73 sqM) Glucose 77 (74-99) mg/dL Plasma Lactic Acid Ervin (0.7-2.0) mmol/L Calcium 9.1 (8.4-10.2) mg/dL Phosphorus 3.4 (2.5-4.5) mg/dL Magnesium 2.2 (1.6-2.3) mg/dL Total Bilirubin 0.6 (0.2-1.3) mg/dL AST 23 (17-59) U/L ALT 11 (4-49) U/L Alkaline Phosphatase 72 (38-126) U/L Total Protein 6.5 (6.3-8.2) g/dL Albumin 4.1 (3.5-5.0) g/dL // Range/Units 18:27 WBC (4.50-10.00) 10*3/uL RBC (4.40-5.60) 10*6/uL Hgb (13.0-17.0) g/dL Hct (39.6-50.0) % MCV (80.0-97.0) fL MCH (27.0-32.0) pg MCHC (32.0-37.0) g/dL Plt Count (140-440) 10*3/uL MPV (9.5-12.2) fL Immature Gran % (Auto) % Neutrophils % % Lymphocytes % % Monocytes % % Eosinophils % % Basophils % % Immature Gran # (0.00-0.04) 10*3/uL Neutrophils # (1.80-7.70) 10*3/uL Lymphocytes # (0.90-5.00) 10*3/uL Monocytes # (0.20-1.00) 10*3/uL Eosinophils # (0.04-0.35) 10*3/uL Basophils # (0.00-0.10) 10*3/uL PT (10.0-12.5) sec INR (<1.2) APTT (22.0-30.0) sec Sodium (137-145) mmol/L Potassium (3.5-5.1) mmol/L Chloride (98-107) mmol/L Carbon Dioxide (22-30) mmol/L Anion Gap mmol/L BUN (9-20) mg/dL Creatinine (0.66-1.25) mg/dL Est GFR (CKD-EPI)AfAm (>60 ml/min/1.73 sqM) Est GFR (CKD-EPI)NonAf (>60 ml/min/1.73 sqM) Glucose (74-99) mg/dL Plasma Lactic Acid Ervin 1.1 (0.7-2.0) mmol/L Calcium (8.4-10.2) mg/dL Phosphorus (2.5-4.5) mg/dL Magnesium (1.6-2.3) mg/dL Total Bilirubin (0.2-1.3) mg/dL AST (17-59) U/L ALT (4-49) U/L Alkaline Phosphatase (38-126) U/L Total Protein (6.3-8.2) g/dL Albumin (3.5-5.0) g/dL Disposition Clinical Impression: Abscess or cellulitis of chest wall Disposition: ADMITTED IP TO THIS [facility] Condition: Stable Is patient prescribed a controlled substance at d/c from ED?: No Time of Disposition: 21:00
[2025-05-28] MEDS: SODIUM CHLORIDE 0.9% 1,000 ML IV ONE (18:57)
[2025-05-28 19:02] LABS: Basophils # (A) 0.11 10*3/uL (0.00-0.10); Basophils % (A) 1.4 %; Eosinophils # (A) 0.38 10*3/uL (0.04-0.35); Eosinophils % (A) 4.7 %; HCT 43.9 % (39.6-50.0); HGB 15.1 g/dL (13.0-17.0); Lymphocytes # (A) 1.96 10*3/uL (0.90-5.00); Lymphocytes % (A) 24.4 %; MCH 30.9 pg (27.0-32.0); MCHC 34.4 g/dL (32.0-37.0); MCV 90.0 fL (80.0-97.0); Monocytes # (A) 0.80 10*3/uL (0.20-1.00); Monocytes % (A) 10.0 %; Neutrophils # (A) 4.76 10*3/uL (1.80-7.70); Neutrophils % (A) 59.4 %; Platelet Count 286 10*3/uL (140-440); RBC 4.88 10*6/uL (4.40-5.60); RDW 13.4 % (11.5-14.5); WBC 8.02 10*3/uL (4.50-10.00)
[2025-05-28 19:12] LABS: INR 0.9 (<1.2); Partial Thromboplastin Time 26.8 sec (22.0-30.0); Prothrombin Time 10.6 sec (10.0-12.5)
[2025-05-28 19:20] LABS: ALT 11 U/L (4-49); AST 23 U/L (17-59); African American GFR (CKD) >90 (>60 ml/min/1.73 sqM); Albumin 4.1 g/dL (3.5-5.0); Alkaline Phosphatase 72 U/L (38-126); Anion Gap 10 mmol/L; Blood Urea Nitrogen 11 mg/dL (9-20); Calcium 9.1 mg/dL (8.4-10.2); Carbon Dioxide 19 mmol/L (22-30); Chloride 107 mmol/L (98-107); Glucose 77 mg/dL (74-99); Magnesium 2.2 mg/dL (1.6-2.3); Non-African American GFR(CKD) >90 (>60 ml/min/1.73 sqM); Potassium 4.4 mmol/L (3.5-5.1); Sodium 136 mmol/L (137-145); Total Protein 6.5 g/dL (6.3-8.2)
[2025-05-28] MEDS: VANCOMYCIN 1,250 MG in SODIUM CHLORIDE 0.9% 250 ML IVPB STA (20:26)
[2025-05-28] MEDS ORDERED: NALOXONE 0.4 MG/ML 1 ML VIAL IV PRN (21:27)
[2025-05-28] MEDS ORDERED: ONDANSETRON 4 MG/2 ML VIAL IVP PRN (21:27)
[2025-05-28] MEDS: SODIUM CHLORIDE 0.9% 1,000 ML IV SCH (23:35)
--- NOTE | 2025-05-29 02:26 | P.HPIM ---
History of Present Illness H&P Date: 05/28/25 Chief Complaint: skin rash Patient is a 60-year-old male with a PMH of - CAD s/p PCI in 2020 and 2024 with 3 stents - Hyperlipidemia - Seizures s/p vagus nerve stimulator placement Comes to the ED today for the evaluation of rash on his left chest. He stated that the rash started this morning. It is circular, erythematous, warm with ill-defined borders, with a diameter of 3-4 inches. The rash is on top of the augmenting device of the vagus nerve stimulator that the patient had implanted about a year ago because of his history of seizures. It all started as a small vesicular bump, that the patient claims he has all the time, and he pops it open, and he cleans it up. However, yesterday he did not have hydrogen peroxide at home, and he did not clean it up. When he woke up the next morning, it was morning red and painful to touch. The vesicular lesion is crusted and not draining pus or blood. Denied having chest pain, shortness of breath, abdominal pain, constipation, diarrhea, fever or chills, muscle weakness, tremors, loss of sensation, sore t hroat. Labs WBC 8.02, Hgb 15.1, HCT 43.9, plt count 286 Na 136, K 4.4, BUN 10, Cr 0.84 Vitals T 98.3 F, HR 83, RR 20, BP 130/85, O2 sat 100% on RA ED documentation reviewed. Review of systems: Pertinent positives and negatives as discussed in HPI, a complete review of systems was performed and all other systems are negative. Physical examination: Vital signs reviewed General: no acute distress, well-nourished, normal weight Derm: warm, dry, and well perfused. Small vesicular wound on the left chest with an erythematous 4-inch circular area, ill-demarcated borders Head: normocephalic and atraumatic Eyes: EOMI, anicteric sclera, pupils equal round reactive to light ENT: nose and ears atraumatic Neck: supple, no appreciable thyromegaly, no lymphadenopathy Mouth: no lip lesion, mucus membranes moist Cardiovascular: normal S1S2, no murmur or gallops, positive dorsalis pedis pulse bilateral, no edema Lungs: clear to auscultation bilaterally, no wheezes or crackles or rhonchi, no accessory muscle use Abdominal: soft, nontender to palpation, no guarding, no rebound Ext: muscle strength 5 out of 5 in all 4 extremities grossly, no gross muscle atrophy Neuro: no focal sensory or motor deficits are noted Psych: Alert, oriented x3 Assessment/Plan: #. Chest wall cellulitis with drainage - Rash is on top of the implanted stimulator device on the left chest - Rash is marked, follow-up to track regression - Continue vancomycin for now - Consult ID, appreciate recommendations follow up cultures #. Seizures - Has vagus nerve stimulator device implanted - Follow seizure protocol - Resume topiramate 100 mg BID, lacosamide 200 mg BID #. HFrEF with EF 45 to 50% #. History of CAD s/p PCI in 2020 and 2024 - Resume aspirin 81 mg and atorvastatin 80 mg - Patient follow-up with his refrigeration person outpatient #. Hyperlipidemia - Resume atorvastatin DVT prophylaxis: Lovenox 40 mg The patient is admitted with an anticipated less than 2 midnight stay for evaluation of cellulitis CODE STATUS: Full code Discussed with: Dr. Levi Anticipated discharge place: Home Trena Marin MD PGY-1 IM Dictation was produced using [employer] dictation software. please excuse any grammatical, word or spelling errors. I have seen and evaluated the patient today. I Discussed the case with the resident and agree with the resident's findings I edited the assessment and plan as necessary as documented in the resident's note. Past Medical History Past Medical History: Coronary Artery Disease (CAD), Chest Pain / Angina, Hyperlipidemia, Hypertension, Myocardial Infarction ([place]), Neurologic Disorder Additional Past Medical History / Comment(s): Ichemic cardiomyopathy, MIs, peripheral neuropathy, PUD, pancreatitis, liver infection at age 20yrs/pt states not hepatitis, head injuries, migraines, sinus problems, insomnia, arhtritis in multiple joints, back pain. Last Myocardial Infarction Date:: 05/16/21 History of Any Multi-Drug Resistant Organisms: None Reported Past Surgical History: Back Surgery, Heart Catheterization, Hernia Repair, Orthopedic Surgery Additional Past Surgical History / Comment(s): cervical fusion/hardware d/t injury, low back ablations, L inguinal hernia repair, EGD, colonoscopy. Past Anesthesia/Blood Transfusion Reactions: Postoperative Nausea & Vomiting (PONV) Past Psychological History: Depression Smoking Status: Current every day smoker Past Alcohol Use History: None Reported Past Drug Use History: None Reported - Past Family History Mother Family Medical History: Hypertension, Osteoarthritis (OA), Thyroid Disorder Father Family Medical History: AFIB, Cancer Additional Family Medical History / Comment(s): Leukemia Medications and Allergies Home Medications Medication Instructions Recorded Confirmed Type Atorvastatin [Lipitor] 80 mg PO HS tab 04/08/18 10/09/24 Rx lisinopriL [Zestril] 20 mg PO DAILY tab 04/08/18 10/09/24 Rx DULoxetine HCL [Cymbalta] 60 mg PO DAILY 05/16/21 10/09/24 History Lacosamide [Vimpat] 200 mg PO BID 04/22/22 10/09/24 History Aspirin EC [Ecotrin Low Dose] 81 mg PO DAILY 10/09/24 10/09/24 History Gabapentin [Neurontin] 200 mg PO TID 10/09/24 10/09/24 History Topiramate [Topamax] 100 mg PO BID 10/09/24 10/09/24 History Allergies Allergy/AdvReac Type Severity Reaction Status Date / Time No Known Allergies Allergy Verified 05/28/25 16:50 Physical Exam Vitals: Vital Signs Temp Pulse Resp BP Pulse Ox 05/28/25 22:30 98.4 F 63 18 111/68 100 05/28/25 16:48 98.3 F 83 20 130/85 100 Intake and Output 05/28/25 05/28/25 05/29/25 14:59 22:59 06:59 Other: Weight 65.771 kg Results CBC & Chem 7: 05/28/25 18:27 05/28/25 18:27 Labs: Abnormal Lab Results - Last 24 Hours (Table) 05/28/25 05/28/25 Range/Units 18:27 18:27 MPV 9.4 L (9.5-12.2) fL Eosinophils # 0.38 H (0.04-0.35) 10*3/uL Basophils # 0.11 H (0.00-0.10) 10*3/uL Sodium 136 L (137-145) mmol/L Carbon Dioxide 19 L (22-30) mmol/L
[2025-05-29] MEDS ORDERED: VANCOMYCIN IV PER PHARMACY 1 EACH MISC MISCELLANE PRN (06:54)
[2025-05-29 07:44] LABS: Basophils # (A) 0.10 10*3/uL (0.00-0.10); Basophils % (A) 1.4 %; Eosinophils # (A) 0.31 10*3/uL (0.04-0.35); Eosinophils % (A) 4.5 %; HCT 39.7 % (39.6-50.0); HGB 13.7 g/dL (13.0-17.0); Lymphocytes # (A) 1.51 10*3/uL (0.90-5.00); Lymphocytes % (A) 21.8 %; MCH 31.3 pg (27.0-32.0); MCHC 34.5 g/dL (32.0-37.0); MCV 90.6 fL (80.0-97.0); Monocytes # (A) 0.80 10*3/uL (0.20-1.00); Monocytes % (A) 11.5 %; Neutrophils # (A) 4.19 10*3/uL (1.80-7.70); Neutrophils % (A) 60.5 %; Platelet Count 261 10*3/uL (140-440); RBC 4.38 10*6/uL (4.40-5.60); RDW 13.5 % (11.5-14.5); WBC 6.93 10*3/uL (4.50-10.00)
[2025-05-29 08:11] LABS: ALT 10 U/L (4-49); AST 17 U/L (17-59); African American GFR (CKD) >90 (>60 ml/min/1.73 sqM); Albumin 3.4 g/dL (3.5-5.0); Alkaline Phosphatase 68 U/L (38-126); Anion Gap 7 mmol/L; Blood Urea Nitrogen 11 mg/dL (9-20); Calcium 8.7 mg/dL (8.4-10.2); Carbon Dioxide 20 mmol/L (22-30); Chloride 113 mmol/L (98-107); Glucose 84 mg/dL (74-99); Magnesium 2.0 mg/dL (1.6-2.3); Non-African American GFR(CKD) >90 (>60 ml/min/1.73 sqM); Potassium 4.1 mmol/L (3.5-5.1); Sodium 140 mmol/L (137-145); Total Protein 5.6 g/dL (6.3-8.2)
[2025-05-29] MEDS: HYDROmorphone 0.5 MG/0.5 ML SYRINGE IVP PRN (08:12)
[2025-05-29] MEDS: ASPIRIN 81 MG PO SCH (08:14)
[2025-05-29] MEDS: ENOXAPARIN 40 MG/0.4 ML SYRINGE SQ SCH (08:15)
[2025-05-29] MEDS: VANCOMYCIN 1,250 MG in SODIUM CHLORIDE 0.9% 250 ML IVPB SCH (08:18)
[2025-05-29] MEDS: DULoxetine HCL 60 MG CAPSULE.DR PO SCH (11:51)
[2025-05-29] MEDS: GABAPENTIN 100 MG CAP PO SCH (11:51)
[2025-05-29] MEDS: METOPROLOL TARTRATE 50 MG TAB PO SCH (11:52)
[2025-05-29] MEDS: TOPIRAMATE 100 MG TAB PO SCH (11:52)
[2025-05-29] MEDS: LACOSAMIDE 50 MG TABLET PO SCH (11:52)
--- NOTE | 2025-05-29 12:51 | US ---
EXAMINATION TYPE: US chest DATE OF EXAM: 05/29/2025 COMPARISON: NONE CLINICAL INDICATION: Male, 60 years old with history of abscess/cellulitis left chest; redness at sit e of vagus nerve stimulator implanted beneath the skin at the upper left chest. PER pt. popped a zit like area at a palpable bump at the cephalic aspect on the device on Friday. TECHNIQUE: Grayscale imaging of the chest at area of concern FINDINGS: Edema and hypervascularity noted within the soft tissues surrounding implanted device. There is a tra ct to the skin noted. No definite abscess formation or fluid collection EXAM MEASUREMENTS: IMPRESSIONS: As above [facility], , 05/29/2025 12:48 PM
--- NOTE | 2025-05-29 13:47 | XR ---
EXAMINATION TYPE: XR chest 1V portable DATE OF EXAM: 05/29/2025 1:32 PM COMPARISON: 10/09/2024 CLINICAL INDICATION: Male, 60 years old with history of abscess/cellulitis left chest, TECHNIQUE: XR chest 1V portable views of the chest are obtained. FINDINGS: Demonstrated are scattered senescent parenchymal change. There is no evidence for focal infiltrate. The heart is stable. Hilar and mediastinal structures are within normal limits. Degenerative changes are seen of the dorsal spine. IMPRESSION: 1. Chronic changes without evidence for acute pulmonary disease. [facility], , 05/29/2025 1:45 PM
--- NOTE | 2025-05-29 14:57 | P.PN ---
Subjective Progress Note Date: 05/29/25 Hospital course: Patient is a pleasant 60-year-old male with a past medical history of CAD status post stenting, ischemic cardiomyopathy with previously known EF of 45 to 50%, peripheral neuropathy, and neurological disorder status post vagal nerve stimulator. He presented to the emergency department on 05/28/2025 secondary to reports of wound/infection and to left lateral chest. Patient reports he had a small vesicular bump on his skin in which he popped and woke up the following morning with increased redness, swelling, and pain surrounding. Upon arrival to our facility, patient underwent evaluation in the emergency department. Vital signs upon arrival show blood pressure 130/85, heart rate 83, respiratory rate 20, temp 98.3 F, and SpO2 100% on room air. Labs completed and reviewed. CBC unremarkable. Coagulation profile normal findings. BMP showing mild hypocarbia with bicarb of 19 otherwise normal findings. Blood glucose 77. Lactic acid was 1.1. Liver profile normal findings. Patient started on IV antibiotics with vancomycin and admitted under our services for chest wall cellulitis with consult to infectious disease. Physical exam: Patient seen and fully evaluated at the bedside this morning. He reports slight improvement in redness, pain, and swelling to left anterior chest since arrival. He denies having any fevers, chills, diaphoresis, nausea, vomiting, or any other complaints at this time. Vital signs reviewed and stable. General: Nontoxic, no distress and appears stated age. Thin build. Derm: Skin warm and dry, normal coloration for ethnicity. Left lateral chest overlying vagal nerve stimulator has a circular area of erythema and swelling with small scab noted. No drainage present at this time. Head: Atraumatic, normocephalic and symmetric. Eyes: EOM's intact, no lid lag, and anicteric sclera Mouth: no lip lesions, mucus membranes moist Cardiovascular: regular rate and rhythm with normal S1S2, soft systolic murmur, positive posterior tibial pulses bilaterally, and cap refill < 2 seconds. Vagal nerve stimulator left anterior chest. Lungs: Respirations even, regular, and unlabored on room air. Lungs CTA bilaterally, no rhonchi, no rales, no wheezing, and no accessory muscle usage. Abdominal: soft, nontender to palpation, no guarding, no appreciable organomegaly Ext: ROM intact. No gross muscle atrophy, no edema, no contractures Neuro: Speech clear, face symmetrical and CN II-XII grossly intact with no noted focal neuro deficits Psych: Alert and oriented to person, place, time, and situation. Appropriate and pleasant affect. Assessment and Plan of Care: Chest wall cellulitis overlying implanted vagal nerve stimulator - Continue IV antibiotics with vancomycin with close monitoring of renal function and vancomycin trough closely for any signs of vancomycin associated renal toxicity. - Order placed for chest x-ray and ultrasound to rule out abscess. - Consult placed to infectious disease, appreciate recommendations. - Follow-up on blood culture results. -Order placed for ESR and CRP. History of CAD status post stenting Ischemic cardiomyopathy with previously known EF of 45 to 50% Continue home medication regimen with aspirin 81 mg daily, atorvastatin 80 mg nightly, lisinopril 20 mg daily, metoprolol 50 mg twice daily with meals. Neurological disorder status post vagal nerve stimulator Peripheral neuropathy Depression and anxiety Continue home medication regimen with Neurontin 200 mg 3 times daily, Cymbalta 60 mg daily, Vimpat 200 mg twice daily, and Topamax 100 mg twice daily. Maintain seizure and fall precautions. Data reviewed: Labs reviewed. CBC unremarkable. BMP showing mild metabolic acidosis with chloride of 113, bicarb of 20, and anion gap of 7. Blood glucose 84. Calcium 8.7. Liver profile unremarkable Vital signs reviewed. Blood pressure 140/83, heart rate 62, respiratory rate 18, temp 97.9 F, and SpO2 100% on room air. Order placed for chest x-ray, chest ultrasound, ESR, and CRP will follow-up with further results once available. CODE STATUS: Full code DVT prophylaxis: Lovenox Anticipated discharge date: Pending clinical course Anticipated discharge place: Home Patient was seen independently by Nurse Pracitioner. This document was prepared using [employer] dictation software. Please allow for errors in wing coverer, while rare they do occur. Marcio Metz NP rendered care for this patient independently, reviewed the findings and plan as documented in the note above and agree with plan. I did not physically speak with or examine the patient on this date. Objective - Vital Signs Vital signs: Vital Signs Temp 97.9 F 05/29/25 08:05 Pulse 58 L 05/29/25 09:58 Resp 18 05/29/25 09:58 BP 144/92 05/29/25 09:58 Pulse Ox 100 05/29/25 09:58 FiO2 Intake & Output 05/28/25 05/29/25 05/29/25 18:59 06:59 18:59 Weight 65.771 kg 65.771 kg - Labs CBC & Chem 7: 05/29/25 07:18 05/29/25 07:18 Labs: Abnormal Lab Results - Last 24 Hours (Table) 05/28/25 05/28/25 05/29/25 Range/Units 18:27 18:27 07:18 RBC 4.38 L (4.40-5.60) 10*6/uL MPV 9.4 L 9.4 L (9.5-12.2) fL Eosinophils # 0.38 H (0.04-0.35) 10*3/uL Basophils # 0.11 H (0.00-0.10) 10*3/uL Sodium 136 L (137-145) mmol/L Chloride (98-107) mmol/L Carbon Dioxide 19 L (22-30) mmol/L Total Protein (6.3-8.2) g/dL Albumin (3.5-5.0) g/dL 05/29/25 Range/Units 07:18 RBC (4.40-5.60) 10*6/uL MPV (9.5-12.2) fL Eosinophils # (0.04-0.35) 10*3/uL Basophils # (0.00-0.10) 10*3/uL Sodium (137-145) mmol/L Chloride 113 H (98-107) mmol/L Carbon Dioxide 20 L (22-30) mmol/L Total Protein 5.6 L (6.3-8.2) g/dL Albumin 3.4 L (3.5-5.0) g/dL
[2025-05-29] MEDS: amLODIPine 5 MG TAB PO STA (17:27)
[2025-05-29] MEDS: LORazepam 1 MG/0.5 ML VIAL IV STA (18:48)
[2025-05-29] MEDS: ATORVASTATIN 80 MG TAB PO SCH (21:36)
--- NOTE | 2025-05-29 22:11 | P.CONS ---
History of Present Illness - Reason for Consult Consult date: 05/29/25 Infection Requesting physician: Quan Yusuf - Chief Complaint Left chest wall pain swelling and redness x 1 day - History of Present Illness Patient is a 60-year-old male with a past medical history Coronary Artery Disease (CAD), Chest Pain / Angina, Hyperlipidemia, Hypertension, Myocardial Infarction ([place]), seizure disorder, in this patient who did have left chest wall vagal nerve stimulator for recurrent seizure that has been placed at outside facility many years ago patient mention he used to have a small area of pimple on the upper end of the generator which previously popped" away last time and has been followed by his friend on Friday with drainage of some purulent material the next day he woke up with significant swelling redness to the left chest wall area for the patient presented the hospital patient complaining of pain to the left chest wall to be sharp moderate as without radiation associated swelling and redness no further purulent drainage. Denies high-grade fever and no fever was recorded on presentation the hospital patient was not tachycardic hypotensive or hypoxic patient did have a white count of 8.02 creatinine 0.84 electrolytes are normal liver enzymes are normal blood cultures obtained which are currently pending patient did have a chest ultrasound edema and hypervascularity noted within the soft tissue surrounding implanted device there is a tract to the skin noted but no definitive abscess he did have a chest x-ray chronic changes without evidence for acute pulmonary disease patient was started on vancomycin infectious he was consulted for further management of antibiotic therapy Review of Systems Positive point and negatives has been mentioned in the HPI, complete review of systems was performed and all other systems are negative Past Medical History Past Medical History: Coronary Artery Disease (CAD), Chest Pain / Angina, Hype rlipidemia, Hypertension, Myocardial Infarction ([place]), Neurologic Disorder Additional Past Medical History / Comment(s): Ichemic cardiomyopathy, MIs, peripheral neuropathy, PUD, pancreatitis, liver infection at age 20yrs/pt states not hepatitis, head injuries, migraines, sinus problems, insomnia, arhtritis in multiple joints, back pain. Last Myocardial Infarction Date:: 05/16/21 History of Any Multi-Drug Resistant Organisms: None Reported Past Surgical History: Back Surgery, Heart Catheterization, Hernia Repair, Orthopedic Surgery Additional Past Surgical History / Comment(s): cervical fusion/hardware d/t injury, low back ablations, L inguinal hernia repair, EGD, colonoscopy, amti seizure device in left chest wall placed by [facility] Past Anesthesia/Blood Transfusion Reactions: Postoperative Nausea & Vomiting (PONV) Past Psychological History: Depression Additional Psychological History / Comment(s): Pt resides alone in an apartment. He uses a cane if outside. He does not drive, his friend drives, Smoking Status: Current every day smoker Past Alcohol Use History: None Reported Additional Past Alcohol Use History / Comment(s): Pt started smoking as a teen and quit in 2009 then went to smoking an occasional cigarello. Pt was a heavy drinker in the past but quit 5 years ago. Past Drug Use History: None Reported Additional Drug Use History / Comment(s): Occasional marijuana use - Past Family History Mother Family Medical History: Hypertension, Osteoarthritis (OA), Thyroid Disorder Father Family Medical History: AFIB, Cancer Additional Family Medical History / Comment(s): Leukemia Medications and Allergies Home Medications Medication Instructions Recorded Confirmed Type Atorvastatin [Lipitor] 80 mg PO HS tab 04/08/18 05/29/25 Rx lisinopriL [Zestril] 20 mg PO DAILY tab 04/08/18 05/29/25 Rx DULoxetine HCL [Cymbalta] 60 mg PO DAILY 05/16/21 05/29/25 History Aspirin EC [Ecotrin Low Dose] 81 mg PO DAILY 10/09/24 05/29/25 History Gabapentin [Neurontin] 200 mg PO TID 10/09/24 05/29/25 History Topiramate [Topamax] 100 mg PO BID 10/09/24 05/29/25 History Lacosamide [Vimpat] 200 mg PO BID 05/29/25 05/29/25 History Metoprolol Tartrate [Lopressor] 50 mg PO BID-W/MEALS 05/29/25 05/29/25 History Allergies Allergy/AdvReac Type Severity Reaction Status Date / Time No Known Allergies Allergy Verified 05/29/25 08:42 Physical Exam Vitals: Vital Signs Temp Pulse Resp BP Pulse Ox 05/29/25 12:49 64 18 97 05/29/25 11:50 98.2 F 78 18 147/94 100 05/29/25 09:58 58 L 18 144/92 100 05/29/25 08:05 97.9 F 62 18 140/83 100 05/29/25 07:04 97.9 F 98 18 113/86 98 05/28/25 22:30 98.4 F 63 18 111/68 100 05/28/25 16:48 98.3 F 83 20 130/85 100 Intake and Output 05/28/25 05/29/25 05/29/25 22:59 06:59 14:59 Other: Weight 65.771 kg 65.771 kg GENERAL DESCRIPTION: Middle-age male lying in bed, no distress. No tachypnea or accessory muscle of respiration use. HEENT: Shows Pallor , no scleral icterus. Oral mucous membrane is dry. NECK: Trachea central, no thyromegaly. LUNGS: Unlabored breathing. Clear to auscultation anteriorly. No wheeze or crackle. HEART: S1, S2, regular rate and rhythm. No loud murmur ABDOMEN: Soft, no tenderness , guarding or rigidity, no organomegaly EXTREMITIES: No edema of feet. SKIN: Left chest wall area swelling and redness with underlying implantable device no drainage was noticed NEUROLOGICAL: The patient is awake, alert, oriented x3, mood and affect normal. Results CBC & Chem 7: 05/29/25 07:18 05/29/25 07:18 Labs: Abnormal Lab Results - Last 24 Hours (Table) 05/28/25 05/28/25 05/29/25 Range/Units 18:27 18:27 07:18 RBC 4.38 L (4.40-5.60) 10*6/uL MPV 9.4 L 9.4 L (9.5-12.2) fL Eosinophils # 0.38 H (0.04-0.35) 10*3/uL Basophils # 0.11 H (0.00-0.10) 10*3/uL Sodium 136 L (137-145) mmol/L Chloride (98-107) mmol/L Carbon Dioxide 19 L (22-30) mmol/L Total Protein (6.3-8.2) g/dL Albumin (3.5-5.0) g/dL 05/29/25 Range/Units 07:18 RBC (4.40-5.60) 10*6/uL MPV (9.5-12.2) fL Eosinophils # (0.04-0.35) 10*3/uL Basophils # (0.00-0.10) 10*3/uL Sodium (137-145) mmol/L Chloride 113 H (98-107) mmol/L Carbon Dioxide 20 L (22-30) mmol/L Total Protein 5.6 L (6.3-8.2) g/dL Albumin 3.4 L (3.5-5.0) g/dL Assessment and Plan (1) Abscess or cellulitis of chest wall Current Visit: Yes Status: Acute Code(s): UDS6367 - SNOMED Code(s): 582708919 Plan: 1patient presented hospital with increasing pain swelling redness to the left chest wall in this patient who did have underlying implantable device/vagal nerve stimulator for recurrent seizure with the symptoms started with a small area of pustule that has been draining/squeezed out by the patient now with concerning for cellulitis and high suspicious for underlying infected implantable device likely from gram-positive skin christal 2-patient will need removal of the infected device in order to completely cure of this infection this has been explained to the patient in layman term and also discussed with admitting team 3-vancomycin pharmacy to dose target trough of 15 while watching kidney function and Vanco trough closely We will follow on clinical condition and cultures to further adjust medication if needed Thank you for this consultation we will follow the patient along with you Dictation was produced using [employer] dictation software. please excuse any grammatical, word or spelling errors. Time with Patient: Greater than 30
[2025-05-30 06:20] LABS: HCT 44.0 % (39.6-50.0); HGB 14.7 g/dL (13.0-17.0); MCH 30.3 pg (27.0-32.0); MCHC 33.4 g/dL (32.0-37.0); MCV 90.7 fL (80.0-97.0); Platelet Count 292 10*3/uL (140-440); RBC 4.85 10*6/uL (4.40-5.60); RDW 13.5 % (11.5-14.5); WBC 7.75 10*3/uL (4.50-10.00)
[2025-05-30 06:52] LABS: African American GFR (CKD) >90 (>60 ml/min/1.73 sqM); Anion Gap 8 mmol/L; Blood Urea Nitrogen 6 mg/dL (9-20); Calcium 9.1 mg/dL (8.4-10.2); Carbon Dioxide 23 mmol/L (22-30); Chloride 109 mmol/L (98-107); Glucose 76 mg/dL (74-99); Non-African American GFR(CKD) >90 (>60 ml/min/1.73 sqM); Potassium 3.7 mmol/L (3.5-5.1); Sodium 140 mmol/L (137-145)
[2025-05-30] MEDS: amLODIPine 5 MG TAB PO SCH (08:31)
--- NOTE | 2025-05-30 10:11 | P.PN ---
Subjective Progress Note Date: 05/30/25 Reason for consult is left chest wall cellulitis Patient is 60-year-old male with history of CAD, hyperlipidemia, hypertension, seizure disorder with left chest wall vagal nerve stimulator for recurrent sei zures that began to have drainage of purulent material with significant redness and swelling of the left chest wall area with associated pain. Today, patient seen and examined at bedside. No acute events overnight. Denied any new complaints or symptoms. Reported that pain and erythema have improved. Noted small brownish discharge at the exit of the tract Labs: WBC 7.7, hemoglobin 14.7, CRP less than 0.5 Objective - Vital Signs Vital signs: Vital Signs Temp 97.6 F 05/30/25 02:00 Pulse 53 L 05/30/25 02:00 Resp 18 05/29/25 19:01 BP 153/87 05/30/25 02:00 Pulse Ox 99 05/30/25 02:00 FiO2 Intake & Output 05/29/25 05/30/25 05/30/25 18:59 06:59 18:59 Weight 65.771 kg - Exam Physical examination: Vital signs reviewed General: non toxic, no distress, appears at stated age Head: atraumatic, normocephalic, symmetric Mouth: no lip lesion, mucus membranes moist Cardiovascular: S1S2 reg, no murmur Lungs: CTA bilateral, no rhonchi, no rales, no accessory muscle use, vagal stimulator noted on left upper chest, open tract of the skin shows brown liquid discharge, no noted tenderness of palpation, erythema improved Abdominal: soft, nondistended, nontender to palpation, no guarding Ext: muscle strength 5 out of 5 in all 4 extremities grossly, no gross muscle atrophy, no contractures, positive dorsalis pedis pulse bilateral, no edema Neuro: no gross focal neuro deficits Psych: Alert and oriented x3, appropriate affect and mood - Labs CBC & Chem 7: 05/30/25 05:30 05/30/25 05:30 Labs: Abnormal Lab Results - Last 24 Hours (Table) 05/29/25 05/30/25 Range/Units 07:18 05:30 Chloride 113 H 109 H (98-107) mmol/L Carbon Dioxide 20 L (22-30) mmol/L BUN 6 L (9-20) mg/dL Total Protein 5.6 L (6.3-8.2) g/dL Albumin 3.4 L (3.5-5.0) g/dL Microbiology - Last 24 Hours (Table) 05/28/25 18:27 Blood Culture - Preliminary Blood Assessment and Plan (1) Abscess or cellulitis of chest wall Current Visit: Yes Status: Acute Code(s): [id number] - SNOMED Code(s): 151677881 Plan: Patient presented hospital with increasing pain swelling redness to the left chest wall in this patient who did have underlying implantable device/vagal nerve stimulator for recurrent seizure with the symptoms started with a small area of pustule that has been draining/squeezed out by the patient now with concerning for cellulitis and high suspicious for underlying infected implantable device likely from gram-positive skin christal -Patient will need removal of the infected device in order to completely cure of this infection and may need to be on long-term antibiotics if procedure will be delayed this has been explained to the patient and family at bedside in layman term and also discussed with admitting team -Vancomycin pharmacy to dose target trough of 15 while watching kidney function and Vancomycin trough closely. Kristen Amor MD PGY-2 Infectious disease service Patient was personally seen and examined care discussed in detail with the resident physician documentation reviewed and agree, patient did have improvement of the left chest wall area of erythema no drainage blood culture currently pending detail discussion with the patient and the family with concern for infected vagus nerve stimulator it would not be possible to clear the infection but can be controlled has been encouraged to take the picture and discussed with the physician advice placed this stimulator currently do not have the facility for extraction of this device and may need to be transferred to the facility with the patient has his procedure done Significant amount of time was spent all questions were answered in layman term Dictation was produced using [employer] software. please excuse any grammatical, word or spelling errors. Time with Patient: Less than 30
--- NOTE | 2025-05-30 15:49 | P.PN ---
Subjective Progress Note Date: 05/30/25 Hospital course: Patient is a pleasant 60-year-old male with a past medical history of CAD status post stenting, ischemic cardiomyopathy with previously known EF of 45 to 50%, peripheral neuropathy, and neurological disorder status post vagal nerve stimulator. He presented to the emergency department on 05/28/2025 secondary to reports of wound/infection and to left lateral chest. Patient reports he had a small vesicular bump on his skin in which he popped and woke up the following morning with increased redness, swelling, and pain surrounding. Upon arrival to our facility, patient underwent evaluation in the emergency department. Vital signs upon arrival show blood pressure 130/85, heart rate 83, respiratory rate 20, temp 98.3 F, and SpO2 100% on room air. Labs completed and reviewed. CBC unremarkable. Coagulation profile normal findings. BMP showing mild hypocarbia with bicarb of 19 otherwise normal findings. Blood glucose 77. Lactic acid was 1.1. Liver profile normal findings. Patient started on IV antibiotics with vancomycin and admitted under our services for chest wall cellulitis with consult to infectious disease.-Chest x-ray completed showing chronic changes but negative for acute cardiopulmonary process. Chest Ultrasound completed showing edema and hypervascularity noted within the soft tissue surrounding the implanted device with a tract to the skin. Physical exam: Patient seen and fully evaluated at the bedside this morning. Discussed with patient findings of ultrasound and explained that it was discussed with general surgeon and infectious disease that recommendations are for removal of vagal nerve stimulator secondary to infection and risks of recurrence. Patient states he does not know who his surgeon was that placed the vagal nerve stimulator but states it was done at [facility]. At this time patient expressing frustration stating he does not want his vagal nerve stimulator removed and is currently declining transfer to another facility. Explained to patient there is no surgeon available at our facility to remove the device and it is strongly recommended that he reconsider transfer to [facility] for removal and patient again states he does not want this removed. Vital signs reviewed and stable. General: Nontoxic, no distress and appears stated age. Thin build. Derm: Skin warm and dry, normal coloration for ethnicity. Left lateral chest overlying vagal nerve stimulator has a circular area of erythema and swelling with small scab noted. No drainage present at this time. Head: Atraumatic, normocephalic and symmetric. Eyes: EOM's intact, no lid lag, and anicteric sclera Mouth: no lip lesions, mucus membranes moist Cardiovascular: regular rate and rhythm with normal S1S2, soft systolic murmur, positive posterior tibial pulses bilaterally, and cap refill < 2 seconds. Vagal nerve stimulator left anterior chest. Lungs: Respirations even, regular, and unlabored on room air. Lungs CTA bilaterally, no rhonchi, no rales, no wheezing, and no accessory muscle usage. Abdominal: soft, nontender to palpation, no guarding, no appreciable organomegaly Ext: ROM intact. No gross muscle atrophy, no edema, no contractures Neuro: Speech clear, face symmetrical and CN II-XII grossly intact with no noted focal neuro deficits Psych: Alert and oriented to person, place, time, and situation. Appropriate and pleasant affect. Assessment and Plan of Care: Chest wall cellulitis overlying implanted vagal nerve stimulator - Continue IV antibiotics with vancomycin 1250 mg IVPB every 12 hours with close monitoring of renal function and vancomycin trough closely for any signs of vancomycin associated renal toxicity. - Blood cultures showing no growth to date. ESR was 6 and CRP was less than 0.5. - Chest x-ray completed showing chronic changes but negative for acute cardiopulmonary process. - Chest Ultrasound completed showing edema and hypervascularity noted within the soft tissue surrounding the implanted device with a tract to the skin. - Infectious disease following, discussed plan of care with Dr. Robert recommending continued IV antibiotics and for patient to be transferred to [facility] for removal of vagal nerve stimulator. History of CAD status post stenting Ischemic cardiomyopathy with previously known EF of 45 to 50% Continue home medication regimen with aspirin 81 mg daily, atorvastatin 80 mg nightly, lisinopril 20 mg daily, metoprolol 50 mg twice daily with meals. Neurological disorder status post vagal nerve stimulator Peripheral neuropathy Depression and anxiety Continue home medication regimen with Neurontin 200 mg 3 times daily, Cymbalta 60 mg daily, Vimpat 200 mg twice daily, and Topamax 100 mg twice daily. Maintain seizure and fall precautions. Data r and imaging eviewed: Labs reviewed. CBC unremarkable with WBC count of 7.75, hemoglobin 14.7, platelet count of 292. BMP showing mild hyperchloremia with chloride of 109 otherwise normal findings. Blood glucose 76. CRP less than 0.5. ESR 6. Blood cultures showing no growth to date. Vital signs reviewed. Blood pressure 127/81, heart rate 62, respiratory rate 16, temp 97.6 F, and SpO2 of 100% on room air. - Chest x-ray completed showing chronic changes but negative for acute cardiopulmonary process. - Chest Ultrasound completed showing edema and hypervascularity noted within the soft tissue surrounding the implanted device with a tract to the skin. CODE STATUS: Full code DVT prophylaxis: Lovenox Anticipated discharge date: Pending clinical course Anticipated discharge place: Pending clinical course, recommended transfer to [facility], patient currently refusing transfer. Patient was seen independently by Nurse Pracitioner. This document was prepared using [employer] dictation software. Please allow for errors in leasing property manager, while rare they do occur. Marcio Metz NP rendered care for this patient independently, reviewed the findings and plan as documented in the note above and agree with plan. I did not physically speak with or examine the patient on this date. Objective - Vital Signs Vital signs: Vital Signs Temp 97.6 F 05/30/25 07:14 Pulse 62 05/30/25 07:14 Resp 16 05/30/25 07:14 BP 127/81 05/30/25 07:14 Pulse Ox 100 05/30/25 07:14 FiO2 Intake & Output 05/29/25 05/30/25 05/30/25 18:59 06:59 18:59 Weight 65.771 kg - Labs CBC & Chem 7: 05/30/25 05:30 05/30/25 05:30 Labs: Abnormal Lab Results - Last 24 Hours (Table) 05/30/25 Range/Units 05:30 Chloride 109 H (98-107) mmol/L BUN 6 L (9-20) mg/dL Microbiology - Last 24 Hours (Table) 05/28/25 18:27 Blood Culture - Preliminary Blood
[2025-05-30] MEDS: VANCOMYCIN TROUGH DUE 1 EACH MISC MISCELLANE ONE (22:28)
[2025-05-31 07:14] LABS: HCT 43.1 % (39.6-50.0); HGB 14.7 g/dL (13.0-17.0); MCH 30.5 pg (27.0-32.0); MCHC 34.1 g/dL (32.0-37.0); MCV 89.4 fL (80.0-97.0); Platelet Count 289 10*3/uL (140-440); RBC 4.82 10*6/uL (4.40-5.60); RDW 13.3 % (11.5-14.5); WBC 5.99 10*3/uL (4.50-10.00)
[2025-05-31 07:34] LABS: African American GFR (CKD) >90 (>60 ml/min/1.73 sqM); Anion Gap 9 mmol/L; Blood Urea Nitrogen 9 mg/dL (9-20); Calcium 9.0 mg/dL (8.4-10.2); Carbon Dioxide 17 mmol/L (22-30); Chloride 112 mmol/L (98-107); Glucose 85 mg/dL (74-99); Non-African American GFR(CKD) >90 (>60 ml/min/1.73 sqM); Potassium 3.8 mmol/L (3.5-5.1); Sodium 138 mmol/L (137-145)
--- NOTE | 2025-05-31 13:22 | P.PN ---
Subjective Progress Note Date: 05/31/25 Hospital course: Patient is a pleasant 60-year-old male with a past medical history of CAD status post stenting, ischemic cardiomyopathy with previously known EF of 45 to 50%, peripheral neuropathy, and neurological disorder status post vagal nerve stimulator. He presented to the emergency department on 05/28/2025 secondary to reports of wound/infection and to left lateral chest. Patient reports he had a small vesicular bump on his skin in which he popped and woke up the following morning with increased redness, swelling, and pain surrounding. Upon arrival to our facility, patient underwent evaluation in the emergency department. Vital signs upon arrival show blood pressure 130/85, heart rate 83, respiratory rate 20, temp 98.3 F, and SpO2 100% on room air. Labs completed and reviewed. CBC unremarkable. Coagulation profile normal findings. BMP showing mild hypocarbia with bicarb of 19 otherwise normal findings. Blood glucose 77. Lactic acid was 1.1. Liver profile normal findings. Patient started on IV antibiotics with vancomycin and admitted under our services for chest wall cellulitis with consult to infectious disease.-Chest x-ray completed showing chronic changes but negative for acute cardiopulmonary process. Chest Ultrasound completed showing edema and hypervascularity noted within the soft tissue surrounding the implanted device with a tract to the skin. Physical exam: Patient seen and fully evaluated at the bedside this morning. Patient was requesting discharge and stated he would follow-up outpatient with his doctor at [facility], patient was informed that it is highly recommended that he is transferred to [facility] as the vagal nerve stimulator needs to be removed due to findings of the ultrasound showing edema and hypervascularity within the soft tissue surrounding his implanted device. Patient now in agreement for transfer to [facility] and verbalized understanding of the recommendations for removal of vagal nerve stimulator to fully treat infection. Vital signs reviewed and stable. General: Nontoxic, no distress and appears stated age. Thin build. Derm: Skin warm and dry, normal coloration for ethnicity. Left lateral chest overlying vagal nerve stimulator has a circular area of erythema and swelling with small scab noted. No drainage present at this time. Head: Atraumatic, normocephalic and symmetric. Eyes: EOM's intact, no lid lag, and anicteric sclera Mouth: no lip lesions, mucus membranes moist Cardiovascular: regular rate and rhythm with normal S1S2, soft systolic murmur, positive posterior tibial pulses bilaterally, and cap refill < 2 seconds. Vagal nerve stimulator left anterior chest. Lungs: Respirations even, regular, and unlabored on room air. Lungs CTA bilaterally, no rhonchi, no rales, no wheezing, and no accessory muscle usage. Abdominal: soft, nontender to palpation, no guarding, no appreciable organomegaly Ext: ROM intact. No gross muscle atrophy, no edema, no contractures Neuro: Speech clear, face symmetrical and CN II-XII grossly intact with no noted focal neuro deficits Psych: Alert and oriented to person, place, time, and situation. Appropriate and pleasant affect. Assessment and Plan of Care: Chest wall cellulitis overlying implanted vagal nerve stimulator - Continue IV antibiotics with vancomycin 1250 mg IVPB every 12 hours with close monitoring of renal function and vancomycin trough closely for any signs of vancomycin associated renal toxicity. - Blood cultures showing no growth to date. ESR was 6 and CRP was less than 0.5. - Chest x-ray completed showing chronic changes but negative for acute cardiopulmonary process. - Chest Ultrasound completed showing edema and hypervascularity noted within the soft tissue surrounding the implanted device with a tract to the skin. - Infectious disease following, discussed plan of care with Dr. Robert recommending continued IV antibiotics and for patient to be transferred to [facility] for removal of vagal nerve stimulator. History of CAD status post stenting Ischemic cardiomyopathy with previously known EF of 45 to 50% Continue home medication regimen with aspirin 81 mg daily, atorvastatin 80 mg nightly, lisinopril 20 mg daily, metoprolol 50 mg twice daily with meals. Neurological disorder status post vagal nerve stimulator Peripheral neuropathy Depression and anxiety Continue home medication regimen with Neurontin 200 mg 3 times daily, Cymbalta 60 mg daily, Vimpat 200 mg twice daily, and Topamax 100 mg twice daily. Maintain seizure and fall precautions. Data r and imaging eviewed: Labs reviewed. CBC unremarkable with WBC count of 5.99, hemoglobin 14.7, platelet count of 289. BMP showing mild non-anion gap metabolic acidosis with chloride of 112, bicarb of 17, and anion gap of 9.. Blood glucose 85. Vancomycin trough therapeutic at 15.2. Blood cultures showing no growth to date. Vital signs reviewed. Blood pressure 126/73, heart rate 53, respiratory rate 16, temp 97.6 F, and SpO2 of 99% on room air. CODE STATUS: Full code DVT prophylaxis: Lovenox Anticipated discharge date: Pending clinical course Anticipated discharge place: Pending clinical course, currently waiting on acceptance for transfer to [facility] Patient was seen independently by Nurse Pracitioner. This document was prepared using [employer] dictation software. Please allow for errors in choir accompanist, while rare they do occur. Marcio Metz LONG DISTANCE BILLING OPERATOR rendered care for this patient independently, reviewed the findings and plan as documented in the note above and agree with plan. I did not physically speak with or examine the patient on this date. Objective - Vital Signs Vital signs: Vital Signs Temp 97.6 F 05/31/25 07:15 Pulse 53 L 05/31/25 07:15 Resp 16 05/31/25 07:15 BP 126/73 05/31/25 07:15 Pulse Ox 99 05/31/25 07:15 FiO2 Intake & Output 05/30/25 05/31/25 05/31/25 18:59 06:59 18:59 Intake Total 440 Balance 440 Intake: Oral 440 - Labs CBC & Chem 7: 05/31/25 06:47 05/31/25 06:47 Labs: Abnormal Lab Results - Last 24 Hours (Table) 05/31/25 05/31/25 Range/Units 06:47 06:47 MPV 9.4 L (9.5-12.2) fL Chloride 112 H (98-107) mmol/L Carbon Dioxide 17 L (22-30) mmol/L Microbiology - Last 24 Hours (Table) 05/28/25 18:27 Blood Culture - Preliminary Blood
--- NOTE | 2025-05-31 15:04 | P.PN ---
Subjective Progress Note Date: 05/31/25 Reason for consult is left chest wall cellulitis Patient is 60-year-old male with history of CAD, hyperlipidemia, hypertension, seizure disorder with left chest wall vagal nerve stimulator for recurrent sei zures that began to have drainage of purulent material with significant redness and swelling of the left chest wall area with associated pain. Today, patient seen and examined at bedside. No acute events overnight. Denied any new complaints or symptoms. Reported that pain and erythema have improved. Noted small brownish discharge at the exit of the tract Labs: WBC 5.9, Creatinine 0.86, Vanco trough 15.2 Objective - Vital Signs Vital signs: Vital Signs Temp 97.6 F 05/31/25 07:15 Pulse 53 L 05/31/25 07:15 Resp 16 05/31/25 07:15 BP 126/73 05/31/25 07:15 Pulse Ox 99 05/31/25 07:15 FiO2 Intake & Output 05/30/25 05/31/25 05/31/25 18:59 06:59 18:59 Intake Total 440 Balance 440 Intake: Oral 440 - Exam Physical examination: Vital signs reviewed General: non toxic, no distress, appears at stated age Head: atraumatic, normocephalic, symmetric Mouth: no lip lesion, mucus membranes moist Cardiovascular: S1S2 reg, no murmur Lungs: CTA bilateral, no rhonchi, no rales, no accessory muscle use, vagal stimulator noted on left upper chest, open tract of the skin shows brown liquid discharge, no noted tenderness of palpation, erythema improved Abdominal: soft, nondistended, nontender to palpation, no guarding Ext: no gross muscle atrophy, no contractures, positive dorsalis pedis pulse bilateral, no edema Neuro: no gross focal neuro deficits Psych: Alert and oriented x3, appropriate affect and mood - Labs CBC & Chem 7: 06/03/25 05:08 06/03/25 05:08 Labs: Abnormal Lab Results - Last 24 Hours (Table) 05/31/25 05/31/25 Range/Units 06:47 06:47 MPV 9.4 L (9.5-12.2) fL Chloride 112 H (98-107) mmol/L Carbon Dioxide 17 L (22-30) mmol/L Microbiology - Last 24 Hours (Table) 05/28/25 18:27 Blood Culture - Preliminary Blood Assessment and Plan (1) Abscess or cellulitis of chest wall Status: Acute Code(s): [id number] - SNOMED Code(s): 436998359 Plan: Patient presented hospital with increasing pain swelling redness to the left chest wall in this patient who did have underlying implantable device/vagal nerve stimulator for recurrent seizure with the symptoms started with a small area of pustule that has been draining/squeezed out by the patient now with concerning for cellulitis and high suspicious for underlying infected implantable device likely from gram-positive skin christal -Patient will need removal of the infected device in order to completely cure of this infection. Patient's surgeon in [place] will be available on . Plan on continuing IV antibiotics until he is transferred to be evaluated by surgeon. This has been explained to the patient and family at bedside in layman term and also discussed with admitting team. Patient verbalized understanding and is amenable to transfer. -Vancomycin pharmacy to dose target trough of 15 while watching kidney function and Vancomycin trough closely. Kristen Amor MD PGY-2 Infectious disease service Patient was personally seen and examined care discussed in detail with the resident physician documentation reviewed and agree, left chest wall swelling redness surgery hysterectomy consult pain blood culture been negative we will continue patient on vancomycin currently waiting for transfer to be evaluated by his neurosurgeon Dictation was produced using [email or web address] dictation software. please excuse any grammatical, word or spelling errors. Time with Patient: Less than 30
[2025-06-01 07:05] LABS: HCT 40.6 % (39.6-50.0); HGB 13.9 g/dL (13.0-17.0); MCH 30.7 pg (27.0-32.0); MCHC 34.2 g/dL (32.0-37.0); MCV 89.6 fL (80.0-97.0); Platelet Count 279 10*3/uL (140-440); RBC 4.53 10*6/uL (4.40-5.60); RDW 13.3 % (11.5-14.5); WBC 6.44 10*3/uL (4.50-10.00)
[2025-06-01 07:20] LABS: African American GFR (CKD) >90 (>60 ml/min/1.73 sqM); Anion Gap 9 mmol/L; Blood Urea Nitrogen 8 mg/dL (9-20); Calcium 8.9 mg/dL (8.4-10.2); Carbon Dioxide 18 mmol/L (22-30); Chloride 111 mmol/L (98-107); Glucose 87 mg/dL (74-99); Non-African American GFR(CKD) >90 (>60 ml/min/1.73 sqM); Potassium 3.4 mmol/L (3.5-5.1); Sodium 138 mmol/L (137-145)
[2025-06-01] MEDS: POTASSIUM CHLORIDE ER 20 MEQ TAB.ER PO STA (09:47)
--- NOTE | 2025-06-01 13:50 | P.PN ---
Subjective Progress Note Date: 06/01/25 Hospital course: Patient is a pleasant 60-year-old male with a past medical history of CAD status post stenting, ischemic cardiomyopathy with previously known EF of 45 to 50%, peripheral neuropathy, and neurological disorder status post vagal nerve stimulator. He presented to the emergency department on 05/28/2025 secondary to reports of wound/infection and to left lateral chest. Patient reports he had a small vesicular bump on his skin in which he popped and woke up the following morning with increased redness, swelling, and pain surrounding. Upon arrival to our facility, patient underwent evaluation in the emergency department. Vital signs upon arrival show blood pressure 130/85, heart rate 83, respiratory rate 20, temp 98.3 F, and SpO2 100% on room air. Labs completed and reviewed. CBC unremarkable. Coagulation profile normal findings. BMP showing mild hypocarbia with bicarb of 19 otherwise normal findings. Blood glucose 77. Lactic acid was 1.1. Liver profile normal findings. Patient started on IV antibiotics with vancomycin and admitted under our services for chest wall cellulitis with consult to infectious disease.-Chest x-ray completed showing chronic changes but negative for acute cardiopulmonary process. Chest Ultrasound completed showing edema and hypervascularity noted within the soft tissue surrounding the implanted device with a tract to the skin. Secondary to cellulitis and inflammatory changes surrounding implanted vagal nerve stimulator, infectious disease recommending transfer to [facility] for removal of vagal nerve stimulator to ensure full treatment of infection. Called to initiate transfer and discussed case with Dr. Jaren Mosqueda (surgeon who placed Vagal Nerve Stimular a year ago) and he is out of town until 06/02/25. Discussed with Infectious disease-Dr. Robert and pt to remain hospitalized at our facility on IV antibiotics with vancomycin and we will reinitiate transfer to [facility] on , 06/02/[address] Mosqueda returns. Physical exam: Patient seen and fully evaluated at the bedside this morning. Patient was resting comfortably continues to have improvement in erythema overlying implanted vagal nerve stimulator. He reports today feeling more painful to where he feels is behind his nerve stimulator. Patient remains in agreement with plan of care to transfer to [facility] to have vagal nerve stimulator removed to ensure completion of treatment. Patient aware that his surgeon does not return until tomorrow and that we will reinitiate transfer at that time. Vital signs reviewed and stable. General: Nontoxic, no distress and appears stated age. Thin build. Derm: Skin warm and dry, normal coloration for ethnicity. Left lateral chest overlying vagal nerve stimulator has a circular area of erythema and swelling with small scab noted. No drainage present at this time and erythema improving since admission. Head: Atraumatic, normocephalic and symmetric. Eyes: EOM's intact, no lid lag, and anicteric sclera Mouth: no lip lesions, mucus membranes moist Cardiovascular: regular rate and rhythm with normal S1S2, soft systolic murmur, positive posterior tibial pulses bilaterally, and cap refill < 2 seconds. Vagal nerve stimulator left anterior chest. Lungs: Respirations even, regular, and unlabored on room air. Lungs CTA bilaterally, no rhonchi, no rales, no wheezing, and no accessory muscle usage. Abdominal: soft, nontender to palpation, no guarding, no appreciable organomegaly Ext: ROM intact. No gross muscle atrophy, no edema, no contractures Neuro: Speech clear, face symmetrical and CN II-XII grossly intact with no noted focal neuro deficits Psych: Alert and oriented to person, place, time, and situation. Appropriate and pleasant affect. Assessment and Plan of Care: Chest wall cellulitis overlying implanted vagal nerve stimulator - Continue IV antibiotics with vancomycin 1250 mg IVPB every 12 hours with close monitoring of renal function and vancomycin trough closely for any signs of vancomycin associated renal toxicity. - Blood cultures showing no growth to date. ESR was 6 and CRP was less than 0.5 . - Chest x-ray completed showing chronic changes but negative for acute cardiopulmonary process. - Chest Ultrasound completed showing edema and hypervascularity noted within the soft tissue surrounding the implanted device with a tract to the skin. - Infectious disease following, discussed plan of care with Dr. Robert recommending continued IV antibiotics and for patient to be transferred to [facility] for removal of vagal nerve stimulator. History of CAD status post stenting Ischemic cardiomyopathy with previously known EF of 45 to 50% Continue home medication regimen with aspirin 81 mg daily, atorvastatin 80 mg nightly, lisinopril 20 mg daily, metoprolol 50 mg twice daily with meals. Neurological disorder status post vagal nerve stimulator Peripheral neuropathy Depression and anxiety Continue home medication regimen with Neurontin 200 mg 3 times daily, Cymbalta 60 mg daily, Vimpat 200 mg twice daily, and Topamax 100 mg twice daily. Maintain seizure and fall precautions. Data r and imaging eviewed: Labs reviewed. CBC unremarkable with WBC count of 6.44, hemoglobin 13.9, platelet count of 279. BMP showing hypokalemia with potassium of 3.4 and mild non-anion gap metabolic acidosis with chloride of 111, bicarb of 18, and anion gap of 9.. Blood glucose 87. Vancomycin trough therapeutic at 15.2. Blood culture showing no growth to date. Vital signs reviewed. Blood pressure 107/67, heart rate 54, respiratory rate 17, temp 97.6 F, and SpO2 of 100% on room air CODE STATUS: Full code DVT prophylaxis: Lovenox Anticipated discharge date: Pending clinical course Anticipated discharge place: Pending clinical course, transfer to [facility] need to be reinitiated on 06/02/[address] Jaren Mosqueda returns. Patient was seen independently by Nurse Pracitioner. This document was prepared using [employer] dictation software. Please allow for errors in windows server administrator, while rare they do occur. Marcio Metz NP rendered care for this patient independently, reviewed the findings and plan as documented in the note above and agree with plan. I did not physically speak with or examine the patient on this date. Objective - Vital Signs Vital signs: Vital Signs Temp 98 F 06/01/25 02:00 Pulse 82 06/01/25 02:00 Resp 16 06/01/25 02:00 BP 120/79 06/01/25 02:00 Pulse Ox 99 05/31/25 19:39 FiO2 Intake & Output 05/31/25 06/01/25 06/01/25 18:59 06:59 18:59 Intake Total 960 Balance 960 Intake: Oral 960 Other: Voiding Method Toilet Toilet - Labs CBC & Chem 7: 06/01/25 06:38 06/01/25 06:38 Labs: Abnormal Lab Results - Last 24 Hours (Table) 06/01/25 06/01/25 Range/Units 06:38 06:38 MPV 9.3 L (9.5-12.2) fL Potassium 3.4 L (3.5-5.1) mmol/L Chloride 111 H (98-107) mmol/L Carbon Dioxide 18 L (22-30) mmol/L BUN 8 L (9-20) mg/dL Microbiology - Last 24 Hours (Table) 05/28/25 18:27 Blood Culture - Preliminary Blood
--- NOTE | 2025-06-01 16:55 | P.PN ---
Subjective Progress Note Date: 06/01/25 Reason for consult is left chest wall cellulitis Patient is 60-year-old male with history of CAD, hyperlipidemia, hypertension, seizure disorder with left chest wall vagal nerve stimulator for recurrent sei zures that began to have drainage of purulent material with significant redness and swelling of the left chest wall area with associated pain. 06/01/2025 patient seen and examined at bedside. No acute events overnight. Denied any new complaints or symptoms. Labs: WBC 6.4, creatinine 0.92 Objective - Vital Signs Vital signs: Vital Signs Temp 97.6 F 06/01/25 08:00 Pulse 54 L 06/01/25 08:00 Resp 17 06/01/25 08:00 BP 107/67 06/01/25 08:00 Pulse Ox 100 06/01/25 08:00 FiO2 Intake & Output 05/31/25 06/01/25 06/01/25 18:59 06:59 18:59 Intake Total 960 200 Balance 960 200 Intake: Oral 960 200 Other: Voiding Method Toilet Toilet - Exam Physical examination: Vital signs reviewed General: non toxic, no distress, appears at stated age Head: atraumatic, normocephalic, symmetric Mouth: no lip lesion, mucus membranes moist Cardiovascular: S1S2 reg, no murmur Lungs: CTA bilateral, no rhonchi, no rales, no accessory muscle use, vagal s timulator noted on left upper chest, open tract of the skin shows brown liquid discharge, no noted tenderness of palpation, erythema improved Abdominal: soft, nondistended, nontender to palpation, no guarding Ext: no gross muscle atrophy, no contractures, positive dorsalis pedis pulse bilateral, no edema Neuro: no gross focal neuro deficits Psych: Alert and oriented x3, appropriate affect and mood - Labs CBC & Chem 7: 06/03/25 05:08 06/03/25 05:08 Labs: Abnormal Lab Results - Last 24 Hours (Table) 06/01/25 06/01/25 Range/Units 06:38 06:38 MPV 9.3 L (9.5-12.2) fL Potassium 3.4 L (3.5-5.1) mmol/L Chloride 111 H (98-107) mmol/L Carbon Dioxide 18 L (22-30) mmol/L BUN 8 L (9-20) mg/dL Microbiology - Last 24 Hours (Table) 05/28/25 18:27 Blood Culture - Preliminary Blood Assessment and Plan (1) Abscess or cellulitis of chest wall Status: Acute Code(s): [id number] - SNOMED Code(s): 668148994 Plan: Patient presented hospital with increasing pain swelling redness to the left chest wall in this patient who did have underlying implantable device/vagal nerve stimulator for recurrent seizure with the symptoms started with a small area of pustule that has been draining/squeezed out by the patient now with conc erning for cellulitis and high suspicious for underlying infected implantable device likely from gram-positive skin christal -Blood cultures final results pending -Patient will need removal of the infected device in order to completely cure of this infection. Patient's surgeon in [place] will be available on . Plan on continuing IV antibiotics until he is transferred to be evaluated by surgeon. This has been explained to the patient and family at bedside in layman term and also discussed with admitting team. Patient verbalized understanding and is amenable to transfer. -Vancomycin pharmacy to dose target trough of 15 while watching kidney function and Vancomycin trough closely. Kristen Amor MD PGY-2 Infectious disease service Patient was personally seen and examined care discussed in detail with the resident physician documentation reviewed and agree, patient remains to be afebrile blood culture has been negative currently waiting for transfer to [facility] to be followed by his neurosurgeon, continue patient on vancomycin question concern answered Dictation was produced using [employer] dictation software. please excuse any grammatical, word or spelling errors. Time with Patient: Less than 30
[2025-06-02 07:22] LABS: African American GFR (CKD) >90 (>60 ml/min/1.73 sqM); Anion Gap 7 mmol/L; Blood Urea Nitrogen 8 mg/dL (9-20); Calcium 9.0 mg/dL (8.4-10.2); Carbon Dioxide 19 mmol/L (22-30); Chloride 113 mmol/L (98-107); Glucose 85 mg/dL (74-99); Non-African American GFR(CKD) >90 (>60 ml/min/1.73 sqM); Potassium 3.6 mmol/L (3.5-5.1); Sodium 139 mmol/L (137-145)
[2025-06-02] MEDS: VANCOMYCIN 1,000 MG in SODIUM CHLORIDE 0.9% 250 ML IVPB SCH (09:54)
[2025-06-02 11:20] VITALS: BMI 20.2
--- NOTE | 2025-06-02 11:33 | P.PN ---
Subjective Progress Note Date: 06/02/25 Reason for consult is left chest wall cellulitis Patient is 60-year-old male with history of CAD, hyperlipidemia, hypertension, seizure disorder with left chest wall vagal nerve stimulator for recurrent sei zures that began to have drainage of purulent material with significant redness and swelling of the left chest wall area with associated pain. 06/02/2025 patient seen and examined at bedside. No acute events overnight. Denied any new complaints or symptoms. Still having chest ache beneath the sti mulator. Erythema has improved. Creatinine 0.87 Objective - Vital Signs Vital signs: Vital Signs Temp 97.7 F 06/02/25 02:00 Pulse 84 06/02/25 02:00 Resp 16 06/02/25 02:00 BP 135/77 06/02/25 02:00 Pulse Ox 99 06/02/25 02:00 FiO2 Intake & Output 06/01/25 06/02/25 06/02/25 18:59 06:59 18:59 Intake Total 200 Balance 200 Intake: Oral 200 Other: Voiding Method Toilet # Voids 2 4 # Bowel Movements 0 - Exam Physical examination: Vital signs reviewed General: non toxic, no distress, appears at stated age Head: atraumatic, normocephalic, symmetric Mouth: no lip lesion, mucus membranes moist Cardiovascular: S1S2 reg, no murmur Lungs: CTA bilateral, no rhonchi, no rales, no accessory muscle use, vagal stimulator noted on left upper chest, open tract of the skin shows minimal brown liquid discharge, no noted tenderness of palpation, erythema improved Abdominal: soft, nondistended, nontender to palpation, no guarding Ext: no gross muscle atrophy, no contractures, positive dorsalis pedis pulse bilateral, no edema Neuro: no gross focal neuro deficits Psych: Alert and oriented x3, appropriate affect and mood - Labs CBC & Chem 7: 06/03/25 05:08 06/03/25 05:08 Labs: Abnormal Lab Results - Last 24 Hours (Table) 06/02/25 Range/Units 06:54 Chloride 113 H (98-107) mmol/L Carbon Dioxide 19 L (22-30) mmol/L BUN 8 L (9-20) mg/dL Assessment and Plan (1) Abscess or cellulitis of chest wall Status: Acute Code(s): XAF1358 - SNOMED Code(s): 208027940 Plan: Patient presented hospital with increasing pain swelling redness to the left chest wall in this patient who did have underlying implantable device/vagal nerve stimulator for recurrent seizure with the symptoms started with a small area of pustule that has been draining/squeezed out by the patient now with concerning for cellulitis and high suspicious for underlying infected implantable device likely from gram-positive skin christal -Blood cultures final results pending -Patient will need removal of the infected device in order to completely cure of this infection. Patient's surgeon in [place] will be available on 06/02. Plan on continuing IV antibiotics until he is transferred to be evaluated by surgeon. This has been explained to the patient and family at bedside in layman term and also discussed with admitting team. Patient verbalized understanding and is amenable to transfer. -Vancomycin pharmacy to dose target trough of 15 while watching kidney function and Vancomycin trough closely. Kristen Amor MD PGY-2 Infectious disease service Patient was personally seen and examined care discussed in detail with the resident physician documentation reviewed and agree, patient remains to be afebrile white count has been normal blood culture negative will treat with vancomycin review clinic response currently waiting for transfer to [place] carmen Henry MD Dictation was produced using [employer] dictation software. please excuse any grammatical, word or spelling errors. Time with Patient: Less than 30
[2025-06-02] MEDS: VANCOMYCIN TROUGH DUE 1 EACH MISC MISCELLANE ONE (12:05)
--- NOTE | 2025-06-02 15:26 | P.PN ---
Subjective Progress Note Date: 06/02/25 Patient is doing well this morning. He continues to have aching pain retrosternally where the vagal nerve stimulator located. He denies chest pain, shortness of breath, nausea, fever, or chills. Planned transfer to [facility] for the stimulator to be removed by Dr. Jaren Mosqueda by tomorrow. Objective - Vital Signs Vital signs: Vital Signs Temp 97.7 F 06/02/25 02:00 Pulse 84 06/02/25 02:00 Resp 16 06/02/25 02:00 BP 135/77 06/02/25 02:00 Pulse Ox 99 06/02/25 02:00 FiO2 Intake & Output 06/01/25 06/01/25 06/02/25 06:59 18:59 06:59 Intake Total 200 Balance 200 Intake: Oral 200 Other: Voiding Method Toilet Toilet # Voids 2 4 # Bowel Movements 0 - Exam VITAL SIGNS: Reviewed GENERAL: Resting comfortably in bed. EYES: PERRL, no scleral injection or icterus. HENT: Normocephalic, atraumatic, hearing grossly intact, moist mucous membranes. CARDIOVASCULAR: S1 and S2 present. No murmurs, rubs, or gallops. Vagal nerve stimulator left anterior chest. PULMONARY: Chest is clear to auscultation, no wheezing, rhonchi, or crackles. ABDOMEN: Soft, nontender, nondistended. No palpable organomegaly. SKIN: Left lateral chest overlying vagal nerve stimulator. No erythema or swelling surrounding the stimulator. Small scab noted, previously seen on exam. No discharge from the scab. NEUROLOGICAL: Alert and oriented. Gross neurological examination with no apparent focal deficits. - Labs CBC & Chem 7: 06/01/25 06:38 06/02/25 06:54 Labs: Abnormal Lab Results - Last 24 Hours (Table) 06/01/25 06/01/25 Range/Units 06:38 06:38 MPV 9.3 L (9.5-12.2) fL Potassium 3.4 L (3.5-5.1) mmol/L Chloride 111 H (98-107) mmol/L Carbon Dioxide 18 L (22-30) mmol/L BUN 8 L (9-20) mg/dL Assessment and Plan Plan: #Chest wall cellulitis overlying implanted nerve stimulator Continue IV vancomycin 1250 mg every 12 hours, monitor renal function and vancomycin trough Preliminary blood culture with no growth CRP and ESR in normal range Chest x-ray with chronic changes, no acute process # Chest ultrasound 05/29 with edema and hypervascularity within the soft tissue surrounding implanted device with a tract to the skin, no definite abscess formation or fluid collection Infectious disease following, discussed plan of care with Dr. Robert, recommends continuing IV vancomycin and transfer of patient to [facility] to remove vagal nerve stimulator. - Waiting for insurance approval for transfer to [facility] #Non-anion gap metabolic acidosis Bicarb 113 , Cl 7 Likely secondary to iatrogenic IV saline (administered with vancomycin), will continue to monitor and add bicarb if necessary Chronic conditions #CAD status post stenting #Ischemic cardiomyopathy with previously known EF of 45 to 50% Continue home meds, aspirin 81 mg daily, atorvastatin 80 mg daily, lisinopril 20 mg daily, metoprolol tartrate 50 mg twice daily Continue amlodipine 5 mg daily #Neurological disorder status post vagal nerve stimulator Continue Topamax 100 mg twice daily, Vimpat 200 mg twice daily, Neurontin 200 mg 3 times daily #Peripheral neuropathy Continue home Cymbalta 60 mg daily, Neurontin 200 mg 3 times daily #Depression and anxiety Continue Cymbalta 60 mg daily DVT ppx: Subq Lovenox 40 meq daily Code status: Full code F: None E: Replete as needed N: Regular diet A: Ambulatory Anticipated discharge time and place: [facility], pending bed availability and insurance authorization Thanh Ingram MD Internal Medicine Resident, PGY1 I have seen and evaluated the patient today. Discussed with the resident and agree with the residents finding and plan as documented in the resident's note. Changes highlighted in blue font.
[2025-06-03 05:16] LABS: Basophils # (A) 0.13 10*3/uL (0.00-0.10); Basophils % (A) 2.2 %; Eosinophils # (A) 0.42 10*3/uL (0.04-0.35); Eosinophils % (A) 7.2 %; HCT 39.6 % (39.6-50.0); HGB 13.5 g/dL (13.0-17.0); Lymphocytes # (A) 2.29 10*3/uL (0.90-5.00); Lymphocytes % (A) 39.2 %; MCH 30.5 pg (27.0-32.0); MCHC 34.1 g/dL (32.0-37.0); MCV 89.6 fL (80.0-97.0); Monocytes # (A) 0.75 10*3/uL (0.20-1.00); Monocytes % (A) 12.8 %; Neutrophils # (A) 2.24 10*3/uL (1.80-7.70); Neutrophils % (A) 38.4 %; Platelet Count 255 10*3/uL (140-440); RBC 4.42 10*6/uL (4.40-5.60); RDW 13.2 % (11.5-14.5); WBC 5.84 10*3/uL (4.50-10.00)
[2025-06-03 05:32] LABS: African American GFR (CKD) >90 (>60 ml/min/1.73 sqM); Anion Gap 7 mmol/L; Blood Urea Nitrogen 11 mg/dL (9-20); Calcium 8.7 mg/dL (8.4-10.2); Carbon Dioxide 19 mmol/L (22-30); Chloride 111 mmol/L (98-107); Glucose 85 mg/dL (74-99); Non-African American GFR(CKD) >90 (>60 ml/min/1.73 sqM); Potassium 3.5 mmol/L (3.5-5.1); Sodium 137 mmol/L (137-145)
[2025-06-03 08:18] VITALS: BP 107/68; PULSE 69; RESP 17; TEMP 98.2
--- NOTE | 2025-06-03 09:18 | P.PN ---
Subjective Progress Note Date: 06/03/25 Reason for consult is left chest wall cellulitis Patient is 60-year-old male with history of CAD, hyperlipidemia, hypertension, seizure disorder with left chest wall vagal nerve stimulator for recurrent sei zures that began to have drainage of purulent material with significant redness and swelling of the left chest wall area with associated pain. 06/03/2025 patient seen and examined at bedside. No acute events overnight. Denied any new complaints or symptoms. Labs: WBC 5.8, creatinine 0.79, Vanco trough 21.3 Objective - Vital Signs Vital signs: Vital Signs Temp 98.2 F 06/03/25 08:00 Pulse 69 06/03/25 08:00 Resp 17 06/03/25 08:00 BP 107/68 06/03/25 08:00 Pulse Ox 98 06/03/25 08:00 FiO2 Intake & Output 06/02/25 06/03/25 06/03/25 18:59 06:59 18:59 Intake Total 450 240 Balance 450 240 Weight 65.771 kg Intake: Oral 450 240 Other: Voiding Method Toilet # Voids 2 5 # Bowel Movements 0 - Exam Physical examination: Vital signs reviewed General: non toxic, no distress, appears at stated age Head: atraumatic, normocephalic, symmetric Mouth: no lip lesion, mucus membranes moist Cardiovascular: S1S2 reg, no murmur Lungs: CTA bilateral, no rhonchi, no rales, no accessory muscle use, vagal stimulator noted on left upper chest, open tract of the skin shows minimal brown liquid discharge, no noted tenderness of palpation, erythema improved Abdominal: soft, nondistended, nontender to palpation, no guarding Ext: no gross muscle atrophy, no contractures, positive dorsalis pedis pulse bilateral, no edema Neuro: no gross focal neuro deficits Psych: Alert and oriented x3, appropriate affect and mood - Labs CBC & Chem 7: 06/03/25 05:08 06/03/25 05:08 Labs: Abnormal Lab Results - Last 24 Hours (Table) 06/03/25 06/03/25 Range/Units 05:08 05:08 MPV 9.3 L (9.5-12.2) fL Eosinophils # 0.42 H (0.04-0.35) 10*3/uL Basophils # 0.13 H (0.00-0.10) 10*3/uL Chloride 111 H (98-107) mmol/L Carbon Dioxide 19 L (22-30) mmol/L Microbiology - Last 24 Hours (Table) 05/28/25 18:27 Blood Culture - Final Blood Assessment and Plan (1) Abscess or cellulitis of chest wall Status: Acute Code(s): [id number] - SNOMED Code(s): 269225716 Plan: Patient presented hospital with increasing pain swelling redness to the left chest wall in this patient who did have underlying implantable device/vagal nerve stimulator for recurrent seizure with the symptoms started with a small area of pustule that has been draining/squeezed out by the patient now with co ncerning for cellulitis and high suspicious for underlying infected implantable device likely from gram-positive skin christal -Blood cultures final results pending -Patient will need removal of the infected device in order to completely cure of this infection. Patient's surgeon in [place] will be available on 06/02. Plan on continuing IV antibiotics until he is transferred to be evaluated by surgeon. This has been explained to the patient and family at bedside in layman term and also discussed with admitting team. Patient verbalized understanding and is amenable to transfer. SW/CM working on discharge needs. -Vancomycin pharmacy to dose target trough of 15 while watching kidney function and Vancomycin trough closely. Kristen Amor MD PGY-2 Infectious disease service Patient care has been discussed in detail with the resident physician lab results have been reviewed, the patient remains to be afebrile blood culture have been negative white count has been normal scheduled for transfer to [facility] this morning to be eval by his neurosurgeon for possible removal of the infected vagal nerve stimulator carmen garrett MD Dictation was produced using [employer] dictation software. please excuse any grammatical, word or spelling errors. Time with Patient: Less than 30
--- NOTE | 2025-06-03 15:24 | P.DS ---
Providers Date of admission: 05/28/25 21:28 Expected date of discharge: 06/03/25 Attending physician: Linnea Levi MD Consults: 05/28/25 21:27 Consult Physician Routine Consulting Provider: Jones Robert Consult Reason/Comments: infection Do you want consulting provider notified?: Yes Primary care physician: Stated None Hospital Course: Discharge diagnoses: Chest wall cellulitis overlying implanted nerve stimulator Chest ultrasound 05/29 with edema and hypervascularity within the soft tissue surrounding implanted device with a tract to the skin, no definite abscess for mation or fluid collection Non-anion gap metabolic acidosis Chronic conditions CAD status post stenting Neurological disorder status post vagal nerve stimulator Peripheral neuropathy Depression and anxiety Hospital course: Patient is a 60 year old male with a pmhx CAD s/p PCI in 2020 and - with 3 stents, hyperlipidemia, seizures s/p vagus nerve stimulator placement. Presented to the Ed today the evaluation of rash on the left chest. It is circular, erythematous, warm with ill-defined borders, with a diameter of 3-4 inches. The rash is on top of the augmenting device of the vagus nerve stimulator that the patient had implanted about a year ago because of his history of seizures. It all started as a small vesicular bump, that the patient claims he has all the time, and he pops it open, and he cleans it up. However, yesterday he did not have hydrogen peroxide at home, and he did not clean it up. When he woke up the next morning, it was morning red and painful to touch. The vesicular lesion is crusted and not draining pus or blood. Denied having chest pain, shortness of breath, abdominal pain, constipation, diarrhea, fever or chills, muscle weakness, tremors, loss of sensation, sore throat. During hospital stay, patient diagnosed with chest wall cellulitis overlying implanted neurostimulator treated with IV vancomycin seen by infectious disease, patient was transferred to [facility] for removal of the implanted neurostimulator. He was also diagnosed with iatrogenic anion gap metabolic acidosis needing IV saline administration with vancomycin. Bicarb 113 is required chloride 7 before transferred. Patient transferred to [facility] in stable condition. Discharged on Lipitor 80 mg, Zestril 20 mg daily, duloxetine 60 mg daily, aspirin 81 daily, gabapentin 200 3 times daily, topiramate 100 mg twice daily, lacosamide 200 mg twice daily, metoprolol 50 mg twice daily. VITAL SIGNS: Reviewed GENERAL: Resting comfortably in bed. EYES: PERRL, no scleral injection or icterus. HENT: Normocephalic, atraumatic, hearing grossly intact, moist mucous membranes. CARDIOVASCULAR: S1 and S2 present. No murmurs, rubs, or gallops. Vagal nerve stimulator left anterior chest. PULMONARY: Chest is clear to auscultation, no wheezing, rhonchi, or crackles. ABDOMEN: Soft, nontender, nondistended. No palpable organomegaly. SKIN: Left lateral chest overlying vagal nerve stimulator. No erythema or swelling surrounding the stimulator. Small scab noted, previously seen on exam. No discharge from the scab. NEUROLOGICAL: Alert and oriented. Gross neurological examination with no apparent focal deficits. Thanh Ingram MD Internal Medicine Resident, PGY1 Dictation was produced using [employer] dictation software. please excuse any grammatical, word or spelling errors. A total of 38 minutes of time were spent preparing this complex discharge summary. Patient was discharged on 06/03/2025. I have seen and evaluated the patient today. Discussed with the resident and agree with the residents finding and plan as documented in the resident's note. Changes highlighted in blue font. Patient Condition at Discharge: Stable Plan - Discharge Summary New Discharge Prescriptions: No Action Atorvastatin [Lipitor] 80 mg PO HS tab lisinopriL [Zestril] 20 mg PO DAILY tab Topiramate [Topamax] 100 mg PO BID Metoprolol Tartrate [Lopressor] 50 mg PO BID-W/MEALS Lacosamide [Vimpat] 200 mg PO BID DULoxetine HCL [Cymbalta] 60 mg PO DAILY Aspirin EC [Ecotrin Low Dose] 81 mg PO DAILY Gabapentin [Neurontin] 200 mg PO TID Discharge Medication List Atorvastatin [Lipitor] 80 mg PO HS tab 04/08/18 [Rx] lisinopriL [Zestril] 20 mg PO DAILY tab 04/08/18 [Rx] DULoxetine HCL [Cymbalta] 60 mg PO DAILY 05/16/21 [History] Aspirin EC [Ecotrin Low Dose] 81 mg PO DAILY 10/09/24 [History] Gabapentin [Neurontin] 200 mg PO TID 10/09/24 [History] Topiramate [Topamax] 100 mg PO BID 10/09/24 [History] Lacosamide [Vimpat] 200 mg PO BID 05/29/25 [History] Metoprolol Tartrate [Lopressor] 50 mg PO BID-W/MEALS 05/29/25 [History] Follow up Appointment(s)/Referral(s): None,Stated [Primary Care Provider] - 1-2 days Activity/Diet/Wound Care/Special Instructions: Patient does not have primary doctor, requesting recommendation or list of accepting physicians
== END 2025-06-03 12:00 | disposition short-term general hospital (02) | DRG 721 ==
LOC: EC 16:33 → 6NMEDSUR 21:27 → OBSVTOIN 21:28 → 6NMEDSUR 22:03 → 4SSUR 05-29 05:06 → 1SOBS 05-29 10:46
PROVIDERS: ADMIT Internal Medicine; ATTEND Internal Medicine
CPT/HCPCS: 36415; 71045; 76604; 80048; 80053; 80202; 83605; 83735; 84100; 85025; 85027; 85610; 85652; 85730; 86140; 87040; 96361; 96365; 96366; 96368; 96372; 96375; 99285